=== PATIENT | female | born 1955 | race Caucasian/White ===

== ENCOUNTER 2017-05-28 04:05 | Inpatient (IN) | payer MEDICAID ==
[~2017-05-28] VITALS: Ht 165.1 cm; Wt 108.9 kg
[~2017-05-28 04:05] MED LIST: GLIPIZIDE5 MG ORAL; LEVOTHYROXINE25 MCG ORAL
--- NOTE | 2017-05-28 04:14 | Emergency Room Report ---
History of Present Illness General Chief Complaint: Altered Mental Status Source: Patient, Family Member, EMS Present Illness HPI The patient was brought in for altered level of consciousness with grunting respirations. There is also evidence of oral trauma. She fell apparently twice yesterday. There was no observed seizure activity. Accu-Chek in the field was 124. She has a history of diabetes. Patient complains about some shoulder pain 4/10 - aching, worse when she moves them. Her mentation according to paramedics is improving even as they have the delivered her here. There is no headache. No nausea vomiting or chest pain per se. Her mentation has been off the past few days and also she has been weak. She has a history of liver problems and low platelets. She had a platelet transfusion several months ago at [facility]. The son does not know if the diagnosis was "cirrhosis". Nature of liver problem unclear. She has diabetes. She is on glypizide. No melena, vomiting, cough. She was incontinent of urine 2 days ago. She has some dysuria. Allergies: Coded Allergies: No Known Allergies (Unverified , 05/28/17) Patient History Past Medical History: see triage record, other - thrombocytopenia, hypothyroid Social History: Denies: smoking Social History Narrative with family Reviewed Nursing Documentation: PMH: Agreed, PSxH: Agreed Nursing Documentation-PMH Past Medical History: No History, Except For Hx Diabetes: Yes Review of Systems All Other Systems: negative except mentioned in HPI Physical Exam Vital Signs Date Time Temp Pulse Resp B/P (MAP) Pulse Ox O2 Delivery O2 Flow Rate FiO2 05/28/17 03:57 102 26 128/64 98 Room Air Sp02 EP Interpretation: reviewed, normal General Appearance: lethargic - but answers questions Head: normocephalic Eyes: bilateral eye normal inspection, bilateral eye PERRL, bilateral eye EOMI ENT: moist mucus membranes - tongue maceration Neck: supple Respiratory: lungs clear, normal breath sounds Cardiovascular #1: regular rate, rhythm Cardiovascular #2: 2+ radial (R) Gastrointestinal: normal inspection, normal bowel sounds, non tender, no mass, non-distended Musculoskeletal: back normal, gait/station normal, normal range of motion, other - some shoulder tenderness with AROM Neurologic: alert, motor strength/tone normal, DTRs symmetric, sensory intact, speech normal, oriented - X2 Psychiatric: other - somewhat lethargic Skin: warm/dry, other - sallo Medical Decision Making Diagnostic Impression: Primary Impression: Sepsis Qualified Codes: A41.9 - Sepsis, unspecified organism Additional Impressions: Seizure Fever Qualified Codes: R50.9 - Fever, unspecified Liver failure Qualified Codes: K72.91 - Hepatic failure, unspecified with coma UTI (urinary tract infection) Qualified Codes: N30.00 - Acute cystitis without hematuria Thrombocytopenia Coagulopathy Hepatic encephalopathy Diabetes Qualified Codes: E11.8 - Type 2 diabetes mellitus with unspecified complications ER Course Patient presents with ALOC, falling episodes and tongue trauma. DDx: seizure, bleed, encephalopathy, electrolyte abnormalities (low sodium), AMI, occult infection. Very complex patient needing extensive w/u with EKG, CT head, labs, UA. Clinically, hx and exam suggests new onset seizure and ativan and keppra begun. Son reports that the patient's muscle and joint aches and felt hot at home. The temperature was done at that time and found to be 103. The cultures lactate ammonia and type and screen are done. The patient was initially set up for a lumbar puncture however because of low platelets and coagulopathy this is contraindicated. Antibiotics are begun empirically and also patient given a dose of Decadron IV. Unable to do LP due to low platelets and coagulopathy. Will treat for presumptuous meningitis. With UTI source, meningitis less likely. Ammonia pending. Ammonia high. Lactulose ordered. Contacted Dr. Mason for admission. Admit MENDOZA. Laboratory Tests Test 05/28/17 04:15 05/28/17 05:48 05/28/17 06:00 05/28/17 08:45 White Blood Count 3.8 K/UL (4.8-10.8) L Red Blood Count 3.72 M/UL (4.20-5.40) L Hemoglobin 10.7 G/DL (12.0-16.0) L Hematocrit 32.2 % (37.0-47.0) L Mean Corpuscular Volume 86 FL (80-99) Mean Corpuscular Hemoglobin 28.8 PG (27.0-31.0) Mean Corpuscular Hemoglobin Concent 33.4 G/DL (32.0-36.0) Red Cell Distribution Width 14.3 % (11.6-14.8) Platelet Count 50 K/UL (150-450) L Mean Platelet Volume 14.4 FL (6.5-10.1) H Neutrophils (%) (Auto) % (45.0-75.0) Lymphocytes (%) (Auto) % (20.0-45.0) Monocytes (%) (Auto) % (1.0-10.0) Eosinophils (%) (Auto) % (0.0-3.0) Basophils (%) (Auto) % (0.0-2.0) Differential Total Cells Counted 100 Neutrophils % (Manual) 72 % (45-75) Lymphocytes % (Manual) 17 % (20-45) L Monocytes % (Manual) 4 % (1-10) Eosinophils % (Manual) 0 % (0-3) Basophils % (Manual) 1 % (0-2) Band Neutrophils 6 % (0-8) Platelet Estimate Decreased L Platelet Morphology Normal Red Blood Cell Morphology Normal Erythrocyte Sedimentation Rate 82 MM/HR (0-30) H Prothrombin Time 13.1 SEC (9.30-11.50) H Prothrombin Time INR 1.2 (0.9-1.1) H Sodium Level 136 mEQ/L (135-145) Potassium Level 3.9 mEQ/L (3.4-4.9) Chloride Level 101 mEQ/L (98-107) Carbon Dioxide Level 21 mEQ/L (20-30) Anion Gap 14 (5-15) Blood Urea Nitrogen 14 mg/dL (7-23) Creatinine 0.9 mg/dL (0.5-0.9) Estimate Glomerular Filtration Rate > 60 mL/min (>60) Glucose Level 140 mg/dL (74-106) H Calcium Level 8.0 mg/dL (8.6-10.2) L Total Bilirubin 2.6 mg/dL (0.0-1.2) H Direct Bilirubin 0.8 mg/dL (0.1-0.3) H Aspartate Amino Transferase (AST) 61 U/L (5-40) H Alanine Aminotransferase (ALT) 31 U/L (3-33) Alkaline Phosphatase 112 U/L (35-104) H Total Creatine Kinase 721 U/L (26-140) H Troponin I < 0.30 ng/mL (<=0.30) Total Protein 7.0 g/dL (6.6-8.7) Albumin 3.0 g/dL (3.5-5.2) L Globulin 4.0 g/dL Albumin/Globulin Ratio 0.7 (1.0-2.7) L Thyroid Stimulating Hormone (TSH) 3.230 uIU/mL (0.300-4.500) Urine Color Yellow Urine Appearance Slightly cloudy Urine pH 5 (4.5-8.0) Urine Specific [place] 1.015 (1.005-1.035) Urine Protein 2+ (NEGATIVE) H Urine Glucose (UA) Negative (NEGATIVE) Urine Ketones Negative (NEGATIVE) Urine Occult Blood 5+ (NEGATIVE) H Urine Nitrite Positive (NEGATIVE) H Urine Bilirubin Negative (NEGATIVE) Urine Urobilinogen 1 MG/DL (0.0-1.0) H Urine Leukocyte Esterase 3+ (NEGATIVE) H Urine RBC 2-4 /HPF (0 - 2) H Urine WBC 60-80 /HPF (0 - 2) H Urine Squamous Epithelial Cells Few /LPF (NONE/OCC) Urine Bacteria Moderate /HPF (NONE) H Urine Opiates Screen Negative (NEGATIVE) Urine Barbiturates Screen Negative (NEGATIVE) Phencyclidine (PCP) Screen Negative (NEGATIVE) Urine Amphetamines Screen Negative (NEGATIVE) Urine Benzodiazepines Screen Negative (NEGATIVE) Urine Cocaine Screen Negative (NEGATIVE) Urine Marijuana (THC) Screen Negative (NEGATIVE) Lactic Acid Level 2.60 mmol/L (0.66-2.22) H 1.20 mmol/L (0.66-2.22) Ammonia 131 umol/L (11-51) H EKG Diagnostic Results Rate: normal Rhythm: NSR ST Segments: no acute changes - sinus arrhythmia Rhythm Strip Diag. Results EP Interpretation: yes Rhythm: NSR, no PVC's, no ectopy Chest X-Ray Diagnostic Results Chest X-Ray Diagnostic Results : Chest X-Ray Ordered: Yes # of Views/Limited/Complete: 1 View Indication: Other EP Interpretation: Yes Interpretation: no effusion, no pneumothorax, other - atelectasis L Impression: Other Electronically Signed by: El Skelton MD CT/MRI/US Diagnostic Results CT/MRI/US Diagnostic Results : Imaging Test Ordered: head Impression no bleed, masses Status: improved Disposition: ADMITTED INPATIENT Condition: Serious El Skelton M.D. May 28, 2017 04:14
[2017-05-28] MEDS ORDERED: levETIRAcetam 500 MG in D5W 110 ML IV ONE (04:15)
[2017-05-28] MEDS ORDERED: LORazepam Inj 2mg/ml 1ml IV ONE (04:15)
[2017-05-28] MEDS ORDERED: levETIRAcetam 500mg vial IV ONE (04:21)
[2017-05-28 04:58] LABS: TROPONIN I < 0.30 ng/mL (<=0.30)
[2017-05-28 04:59] LABS: ALANINE AMINOTRANSFERASE 31 U/L (3-33); ALBUMIN/GLOBULIN RATIO 0.7 (1.0-2.7); ANION GAP 14 (5-15); ASPARTATE AMINO TRANSFERASE 61 U/L (5-40); CARBON DIOXIDE 21 mEQ/L (20-30); CHLORIDE 101 mEQ/L (98-107); CREATININE 0.9 mg/dL (0.5-0.9); GLOMERULAR FILTRATION RATE > 60 mL/min (>60); HEMOLYSIS 4; POTASSIUM 3.9 mEQ/L (3.4-4.9); SODIUM 136 mEQ/L (135-145)
[2017-05-28 05:05] LABS: INR 1.2 (0.9-1.1); PROTHROMBIN TIME 13.1 SEC (9.30-11.50)
[2017-05-28 05:28] LABS: MEAN CORPUSCULAR HEMOGLOBIN 28.8 PG (27.0-31.0); MEAN CORPUSCULAR HGB CONC 33.4 G/DL (32.0-36.0); MEAN CORPUSCULAR VOLUME 86 FL (80-99); MEAN PLATELET VOLUME 14.4 FL (6.5-10.1); RED BLOOD COUNT 3.72 M/UL (4.20-5.40); RED CELL DISTRIBUTION WIDTH 14.3 % (11.6-14.8); WHITE BLOOD COUNT 3.8 K/UL (4.8-10.8)
[2017-05-28 05:30] VITALS: BP 104/62
[2017-05-28 05:33] LABS: PLATELET COUNT 50 K/UL (150-450)
[2017-05-28] MEDS ORDERED: Cefepime HCl 1 GM in D5W 55 ML IVPB ONE (06:00)
[2017-05-28] MEDS ORDERED: Vancomycin 1.5gm/D5W 250ml 250 ML IVPB ONE (06:00)
[2017-05-28] MEDS ORDERED: Dexamethasone 4mg/ml vial IVP ONE (06:00)
[2017-05-28] MEDS ORDERED: Acetaminophen 650 MG SUPP RECTAL ONE (06:15)
[2017-05-28] MEDS ORDERED: Cefepime 1gm vial ONE (06:26)
[2017-05-28 06:37] LABS: APPEARANCE,URINE SLIGHTLY CLOUDY; KETONES,URINE NEGATIVE (NEGATIVE); LEUKOCYTE ESTERASE ,URINE 3+ (NEGATIVE); NITRITE,URINE POSITIVE (NEGATIVE); PH,URINE 5 (4.5-8.0); PROTEIN,URINE 2+ (NEGATIVE); UROBILINOGEN,URINE 1 MG/DL (0.0-1.0)
[2017-05-28 06:46] LABS: BACTERIA,URINE MODERATE /HPF; SQUAMOUS EPITHELIAL CELL,UR FEW /LPF (NONE/OCC); WBC,URINE 60-80 /HPF (0 - 2)
[2017-05-28 07:01] LABS: BILIRUBIN,DIRECT 0.8 mg/dL (0.1-0.3)
[2017-05-28 07:14] LABS: REFLEX LACTIC ACID YES OR NO YES
[2017-05-28 07:28] LABS: BAND NEUTROPHILS % (MANUAL) 6 % (0-8); BASOPHILS % (MANUAL) 1 % (0-2); LYMPHOCYTES % (MANUAL) 17 % (20-45); NEUTROPHILS % (MANUAL) 72 % (45-75); TOTAL CELLS COUNTED 100
[2017-05-28 07:30] LABS: EOSINOPHILS % (MANUAL) 0 % (0-3); PLATELET ESTIMATE DECREASED; PLATELET MORPHOLOGY NORMAL
[2017-05-28] MEDS ORDERED: NS IVLG ONE (07:30)
[2017-05-28] MEDS ORDERED: Lactulose 200 GM in NS Irrig 1000ml 700 ML RECTAL ONE (07:30)
[2017-05-28 07:32] VITALS: BP 135/53
[2017-05-28] MEDS ORDERED: Lactulose 20gm/30ml UDC ONE (07:38)
[2017-05-28 09:00] LABS: ERYTHROCYTE SEDIMENTATION RATE 82 MM/HR (0-30)
--- NOTE | 2017-05-28 09:01 | Diagnostic Imaging Report ---
Indication: ALOC Technique: Continuous helical CT scanning of the head was performed without intravenous contrast material. Axial and coronal 5 mm sections were generated. Radiation dose was minimized using automated exposure control Dose: Total Dose Length Product - DLP [address] Dose Index - CTDIvol(s) 70.38 mGy. Comparison: None Findings: The ventricular system is normal in size and configuration. There is no shift of midline structures. No abnormal extra-axial fluid collections are noted. There is no evidence of intracerebral bleeding. No other abnormal high or low density areas are noted within the brain. Normal prescott-white differentiation. Visualized orbits and sinuses are unremarkable. The calvarium is intact Impression: Normal CT scan of the head without contrast material. This agrees with the preliminary interpretation provided overnight by [facility]erad[facility] service. The CT scanner at [facility] is accredited by the [employer] and the scans are performed using protocols designed to limit radiation exposure to as low as reasonably achievable to attain images of sufficient resolution adequate for diagnostic evaluation.
[2017-05-28] MEDS ORDERED: LORazepam Inj 2mg/ml 1ml IV PRN (10:30)
[2017-05-28] MEDS ORDERED: Morphine Sulfate 2mg/ml Inj IVP PRN (10:30)
[2017-05-28] MEDS ORDERED: Mylanta II UD 30ml ORAL PRN (10:30)
--- NOTE | 2017-05-28 10:51 | Consultation ---
Consult Note Consult Note ID dic # [id number] JOSE ROBERTO CASTRO M.D. May 28, 2017 10:51
[2017-05-28] MEDS: Lactulose 20gm/30ml UDC ORAL SCH ×2 (11:27→17:21)
--- NOTE | 2017-05-28 11:29 | History and Physical ---
History of Present Illness General Date patient seen: May 28, 2017 Reason for Hospitalization: Altered Mental Status Present Illness HPI 62 year old female with hx of Chronic Liver disease ( recent biopsy showing Fatty liver) was brought in for altered level of consciousness. Her nephew witness unusual jerking. Bu he doesn't how if it was shaking or seizures. She fell apparently twice yesterday. There is no observed seizure activity. She is somnolent but opens her eyes when called her name and knows her name to fall sleep again. Allergies: Coded Allergies: No Known Allergies (Unverified , 05/28/17) Medication History Scheduled Glipizide* (Glipizide*), 5 MG ORAL BIDAC, (Reported) Levothyroxine Sodium* (Levothyroxine Sodium*), 25 MCG ORAL DAILY, (Reported) Patient History Healthcare decision maker Resuscitation status Advanced Directive on File Past Medical/Surgical History Past Medical/Surgical History: (1) Diabetes (2) Chronic liver disease Review of Systems All Other Systems: negative except mentioned in HPI Physical Exam General Appearance: WD/WN Lines, tubes and drains: peripheral HEENT: normocephalic, atraumatic Neck: non-tender, normal alignment Respiratory/Chest: chest wall non-tender, lungs clear Breasts: no masses Cardiovascular/Chest: normal peripheral pulses Abdomen: normal bowel sounds Genitourinary/Rectal: normal genital exam, normal rectal exam Extremities: normal range of motion Skin Exam: normal pigmentation 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 Last 24 Hour Vital Signs Date Time Temp Pulse Resp B/P (MAP) Pulse Ox O2 Delivery O2 Flow Rate FiO2 05/28/17 11:03 100.3 89 19 135/53 98 Room Air 05/28/17 07:34 100.3 05/28/17 07:32 100.3 89 19 135/53 98 Room Air 05/28/17 05:30 103.8 96 26 104/62 98 Room Air 05/28/17 03:57 102 26 128/64 98 Room Air Intake and Output 05/28/17 05/29/17 19:00 07:00 Intake Total 2055 ml Balance 2055 ml Intake Oral 0 ml IV Total 2055 ml Laboratory Tests Test 05/28/17 04:15 05/28/17 05:48 05/28/17 06:00 05/28/17 08:45 White Blood Count 3.8 K/UL (4.8-10.8) L Red Blood Count 3.72 M/UL (4.20-5.40) L Hemoglobin 10.7 G/DL (12.0-16.0) L Hematocrit 32.2 % (37.0-47.0) L Mean Corpuscular Volume 86 FL (80-99) Mean Corpuscular Hemoglobin 28.8 PG (27.0-31.0) Mean Corpuscular Hemoglobin Concent 33.4 G/DL (32.0-36.0) Red Cell Distribution Width 14.3 % (11.6-14.8) Platelet Count 50 K/UL (150-450) L Mean Platelet Volume 14.4 FL (6.5-10.1) H Neutrophils (%) (Auto) % (45.0-75.0) Lymphocytes (%) (Auto) % (20.0-45.0) Monocytes (%) (Auto) % (1.0-10.0) Eosinophils (%) (Auto) % (0.0-3.0) Basophils (%) (Auto) % (0.0-2.0) Differential Total Cells Counted 100 Neutrophils % (Manual) 72 % (45-75) Lymphocytes % (Manual) 17 % (20-45) L Monocytes % (Manual) 4 % (1-10) Eosinophils % (Manual) 0 % (0-3) Basophils % (Manual) 1 % (0-2) Band Neutrophils 6 % (0-8) Platelet Estimate Decreased L Platelet Morphology Normal Red Blood Cell Morphology Normal Erythrocyte Sedimentation Rate 82 MM/HR (0-30) H Prothrombin Time 13.1 SEC (9.30-11.50) H Prothromb Time International Ratio 1.2 (0.9-1.1) H Sodium Level 136 mEQ/L (135-145) Potassium Level 3.9 mEQ/L (3.4-4.9) Chloride Level 101 mEQ/L (98-107) Carbon Dioxide Level 21 mEQ/L (20-30) Anion Gap 14 (5-15) Blood Urea Nitrogen 14 mg/dL (7-23) Creatinine 0.9 mg/dL (0.5-0.9) Estimat Glomerular Filtration Rate > 60 mL/min (>60) Glucose Level 140 mg/dL (74-106) H Calcium Level 8.0 mg/dL (8.6-10.2) L Total Bilirubin 2.6 mg/dL (0.0-1.2) H Direct Bilirubin 0.8 mg/dL (0.1-0.3) H Aspartate Amino Transf (AST/SGOT) 61 U/L (5-40) H Alanine Aminotransferase (ALT/SGPT) 31 U/L (3-33) Alkaline Phosphatase 112 U/L (35-104) H Total Creatine Kinase 721 U/L (26-140) H Troponin I < 0.30 ng/mL (<=0.30) Total Protein 7.0 g/dL (6.6-8.7) Albumin 3.0 g/dL (3.5-5.2) L Globulin 4.0 g/dL Albumin/Globulin Ratio 0.7 (1.0-2.7) L Thyroid Stimulating Hormone (TSH) 3.230 uIU/mL (0.300-4.500) Urine Color Yellow Urine Appearance Slightly cloudy Urine pH 5 (4.5-8.0) Urine Specific [place] 1.015 (1.005-1.035) Urine Protein 2+ (NEGATIVE) H Urine Glucose (UA) Negative (NEGATIVE) Urine Ketones Negative (NEGATIVE) Urine Occult Blood 5+ (NEGATIVE) H Urine Nitrite Positive (NEGATIVE) H Urine Bilirubin Negative (NEGATIVE) Urine Urobilinogen 1 MG/DL (0.0-1.0) H Urine Leukocyte Esterase 3+ (NEGATIVE) H Urine RBC 2-4 /HPF (0 - 2) H Urine WBC 60-80 /HPF (0 - 2) H Urine Squamous Epithelial Cells Few /LPF (NONE/OCC) Urine Bacteria Moderate /HPF (NONE) H Urine Opiates Screen Negative (NEGATIVE) Urine Barbiturates Screen Negative (NEGATIVE) Phencyclidine (PCP) Screen Negative (NEGATIVE) Urine Amphetamines Screen Negative (NEGATIVE) Urine Benzodiazepines Screen Negative (NEGATIVE) Urine Cocaine Screen Negative (NEGATIVE) Urine Marijuana (THC) Screen Negative (NEGATIVE) Lactic Acid Level 2.60 mmol/L (0.66-2.22) H 1.20 mmol/L (0.66-2.22) Ammonia 131 umol/L (11-51) H Height (Feet): 5 Height (Inches): 1.00 Weight (Pounds): 300 Medications Current Medications Medications (Trade) Dose Ordered Sig/Antoni Route PRN Reason Start Time Stop Time Status Last Admin Dose Admin Acetaminophen (Tylenol) 650 mg Q4H PRN ORAL fever>100.5 05/28/17 10:00 06/27/17 09:59 Al Hydroxide/Mg Hydroxide (Mylanta II) 30 ml Q6H PRN ORAL dyspepsia 05/28/17 10:30 06/27/17 10:29 Cefepime HCl 2 gm/ Dextrose 110 ml @ 220 mls/hr EVERY 12 HOURS IVPB 05/28/17 14:00 06/04/17 13:59 Dextrose (Dextrose 50%) STAT PRN IV Hypoglycemia 05/28/17 10:30 06/27/17 10:29 Lactulose (Cephulac) 30 gm EVERY 6 HOURS ORAL 05/28/17 12:00 06/27/17 11:59 Lorazepam (Ativan 2mg/ml 1ml) 0.5 mg Q4H PRN IV For Anxiety 05/28/17 10:30 06/04/17 10:29 Morphine Sulfate (Morphine Sulfate) 2 mg Q4H PRN IVP For Pain 05/28/17 10:30 06/04/17 10:29 Ondansetron HCl (Zofran) 4 mg Q6H PRN IVP Nausea & Vomiting 05/28/17 10:30 06/27/17 10:29 Polyethylene Glycol (Miralax) 17 gm HSPRN PRN ORAL Constipation 05/28/17 21:00 06/27/17 20:59 Zolpidem Tartrate (Ambien) 5 mg HSPRN PRN ORAL Insomnia 05/28/17 21:00 06/04/17 20:59 Assessment/Plan Problem List: (1) Sepsis ICD Codes: A41.9 - Sepsis, unspecified organism SNOMED: 24787634 (2) Seizure ICD Codes: R56.9 - Unspecified convulsions SNOMED: 94125682 (3) Fever ICD Codes: R50.9 - Fever, unspecified SNOMED: 701479397 (4) Hepatic encephalopathy ICD Codes: K72.90 - Hepatic failure, unspecified without coma SNOMED: 81754800 (5) Chronic liver disease ICD Codes: K76.9 - Liver disease, unspecified SNOMED: 742959437 (6) Thrombocytopenia ICD Codes: D69.6 - Thrombocytopenia, unspecified SNOMED: 440818677 (7) Coagulopathy ICD Codes: D68.9 - Coagulation defect, unspecified SNOMED: 11218714 Assessment/Plan ruiz cultures lactulose IV abx liver studies GI evaluation Neuro evaluation siding scale. MELISSA MYERS May 28, 2017 11:29
[2017-05-28 11:43] VITALS: BP 107/62
--- NOTE | 2017-05-28 12:50 | GI Initial Consult Note ---
History of Present Illness General Date patient seen: May 28, 2017 Time patient seen: 12:00 Reason for Hospitalization: Altered Mental Status Referring physician: MELISSA SANCHEZ Reason for Consultation: HEPATIC ENCEPHALOPATHY Present Illness HPI The patient was brought in for altered level of consciousness with grunting respirations. There is also evidence of oral trauma. She fell apparently twice yesterday. There is no observed seizure activity. Accu-Chek in the field was 124. She has a history of diabetes. Patient complains about 10 pain and shoulder pain. Her mentation according to paramedics is improving even as they have the liver here. There is no headache. No nausea vomiting or chest pain per se. GI Consult. HPI as noted above. GI consulted for hepatic encephalopathy. ROS limited, patient has slight confusing. Pt seen on floor awake A&O NAD with no active s/sx of N/V/D. Per the nephew the patient mental baseline was altered prior to being admitted to the hospital. The nephew states the patient has had multiple abdominal U/S's that showed fatty liver. No known history of endoscopic procedures. Patient presents today with elevated lactic acid, abnormal LFTs and elevated ammonia levels 2/2 to hepatic disease of unknown origin. The nephew denies any current or past history of heavy ETOH use. Home Meds Reported Medications Levothyroxine Sodium* (LEVOTHYROXINE SODIUM*) 25 Mcg Tablet, 25 MCG ORAL DAILY, TAB Take in the morning on an empty stomach, at least 30 minutes before food. 05/28/17 Glipizide* (GLIPIZIDE*) 5 Mg Tablet, 5 MG ORAL BIDAC, TAB 05/28/17 Med list reviewed/reconciled: Yes Allergies: Coded Allergies: No Known Allergies (Unverified , 05/28/17) Patient History PMH Narrative Social History Narrative with family Reviewed Nursing Documentation: PMH: Agreed, PSxH: Agreed Nursing Documentation-PMH Past Medical History: No History, Except For Hx Diabetes: Yes Social History: Denies: smoking, alcohol use, drug use, other Review of Systems All Other Systems: limited Physical Exam Vital Signs Date Time Temp Pulse Resp B/P (MAP) Pulse Ox O2 Delivery O2 Flow Rate FiO2 05/28/17 03:57 102 26 128/64 98 Room Air 05/28/17 05:30 103.8 Sp02 EP Interpretation: reviewed Labs Laboratory Tests Test 05/28/17 04:15 05/28/17 05:48 05/28/17 06:00 05/28/17 08:45 White Blood Count 3.8 K/UL (4.8-10.8) L Red Blood Count 3.72 M/UL (4.20-5.40) L Hemoglobin 10.7 G/DL (12.0-16.0) L Hematocrit 32.2 % (37.0-47.0) L Mean Corpuscular Volume 86 FL (80-99) Mean Corpuscular Hemoglobin 28.8 PG (27.0-31.0) Mean Corpuscular Hemoglobin Concent 33.4 G/DL (32.0-36.0) Red Cell Distribution Width 14.3 % (11.6-14.8) Platelet Count 50 K/UL (150-450) L Mean Platelet Volume 14.4 FL (6.5-10.1) H Neutrophils (%) (Auto) % (45.0-75.0) Lymphocytes (%) (Auto) % (20.0-45.0) Monocytes (%) (Auto) % (1.0-10.0) Eosinophils (%) (Auto) % (0.0-3.0) Basophils (%) (Auto) % (0.0-2.0) Differential Total Cells Counted 100 Neutrophils % (Manual) 72 % (45-75) Lymphocytes % (Manual) 17 % (20-45) L Monocytes % (Manual) 4 % (1-10) Eosinophils % (Manual) 0 % (0-3) Basophils % (Manual) 1 % (0-2) Band Neutrophils 6 % (0-8) Platelet Estimate Decreased L Platelet Morphology Normal Red Blood Cell Morphology Normal Erythrocyte Sedimentation Rate 82 MM/HR (0-30) H Prothrombin Time 13.1 SEC (9.30-11.50) H Prothromb Time International Ratio 1.2 (0.9-1.1) H Sodium Level 136 mEQ/L (135-145) Potassium Level 3.9 mEQ/L (3.4-4.9) Chloride Level 101 mEQ/L (98-107) Carbon Dioxide Level 21 mEQ/L (20-30) Anion Gap 14 (5-15) Blood Urea Nitrogen 14 mg/dL (7-23) Creatinine 0.9 mg/dL (0.5-0.9) Estimat Glomerular Filtration Rate > 60 mL/min (>60) Glucose Level 140 mg/dL (74-106) H Calcium Level 8.0 mg/dL (8.6-10.2) L Total Bilirubin 2.6 mg/dL (0.0-1.2) H Direct Bilirubin 0.8 mg/dL (0.1-0.3) H Aspartate Amino Transf (AST/SGOT) 61 U/L (5-40) H Alanine Aminotransferase (ALT/SGPT) 31 U/L (3-33) Alkaline Phosphatase 112 U/L (35-104) H Total Creatine Kinase 721 U/L (26-140) H Troponin I < 0.30 ng/mL (<=0.30) Total Protein 7.0 g/dL (6.6-8.7) Albumin 3.0 g/dL (3.5-5.2) L Globulin 4.0 g/dL Albumin/Globulin Ratio 0.7 (1.0-2.7) L Thyroid Stimulating Hormone (TSH) 3.230 uIU/mL (0.300-4.500) Urine Color Yellow Urine Appearance Slightly cloudy Urine pH 5 (4.5-8.0) Urine Specific [place] 1.015 (1.005-1.035) Urine Protein 2+ (NEGATIVE) H Urine Glucose (UA) Negative (NEGATIVE) Urine Ketones Negative (NEGATIVE) Urine Occult Blood 5+ (NEGATIVE) H Urine Nitrite Positive (NEGATIVE) H Urine Bilirubin Negative (NEGATIVE) Urine Urobilinogen 1 MG/DL (0.0-1.0) H Urine Leukocyte Esterase 3+ (NEGATIVE) H Urine RBC 2-4 /HPF (0 - 2) H Urine WBC 60-80 /HPF (0 - 2) H Urine Squamous Epithelial Cells Few /LPF (NONE/OCC) Urine Bacteria Moderate /HPF (NONE) H Urine Opiates Screen Negative (NEGATIVE) Urine Barbiturates Screen Negative (NEGATIVE) Phencyclidine (PCP) Screen Negative (NEGATIVE) Urine Amphetamines Screen Negative (NEGATIVE) Urine Benzodiazepines Screen Negative (NEGATIVE) Urine Cocaine Screen Negative (NEGATIVE) Urine Marijuana (THC) Screen Negative (NEGATIVE) Lactic Acid Level 2.60 mmol/L (0.66-2.22) H 1.20 mmol/L (0.66-2.22) Ammonia 131 umol/L (11-51) H General Appearance: no apparent distress, alert, obese, other - periods of confusion Head: normocephalic EENT: PERRL/EOMI, normal ENT inspection Neck: supple Respiratory: normal breath sounds, no respiratory distress Cardiovascular: normal rate Gastrointestinal: normal inspection, non tender, soft Rectal: deferred Musculoskeletal: back normal Neurologic: alert Skin: normal inspection, normal color, no rash, warm/dry Lymphatic: normal inspection, no adenopathy Current Medications Current Medications Medications (Trade) Dose Ordered Sig/Antoni Route PRN Reason Start Time Stop Time Status Last Admin Dose Admin Acetaminophen (Tylenol) 650 mg Q4H PRN ORAL fever>100.5 05/28/17 10:00 06/27/17 09:59 Al Hydroxide/Mg Hydroxide (Mylanta II) 30 ml Q6H PRN ORAL dyspepsia 05/28/17 10:30 06/27/17 10:29 Cefepime HCl 2 gm/ Dextrose 110 ml @ 220 mls/hr EVERY 12 HOURS IVPB 05/28/17 14:00 06/04/17 13:59 Dextrose (Dextrose 50%) STAT PRN IV Hypoglycemia 05/28/17 10:30 06/27/17 10:29 Lactulose (Cephulac) 30 gm EVERY 6 HOURS ORAL 05/28/17 12:00 06/27/17 11:59 05/28/17 11:27 Lorazepam (Ativan 2mg/ml 1ml) 0.5 mg Q4H PRN IV For Anxiety 05/28/17 10:30 06/04/17 10:29 Morphine Sulfate (Morphine Sulfate) 2 mg Q4H PRN IVP For Pain 05/28/17 10:30 06/04/17 10:29 Ondansetron HCl (Zofran) 4 mg Q6H PRN IVP Nausea & Vomiting 05/28/17 10:30 06/27/17 10:29 Polyethylene Glycol (Miralax) 17 gm HSPRN PRN ORAL Constipation 05/28/17 21:00 06/27/17 20:59 Sodium Chloride 1,000 ml @ 50 mls/hr Q20H IV 05/28/17 12:30 06/27/17 12:29 UNV Zolpidem Tartrate (Ambien) 5 mg HSPRN PRN ORAL Insomnia 9/25/17 21:00 06/04/17 20:59 GI: Plan Problems: (1) Anemia (2) Liver failure (3) Thrombocytopenia (4) Hepatic encephalopathy (5) Diabetes Plan Head CT >> negative EGD/colonoscopy tentatively scheduled for Sunday - low sodium diet after imaging study, CLD tomorrow. anemia work up OB stool r/o GI bleed ppi cont lactulose, add Xifaxan fu hepatitis panel fu abdominal U/S fu paracentesis monitor H&H, prn transfusion fu labs Discussed with Dr. Madden. Thank you for referring this patient, we will follow. Kassidy Swain N.P. May 28, 2017 12:50
[2017-05-28] MEDS: Cefepime 2gm in D5W 110ml IVPB SCH ×2 (13:28→20:55)
[2017-05-28] MEDS ORDERED: Cefepime HCl 1 GM in D5W 55 ML IV SCH (14:00)
--- NOTE | 2017-05-28 15:57 | Diagnostic Imaging Report ---
Indication: Cough Technique: One view of the chest Comparison: none Findings: Body habitus limits evaluation. The heart is mildly enlarged. There is equivocal mild interstitial congestion. No focal airspace consolidation. The pleural spaces are clear. Impression: Equivocal mild interstitial congestion. Correlate with clinical findings Cardiomegaly This agrees with the preliminary interpretation provided by the emergency room physician
[2017-05-28 16:00] VITALS: BP 104/61
--- NOTE | 2017-05-28 16:57 | Diagnostic Imaging Report ---
Indication: ABD PAIN abdominal distention Technique: Diaz-scale and duplex images of the upper abdomen were obtained Comparison: None Findings: Gallbladder demonstrates wall thickening, gallbladder wall measuring up to 10 mm thick. There is also trace pericholecystic fluid. There are gallstones. Sonographic Acevedo's is unable to be assessed, patient had pain medication prior to the exam. Common bile duct measures 6 mm in diameter. No intrahepatic biliary ductal dilatation. Liver demonstrates coarsened echogenicity. It also demonstrates surface micro-nodularity. No focal abnormality. Portal vein and hepatic veins are patent. Pancreas is unremarkable. The spleen is enlarged, measures 15.5 cm long axis dimension. There are splenic hilar varices noted. Left kidney measures 13 cm in length. Right kidney measures 12.3 cm length. Both kidneys demonstrate normal echogenicity. There is no hydronephrosis. No focal abnormality . Abdominal aorta is partially obscured by bowel gas, visualized portions are non-aneurysmal . No ascites fluid demonstrated Impression: Evidence of hepatic cirrhosis, with coarsened echotexture and surface nodularity Gallbladder wall thickening, likely secondary to the above. However, there are gallstones, and therefore the possibility of acute cholecystitis should also be considered. Consider nuclear medicine hepatobiliary scan if there is high clinical suspicion Splenomegaly Splenic hilar varices Note inability to visualize portions of the abdominal aorta
[2017-05-28 20:00] VITALS: BP 114/61
[2017-05-28] MEDS ORDERED: Zolpidem 5mg tab ORAL PRN (21:00)
[2017-05-28] MEDS ORDERED: Miralax 17gm pkt ORAL PRN (21:00)
[2017-05-29] VITALS: BP 108/58
[2017-05-29] MEDS: Lactulose 20gm/30ml UDC ORAL SCH ×4 (00:50→17:14)
[2017-05-29 04:00] VITALS: BP 92/52
[2017-05-29 04:57] LABS: MEAN CORPUSCULAR HEMOGLOBIN 29.2 PG (27.0-31.0); MEAN CORPUSCULAR HGB CONC 33.2 G/DL (32.0-36.0); MEAN CORPUSCULAR VOLUME 88 FL (80-99); PLATELET COUNT 41 K/UL (150-450); RED BLOOD COUNT 3.31 M/UL (4.20-5.40); RED CELL DISTRIBUTION WIDTH 14.7 % (11.6-14.8); WHITE BLOOD COUNT 5.3 K/UL (4.8-10.8)
[2017-05-29 05:27] LABS: ALANINE AMINOTRANSFERASE 30 U/L (3-33); ALBUMIN/GLOBULIN RATIO 0.7 (1.0-2.7); ANION GAP 10 (5-15); ASPARTATE AMINO TRANSFERASE 57 U/L (5-40); CALCIUM 7.8 mg/dL (8.6-10.2); CARBON DIOXIDE 19 mEQ/L (20-30); CHLORIDE 110 mEQ/L (98-107); CHOLESTEROL 84 mg/dL (< 200); CHOLESTEROL/HDL RATIO 2.3 (3.3-4.4); CREATININE 0.6 mg/dL (0.5-0.9); GLOMERULAR FILTRATION RATE > 60 mL/min (>60); HEMOLYSIS 2; LDL CHOLESTEROL CALC 35 mg/dL (60-99); SODIUM 139 mEQ/L (135-145); TOTAL PROTEIN 6.3 g/dL (6.6-8.7)
[2017-05-29 05:30] LABS: AMMONIA 126 umol/L (11-51)
[2017-05-29 05:33] LABS: BILIRUBIN,DIRECT 0.5 mg/dL (0.1-0.3); TOTAL PROTEIN 6.1 g/dL (6.6-8.7)
[2017-05-29 05:38] LABS: THYROID STIMULATING HORMONE 0.703 uIU/mL (0.300-4.500)
[2017-05-29 08:00] VITALS: BP 93/41
--- NOTE | 2017-05-29 08:16 | Consultation ---
DATE OF CONSULTATION: 05/28/2017 INFECTIOUS DISEASES CONSULTATION CONSULTING PHYSICIAN: Ike Russell M.D. REFERRING PHYSICIAN: Alexis Mason M.D. Reason For Consultation: Evaluation of the patient for fever, urinary tract infection, and antibiotic management. History Of Present Illness: The patient is a 62-year-old female, who was brought to the hospital due to altered level of consciousness and pulseless seizure disorder. The patient was found to be febrile and suggestive of a urinary tract infection. The patient will be started on IV cefepime. Infectious Disease consultation has been requested for further evaluation of the patient and antibiotic management. Much of the information is gathered through review of the chart and the patient's family. PAST MEDICAL HISTORY: Significant for: 1. Diabetes. 2. Seizure disorder. 3. Hypothyroidism. 4. Hypertension. 5. Diabetes. MEDICATION: IV cefepime. ALLERGIES: She has no known drug allergies. SOCIAL HISTORY: The patient lives at home. FAMILY HISTORY: Noncontributory. PHYSICAL EXAMINATION: Vital Signs: Temperature is 98, blood pressure 104/69, pulse 86, respiratory rate 18, and T-max 103.8. HEENT: Mild pale conjunctiva. No icterus. NECK: No lymphadenopathy. CHEST: Clear. HEART: S1 and S2. ABDOMEN: Soft and nontender. EXTREMITIES: No cyanosis at this time. NEUROLOGICAL: Awake. Laboratory Data: White blood cells 3, hemoglobin 10, and platelets 50,000. UA 16 to 18 white blood cells, 2 to 4 red blood cells. BUN 14 and creatinine 0.3. AST 61, ALT 51, and alkaline phosphatase is 112. Bilirubin 2.6. Diagnostic Data: Ultrasound of the abdomen, gallbladder wall thickening and gallstones. Chest x-ray showed cardiomegaly. Head CT unremarkable. Assessment: The patient is a 62-year-old female with multiple medical problems, who was admitted to this medical center due to altered level of consciousness. Altered level of consciousness has improved and possible seizure disorder. The patient has: 1. Abnormal liver function tests. Ultrasound showed the gallbladder wall thickening and gallstones, rule out cholecystitis. 2. Pyuria, rule out urinary tract infection. 3. Rule out bacteremia. 4. Leukopenia, anemia, and thrombocytopenia. 5. Rule out human immunodeficiency virus. 6. Rule out West Nile virus. 7. Encephalitis. PLAN: We will put the patient on: 1. IV cefepime. 2. Monitor CBC. 3. Monitor BMP. 4. Monitor cultures, blood and urine. 5. Anti-virus antibody. 6. HIDA scan. 7. Monitor liver function test. 8. Hepatitis B and C serology. 9. Based on the patient's clinical course and laboratories, we will defer the recommendation. Thank you Dr. Mason for allowing me to participate in the care of this patient. I will follow the patient with you during this hospitalization. Ike Russell M.D. DR: SANAZ JOB#: [id number] CC:
[2017-05-29 08:39] LABS: BAND NEUTROPHILS % (MANUAL) 2 % (0-8); LYMPHOCYTES % (MANUAL) 8 % (20-45); NEUTROPHILS % (MANUAL) 80 % (45-75); TOTAL CELLS COUNTED 100
[2017-05-29 08:41] LABS: BASOPHILS % (MANUAL) 0 % (0-2); EOSINOPHILS % (MANUAL) 0 % (0-3); PLATELET ESTIMATE DECREASED; PLATELET MORPHOLOGY NORMAL
[2017-05-29] MEDS: Cefepime 2gm in D5W 110ml IVPB SCH ×2 (09:17→20:47)
[2017-05-29 12:00] VITALS: BP 117/66
--- NOTE | 2017-05-29 12:03 | Pulmonology Progress Note ---
Assessment/Plan Problems: (1) Sepsis (2) Seizure (3) Fever (4) Hepatic encephalopathy (5) Chronic liver disease (6) Thrombocytopenia (7) Coagulopathy Assessment/Plan has episodes of bradycardia, cardiology called plt are low, Hematology called check labs in am check cultures continue abx Subjective ROS Limited/Unobtainable: No Constitutional: Reports: no symptoms HEENT: Repors: no symptoms Allergies: Coded Allergies: No Known Allergies (Unverified , 05/28/17) Objective Last 24 Hour Vital Signs Date Time Temp Pulse Resp B/P (MAP) Pulse Ox O2 Delivery O2 Flow Rate FiO2 05/29/17 08:00 97.1 59 18 93/41 99 Room Air 05/29/17 08:00 51 05/29/17 04:00 58 05/29/17 04:00 97.2 58 18 92/52 99 Room Air 05/29/17 00:00 55 05/29/17 00:00 97.9 57 18 108/58 99 Room Air 05/28/17 20:00 58 05/28/17 20:00 97.3 70 18 114/61 99 Room Air 05/28/17 16:00 98.1 76 18 104/61 99 Room Air 05/28/17 16:00 72 Intake and Output 05/29/17 05/30/17 19:00 07:00 Intake Total 440 ml Balance 440 ml Intake Oral 120 ml IV Total 320 ml General Appearance: WD/WN HEENT: normocephalic, atraumatic Respiratory/Chest: chest wall non-tender, lungs clear Breasts: no masses Cardiovascular: normal peripheral pulses, normal rate, regular rhythm Abdomen: normal bowel sounds, soft, non tender Genitourinary: normal external genitalia Extremities: no clubbing Neurologic/Psychiatric: metal mover II-XII grossly normal, no motor/sensory deficits Lymphatic: no neck adenopathy Microbiology Date/Time Source Procedure Growth Status 05/28/17 05:48 Urine,Clean Catch Urine Culture - Preliminary Gram Negative Bacillus 1 Resulted Laboratory Tests 05/29/17 03:35: White Blood Count 5.3, Red Blood Count 3.31L, Hemoglobin 9.7L, Hematocrit 29.1L , Mean Corpuscular Volume 88, Mean Corpuscular Hemoglobin 29.2, Mean Corpuscular Hemoglobin Concent 33.2, Red Cell Distribution Width 14.7, Platelet Count 41L, Mean Platelet Volume 11.0H, Neutrophils (%) (Auto) , Lymphocytes (%) (Auto) , Monocytes (%) (Auto) , Eosinophils (%) (Auto) , Basophils (%) (Auto) , Differential Total Cells Counted 100, Neutrophils % (Manual) 80H, Lymphocytes % (Manual) 8L, Monocytes % (Manual) 10, Eosinophils % (Manual) 0, Basophils % ( Manual) 0, Band Neutrophils 2, Platelet Estimate DecreasedL, Platelet Morphology Normal, Red Blood Cell Morphology Normal, Sodium Level 139, Potassium Level 4.0, Chloride Level 110H, Carbon Dioxide Level 19L, Anion Gap 10 , Blood Urea Nitrogen 17, Creatinine 0.6, Estimat Glomerular Filtration Rate > 60, Glucose Level 157H, Calcium Level 7.8L, Iron Level 30L, Total Iron Binding Capacity 259, Percent Iron Saturation 12L, Unsaturated Iron Binding 229, Total Bilirubin 1.5H, Direct Bilirubin 0.5H, Aspartate Amino Transf (AST/SGOT) 57H, Alanine Aminotransferase (ALT/SGPT) 30, Alkaline Phosphatase 72, Ammonia 126H, Total Protein 6.3L, Albumin 2.7L, Globulin 3.6, Albumin/Globulin Ratio 0.7L, Triglycerides Level 60, Cholesterol Level 84, LDL Cholesterol 35L, HDL Cholesterol 37, Cholesterol/HDL Ratio 2.3L, Carcinoembryonic Antigen 3.6H, Vitamin B12 Level 125L, Folate [Pending], Thyroid Stimulating Hormone (TSH) 0.703, Free Thyroxine 0.91, West Nile Virus IgG Antibody [Pending], West Nile Virus IgM Antibody [Pending], Hepatitis A IgM Antibody [Pending], Hepatitis B Surface Antigen [Pending], Hepatitis B Core IgM Antibody [Pending], Hepatitis C Antibody [Pending] Current Medications Medications (Trade) Dose Ordered Sig/Antoni Route PRN Reason Start Time Stop Time Status Last Admin Dose Admin Acetaminophen (Tylenol) 650 mg Q4H PRN ORAL fever>100.5 05/28/17 10:00 06/27/17 09:59 Al Hydroxide/Mg Hydroxide (Mylanta II) 30 ml Q6H PRN ORAL dyspepsia 05/28/17 10:30 06/27/17 10:29 Cefepime HCl 2 gm/ Dextrose 110 ml @ 220 mls/hr EVERY 12 HOURS IVPB 05/28/17 14:00 06/04/17 13:59 05/29/17 09:17 Dextrose (Dextrose 50%) STAT PRN IV Hypoglycemia 05/29/17 12:00 06/28/17 11:59 Insulin Aspart (NovoLOG) BEFORE MEALS AND HS SUBQ 05/29/17 16:30 06/28/17 16:29 Lactulose (Cephulac) 30 gm EVERY 6 HOURS ORAL 05/28/17 12:00 06/27/17 11:59 05/29/17 00:50 Levothyroxine Sodium (Synthroid) 25 mcg ACBREAKFAST ORAL 05/30/17 06:30 06/29/17 06:29 Lorazepam (Ativan 2mg/ml 1ml) 0.5 mg Q4H PRN IV For Anxiety 05/28/17 10:30 06/04/17 10:29 Morphine Sulfate (Morphine Sulfate) 2 mg Q4H PRN IVP For Pain 05/28/17 10:30 06/04/17 10:29 Ondansetron HCl (Zofran) 4 mg Q6H PRN IVP Nausea & Vomiting 05/28/17 10:30 06/27/17 10:29 Polyethylene Glycol (Miralax) 17 gm HSPRN PRN ORAL Constipation 05/28/17 21:00 06/27/17 20:59 Rifaximin (Xifaxan) 550 mg EVERY 12 HOURS ORAL 05/28/17 21:00 06/04/17 20:59 05/29/17 09:17 Sodium Chloride 1,000 ml @ 50 mls/hr Q20H IV 05/28/17 14:00 06/27/17 13:59 05/29/17 10:30 Zolpidem Tartrate (Ambien) 5 mg HSPRN PRN ORAL Insomnia 05/28/17 21:00 06/04/17 20:59 MELISSA MYERS May 29, 2017 12:03
--- NOTE | 2017-05-29 13:07 | Neurology Progress Note ---
Interim History Interim History ROS Limited/Unobtainable: No Objective Physical Exam Last Vital Signs Date Time Temp Pulse Resp B/P (MAP) Pulse Ox O2 Delivery O2 Flow Rate FiO2 05/29/17 08:00 97.1 59 18 93/41 99 Room Air Laboratory Tests Test 05/29/17 03:35 White Blood Count 5.3 K/UL (4.8-10.8) Red Blood Count 3.31 M/UL (4.20-5.40) L Hemoglobin 9.7 G/DL (12.0-16.0) L Hematocrit 29.1 % (37.0-47.0) L Mean Corpuscular Volume 88 FL (80-99) Mean Corpuscular Hemoglobin 29.2 PG (27.0-31.0) Mean Corpuscular Hemoglobin Concent 33.2 G/DL (32.0-36.0) Red Cell Distribution Width 14.7 % (11.6-14.8) Platelet Count 41 K/UL (150-450) L Mean Platelet Volume 11.0 FL (6.5-10.1) H Neutrophils (%) (Auto) % (45.0-75.0) Lymphocytes (%) (Auto) % (20.0-45.0) Monocytes (%) (Auto) % (1.0-10.0) Eosinophils (%) (Auto) % (0.0-3.0) Basophils (%) (Auto) % (0.0-2.0) Differential Total Cells Counted 100 Neutrophils % (Manual) 80 % (45-75) H Lymphocytes % (Manual) 8 % (20-45) L Monocytes % (Manual) 10 % (1-10) Eosinophils % (Manual) 0 % (0-3) Basophils % (Manual) 0 % (0-2) Band Neutrophils 2 % (0-8) Platelet Estimate Decreased L Platelet Morphology Normal Red Blood Cell Morphology Normal Sodium Level 139 mEQ/L (135-145) Potassium Level 4.0 mEQ/L (3.4-4.9) Chloride Level 110 mEQ/L (98-107) H Carbon Dioxide Level 19 mEQ/L (20-30) L Anion Gap 10 (5-15) Blood Urea Nitrogen 17 mg/dL (7-23) Creatinine 0.6 mg/dL (0.5-0.9) Estimat Glomerular Filtration Rate > 60 mL/min (>60) Glucose Level 157 mg/dL (74-106) H Calcium Level 7.8 mg/dL (8.6-10.2) L Iron Level 30 ug/dL (37-145) L Total Iron Binding Capacity 259 ug/dL (250-400) Percent Iron Saturation 12 % (15-50) L Unsaturated Iron Binding 229 ug/dL (112-346) Total Bilirubin 1.5 mg/dL (0.0-1.2) H Direct Bilirubin 0.5 mg/dL (0.1-0.3) H Aspartate Amino Transf (AST/SGOT) 57 U/L (5-40) H Alanine Aminotransferase (ALT/SGPT) 30 U/L (3-33) Alkaline Phosphatase 72 U/L (35-104) Ammonia 126 umol/L (11-51) H Total Protein 6.3 g/dL (6.6-8.7) L Albumin 2.7 g/dL (3.5-5.2) L Globulin 3.6 g/dL Albumin/Globulin Ratio 0.7 (1.0-2.7) L Triglycerides Level 60 mg/dL (< 150) Cholesterol Level 84 mg/dL (< 200) LDL Cholesterol 35 mg/dL (60-99) L HDL Cholesterol 37 mg/dL (> 60) Cholesterol/HDL Ratio 2.3 (3.3-4.4) L Carcinoembryonic Antigen 3.6 ng/mL H Vitamin B12 Level 125 pg/mL (211-946) L Folate Pending Thyroid Stimulating Hormone (TSH) 0.703 uIU/mL (0.300-4.500) Free Thyroxine 0.91 ng/dL (0.86-1.85) West Nile Virus IgG Antibody Pending West Nile Virus IgM Antibody Pending Hepatitis A IgM Antibody Pending Hepatitis B Surface Antigen Pending Hepatitis B Core IgM Antibody Pending Hepatitis C Antibody Pending Impression/Recommendations Recommendations #[id number] PINA PRITCHARD May 29, 2017 13:07
--- NOTE | 2017-05-29 14:36 | GI Progress Note ---
Assessment/Plan Problems: (1) Anemia ICD Codes: D64.9 - Anemia, unspecified SNOMED: 459790251 (2) Hepatic encephalopathy ICD Codes: K72.90 - Hepatic failure, unspecified without coma SNOMED: 22108465 (3) Diabetes ICD Codes: E11.9 - Type 2 diabetes mellitus without complications SNOMED: 48604274 Qualifiers: Qualified Codes: E11.8 - Type 2 diabetes mellitus with unspecified complications (4) Liver failure ICD Codes: K72.90 - Hepatic failure, unspecified without coma SNOMED: 34655896 Qualifiers: Qualified Codes: K72.91 - Hepatic failure, unspecified with coma (5) Chronic liver disease ICD Codes: K76.9 - Liver disease, unspecified SNOMED: 519694244 (6) Thrombocytopenia ICD Codes: D69.6 - Thrombocytopenia, unspecified SNOMED: 932080903 Status: unchanged Status Narrative Discussed with Dr. Madden. Assessment/Plan Head CT >> negative abdominal U/S reviewed >> cirrhosis hold off EGD/colonoscopy given bradycardia and hypotension >> will need cardiac clearance prior to GI procedures iron deficient >> venofer B12 deficiency >> will replace OB stool r/o GI bleed ppi cont lactulose, add Xifaxan >> repeat ammonia levels fu hepatitis panel fu paracentesis monitor H&H, prn transfusion fu labs obtain any imaging studies and/or biopsy reports from primary care Subjective Subjective feels better ambulating to the bathroom Objective Last 24 Hour Vital Signs Date Time Temp Pulse Resp B/P (MAP) Pulse Ox O2 Delivery O2 Flow Rate FiO2 05/29/17 12:00 97.8 60 18 117/66 99 Room Air 05/29/17 12:00 58 05/29/17 08:00 97.1 59 18 93/41 99 Room Air 05/29/17 08:00 51 05/29/17 04:00 58 05/29/17 04:00 97.2 58 18 92/52 99 Room Air 05/29/17 00:00 55 05/29/17 00:00 97.9 57 18 108/58 99 Room Air 05/28/17 20:00 58 05/28/17 20:00 97.3 70 18 114/61 99 Room Air 05/28/17 16:00 98.1 76 18 104/61 99 Room Air 05/28/17 16:00 72 Intake and Output 05/29/17 05/30/17 19:00 07:00 Intake Total 440 ml Balance 440 ml Intake Oral 120 ml IV Total 320 ml # Bowel Movements 1 Laboratory Tests Test 05/29/17 03:35 White Blood Count 5.3 K/UL (4.8-10.8) Red Blood Count 3.31 M/UL (4.20-5.40) L Hemoglobin 9.7 G/DL (12.0-16.0) L Hematocrit 29.1 % (37.0-47.0) L Mean Corpuscular Volume 88 FL (80-99) Mean Corpuscular Hemoglobin 29.2 PG (27.0-31.0) Mean Corpuscular Hemoglobin Concent 33.2 G/DL (32.0-36.0) Red Cell Distribution Width 14.7 % (11.6-14.8) Platelet Count 41 K/UL (150-450) L Mean Platelet Volume 11.0 FL (6.5-10.1) H Neutrophils (%) (Auto) % (45.0-75.0) Lymphocytes (%) (Auto) % (20.0-45.0) Monocytes (%) (Auto) % (1.0-10.0) Eosinophils (%) (Auto) % (0.0-3.0) Basophils (%) (Auto) % (0.0-2.0) Differential Total Cells Counted 100 Neutrophils % (Manual) 80 % (45-75) H Lymphocytes % (Manual) 8 % (20-45) L Monocytes % (Manual) 10 % (1-10) Eosinophils % (Manual) 0 % (0-3) Basophils % (Manual) 0 % (0-2) Band Neutrophils 2 % (0-8) Platelet Estimate Decreased L Platelet Morphology Normal Red Blood Cell Morphology Normal Sodium Level 139 mEQ/L (135-145) Potassium Level 4.0 mEQ/L (3.4-4.9) Chloride Level 110 mEQ/L (98-107) H Carbon Dioxide Level 19 mEQ/L (20-30) L Anion Gap 10 (5-15) Blood Urea Nitrogen 17 mg/dL (7-23) Creatinine 0.6 mg/dL (0.5-0.9) Estimat Glomerular Filtration Rate > 60 mL/min (>60) Glucose Level 157 mg/dL (74-106) H Calcium Level 7.8 mg/dL (8.6-10.2) L Iron Level 30 ug/dL (37-145) L Total Iron Binding Capacity 259 ug/dL (250-400) Percent Iron Saturation 12 % (15-50) L Unsaturated Iron Binding 229 ug/dL (112-346) Total Bilirubin 1.5 mg/dL (0.0-1.2) H Direct Bilirubin 0.5 mg/dL (0.1-0.3) H Aspartate Amino Transf (AST/SGOT) 57 U/L (5-40) H Alanine Aminotransferase (ALT/SGPT) 30 U/L (3-33) Alkaline Phosphatase 72 U/L (35-104) Ammonia 126 umol/L (11-51) H Total Protein 6.3 g/dL (6.6-8.7) L Albumin 2.7 g/dL (3.5-5.2) L Globulin 3.6 g/dL Albumin/Globulin Ratio 0.7 (1.0-2.7) L Triglycerides Level 60 mg/dL (< 150) Cholesterol Level 84 mg/dL (< 200) LDL Cholesterol 35 mg/dL (60-99) L HDL Cholesterol 37 mg/dL (> 60) Cholesterol/HDL Ratio 2.3 (3.3-4.4) L Carcinoembryonic Antigen 3.6 ng/mL H Vitamin B12 Level 125 pg/mL (211-946) L Folate Pending Thyroid Stimulating Hormone (TSH) 0.703 uIU/mL (0.300-4.500) Free Thyroxine 0.91 ng/dL (0.86-1.85) West Nile Virus IgG Antibody Pending West Nile Virus IgM Antibody Pending Hepatitis A IgM Antibody Pending Hepatitis B Surface Antigen Pending Hepatitis B Core IgM Antibody Pending Hepatitis C Antibody Pending Height (Feet): 5 Height (Inches): 1.00 Weight (Pounds): 257 General Appearance: no apparent distress, alert, obese Cardiovascular: normal rate Respiratory/Chest: normal breath sounds, no respiratory distress Abdominal Exam: normal bowel sounds, non tender, soft Extremities: normal range of motion Kassidy Swain N.P. May 29, 2017 14:36
[2017-05-29 16:00] VITALS: BP 94/53
[2017-05-29] MEDS ORDERED: Vitamin B12 1000mcg/ml Inj IM ONE (17:00)
[2017-05-29] MEDS: NovoLOG Insulin Flexpen SUBQ SCH ×2 (17:15→21:06)
--- NOTE | 2017-05-29 19:22 | Infectious Diseases Prog Note ---
Assessment/Plan Assessment/Plan Assessment: The patient is a 62-year-old female with Ro cholecystitis Abnormal liver function tests. Ultrasound showed the gallbladder wall thickening and gallstones, . UTI : Pyuria UCX : GNR Rule out bacteremia. Leukopenia, anemia, and thrombocytopenia. Rule out human immunodeficiency virus. Rule out West Nile virus. Diabetes. Seizure disorder. Hypothyroidism. Hypertension. Diabetes. PLAN: cont patient IV cefepime d# 2 Monitor CBC. Monitor BMP. Monitor cultures, blood and urine. HIV antibody. HIDA scan. Monitor liver function test. Hepatitis B and C serology. Subjective Allergies: Coded Allergies: No Known Allergies (Unverified , 05/28/17) Subjective more awake, no abd pain Objective Vital Signs Last 24 Hour Vital Signs Date Time Temp Pulse Resp B/P (MAP) Pulse Ox O2 Delivery O2 Flow Rate FiO2 05/29/17 16:00 61 05/29/17 16:00 97.6 61 18 94/53 99 Room Air 05/29/17 12:00 97.8 60 18 117/66 99 Room Air 05/29/17 12:00 58 05/29/17 08:00 97.1 59 18 93/41 99 Room Air 05/29/17 08:00 51 05/29/17 04:00 58 05/29/17 04:00 97.2 58 18 92/52 99 Room Air 05/29/17 00:00 55 05/29/17 00:00 97.9 57 18 108/58 99 Room Air 05/28/17 20:00 58 05/28/17 20:00 97.3 70 18 114/61 99 Room Air Height (Feet): 5 Height (Inches): 1.00 Weight (Pounds): 257 HEENT: mucous membranes moist Respiratory/Chest: no respiratory distress Cardiovascular: regular rhythm Abdomen: no organomegaly Skin: no lesions Neurologic/Psychiatric: abnormal gait Microbiology Date/Time Source Procedure Growth Status 05/28/17 05:48 Urine,Clean Catch Urine Culture - Preliminary Gram Negative Bacillus 1 Resulted Laboratory Tests Test 05/29/17 03:35 White Blood Count 5.3 K/UL (4.8-10.8) Red Blood Count 3.31 M/UL (4.20-5.40) L Hemoglobin 9.7 G/DL (12.0-16.0) L Hematocrit 29.1 % (37.0-47.0) L Mean Corpuscular Volume 88 FL (80-99) Mean Corpuscular Hemoglobin 29.2 PG (27.0-31.0) Mean Corpuscular Hemoglobin Concent 33.2 G/DL (32.0-36.0) Red Cell Distribution Width 14.7 % (11.6-14.8) Platelet Count 41 K/UL (150-450) L Mean Platelet Volume 11.0 FL (6.5-10.1) H Neutrophils (%) (Auto) % (45.0-75.0) Lymphocytes (%) (Auto) % (20.0-45.0) Monocytes (%) (Auto) % (1.0-10.0) Eosinophils (%) (Auto) % (0.0-3.0) Basophils (%) (Auto) % (0.0-2.0) Differential Total Cells Counted 100 Neutrophils % (Manual) 80 % (45-75) H Lymphocytes % (Manual) 8 % (20-45) L Monocytes % (Manual) 10 % (1-10) Eosinophils % (Manual) 0 % (0-3) Basophils % (Manual) 0 % (0-2) Band Neutrophils 2 % (0-8) Platelet Estimate Decreased L Platelet Morphology Normal Red Blood Cell Morphology Normal Sodium Level 139 mEQ/L (135-145) Potassium Level 4.0 mEQ/L (3.4-4.9) Chloride Level 110 mEQ/L (98-107) H Carbon Dioxide Level 19 mEQ/L (20-30) L Anion Gap 10 (5-15) Blood Urea Nitrogen 17 mg/dL (7-23) Creatinine 0.6 mg/dL (0.5-0.9) Estimat Glomerular Filtration Rate > 60 mL/min (>60) Glucose Level 157 mg/dL (74-106) H Calcium Level 7.8 mg/dL (8.6-10.2) L Iron Level 30 ug/dL (37-145) L Total Iron Binding Capacity 259 ug/dL (250-400) Percent Iron Saturation 12 % (15-50) L Unsaturated Iron Binding 229 ug/dL (112-346) Total Bilirubin 1.5 mg/dL (0.0-1.2) H Direct Bilirubin 0.5 mg/dL (0.1-0.3) H Aspartate Amino Transf (AST/SGOT) 57 U/L (5-40) H Alanine Aminotransferase (ALT/SGPT) 30 U/L (3-33) Alkaline Phosphatase 72 U/L (35-104) Ammonia 126 umol/L (11-51) H Total Protein 6.3 g/dL (6.6-8.7) L Albumin 2.7 g/dL (3.5-5.2) L Globulin 3.6 g/dL Albumin/Globulin Ratio 0.7 (1.0-2.7) L Triglycerides Level 60 mg/dL (< 150) Cholesterol Level 84 mg/dL (< 200) LDL Cholesterol 35 mg/dL (60-99) L HDL Cholesterol 37 mg/dL (> 60) Cholesterol/HDL Ratio 2.3 (3.3-4.4) L Carcinoembryonic Antigen 3.6 ng/mL H Vitamin B12 Level 125 pg/mL (211-946) L Folate Pending Thyroid Stimulating Hormone (TSH) 0.703 uIU/mL (0.300-4.500) Free Thyroxine 0.91 ng/dL (0.86-1.85) West Nile Virus IgG Antibody Pending West Nile Virus IgM Antibody Pending Hepatitis A IgM Antibody Pending Hepatitis B Surface Antigen Pending Hepatitis B Core IgM Antibody Pending Hepatitis C Antibody Pending Current Medications Medications (Trade) Dose Ordered Sig/Antoni Route PRN Reason Start Time Stop Time Status Last Admin Dose Admin Acetaminophen (Tylenol) 650 mg Q4H PRN ORAL fever>100.5 05/28/17 10:00 06/27/17 09:59 Al Hydroxide/Mg Hydroxide (Mylanta II) 30 ml Q6H PRN ORAL dyspepsia 05/28/17 10:30 06/27/17 10:29 Cefepime HCl 2 gm/ Dextrose 110 ml @ 220 mls/hr EVERY 12 HOURS IVPB 05/28/17 14:00 06/04/17 13:59 05/29/17 09:17 Dextrose (Dextrose 50%) STAT PRN IV Hypoglycemia 05/29/17 12:00 06/28/17 11:59 Insulin Aspart (NovoLOG) BEFORE MEALS AND HS SUBQ 05/29/17 16:30 06/28/17 16:29 05/29/17 17:15 Iron Sucrose 100 mg/Sodium Chloride 60 ml @ 240 mls/hr ONCE ONCE IV 05/29/17 21:00 05/29/17 21:14 Lactulose (Cephulac) 30 gm EVERY 6 HOURS ORAL 05/28/17 12:00 06/27/17 11:59 05/29/17 17:14 Levothyroxine Sodium (Synthroid) 25 mcg ACBREAKFAST ORAL 05/30/17 06:30 06/29/17 06:29 Lorazepam (Ativan 2mg/ml 1ml) 0.5 mg Q4H PRN IV For Anxiety 05/28/17 10:30 06/04/17 10:29 Morphine Sulfate (Morphine Sulfate) 2 mg Q4H PRN IVP For Pain 05/28/17 10:30 06/04/17 10:29 Ondansetron HCl (Zofran) 4 mg Q6H PRN IVP Nausea & Vomiting 05/28/17 10:30 06/27/17 10:29 Polyethylene Glycol (Miralax) 17 gm HSPRN PRN ORAL Constipation 05/28/17 21:00 06/27/17 20:59 Rifaximin (Xifaxan) 550 mg EVERY 12 HOURS ORAL 05/28/17 21:00 06/04/17 20:59 05/29/17 09:17 Sodium Chloride 1,000 ml @ 50 mls/hr Q20H IV 05/28/17 14:00 06/27/17 13:59 05/29/17 10:30 Zolpidem Tartrate (Ambien) 5 mg HSPRN PRN ORAL Insomnia 05/28/17 21:00 06/04/17 20:59 JOSE ROBERTO CASTRO M.D. May 29, 2017 19:22
[2017-05-29 20:00] VITALS: BP 127/55
[2017-05-29] MEDS ORDERED: Iron Sucrose 100 MG in NS 55 ML IV ONE (21:00)
--- NOTE | 2017-05-29 21:15 | Consultation ---
DATE OF CONSULTATION: 05/29/2017 NEUROLOGICAL CONSULTATION REQUESTING PHYSICIAN: Alexis Mason M.D. History of Present Illness: This 62-year-old female, seen in neurological consultation for evaluation of episodes of generalized clonic-tonic seizure observed by her brother. According to the patient, day prior to admission, she was not feeling well. She was in bed when she started to feel like she is freezing and shivering. She lost consciousness and at that point, she was observed to have generalized body shakes. She has no recollection of event. Upon awakening, she felt quite confused, not understanding what happening to her. When brought to this hospital, she was confused, disoriented, with grunting respirations. There was evidence of oral trauma. There was a information that patient actually fell twice and there were no observed seizure activities. Paramedics were called to the scene. Her blood sugar was 124. She complained of pain in her shoulders, but there were no other associated symptomatology. There was evidence that the last few days she was not feeling well, had generalized weakness. On arrival, vital signs were stable except heart rate of 102. Her imaging studies included CT scan of the brain, which revealed no evidence of intracranial abnormalities. No acute stroke or hemorrhage. No midline shift. Her chest x-ray, signs of cardiomegaly, equivocal mild interstitial congestion. Abdominal ultrasound, evidence of hepatic cirrhosis, gallbladder wall thickening. Lab work included CBC study with hemoglobin 10.7 and hematocrit 32.2, platelet count 250,000, WBCs 3.8. Mild coagulopathy, INR 1.2. Urinalysis with WBCs , leukocyte esterase of 3+. Toxicology panel was negative. Chemistry panel, elevated total bilirubin of 2.6. AST 61, alkaline phosphatase is 112, and CPK is 721. Ammonia level 131. Normal TSH. Blood sugar 140. Low B12 at 125 and low albumin of 2.7. Repeat ammonia 126. The patient was diagnosed with pyuria with possible urinary tract infection and possible encephalitis. The patient was started on cefepime. Past medical history: History of diabetes, morbid obesity, and chronic liver disease. Her baseline according to her family is being able to ambulate without assistance with normal cognitive function, able to provide herself with most activities of daily living. Medications: Treatment prior to admission included glipizide and levothyroxine. Currently, she is on Zofran, MiraLAX, Ambien, antibiotics and IV fluids. Social History: She lives with her family. No alcohol. No drug abuse. Nonsmoker. Review of Systems: The patient indicates she is feeling fairly well. She denies headache or dizziness. No chest pain or palpitations, but some shortness of breath on exertion. Mild discomfort in her abdomen. Contreras in place. Unaware of previous strokes, TIA, or seizures. PHYSICAL EXAMINATION: General: Well developed and morbidly obese female, not in acute distress. Vital Signs: Heart rate of 51, blood pressure 93/41, and temperature 97.1 degrees. HEENT: Head, normocephalic. There is no evidence of trauma. Eyes, ears, and throat are clear. NECK: Supple. No meningeal signs. Musculoskeletal: Unremarkable . No deformities. Peripheral pulses 1+ symmetric. Mental Status: The patient is alert and oriented x3 with no evidence of aphasia. She speaks Mont[place] only. Her family was interpreting. Cranial Nerve II: Pupils, both responding to light and accommodation. Extraocular movement intact. No nystagmus. CRANIAL NERVE V: Normal corneal responses. CRANIAL NERVE VII: No facial asymmetry. CRANIAL NERVE VIII: Normal hearing. CRANIAL NERVE IX THROUGH XII: Within normal limits. Motor Examination: Able to lift arms and legs against gravity. No asymmetry. No involuntary movement. Deep reflexes 1+ symmetric with downgoing toes on both sides. Sensory Exam: Normal to pinprick light touch. There is arthritic changes in both knees with tenderness on palpation of both knees. Gait not tested. IMPRESSION: 1. The patient is a 62-year-old female with a new onset of generalized clonic-tonic seizure episode, most likely multifactorial including underlying metabolic derangement and underlying infection. 2. Liver cirrhosis with hepatic encephalopathy. 3. Pancytopenia. 4. Urinary tract infection, rule out urosepsis. 5. Diabetes type 2. 6. B12 deficiency. RECOMMENDATION: 1. Continue with current treatment. 2. B12 1000 mcg. 3. No anticonvulsant is necessary, but obtain electroencephalogram to rule out epileptogenic focus to assess for any paroxysmal events. 4. Continue with lactulose and Ecotrin 81 mg daily. Thank you for allowing me to see this interesting patient in neurological consultation. Lucho Deidra Berg DR: FREDY JOB#: [id number] CC:
--- NOTE | 2017-05-29 21:45 | Electroencephalogram ---
DATE OF PROCEDURE: 05/28/2017 PROCEDURE PERFORMED: Electroencephalography. READING PHYSICIAN: Lucho Berg M.D. REFERRING PHYSICIAN: Alexis Mason M.D. Indication: This is a 62-year-old female with signs of hepatic encephalopathy, now presented with a generalized seizure episode. EEG was done using a 10/20 International System. Prior to the test, infusion of Keppra was given. Technique: Most wakeful portions of recording background activity consists of well regulated small voltage 8 to 9 cycles per second alpha activity with a good response to physiological stimulation. Photic stimulation from 3 to 32 hertz was done resulted in a well-developed photic drive. There was no asymmetry. IMPRESSION: Normal awake stage 1 sleep EEG with photic stimulation. Comment: Absence of paroxysmal event on a single recording does not rule out seizure disorder. Lucho Berg M.D. DR: ESTELA/LorettaK JOB#: [id number] CC:
[2017-05-30] VITALS: BP 128/60
[2017-05-30] MEDS: Lactulose 20gm/30ml UDC ORAL SCH ×4 (00:18→17:37)
[2017-05-30 04:00] VITALS: BP 126/54
[2017-05-30 05:39] LABS: MEAN CORPUSCULAR HEMOGLOBIN 29.7 PG (27.0-31.0); MEAN CORPUSCULAR HGB CONC 33.8 G/DL (32.0-36.0); MEAN CORPUSCULAR VOLUME 88 FL (80-99); MEAN PLATELET VOLUME 12.3 FL (6.5-10.1); PLATELET COUNT 49 K/UL (150-450); RED BLOOD COUNT 3.25 M/UL (4.20-5.40); RED CELL DISTRIBUTION WIDTH 14.7 % (11.6-14.8); WHITE BLOOD COUNT 4.3 K/UL (4.8-10.8)
[2017-05-30 06:08] LABS: ALANINE AMINOTRANSFERASE 32 U/L (3-33); ALBUMIN/GLOBULIN RATIO 0.7 (1.0-2.7); ANION GAP 10 (5-15); ASPARTATE AMINO TRANSFERASE 58 U/L (5-40); CALCIUM 8.2 mg/dL (8.6-10.2); CARBON DIOXIDE 21 mEQ/L (20-30); CHLORIDE 110 mEQ/L (98-107); CREATININE 0.7 mg/dL (0.5-0.9); GLOMERULAR FILTRATION RATE > 60 mL/min (>60); HEMOLYSIS 4; POTASSIUM 3.6 mEQ/L (3.4-4.9); SODIUM 141 mEQ/L (135-145); TOTAL PROTEIN 6.3 g/dL (6.6-8.7)
[2017-05-30 06:14] LABS: AMMONIA 63 umol/L (11-51)
[2017-05-30] MEDS: Levothyroxine 25mcg tab ORAL SCH (06:21)
[2017-05-30] MEDS: NovoLOG Insulin Flexpen SUBQ SCH ×4 (06:22→21:31)
[2017-05-30 06:36] LABS: BILIRUBIN,DIRECT 0.4 mg/dL (0.1-0.3)
--- NOTE | 2017-05-30 07:21 | Cardiology Report ---
APPROVED REPORT EXAM: Two-dimensional and M-mode echocardiogram with Doppler and color Doppler. INDICATION Bradycardi M-Mode DIMENSIONS IVSd1.2 (0.7-1.1cm)Left Atrium (MM)4.5 (1.6-4.0cm) LVDd3.4 (3.5-5.6cm)Aortic Root2.5 (2.0-3.7cm) PWd1.4 (0.7-1.1cm)Aortic Cusp Exc.1.8 (1.5-2.0cm) LVDs2.2 (2.5-4.0cm) PWs0.9 cm Technically difficult study due to poor acoustical windows. Normal left ventricular chamber size, systolic function and wall motion to the extent visulaized. Left ventricular ejection fraction estimated to be 60-65 %. Mild left ventricular hypertrophy. No evidence of pericardial or pleural effusion. Moderate left atrial and mild right atrial enlargement by 2D. Focal aortic valve sclerosis with adequate cusp excursion. Thickened mitral valve leaflets with normal excursion. POOR VALVULAR DETAIL Mild mitral annulus and aortic root calcification. Pulmonic valve not well visualized. Normal tricuspid valve structure. IVC is normal in size and collapsible with respiration. A color flow and spectral Doppler study was performed and revealed: No aortic regurgitation. No mitral regurgitation. Mitral diastolic velocities are normal No tricuspid regurgitation.
[2017-05-30 08:00] VITALS: BP 132/64
[2017-05-30] MEDS ORDERED: Tubing IV Secondary IV ONE (08:13)
[2017-05-30] MEDS: Cefepime 2gm in D5W 110ml IVPB SCH (08:51)
[2017-05-30 09:28] LABS: BAND NEUTROPHILS % (MANUAL) 0 % (0-8); BASOPHILS % (MANUAL) 0 % (0-2); EOSINOPHILS % (MANUAL) 3 % (0-3); LYMPHOCYTES % (MANUAL) 12 % (20-45); NEUTROPHILS % (MANUAL) 79 % (45-75); PLATELET ESTIMATE DECREASED; PLATELET MORPHOLOGY NORMAL; TOTAL CELLS COUNTED 100
[2017-05-30 09:29] LABS: ACANTHOCYTES 1+; ANISOCYTOSIS 1+; HYPOCHROMASIA 1+; SCHISTOCYTES 1+
--- NOTE | 2017-05-30 09:46 | Consultation ---
DATE OF CONSULTATION: 05/29/2017 NOTE: POOR AUDIO QUALITY HEMATOLOGY/ONCOLOGY CONSULTATION CONSULTING PHYSICIAN: Jose Sneed M.D. REQUESTING PHYSICIAN: Alexis Mason M.D. REASON FOR CONSULTATION: Evaluation of pancytopenia. IDENTIFICATION DATA: Dear Dr. Mason, The patient is a pleasant 62-year-old female with past medical history significant for seizure disorder, diabetes mellitus, hypothyroidism, and hypertension. At this time, presents with loss of consciousness and seizure disorder, is pulseless, found to be febrile suggestive of UTI. Began on IV cefepime. ID service was consulted for evaluation and treatment. This is her first time presentation at [facility]. Hematology Service was consulted given pancytopenia . At this time, GI service EGD and colonoscopy, given bradycardia and requires cardiac clearance first. PAST MEDICAL HISTORY: As noted above. MEDICATIONS: Synthroid. ALLERGIES: No known drug allergies. SOCIAL HISTORY: . FAMILY HISTORY: . REVIEW OF SYSTEMS: Difficult to obtain. Patient is . PHYSICAL EXAMINATION: VITAL SIGNS: . GENERAL: No acute distress. PULMONARY: Decreased breath sounds. CARDIOVASCULAR: Regular rate. No S3 or S4. ABDOMEN: . EXTREMITIES: There is 1+ edema. Laboratory Data: WBC 3.9, hemoglobin , hematocrit , and platelet count of 50,000, currently platelet count of 41,000. Differential reviewed. Imaging: Ultrasound of the abdomen as well. still pending. ASSESSMENT AND PLAN: 1. Pancytopenia . 2. likely related to medications. At this time, platelet goal is about 20,000 and hemoglobin goal is about 7. WBC goal above 2000. 3. Anemia with a component of iron deficiency. GI service at this time. 4. . 5. B12 deficiency. B12 is pending, has to be administered . 6. Cirrhosis of liver. EGD and colonoscopy at this time. 7. paracentesis. 8. Diabetes mellitus. . 9. encephalopathy. I appreciate the consultation. Jose Sneed M.D. DR: HEAVEN JOB#: [id number] CC:
--- NOTE | 2017-05-30 10:51 | GI Progress Note ---
Assessment/Plan Problems: (1) Anemia ICD Codes: D64.9 - Anemia, unspecified SNOMED: 711687647 (2) Hepatic encephalopathy ICD Codes: K72.90 - Hepatic failure, unspecified without coma SNOMED: 08881168 (3) Diabetes ICD Codes: E11.9 - Type 2 diabetes mellitus without complications SNOMED: 51293886 Qualifiers: Qualified Codes: E11.8 - Type 2 diabetes mellitus with unspecified complications (4) Liver failure ICD Codes: K72.90 - Hepatic failure, unspecified without coma SNOMED: 04019139 Qualifiers: Qualified Codes: K72.91 - Hepatic failure, unspecified with coma (5) Chronic liver disease ICD Codes: K76.9 - Liver disease, unspecified SNOMED: 986055959 (6) Thrombocytopenia ICD Codes: D69.6 - Thrombocytopenia, unspecified SNOMED: 272448156 Status: stable Status Narrative Discussed with Dr. Madden. Assessment/Plan Head CT >> negative abdominal U/S reviewed >> cirrhosis - imaging studies and/or biopsy reports from primary care >> 04/03/17 Abdominal U/ S shows normal parenchymal echogenicity of liver. Fatty liver. hepatitis panel >> negative B12 deficiency >> B12 x 1 iron deficient >> venofer defer EGD/colonoscopy to Sunday if still inpatient, otherwise outpatient. ordered ZULMA, SMA, AMA, Alpha 2 antitrypsin, total IGg r/o autoimmune >> will consider liver biopsy pending results OB stool r/o GI bleed ppi cont lactulose + Xifaxan >> repeat ammonia levels fu paracentesis monitor H&H, prn transfusion fu labs Subjective Subjective feels better ambulating to the bathroom Objective Last 24 Hour Vital Signs Date Time Temp Pulse Resp B/P (MAP) Pulse Ox O2 Delivery O2 Flow Rate FiO2 05/30/17 08:00 97.9 66 20 132/64 97 Room Air 05/30/17 07:31 52 05/30/17 04:00 54 05/30/17 04:00 97.9 54 20 126/54 99 Room Air 05/30/17 00:00 96.0 59 18 128/60 99 Room Air 05/30/17 00:00 59 05/29/17 20:00 97.9 56 18 127/55 99 Room Air 05/29/17 20:00 56 05/29/17 16:00 61 05/29/17 16:00 97.6 61 18 94/53 99 Room Air 05/29/17 12:00 97.8 60 18 117/66 99 Room Air 05/29/17 12:00 58 Intake and Output 05/30/17 05/31/17 19:00 07:00 Intake Total 260 ml Balance 260 ml IV Total 260 ml # Bowel Movements 1 Laboratory Tests Test 05/30/17 03:50 White Blood Count 4.3 K/UL (4.8-10.8) L Red Blood Count 3.25 M/UL (4.20-5.40) L Hemoglobin 9.6 G/DL (12.0-16.0) L Hematocrit 28.5 % (37.0-47.0) L Mean Corpuscular Volume 88 FL (80-99) Mean Corpuscular Hemoglobin 29.7 PG (27.0-31.0) Mean Corpuscular Hemoglobin Concent 33.8 G/DL (32.0-36.0) Red Cell Distribution Width 14.7 % (11.6-14.8) Platelet Count 49 K/UL (150-450) L Mean Platelet Volume 12.3 FL (6.5-10.1) H Neutrophils (%) (Auto) % (45.0-75.0) Lymphocytes (%) (Auto) % (20.0-45.0) Monocytes (%) (Auto) % (1.0-10.0) Eosinophils (%) (Auto) % (0.0-3.0) Basophils (%) (Auto) % (0.0-2.0) Differential Total Cells Counted 100 Neutrophils % (Manual) 79 % (45-75) H Lymphocytes % (Manual) 12 % (20-45) L Monocytes % (Manual) 6 % (1-10) Eosinophils % (Manual) 3 % (0-3) Basophils % (Manual) 0 % (0-2) Band Neutrophils 0 % (0-8) Platelet Estimate Decreased L Platelet Morphology Normal Hypochromasia 1+ Anisocytosis 1+ Acanthocytes 1+ Schistocytes 1+ Sodium Level 141 mEQ/L (135-145) Potassium Level 3.6 mEQ/L (3.4-4.9) Chloride Level 110 mEQ/L (98-107) H Carbon Dioxide Level 21 mEQ/L (20-30) Anion Gap 10 (5-15) Blood Urea Nitrogen 18 mg/dL (7-23) Creatinine 0.7 mg/dL (0.5-0.9) Estimat Glomerular Filtration Rate > 60 mL/min (>60) Glucose Level 105 mg/dL (74-106) Calcium Level 8.2 mg/dL (8.6-10.2) L Ferritin 71 ng/mL (13-150) Total Bilirubin 1.5 mg/dL (0.0-1.2) H Direct Bilirubin 0.4 mg/dL (0.1-0.3) H Aspartate Amino Transf (AST/SGOT) 58 U/L (5-40) H Alanine Aminotransferase (ALT/SGPT) 32 U/L (3-33) Alkaline Phosphatase 83 U/L (35-104) Ammonia 63 umol/L (11-51) H Pro-B-Type Natriuretic Peptide 344 pg/mL (0-125) H Total Protein 6.3 g/dL (6.6-8.7) L Albumin 2.6 g/dL (3.5-5.2) L Globulin 3.7 g/dL Albumin/Globulin Ratio 0.7 (1.0-2.7) L Height (Feet): 5 Height (Inches): 1.00 Weight (Pounds): 244 General Appearance: alert, obese Cardiovascular: normal rate Respiratory/Chest: normal breath sounds, no respiratory distress Abdominal Exam: normal bowel sounds, soft Extremities: normal range of motion Kassidy Swain N.P. May 30, 2017 10:51
--- NOTE | 2017-05-30 11:01 | Pulmonology Progress Note ---
Assessment/Plan Problems: (1) Sepsis (2) Seizure (3) Fever (4) Hepatic encephalopathy (5) Chronic liver disease (6) Thrombocytopenia (7) Coagulopathy Assessment/Plan afebrile Urine has Ecoli plt are low, Hematology called check labs in am check cultures continue abx awaiting cardio evaluation endoscopy in am Subjective ROS Limited/Unobtainable: No Interval Events: feeling better Allergies: Coded Allergies: No Known Allergies (Unverified , 05/28/17) Objective Last 24 Hour Vital Signs Date Time Temp Pulse Resp B/P (MAP) Pulse Ox O2 Delivery O2 Flow Rate FiO2 05/30/17 08:00 97.9 66 20 132/64 97 Room Air 05/30/17 07:31 52 05/30/17 04:00 54 05/30/17 04:00 97.9 54 20 126/54 99 Room Air 05/30/17 00:00 96.0 59 18 128/60 99 Room Air 05/30/17 00:00 59 05/29/17 20:00 97.9 56 18 127/55 99 Room Air 05/29/17 20:00 56 05/29/17 16:00 61 05/29/17 16:00 97.6 61 18 94/53 99 Room Air 05/29/17 12:00 97.8 60 18 117/66 99 Room Air 05/29/17 12:00 58 Intake and Output 05/30/17 05/31/17 19:00 07:00 Intake Total 260 ml Balance 260 ml IV Total 260 ml # Bowel Movements 1 General Appearance: WD/WN HEENT: normocephalic, atraumatic Respiratory/Chest: chest wall non-tender, lungs clear Cardiovascular: normal peripheral pulses, normal rate Abdomen: normal bowel sounds, no organomegaly Genitourinary: normal external genitalia Extremities: no cyanosis Skin: no rash Microbiology Date/Time Source Procedure Growth Status 05/28/17 06:00 Blood Blood Culture - Preliminary NO GROWTH AFTER 24 HOURS Resulted 05/28/17 05:45 Blood Blood Culture - Preliminary NO GROWTH AFTER 24 HOURS Resulted 05/28/17 05:48 Urine,Clean Catch Urine Culture - Final Escherichia Coli Complete 05/28/17 05:48 Rectum VRE Culture - Final NO VANCOMYCIN RESISTANT ENTEROCOCCUS ... Complete Laboratory Tests 05/30/17 03:50: White Blood Count 4.3L, Red Blood Count 3.25L, Hemoglobin 9.6L, Hematocrit 28.5L , Mean Corpuscular Volume 88, Mean Corpuscular Hemoglobin 29.7, Mean Corpuscular Hemoglobin Concent 33.8, Red Cell Distribution Width 14.7, Platelet Count 49L, Mean Platelet Volume 12.3H, Neutrophils (%) (Auto) , Lymphocytes (%) (Auto) , Monocytes (%) (Auto) , Eosinophils (%) (Auto) , Basophils (%) (Auto) , Differential Total Cells Counted 100, Neutrophils % (Manual) 79H, Lymphocytes % (Manual) 12L, Monocytes % (Manual) 6, Eosinophils % (Manual) 3, Basophils % ( Manual) 0, Band Neutrophils 0, Platelet Estimate DecreasedL, Platelet Morphology Normal, Hypochromasia 1+, Anisocytosis 1+, Acanthocytes 1+, Schistocytes 1+, Sodium Level 141, Potassium Level 3.6, Chloride Level 110H, Carbon Dioxide Level 21, Anion Gap 10, Blood Urea Nitrogen 18, Creatinine 0.7, Estimat Glomerular Filtration Rate > 60, Glucose Level 105, Calcium Level 8.2L, Ferritin 71, Total Bilirubin 1.5H, Direct Bilirubin 0.4H, Aspartate Amino Transf (AST/SGOT) 58H, Alanine Aminotransferase (ALT/SGPT) 32, Alkaline Phosphatase 83, Ammonia 63H, Pro-B-Type Natriuretic Peptide 344H, Total Protein 6.3L, Albumin 2.6L, Globulin 3.7, Albumin/Globulin Ratio 0.7L Current Medications Medications (Trade) Dose Ordered Sig/Antoni Route PRN Reason Start Time Stop Time Status Last Admin Dose Admin Acetaminophen (Tylenol) 650 mg Q4H PRN ORAL Mild Pain/Temp > 100.5 05/30/17 10:00 06/29/17 09:59 05/30/17 09:13 Al Hydroxide/Mg Hydroxide (Mylanta II) 30 ml Q6H PRN ORAL dyspepsia 05/28/17 10:30 06/27/17 10:29 Cefepime HCl 2 gm/ Dextrose 110 ml @ 220 mls/hr EVERY 12 HOURS IVPB 05/28/17 14:00 06/04/17 13:59 05/30/17 08:51 Dextrose (Dextrose 50%) STAT PRN IV Hypoglycemia 05/29/17 12:00 06/28/17 11:59 Insulin Aspart (NovoLOG) BEFORE MEALS AND HS SUBQ 05/29/17 16:30 06/28/17 16:29 05/29/17 21:06 Lactulose (Cephulac) 30 gm EVERY 6 HOURS ORAL 05/28/17 12:00 06/27/17 11:59 05/30/17 06:21 Levothyroxine Sodium (Synthroid) 25 mcg ACBREAKFAST ORAL 05/30/17 06:30 06/29/17 06:29 05/30/17 06:21 Lorazepam (Ativan 2mg/ml 1ml) 0.5 mg Q4H PRN IV For Anxiety 05/28/17 10:30 06/04/17 10:29 Morphine Sulfate (Morphine Sulfate) 2 mg Q4H PRN IVP For Pain 05/28/17 10:30 06/04/17 10:29 Ondansetron HCl (Zofran) 4 mg Q6H PRN IVP Nausea & Vomiting 05/28/17 10:30 06/27/17 10:29 Polyethylene Glycol (Miralax) 17 gm HSPRN PRN ORAL Constipation 05/28/17 21:00 06/27/17 20:59 Rifaximin (Xifaxan) 550 mg EVERY 12 HOURS ORAL 05/28/17 21:00 06/04/17 20:59 05/30/17 08:50 Sodium Chloride 1,000 ml @ 50 mls/hr Q20H IV 05/28/17 14:00 06/27/17 13:59 05/30/17 06:24 Zolpidem Tartrate (Ambien) 5 mg HSPRN PRN ORAL Insomnia 05/28/17 21:00 06/04/17 20:59 MELISSA MYERS May 30, 2017 11:01
--- NOTE | 2017-05-30 12:08 | Diagnostic Imaging Report ---
Indication: DYSPNEA Technique: One view of the chest Comparison: 925-17 Findings: The heart is borderline enlarged. Lungs and pleural spaces are clear. Previously demonstrated interstitial congestive changes are not currently evident although this could be an artifact of improved exposure technique on the current exam. Impression: No acute process currently Borderline cardiomegaly
[2017-05-30 12:25] VITALS: BP 115/59
--- NOTE | 2017-05-30 15:33 | Diagnostic Imaging Report ---
Indication: Abdominal pain Technique: IV administration 5.7 mCi 99 technetium Choletec. Serial images obtained over the abdomen for 60 minutes Comparison: Reference made to ultrasound abdomen 05/28/2017 Findings: Normal prompt hepatic tracer uptake. Gallbladder is seen at 13 minutes. Extrahepatic bile ducts seen at 16 minutes. Activity within the duodenum is seen at 20 minutes Impression: Normal hepatobiliary scan. Negative for evidence of cystic duct or common bile duct obstruction
[2017-05-30 16:15] VITALS: BP 114/65
--- NOTE | 2017-05-30 18:10 | General Progress Note ---
Assessment/Plan Assessment/Plan ASSESSMENT AND PLAN: 1. Pancytopenia 2/2 cirrhosis with splenomegaly. GI following 2. Thrombocytopenia likely related to medications. At this time, platelet goal is about 20,000 and hemoglobin goal is about 7. 3. Anemia with a component of iron deficiency. Has been started on IV iron. 5. B12 deficiency. B12 will be ordered. 6. Cirrhosis of liver. Subjective Constitutional: Reports: no symptoms HEENT: Reports: no symptoms Cardiovascular: Reports: no symptoms Respiratory: Reports: no symptoms Gastrointestinal/Abdominal: Reports: no symptoms Genitourinary: Reports: no symptoms Neurologic/Psychiatric: Reports: no symptoms Endocrine: Reports: no symptoms Hematologic/Lymphatic: Reports: anemia Allergies: Coded Allergies: No Known Allergies (Unverified , 05/28/17) Objective Last 24 Hour Vital Signs Date Time Temp Pulse Resp B/P (MAP) Pulse Ox O2 Delivery O2 Flow Rate FiO2 05/30/17 16:15 97.0 74 16 114/65 98 Room Air 05/30/17 15:13 74 05/30/17 12:25 97.7 62 18 115/59 98 Room Air 05/30/17 12:00 60 05/30/17 08:00 97.9 66 20 132/64 97 Room Air 05/30/17 07:31 52 05/30/17 04:00 54 05/30/17 04:00 97.9 54 20 126/54 99 Room Air 05/30/17 00:00 96.0 59 18 128/60 99 Room Air 05/30/17 00:00 59 05/29/17 20:00 97.9 56 18 127/55 99 Room Air 05/29/17 20:00 56 Intake and Output 05/30/17 05/31/17 19:00 07:00 Intake Total 310 ml Balance 310 ml IV Total 310 ml # Bowel Movements 2 Laboratory Tests 05/30/17 03:50: White Blood Count 4.3L, Red Blood Count 3.25L, Hemoglobin 9.6L, Hematocrit 28.5L , Mean Corpuscular Volume 88, Mean Corpuscular Hemoglobin 29.7, Mean Corpuscular Hemoglobin Concent 33.8, Red Cell Distribution Width 14.7, Platelet Count 49L, Mean Platelet Volume 12.3H, Neutrophils (%) (Auto) , Lymphocytes (%) (Auto) , Monocytes (%) (Auto) , Eosinophils (%) (Auto) , Basophils (%) (Auto) , Differential Total Cells Counted 100, Neutrophils % (Manual) 79H, Lymphocytes % (Manual) 12L, Monocytes % (Manual) 6, Eosinophils % (Manual) 3, Basophils % ( Manual) 0, Band Neutrophils 0, Platelet Estimate DecreasedL, Platelet Morphology Normal, Hypochromasia 1+, Anisocytosis 1+, Acanthocytes 1+, Schistocytes 1+, Sodium Level 141, Potassium Level 3.6, Chloride Level 110H, Carbon Dioxide Level 21, Anion Gap 10, Blood Urea Nitrogen 18, Creatinine 0.7, Estimat Glomerular Filtration Rate > 60, Glucose Level 105, Calcium Level 8.2L, Ferritin 71, Total Bilirubin 1.5H, Direct Bilirubin 0.4H, Aspartate Amino Transf (AST/SGOT) 58H, Alanine Aminotransferase (ALT/SGPT) 32, Alkaline Phosphatase 83, Ammonia 63H, Pro-B-Type Natriuretic Peptide 344H, Total Protein 6.3L, Albumin 2.6L, Globulin 3.7, Albumin/Globulin Ratio 0.7L Height (Feet): 5 Height (Inches): 1.00 Weight (Pounds): 244 General Appearance: no apparent distress EENT: normal ENT inspection Neck: normal inspection Cardiovascular: normal rate Extremities: normal inspection Edema: 1+ Pedal (L), 1+ Pedal (R) Edema: mild edema Jose Sneed May 30, 2017 18:10
--- NOTE | 2017-05-30 18:47 | Cardiology Progress Note ---
Assessment/Plan Assessment/Plan [id number] Objective Last 24 Hour Vital Signs Date Time Temp Pulse Resp B/P (MAP) Pulse Ox O2 Delivery O2 Flow Rate FiO2 05/30/17 16:15 97.0 74 16 114/65 98 Room Air 05/30/17 15:13 74 05/30/17 12:25 97.7 62 18 115/59 98 Room Air 05/30/17 12:00 60 05/30/17 08:00 97.9 66 20 132/64 97 Room Air 05/30/17 07:31 52 05/30/17 04:00 54 05/30/17 04:00 97.9 54 20 126/54 99 Room Air 05/30/17 00:00 96.0 59 18 128/60 99 Room Air 05/30/17 00:00 59 05/29/17 20:00 97.9 56 18 127/55 99 Room Air 05/29/17 20:00 56 Intake and Output 05/30/17 05/31/17 19:00 07:00 Intake Total 710 ml Output Total 500 ml Balance 210 ml Intake Oral 400 ml IV Total 310 ml Output Urine Total 500 ml # Voids 2 # Bowel Movements 5 Laboratory Tests Test 05/30/17 03:50 White Blood Count 4.3 K/UL (4.8-10.8) L Red Blood Count 3.25 M/UL (4.20-5.40) L Hemoglobin 9.6 G/DL (12.0-16.0) L Hematocrit 28.5 % (37.0-47.0) L Mean Corpuscular Volume 88 FL (80-99) Mean Corpuscular Hemoglobin 29.7 PG (27.0-31.0) Mean Corpuscular Hemoglobin Concent 33.8 G/DL (32.0-36.0) Red Cell Distribution Width 14.7 % (11.6-14.8) Platelet Count 49 K/UL (150-450) L Mean Platelet Volume 12.3 FL (6.5-10.1) H Neutrophils (%) (Auto) % (45.0-75.0) Lymphocytes (%) (Auto) % (20.0-45.0) Monocytes (%) (Auto) % (1.0-10.0) Eosinophils (%) (Auto) % (0.0-3.0) Basophils (%) (Auto) % (0.0-2.0) Differential Total Cells Counted 100 Neutrophils % (Manual) 79 % (45-75) H Lymphocytes % (Manual) 12 % (20-45) L Monocytes % (Manual) 6 % (1-10) Eosinophils % (Manual) 3 % (0-3) Basophils % (Manual) 0 % (0-2) Band Neutrophils 0 % (0-8) Platelet Estimate Decreased L Platelet Morphology Normal Hypochromasia 1+ Anisocytosis 1+ Acanthocytes 1+ Schistocytes 1+ Sodium Level 141 mEQ/L (135-145) Potassium Level 3.6 mEQ/L (3.4-4.9) Chloride Level 110 mEQ/L (98-107) H Carbon Dioxide Level 21 mEQ/L (20-30) Anion Gap 10 (5-15) Blood Urea Nitrogen 18 mg/dL (7-23) Creatinine 0.7 mg/dL (0.5-0.9) Estimat Glomerular Filtration Rate > 60 mL/min (>60) Glucose Level 105 mg/dL (74-106) Calcium Level 8.2 mg/dL (8.6-10.2) L Ferritin 71 ng/mL (13-150) Total Bilirubin 1.5 mg/dL (0.0-1.2) H Direct Bilirubin 0.4 mg/dL (0.1-0.3) H Aspartate Amino Transf (AST/SGOT) 58 U/L (5-40) H Alanine Aminotransferase (ALT/SGPT) 32 U/L (3-33) Alkaline Phosphatase 83 U/L (35-104) Ammonia 63 umol/L (11-51) H Pro-B-Type Natriuretic Peptide 344 pg/mL (0-125) H Total Protein 6.3 g/dL (6.6-8.7) L Albumin 2.6 g/dL (3.5-5.2) L Globulin 3.7 g/dL Albumin/Globulin Ratio 0.7 (1.0-2.7) L Microbiology Date/Time Source Procedure Growth Status 05/28/17 06:00 Blood Blood Culture - Preliminary NO GROWTH AFTER 24 HOURS Resulted 05/28/17 05:45 Blood Blood Culture - Preliminary NO GROWTH AFTER 24 HOURS Resulted 05/28/17 05:48 Nasal Nares MRSA Culture - Final NO METHICILLIN RESISTANT STAPH AUREUS... Complete 05/28/17 05:48 Urine,Clean Catch Urine Culture - Final Escherichia Coli Complete 05/28/17 05:48 Rectum VRE Culture - Final NO VANCOMYCIN RESISTANT ENTEROCOCCUS ... Complete AGAPITO VALDEZ May 30, 2017 18:47
[2017-05-30 20:00] VITALS: BP 134/66
--- NOTE | 2017-05-30 20:05 | Infectious Diseases Prog Note ---
Assessment/Plan Assessment/Plan Assessment: The patient is a 62-year-old female with Abnormal liver function tests. HIDA : Neg for cholecystitis Ultrasound showed the gallbladder wall thickening and gallstones, . UTI : Pyuria UCX : EColi Rule out bacteremia. Leukopenia, anemia, and thrombocytopenia. : Neg human immunodeficiency virus. Rule out West Nile virus. Diabetes. Seizure disorder. Hypothyroidism. Hypertension. Diabetes. PLAN: change cefepime d# 3 to Kelfex d# / , ok to DC w cont of AB Rx as out pt Monitor CBC. Monitor BMP. Monitor cultures, blood and urine. Monitor liver function test. Hepatitis B and C serology. Subjective Constitutional: Denies: no symptoms, fever, chills, fatigue, anorexia, drenching sweats, other Allergies: Coded Allergies: No Known Allergies (Unverified , 05/28/17) Subjective more awake, no abd pain Objective Vital Signs Last 24 Hour Vital Signs Date Time Temp Pulse Resp B/P (MAP) Pulse Ox O2 Delivery O2 Flow Rate FiO2 05/30/17 16:15 97.0 74 16 114/65 98 Room Air 05/30/17 15:13 74 05/30/17 12:25 97.7 62 18 115/59 98 Room Air 05/30/17 12:00 60 05/30/17 08:00 97.9 66 20 132/64 97 Room Air 05/30/17 07:31 52 05/30/17 04:00 54 05/30/17 04:00 97.9 54 20 126/54 99 Room Air 05/30/17 00:00 96.0 59 18 128/60 99 Room Air 05/30/17 00:00 59 Height (Feet): 5 Height (Inches): 1.00 Weight (Pounds): 244 HEENT: atraumatic Respiratory/Chest: normal breath sounds Cardiovascular: regular rhythm Abdomen: no organomegaly Microbiology Date/Time Source Procedure Growth Status 05/28/17 06:00 Blood Blood Culture - Preliminary NO GROWTH AFTER 24 HOURS Resulted 05/28/17 05:45 Blood Blood Culture - Preliminary NO GROWTH AFTER 24 HOURS Resulted 05/28/17 05:48 Nasal Nares MRSA Culture - Final NO METHICILLIN RESISTANT STAPH AUREUS... Complete 05/28/17 05:48 Urine,Clean Catch Urine Culture - Final Escherichia Coli Complete 05/28/17 05:48 Rectum VRE Culture - Final NO VANCOMYCIN RESISTANT ENTEROCOCCUS ... Complete Laboratory Tests Test 05/30/17 03:50 White Blood Count 4.3 K/UL (4.8-10.8) L Red Blood Count 3.25 M/UL (4.20-5.40) L Hemoglobin 9.6 G/DL (12.0-16.0) L Hematocrit 28.5 % (37.0-47.0) L Mean Corpuscular Volume 88 FL (80-99) Mean Corpuscular Hemoglobin 29.7 PG (27.0-31.0) Mean Corpuscular Hemoglobin Concent 33.8 G/DL (32.0-36.0) Red Cell Distribution Width 14.7 % (11.6-14.8) Platelet Count 49 K/UL (150-450) L Mean Platelet Volume 12.3 FL (6.5-10.1) H Neutrophils (%) (Auto) % (45.0-75.0) Lymphocytes (%) (Auto) % (20.0-45.0) Monocytes (%) (Auto) % (1.0-10.0) Eosinophils (%) (Auto) % (0.0-3.0) Basophils (%) (Auto) % (0.0-2.0) Differential Total Cells Counted 100 Neutrophils % (Manual) 79 % (45-75) H Lymphocytes % (Manual) 12 % (20-45) L Monocytes % (Manual) 6 % (1-10) Eosinophils % (Manual) 3 % (0-3) Basophils % (Manual) 0 % (0-2) Band Neutrophils 0 % (0-8) Platelet Estimate Decreased L Platelet Morphology Normal Hypochromasia 1+ Anisocytosis 1+ Acanthocytes 1+ Schistocytes 1+ Sodium Level 141 mEQ/L (135-145) Potassium Level 3.6 mEQ/L (3.4-4.9) Chloride Level 110 mEQ/L (98-107) H Carbon Dioxide Level 21 mEQ/L (20-30) Anion Gap 10 (5-15) Blood Urea Nitrogen 18 mg/dL (7-23) Creatinine 0.7 mg/dL (0.5-0.9) Estimat Glomerular Filtration Rate > 60 mL/min (>60) Glucose Level 105 mg/dL (74-106) Calcium Level 8.2 mg/dL (8.6-10.2) L Ferritin 71 ng/mL (13-150) Total Bilirubin 1.5 mg/dL (0.0-1.2) H Direct Bilirubin 0.4 mg/dL (0.1-0.3) H Aspartate Amino Transf (AST/SGOT) 58 U/L (5-40) H Alanine Aminotransferase (ALT/SGPT) 32 U/L (3-33) Alkaline Phosphatase 83 U/L (35-104) Ammonia 63 umol/L (11-51) H Pro-B-Type Natriuretic Peptide 344 pg/mL (0-125) H Total Protein 6.3 g/dL (6.6-8.7) L Albumin 2.6 g/dL (3.5-5.2) L Globulin 3.7 g/dL Albumin/Globulin Ratio 0.7 (1.0-2.7) L Current Medications Medications (Trade) Dose Ordered Sig/Antoni Route PRN Reason Start Time Stop Time Status Last Admin Dose Admin Acetaminophen (Tylenol) 650 mg Q4H PRN ORAL Mild Pain/Temp > 100.5 05/30/17 10:00 06/29/17 09:59 05/30/17 09:13 Al Hydroxide/Mg Hydroxide (Mylanta II) 30 ml Q6H PRN ORAL dyspepsia 05/28/17 10:30 06/27/17 10:29 Cefepime HCl 2 gm/ Dextrose 110 ml @ 220 mls/hr EVERY 12 HOURS IVPB 05/28/17 14:00 06/04/17 13:59 05/30/17 08:51 Dextrose (Dextrose 50%) STAT PRN IV Hypoglycemia 05/29/17 12:00 06/28/17 11:59 Insulin Aspart (NovoLOG) BEFORE MEALS AND HS SUBQ 05/29/17 16:30 06/28/17 16:29 05/30/17 16:51 Lactulose (Cephulac) 30 gm EVERY 6 HOURS ORAL 05/28/17 12:00 06/27/17 11:59 05/30/17 17:37 Levothyroxine Sodium (Synthroid) 25 mcg ACBREAKFAST ORAL 05/30/17 06:30 06/29/17 06:29 05/30/17 06:21 Lorazepam (Ativan 2mg/ml 1ml) 0.5 mg Q4H PRN IV For Anxiety 05/28/17 10:30 06/04/17 10:29 Morphine Sulfate (Morphine Sulfate) 2 mg Q4H PRN IVP For Pain 05/28/17 10:30 06/04/17 10:29 Ondansetron HCl (Zofran) 4 mg Q6H PRN IVP Nausea & Vomiting 05/28/17 10:30 06/27/17 10:29 Polyethylene Glycol (Miralax) 17 gm HSPRN PRN ORAL Constipation 05/28/17 21:00 06/27/17 20:59 Rifaximin (Xifaxan) 550 mg EVERY 12 HOURS ORAL 05/28/17 21:00 06/04/17 20:59 05/30/17 08:50 Zolpidem Tartrate (Ambien) 5 mg HSPRN PRN ORAL Insomnia 05/28/17 21:00 06/04/17 20:59 JOSE ROBERTO CASTRO M.D. May 30, 2017 20:05
[2017-05-30] MEDS: Cephalexin 500mg cap ORAL SCH (22:03)
[2017-05-31] VITALS (7 sets, daily range): BP systolic 108–146; BP diastolic 58–81
[2017-05-31] MEDS: Lactulose 20gm/30ml UDC ORAL SCH ×5 (00:26→23:44)
[2017-05-31 05:43] LABS: MEAN CORPUSCULAR HEMOGLOBIN 29.3 PG (27.0-31.0); MEAN CORPUSCULAR HGB CONC 33.4 G/DL (32.0-36.0); MEAN CORPUSCULAR VOLUME 88 FL (80-99); MEAN PLATELET VOLUME 12.9 FL (6.5-10.1); PLATELET COUNT 48 K/UL (150-450); RED BLOOD COUNT 3.36 M/UL (4.20-5.40); RED CELL DISTRIBUTION WIDTH 14.6 % (11.6-14.8); WHITE BLOOD COUNT 3.5 K/UL (4.8-10.8)
[2017-05-31 06:00] LABS: ALANINE AMINOTRANSFERASE 34 U/L (3-33); ALBUMIN/GLOBULIN RATIO 0.7 (1.0-2.7); ANION GAP 11 (5-15); ASPARTATE AMINO TRANSFERASE 60 U/L (5-40); CALCIUM 7.9 mg/dL (8.6-10.2); CARBON DIOXIDE 23 mEQ/L (20-30); CHLORIDE 104 mEQ/L (98-107); CREATININE 0.7 mg/dL (0.5-0.9); GLOMERULAR FILTRATION RATE > 60 mL/min (>60); HEMOLYSIS 5; MAGNESIUM 1.8 mg/dL (1.7-2.5); PHOSPHORUS 3.1 mg/dL (2.5-4.8); POTASSIUM 3.5 mEQ/L (3.4-4.9); SODIUM 138 mEQ/L (135-145); TOTAL PROTEIN 6.1 g/dL (6.6-8.7)
[2017-05-31 06:04] LABS: INR 1.3 (0.9-1.1); PROTHROMBIN TIME 13.2 SEC (9.30-11.50)
[2017-05-31] MEDS: Levothyroxine 25mcg tab ORAL SCH (06:28)
[2017-05-31 06:29] LABS: BILIRUBIN,DIRECT 0.3 mg/dL (0.1-0.3)
[2017-05-31] MEDS: NovoLOG Insulin Flexpen SUBQ SCH ×4 (06:37→20:39)
[2017-05-31 08:05] LABS: BAND NEUTROPHILS % (MANUAL) 0 % (0-8); BASOPHILS % (MANUAL) 1 % (0-2); EOSINOPHILS % (MANUAL) 4 % (0-3); LYMPHOCYTES % (MANUAL) 29 % (20-45); NEUTROPHILS % (MANUAL) 58 % (45-75); PLATELET ESTIMATE DECREASED; PLATELET MORPHOLOGY NORMAL; TOTAL CELLS COUNTED 100
[2017-05-31 08:06] LABS: ANISOCYTOSIS 1+
[2017-05-31] MEDS: Cephalexin 500mg cap ORAL SCH ×4 (08:37→20:52)
--- NOTE | 2017-05-31 09:02 | Consultation ---
DATE OF CONSULTATION: 05/30/2017 CARDIOLOGY CONSULTATION REFERRING PHYSICIAN: Alexis Mason M.D. REASON FOR REFERRAL: Shortness of breath. History of Present Illness: This is an elderly female, who was initially brought to the emergency room at [facility]. Photo Retoucher run sheet reviewed and indicate the patient was found to have been altered by family members, woke up with grunting respirations coming from the bedroom and the patient was having trouble breathing. The patient was alert and oriented x1 only. Apparently, some kind of oral trauma. She has no history of seizures, and the family had been complaining the patient is coughing for approximately two days. At this time of my arrival, the patient feels better, that she is actually walking around the room. She denies any chest pain. She does indicate that her coughing is better. The patient may have fallen. The patient denies any history of cardiac problems on prior occasions and she denies any smoking or alcohol. Past Medical History: According to the chart is positive for history of thrombocytopenia, onychomycosis, anemia of chronic disease, diabetes mellitus, bilateral lower extremity , allergic rhinitis, hypothyroidism, obesity, abnormal liver function tests, carpal tunnel syndrome, osteoarthritis, chronic kidney disease stage 2, varicose veins, and hyperlipidemia as well. She denies any smoking or drinking alcoholic beverages, no drug use previously. Review Of Systems: Gastrointestinal: Denies any nausea or vomiting. Genitourinary: Negative. Pulmonary: Positive for coughing, not significant though. PHYSICAL EXAMINATION: General: Shows to be obese elderly female, in no respiratory distress. NECK: Supple. No jugular venous distention. LUNGS: Appear to be clear to auscultation and percussion. CARDIAC: S1 is normal. S2 is normal. Regular rate. ABDOMEN: Obese. Positive bowel sounds. Nontender. EXTREMITIES: There is no clubbing, cyanosis nor edema. NEUROLOGICAL: She is awake, alert, and responsive. Laboratory And Diagnostic Data: White count of 4.3, hemoglobin 9.6, and platelet count of 49,000. Sodium is 141, potassium 3.6, chloride 100, bicarbonate 23, BUN of 18, creatinine 0.7, and glucose of 105. Calcium is 8.2. AST of 58 and ALT of 32. Ammonia of 63, down from 126. ProBNP of 344 only. Folic acid was 15.7. Vitamin B12 of 125. TSH was normal at 0.73. Coagulations, INR 1.2. Urinalysis, 60-80 WBCs and 2-4 RBCs. Toxicology screen is negative. Imaging, HIDA scan has shown negative for evidence of cystic duct or common bile duct obstruction. Chest x-ray has shown borderline cardiomegaly, otherwise unremarkable. An echocardiogram has been shown to show ejection fraction being normal. No significant valvular regurgitation, although the valve morphology is rather poor and an ultrasound of the abdomen has shown evidence of hepatic cirrhosis with coarse echotexture and surface nodularity. CT scan of the head had shown normal CT without contrast. Telemetry shows sinus rhythm. EKG shows sinus rhythm, normal QRS axis, really no significant ST abnormalities, may be some element of sinus arrhythmia is noted. ASSESSMENT: 1. Encephalopathy, positive hepatic. 2. Cirrhosis based on CT findings. 3. Thrombocytopenia, known. 4. Urinary tract infection. 5. Anemia of chronic disease. 6. Diabetes mellitus. 7. Vitamin B12 deficiency. Plan: Dr. Mason, this patient was seen in cardiac consultation. The patient's echocardiogram shows normal left ventricular systolic function. She does not appear to be in any congestive heart failure. She has significant vitamin B12 deficiency. She will be supplemented with vitamin B12. She has had extensive evaluation including hematologic and rheumatologic evaluation ongoing for the cause of her thrombocytopenia. The patient will be followed on a regular basis as needed for her cardiac issues, although she seems to be stable at this time from a cardiac point of view. Lele Clemens M.D. DR: MINOO JOB#: [id number] CC:
--- NOTE | 2017-05-31 11:06 | GI Progress Note ---
Assessment/Plan Problems: (1) Anemia ICD Codes: D64.9 - Anemia, unspecified SNOMED: 330734089 (2) Hepatic encephalopathy ICD Codes: K72.90 - Hepatic failure, unspecified without coma SNOMED: 04809431 (3) Diabetes ICD Codes: E11.9 - Type 2 diabetes mellitus without complications SNOMED: 95456507 Qualifiers: Qualified Codes: E11.8 - Type 2 diabetes mellitus with unspecified complications (4) Liver failure ICD Codes: K72.90 - Hepatic failure, unspecified without coma SNOMED: 62332459 Qualifiers: Qualified Codes: K72.91 - Hepatic failure, unspecified with coma (5) Chronic liver disease ICD Codes: K76.9 - Liver disease, unspecified SNOMED: 349618548 (6) Thrombocytopenia ICD Codes: D69.6 - Thrombocytopenia, unspecified SNOMED: 298309071 Status: stable Status Narrative Discussed with Dr. Madden. Assessment/Plan Head CT >> negative abdominal U/S reviewed 05/28/17 >> cirrhosis - imaging studies and/or biopsy reports from primary care, see full report in physical chart >> 04/03/17 Abdominal U/S shows normal parenchymal echogenicity of liver. Fatty liver. hepatitis panel >> negative B12 deficiency >> B12 x 1 iron deficient >> venofer EGD/colonoscopy scheduled for tomorrow. - CLD, NPO @ [facility]. fu ZULMA, SMA, AMA, Alpha 2 antitrypsin, total IGg r/o autoimmune >> abdominal U/ S liver bx today OB stool r/o GI bleed ppi cont lactulose + Xifaxan >> repeat ammonia levels fu paracentesis monitor H&H, prn transfusion fu labs Subjective Subjective feels better ambulating to the bathroom large BM this morning Objective Last 24 Hour Vital Signs Date Time Temp Pulse Resp B/P (MAP) Pulse Ox O2 Delivery O2 Flow Rate FiO2 05/31/17 08:00 60 05/31/17 08:00 98.4 61 18 116/61 97 Room Air 05/31/17 04:00 65 05/31/17 04:00 99.8 72 20 118/60 97 Room Air 05/31/17 00:29 99.0 61 20 110/58 97 Room Air 05/31/17 00:00 75 05/30/17 20:00 98.2 60 20 134/66 99 Room Air 05/30/17 19:07 69 05/30/17 16:15 97.0 74 16 114/65 98 Room Air 05/30/17 15:13 74 05/30/17 12:25 97.7 62 18 115/59 98 Room Air 05/30/17 12:00 60 Laboratory Tests Test 05/31/17 03:50 White Blood Count 3.5 K/UL (4.8-10.8) L Red Blood Count 3.36 M/UL (4.20-5.40) L Hemoglobin 9.8 G/DL (12.0-16.0) L Hematocrit 29.5 % (37.0-47.0) L Mean Corpuscular Volume 88 FL (80-99) Mean Corpuscular Hemoglobin 29.3 PG (27.0-31.0) Mean Corpuscular Hemoglobin Concent 33.4 G/DL (32.0-36.0) Red Cell Distribution Width 14.6 % (11.6-14.8) Platelet Count 48 K/UL (150-450) L Mean Platelet Volume 12.9 FL (6.5-10.1) H Neutrophils (%) (Auto) % (45.0-75.0) Lymphocytes (%) (Auto) % (20.0-45.0) Monocytes (%) (Auto) % (1.0-10.0) Eosinophils (%) (Auto) % (0.0-3.0) Basophils (%) (Auto) % (0.0-2.0) Differential Total Cells Counted 100 Neutrophils % (Manual) 58 % (45-75) Lymphocytes % (Manual) 29 % (20-45) Monocytes % (Manual) 8 % (1-10) Eosinophils % (Manual) 4 % (0-3) H Basophils % (Manual) 1 % (0-2) Band Neutrophils 0 % (0-8) Platelet Estimate Decreased L Platelet Morphology Normal Anisocytosis 1+ Prothrombin Time 13.2 SEC (9.30-11.50) H Prothromb Time International Ratio 1.3 (0.9-1.1) H Activated Partial Thromboplast Time 34 SEC (23-33) H Sodium Level 138 mEQ/L (135-145) Potassium Level 3.5 mEQ/L (3.4-4.9) Chloride Level 104 mEQ/L (98-107) Carbon Dioxide Level 23 mEQ/L (20-30) Anion Gap 11 (5-15) Blood Urea Nitrogen 12 mg/dL (7-23) Creatinine 0.7 mg/dL (0.5-0.9) Estimat Glomerular Filtration Rate > 60 mL/min (>60) Glucose Level 149 mg/dL (74-106) H Calcium Level 7.9 mg/dL (8.6-10.2) L Phosphorus Level 3.1 mg/dL (2.5-4.8) Magnesium Level 1.8 mg/dL (1.7-2.5) Total Bilirubin 1.1 mg/dL (0.0-1.2) Direct Bilirubin 0.3 mg/dL (0.1-0.3) Aspartate Amino Transf (AST/SGOT) 60 U/L (5-40) H Alanine Aminotransferase (ALT/SGPT) 34 U/L (3-33) H Alkaline Phosphatase 93 U/L (35-104) Total Protein 6.1 g/dL (6.6-8.7) L Albumin 2.6 g/dL (3.5-5.2) L Globulin 3.5 g/dL Albumin/Globulin Ratio 0.7 (1.0-2.7) L [id number] Pending Immunoglobulin G Pending Immunoglobulin G1 Pending Immunoglobulin G2 Pending Immunoglobulin G3 Pending Immunoglobulin G4 Pending Anti-Nuclear Antibody Screen Pending Anti-Mitochondrial Antibody Pending F-Actin IgG Antibody Pending Height (Feet): 5 Height (Inches): 1.00 Weight (Pounds): 240 General Appearance: no apparent distress, alert, obese Cardiovascular: normal rate Respiratory/Chest: normal breath sounds, no respiratory distress Abdominal Exam: soft Extremities: normal range of motion Kassidy Swain N.P. May 31, 2017 11:06
[2017-05-31 11:12] LABS: WEST NILE VIRUS IGG AB Negative (Negative); WEST NILE VIRUS IGM SERUM Negative (Negative)
--- NOTE | 2017-05-31 11:20 | Pulmonology Progress Note ---
Assessment/Plan Problems: (1) Sepsis (2) Seizure (3) Fever (4) Hepatic encephalopathy (5) Chronic liver disease (6) Thrombocytopenia (7) Coagulopathy Assessment/Plan afebrile Urine has Ecoli plt are low, Hematology called PLT ordered prior to liver biopsy talked to radiology, biopsy is scheduled for today continue abx Subjective ROS Limited/Unobtainable: No Constitutional: Reports: no symptoms HEENT: Repors: no symptoms Respiratory: Reports: no symptoms Allergies: Coded Allergies: No Known Allergies (Unverified , 05/28/17) Objective Last 24 Hour Vital Signs Date Time Temp Pulse Resp B/P (MAP) Pulse Ox O2 Delivery O2 Flow Rate FiO2 05/31/17 08:00 60 05/31/17 08:00 98.4 61 18 116/61 97 Room Air 05/31/17 04:00 65 05/31/17 04:00 99.8 72 20 118/60 97 Room Air 05/31/17 00:29 99.0 61 20 110/58 97 Room Air 05/31/17 00:00 75 05/30/17 20:00 98.2 60 20 134/66 99 Room Air 05/30/17 19:07 69 05/30/17 16:15 97.0 74 16 114/65 98 Room Air 05/30/17 15:13 74 05/30/17 12:25 97.7 62 18 115/59 98 Room Air 05/30/17 12:00 60 General Appearance: WD/WN HEENT: normocephalic, atraumatic Respiratory/Chest: chest wall non-tender, lungs clear Cardiovascular: normal peripheral pulses, normal rate Abdomen: normal bowel sounds, soft, non tender Genitourinary: normal external genitalia Extremities: no cyanosis Skin: no lesions Neurologic/Psychiatric: abnormal gait Lymphatic: no neck adenopathy Musculoskeletal: normal muscle bulk Laboratory Tests 05/31/17 03:50: White Blood Count 3.5L, Red Blood Count 3.36L, Hemoglobin 9.8L, Hematocrit 29.5L , Mean Corpuscular Volume 88, Mean Corpuscular Hemoglobin 29.3, Mean Corpuscular Hemoglobin Concent 33.4, Red Cell Distribution Width 14.6, Platelet Count 48L, Mean Platelet Volume 12.9H, Neutrophils (%) (Auto) , Lymphocytes (%) (Auto) , Monocytes (%) (Auto) , Eosinophils (%) (Auto) , Basophils (%) (Auto) , Differential Total Cells Counted 100, Neutrophils % (Manual) 58, Lymphocytes % ( Manual) 29, Monocytes % (Manual) 8, Eosinophils % (Manual) 4H, Basophils % ( Manual) 1, Band Neutrophils 0, Platelet Estimate DecreasedL, Platelet Morphology Normal, Anisocytosis 1+, Prothrombin Time 13.2H, Prothromb Time International Ratio 1.3H, Activated Partial Thromboplast Time 34H, Sodium Level 138, Potassium Level 3.5, Chloride Level 104, Carbon Dioxide Level 23, Anion Gap 11, Blood Urea Nitrogen 12, Creatinine 0.7, Estimat Glomerular Filtration Rate > 60, Glucose Level 149H, Calcium Level 7.9L, Phosphorus Level 3.1, Magnesium Level 1.8, Total Bilirubin 1.1, Direct Bilirubin 0.3, Aspartate Amino Transf (AST/SGOT) 60H, Alanine Aminotransferase (ALT/SGPT) 34H, Alkaline Phosphatase 93, Total Protein 6.1L, Albumin 2.6L, Globulin 3.5, Albumin/ Globulin Ratio 0.7L, [id number] [Pending], Immunoglobulin G [Pending], Immunoglobulin G1 [Pending], Immunoglobulin G2 [Pending], Immunoglobulin G3 [ Pending], Immunoglobulin G4 [Pending], Anti-Nuclear Antibody Screen [Pending], Anti-Mitochondrial Antibody [Pending], F-Actin IgG Antibody [Pending] Current Medications Medications (Trade) Dose Ordered Sig/Antoni Route PRN Reason Start Time Stop Time Status Last Admin Dose Admin Acetaminophen (Tylenol) 650 mg Q4H PRN ORAL Mild Pain/Temp > 100.5 05/30/17 10:00 06/29/17 09:59 05/31/17 09:54 Al Hydroxide/Mg Hydroxide (Mylanta II) 30 ml Q6H PRN ORAL dyspepsia 05/28/17 10:30 06/27/17 10:29 Cephalexin (Keflex) 500 mg FOUR TIMES A DAY ORAL 05/30/17 21:00 06/06/17 20:59 05/31/17 08:37 Dextrose (Dextrose 50%) STAT PRN IV Hypoglycemia 05/29/17 12:00 06/28/17 11:59 Insulin Aspart (NovoLOG) BEFORE MEALS AND HS SUBQ 05/29/17 16:30 06/28/17 16:29 05/31/17 06:37 Lactulose (Cephulac) 30 gm EVERY 6 HOURS ORAL 05/28/17 12:00 06/27/17 11:59 05/31/17 06:28 Levothyroxine Sodium (Synthroid) 25 mcg ACBREAKFAST ORAL 05/30/17 06:30 06/29/17 06:29 05/31/17 06:28 Lorazepam (Ativan 2mg/ml 1ml) 0.5 mg Q4H PRN IV For Anxiety 05/28/17 10:30 06/04/17 10:29 Morphine Sulfate (Morphine Sulfate) 2 mg Q4H PRN IVP For Pain 05/28/17 10:30 06/04/17 10:29 Ondansetron HCl (Zofran) 4 mg Q6H PRN IVP Nausea & Vomiting 05/28/17 10:30 06/27/17 10:29 Polyethylene Glycol (Miralax) 17 gm HSPRN PRN ORAL Constipation 05/28/17 21:00 06/27/17 20:59 Rifaximin (Xifaxan) 550 mg EVERY 12 HOURS ORAL 05/28/17 21:00 06/04/17 20:59 05/31/17 08:37 Zolpidem Tartrate (Ambien) 5 mg HSPRN PRN ORAL Insomnia 05/28/17 21:00 06/04/17 20:59 MELISSA MYERS May 31, 2017 11:20
[2017-05-31] MEDS ORDERED: Phytonadione 10 MG in D5W 55 ML IVPB ONE (12:30)
[2017-05-31] MEDS ORDERED: Nulytely 4L ORAL ONE (16:00)
[2017-05-31] MEDS ORDERED: Bisacodyl EC 5mg tab ORAL ONE (16:00)
[2017-05-31] MEDS ORDERED: Tubing IV Secondary IV ONE (16:48)
[2017-05-31] MEDS ORDERED: NS 275ml ONE (16:48)
[2017-05-31] MEDS ORDERED: Tubing Blood Filter IV ONE (16:48)
[2017-05-31] MEDS ORDERED: LORazepam Inj 2mg/ml 1ml IV PRN (18:30)
[2017-05-31] MEDS ORDERED: Morphine Sulfate 2mg/ml Inj IVP PRN (18:30)
--- NOTE | 2017-05-31 18:32 | General Progress Note ---
Assessment/Plan Problem List: (1) Hypothyroidism ICD Codes: E03.9 - Hypothyroidism, unspecified SNOMED: 32907582 (2) Diabetes ICD Codes: E11.9 - Type 2 diabetes mellitus without complications SNOMED: 86932432 Qualifiers: Qualified Codes: E11.8 - Type 2 diabetes mellitus with unspecified complications (3) Hepatic encephalopathy ICD Codes: K72.90 - Hepatic failure, unspecified without coma SNOMED: 66153686 (4) Altered mental status ICD Codes: R41.82 - Altered mental status, unspecified SNOMED: 649096529 (5) Chronic liver disease ICD Codes: K76.9 - Liver disease, unspecified SNOMED: 930560891 Assessment/Plan diabetes is controlled on SSI no need for oral diabetic medications for now avoid Glipizide TSH is at target continue Levothyroxine 25 mcg daily Subjective Allergies: Coded Allergies: No Known Allergies (Unverified , 05/28/17) All Systems: reviewed and negative except above Subjective pleasant lady admitted with hepatic encephalopathy and fall hx of T2DM on glipizide monotherapy as OP hx of hypothyroidism on Levothyroxine 25 mcg daily - TSH is WNL Objective Last 24 Hour Vital Signs Date Time Temp Pulse Resp B/P (MAP) Pulse Ox O2 Delivery O2 Flow Rate FiO2 05/31/17 16:00 97.5 61 16 108/62 96 Room Air 05/31/17 12:00 98.4 65 18 131/70 98 Room Air 05/31/17 12:00 62 05/31/17 08:00 60 05/31/17 08:00 98.4 61 18 116/61 97 Room Air 05/31/17 04:00 65 05/31/17 04:00 99.8 72 20 118/60 97 Room Air 05/31/17 00:29 99.0 61 20 110/58 97 Room Air 05/31/17 00:00 75 05/30/17 20:00 98.2 60 20 134/66 99 Room Air 05/30/17 19:07 69 Intake and Output 05/31/17 06/01/17 19:00 07:00 Intake Total 2483 ml Balance 2483 ml Intake Oral 2000 ml Blood Product 483 ml # Voids 4 # Bowel Movements 8 Laboratory Tests 05/31/17 03:50: White Blood Count 3.5L, Red Blood Count 3.36L, Hemoglobin 9.8L, Hematocrit 29.5L , Mean Corpuscular Volume 88, Mean Corpuscular Hemoglobin 29.3, Mean Corpuscular Hemoglobin Concent 33.4, Red Cell Distribution Width 14.6, Platelet Count 48L, Mean Platelet Volume 12.9H, Neutrophils (%) (Auto) , Lymphocytes (%) (Auto) , Monocytes (%) (Auto) , Eosinophils (%) (Auto) , Basophils (%) (Auto) , Differential Total Cells Counted 100, Neutrophils % (Manual) 58, Lymphocytes % ( Manual) 29, Monocytes % (Manual) 8, Eosinophils % (Manual) 4H, Basophils % ( Manual) 1, Band Neutrophils 0, Platelet Estimate DecreasedL, Platelet Morphology Normal, Anisocytosis 1+, Prothrombin Time 13.2H, Prothromb Time International Ratio 1.3H, Activated Partial Thromboplast Time 34H, Sodium Level 138, Potassium Level 3.5, Chloride Level 104, Carbon Dioxide Level 23, Anion Gap 11, Blood Urea Nitrogen 12, Creatinine 0.7, Estimat Glomerular Filtration Rate > 60, Glucose Level 149H, Calcium Level 7.9L, Phosphorus Level 3.1, Magnesium Level 1.8, Total Bilirubin 1.1, Direct Bilirubin 0.3, Aspartate Amino Transf (AST/SGOT) 60H, Alanine Aminotransferase (ALT/SGPT) 34H, Alkaline Phosphatase 93, Total Protein 6.1L, Albumin 2.6L, Globulin 3.5, Albumin/ Globulin Ratio 0.7L, Myshl-0-Mzglpxwmetq [Pending], Immunoglobulin G [Pending], Immunoglobulin G1 [Pending], Immunoglobulin G2 [Pending], Immunoglobulin G3 [ Pending], Immunoglobulin G4 [Pending], Anti-Nuclear Antibody Screen [Pending], Anti-Mitochondrial Antibody [Pending], F-Actin IgG Antibody [Pending] Height (Feet): 5 Height (Inches): 1.00 Weight (Pounds): 240 General Appearance: no apparent distress Neck: normal alignment Cardiovascular: normal rate Respiratory/Chest: lungs clear Abdomen: normal bowel sounds Pelvis: normal external exam Edema: 1+ Arm (L), 1+ Arm (R), 1+ Leg (L), 1+ Leg (R), 1+ Pedal (L), 1+ Pedal ( R), 1+ Generalized Objective Current Medications Medications (Trade) Dose Ordered Sig/Antoni Route PRN Reason Start Time Stop Time Status Last Admin Dose Admin Acetaminophen (Tylenol) 650 mg Q4H PRN ORAL Mild Pain/Temp > 100.5 05/31/17 18:00 06/29/17 09:59 Al Hydroxide/Mg Hydroxide (Mylanta II) 30 ml Q6H PRN ORAL dyspepsia 05/31/17 22:30 06/27/17 10:29 Cephalexin (Keflex) 500 mg FOUR TIMES A DAY ORAL 05/31/17 18:00 06/06/17 20:59 Dextrose (Dextrose 50%) STAT PRN IV Hypoglycemia 06/01/17 12:00 06/28/17 11:59 Insulin Aspart (NovoLOG) BEFORE MEALS AND HS SUBQ 05/31/17 21:00 06/28/17 16:29 Lactulose (Cephulac) 30 gm EVERY 6 HOURS ORAL 05/31/17 18:00 06/27/17 11:59 Levothyroxine Sodium (Synthroid) 25 mcg ACBREAKFAST ORAL 06/01/17 06:30 06/29/17 06:29 Lorazepam (Ativan 2mg/ml 1ml) 0.5 mg Q4H PRN IV For Anxiety 05/31/17 18:30 06/04/17 10:29 Morphine Sulfate (Morphine Sulfate) 2 mg Q4H PRN IVP For Pain 05/31/17 18:30 06/04/17 10:29 Ondansetron HCl (Zofran) 4 mg Q6H PRN IVP Nausea & Vomiting 05/31/17 22:30 06/27/17 10:29 Polyethylene Glycol (Miralax) 17 gm HSPRN PRN ORAL Constipation 05/31/17 21:00 06/27/17 20:59 Rifaximin (Xifaxan) 550 mg EVERY 12 HOURS ORAL 05/31/17 21:00 06/04/17 20:59 Sodium Phosphate (Fleet's Sodium Phosl Enema) 133 ml ONCE ONCE RECTAL 05/31/17 23:00 05/31/17 23:01 Zolpidem Tartrate (Ambien) 5 mg HSPRN PRN ORAL Insomnia 05/31/17 21:00 06/04/17 20:59 Item Value Date Time Bedside Blood Glucose 132 mg/dl H 05/31/17 1641 Bedside Blood Glucose 177 mg/dl H 05/31/17 1133 Bedside Blood Glucose 117 mg/dl 05/31/17 0637 JESSICA SCHAEFER May 31, 2017 18:32
--- NOTE | 2017-05-31 20:00 | Infectious Diseases Prog Note ---
Assessment/Plan Assessment/Plan Assessment: The patient is a 62-year-old female with Abnormal liver function tests. HIDA : Neg for cholecystitis Ultrasound showed the gallbladder wall thickening and gallstones, . UTI : Pyuria UCX : EColi Rule out bacteremia. Leukopenia, anemia, and thrombocytopenia. : Neg human immunodeficiency virus. Rule out West Nile virus. Diabetes. Seizure disorder. Hypothyroidism. Hypertension. Diabetes. PLAN: cont Kelfex d# 2 / 7 , ok to DC w cont of AB Rx as out pt SP cefepime d# 3 Monitor CBC. Monitor BMP. Monitor cultures, blood and urine. Monitor liver function test. Hepatitis B and C serology. Subjective Constitutional: Denies: no symptoms, fever, chills, fatigue, anorexia, drenching sweats, other Allergies: Coded Allergies: No Known Allergies (Unverified , 05/28/17) Subjective more awake, no abd pain Objective Vital Signs Last 24 Hour Vital Signs Date Time Temp Pulse Resp B/P (MAP) Pulse Ox O2 Delivery O2 Flow Rate FiO2 05/31/17 19:06 97.7 70 20 146/81 96 Room Air 05/31/17 16:00 97.5 61 16 108/62 96 Room Air 05/31/17 12:00 98.4 65 18 131/70 98 Room Air 05/31/17 12:00 62 05/31/17 08:00 60 05/31/17 08:00 98.4 61 18 116/61 97 Room Air 05/31/17 04:00 65 05/31/17 04:00 99.8 72 20 118/60 97 Room Air 05/31/17 00:29 99.0 61 20 110/58 97 Room Air 05/31/17 00:00 75 05/30/17 20:00 98.2 60 20 134/66 99 Room Air Height (Feet): 5 Height (Inches): 1.00 Weight (Pounds): 240 HEENT: mucous membranes moist Respiratory/Chest: no accessory muscle use Cardiovascular: regular rhythm Abdomen: no mass Laboratory Tests Test 05/31/17 03:50 White Blood Count 3.5 K/UL (4.8-10.8) L Red Blood Count 3.36 M/UL (4.20-5.40) L Hemoglobin 9.8 G/DL (12.0-16.0) L Hematocrit 29.5 % (37.0-47.0) L Mean Corpuscular Volume 88 FL (80-99) Mean Corpuscular Hemoglobin 29.3 PG (27.0-31.0) Mean Corpuscular Hemoglobin Concent 33.4 G/DL (32.0-36.0) Red Cell Distribution Width 14.6 % (11.6-14.8) Platelet Count 48 K/UL (150-450) L Mean Platelet Volume 12.9 FL (6.5-10.1) H Neutrophils (%) (Auto) % (45.0-75.0) Lymphocytes (%) (Auto) % (20.0-45.0) Monocytes (%) (Auto) % (1.0-10.0) Eosinophils (%) (Auto) % (0.0-3.0) Basophils (%) (Auto) % (0.0-2.0) Differential Total Cells Counted 100 Neutrophils % (Manual) 58 % (45-75) Lymphocytes % (Manual) 29 % (20-45) Monocytes % (Manual) 8 % (1-10) Eosinophils % (Manual) 4 % (0-3) H Basophils % (Manual) 1 % (0-2) Band Neutrophils 0 % (0-8) Platelet Estimate Decreased L Platelet Morphology Normal Anisocytosis 1+ Prothrombin Time 13.2 SEC (9.30-11.50) H Prothromb Time International Ratio 1.3 (0.9-1.1) H Activated Partial Thromboplast Time 34 SEC (23-33) H Sodium Level 138 mEQ/L (135-145) Potassium Level 3.5 mEQ/L (3.4-4.9) Chloride Level 104 mEQ/L (98-107) Carbon Dioxide Level 23 mEQ/L (20-30) Anion Gap 11 (5-15) Blood Urea Nitrogen 12 mg/dL (7-23) Creatinine 0.7 mg/dL (0.5-0.9) Estimat Glomerular Filtration Rate > 60 mL/min (>60) Glucose Level 149 mg/dL (74-106) H Calcium Level 7.9 mg/dL (8.6-10.2) L Phosphorus Level 3.1 mg/dL (2.5-4.8) Magnesium Level 1.8 mg/dL (1.7-2.5) Total Bilirubin 1.1 mg/dL (0.0-1.2) Direct Bilirubin 0.3 mg/dL (0.1-0.3) Aspartate Amino Transf (AST/SGOT) 60 U/L (5-40) H Alanine Aminotransferase (ALT/SGPT) 34 U/L (3-33) H Alkaline Phosphatase 93 U/L (35-104) Total Protein 6.1 g/dL (6.6-8.7) L Albumin 2.6 g/dL (3.5-5.2) L Globulin 3.5 g/dL Albumin/Globulin Ratio 0.7 (1.0-2.7) L Arsnp-[id number] Pending Immunoglobulin G Pending Immunoglobulin G1 Pending Immunoglobulin G2 Pending Immunoglobulin G3 Pending Immunoglobulin G4 Pending Anti-Nuclear Antibody Screen Pending Anti-Mitochondrial Antibody Pending F-Actin IgG Antibody Pending Current Medications Medications (Trade) Dose Ordered Sig/Antoni Route PRN Reason Start Time Stop Time Status Last Admin Dose Admin Acetaminophen (Tylenol) 650 mg Q4H PRN ORAL Mild Pain/Temp > 100.5 05/31/17 18:00 06/29/17 09:59 Al Hydroxide/Mg Hydroxide (Mylanta II) 30 ml Q6H PRN ORAL dyspepsia 05/31/17 22:30 06/27/17 10:29 Cephalexin (Keflex) 500 mg FOUR TIMES A DAY ORAL 05/31/17 18:00 06/06/17 20:59 05/31/17 18:51 Dextrose (Dextrose 50%) STAT PRN IV Hypoglycemia 06/01/17 12:00 06/28/17 11:59 Insulin Aspart (NovoLOG) BEFORE MEALS AND HS SUBQ 05/31/17 21:00 06/28/17 16:29 Lactulose (Cephulac) 30 gm EVERY 6 HOURS ORAL 05/31/17 18:00 06/27/17 11:59 Levothyroxine Sodium (Synthroid) 25 mcg ACBREAKFAST ORAL 06/01/17 06:30 06/29/17 06:29 Lorazepam (Ativan 2mg/ml 1ml) 0.5 mg Q4H PRN IV For Anxiety 05/31/17 18:30 06/04/17 10:29 Morphine Sulfate (Morphine Sulfate) 2 mg Q4H PRN IVP For Pain 05/31/17 18:30 06/04/17 10:29 Ondansetron HCl (Zofran) 4 mg Q6H PRN IVP Nausea & Vomiting 05/31/17 22:30 06/27/17 10:29 Polyethylene Glycol (Miralax) 17 gm HSPRN PRN ORAL Constipation 05/31/17 21:00 06/27/17 20:59 Rifaximin (Xifaxan) 550 mg EVERY 12 HOURS ORAL 05/31/17 21:00 06/04/17 20:59 Sodium Phosphate (Fleet's Sodium Phosl Enema) 133 ml ONCE ONCE RECTAL 05/31/17 23:00 05/31/17 23:01 Zolpidem Tartrate (Ambien) 5 mg HSPRN PRN ORAL Insomnia 05/31/17 21:00 06/04/17 20:59 JOSE ROBERTO CASTRO M.D. May 31, 2017 20:00
--- NOTE | 2017-05-31 20:45 | General Progress Note ---
Assessment/Plan Assessment/Plan ASSESSMENT AND PLAN: 1. Pancytopenia 2/2 cirrhosis with splenomegaly. GI following 2. Thrombocytopenia likely related to medications. At this time, platelet goal is about 20,000 and hemoglobin goal is about 7. --> 2 units plts given prior to liver biopsy 3. Anemia with a component of iron deficiency. Has been started on IV iron. 5. B12 deficiency. B12 will be ordered. 6. Cirrhosis of liver. Biopsy scheduled for tomorrow. Subjective Constitutional: Reports: no symptoms HEENT: Reports: no symptoms Cardiovascular: Reports: no symptoms Respiratory: Reports: no symptoms Gastrointestinal/Abdominal: Reports: no symptoms Genitourinary: Reports: no symptoms Neurologic/Psychiatric: Reports: no symptoms Endocrine: Reports: no symptoms Hematologic/Lymphatic: Reports: no symptoms Allergies: Coded Allergies: No Known Allergies (Unverified , 05/28/17) Objective Last 24 Hour Vital Signs Date Time Temp Pulse Resp B/P (MAP) Pulse Ox O2 Delivery O2 Flow Rate FiO2 05/31/17 19:06 97.7 70 20 146/81 96 Room Air 05/31/17 16:00 97.5 61 16 108/62 96 Room Air 05/31/17 12:00 98.4 65 18 131/70 98 Room Air 05/31/17 12:00 62 05/31/17 08:00 60 05/31/17 08:00 98.4 61 18 116/61 97 Room Air 05/31/17 04:00 65 05/31/17 04:00 99.8 72 20 118/60 97 Room Air 05/31/17 00:29 99.0 61 20 110/58 97 Room Air 05/31/17 00:00 75 Intake and Output 05/31/17 06/01/17 19:00 07:00 Intake Total 2539 ml 340 ml Balance 2539 ml 340 ml Intake Oral 2000 ml 340 ml IV Total 56 ml Blood Product 483 ml # Voids 4 1 # Bowel Movements 8 2 Laboratory Tests 05/31/17 03:50: White Blood Count 3.5L, Red Blood Count 3.36L, Hemoglobin 9.8L, Hematocrit 29.5L , Mean Corpuscular Volume 88, Mean Corpuscular Hemoglobin 29.3, Mean Corpuscular Hemoglobin Concent 33.4, Red Cell Distribution Width 14.6, Platelet Count 48L, Mean Platelet Volume 12.9H, Neutrophils (%) (Auto) , Lymphocytes (%) (Auto) , Monocytes (%) (Auto) , Eosinophils (%) (Auto) , Basophils (%) (Auto) , Differential Total Cells Counted 100, Neutrophils % (Manual) 58, Lymphocytes % ( Manual) 29, Monocytes % (Manual) 8, Eosinophils % (Manual) 4H, Basophils % ( Manual) 1, Band Neutrophils 0, Platelet Estimate DecreasedL, Platelet Morphology Normal, Anisocytosis 1+, Prothrombin Time 13.2H, Prothromb Time International Ratio 1.3H, Activated Partial Thromboplast Time 34H, Sodium Level 138, Potassium Level 3.5, Chloride Level 104, Carbon Dioxide Level 23, Anion Gap 11, Blood Urea Nitrogen 12, Creatinine 0.7, Estimat Glomerular Filtration Rate > 60, Glucose Level 149H, Calcium Level 7.9L, Phosphorus Level 3.1, Magnesium Level 1.8, Total Bilirubin 1.1, Direct Bilirubin 0.3, Aspartate Amino Transf (AST/SGOT) 60H, Alanine Aminotransferase (ALT/SGPT) 34H, Alkaline Phosphatase 93, Total Protein 6.1L, Albumin 2.6L, Globulin 3.5, Albumin/ Globulin Ratio 0.7L, Dcuxd-2-Dhuouxlhirj [Pending], Immunoglobulin G [Pending], Immunoglobulin G1 [Pending], Immunoglobulin G2 [Pending], Immunoglobulin G3 [ Pending], Immunoglobulin G4 [Pending], Anti-Nuclear Antibody Screen [Pending], Anti-Mitochondrial Antibody [Pending], F-Actin IgG Antibody [Pending] Height (Feet): 5 Height (Inches): 1.00 Weight (Pounds): 240 General Appearance: no apparent distress EENT: normal ENT inspection Neck: normal alignment Neurologic: personal lines agent II-XII grossly normal Skin: warm/dry Jose Sneed May 31, 2017 20:45
[2017-05-31] MEDS ORDERED: Miralax 17gm pkt ORAL PRN (21:00)
[2017-05-31] MEDS ORDERED: Zolpidem 5mg tab ORAL PRN (21:00)
[2017-05-31] MEDS ORDERED: Mylanta II UD 30ml ORAL PRN (22:30)
[2017-05-31] MEDS ORDERED: Fleet's Enema 133ml RECTAL ONE ×2 (23:00)
[2017-06-01] VITALS (14 sets, daily range): BP systolic 97–154; BP diastolic 42–98
[2017-06-01] MEDS: Lactulose 20gm/30ml UDC ORAL SCH ×2 (06:00→12:49)
[2017-06-01] MEDS: NovoLOG Insulin Flexpen SUBQ SCH ×2 (06:27→11:30)
[2017-06-01] MEDS ORDERED: Levothyroxine 25mcg tab ORAL SCH (06:30)
--- NOTE | 2017-06-01 06:54 | Anethesia Preoperative Eval ---
Anesthesia Pre-op PMH/ROS General Date of Evaluation: Jun 01, 2017 Time of Evaluation: 06:50 Anesthesiologist: diogo ASA Score: ASA 3 Mallampati Score Class I : Soft palate, uvula, fauces, pillars visible Class II: Soft palate, uvula, fauces visible Class III: Soft palate, base of uvula visible Class IV: Only hard plate visible Mallampati Classification: Class II Surgeon: cash Diagnosis: anemia Surgical Procedure: egd/colonoscopy Anesthesia History: none Social History: smoking - nonsmoker Family History: no anesthesia problems Allergies: Coded Allergies: No Known Allergies (Unverified , 05/28/17) Medications: see eMAR Past Medical History Cardiovascular: Reports: HTN Gastrointestinal/Genitourinary: Reports: other - fatty liver, uti Neurologic/Psychiatric: Reports: other - altered mental status, new onset seizure Endocrine: Reports: hypothyroidism Hematology/Immune: Reports: anemia, other - sepsis Other: obesity Anesthesia Pre-op Phys. Exam Physician Exam Last Vital Signs Date Time Temp Pulse Resp B/P (MAP) Pulse Ox O2 Delivery O2 Flow Rate FiO2 06/01/17 04:00 98.8 77 20 144/85 95 Room Air Constitutional: NAD Neurologic: CN 2-12 intact Cardiovascular: RRR Respiratory: CTA Gastrointestinal: S/NT/ND Airway Exam Mallampati Score: Class II MO: full Neck: supple TMD: 2fb Anesthesia Pre-op A/P Labs Labs Test 05/30/17 03:50 05/31/17 03:50 White Blood Count 4.3 K/UL (4.8-10.8) 3.5 K/UL (4.8-10.8) Red Blood Count 3.25 M/UL (4.20-5.40) 3.36 M/UL (4.20-5.40) Hemoglobin 9.6 G/DL (12.0-16.0) 9.8 G/DL (12.0-16.0) Hematocrit 28.5 % (37.0-47.0) 29.5 % (37.0-47.0) Mean Corpuscular Volume 88 FL (80-99) 88 FL (80-99) Mean Corpuscular Hemoglobin 29.7 PG (27.0-31.0) 29.3 PG (27.0-31.0) Mean Corpuscular Hemoglobin Concent 33.8 G/DL (32.0-36.0) 33.4 G/DL (32.0-36.0) Red Cell Distribution Width 14.7 % (11.6-14.8) 14.6 % (11.6-14.8) Platelet Count 49 K/UL (150-450) 48 K/UL (150-450) Mean Platelet Volume 12.3 FL (6.5-10.1) 12.9 FL (6.5-10.1) Neutrophils (%) (Auto) % (45.0-75.0) % (45.0-75.0) Lymphocytes (%) (Auto) % (20.0-45.0) % (20.0-45.0) Monocytes (%) (Auto) % (1.0-10.0) % (1.0-10.0) Eosinophils (%) (Auto) % (0.0-3.0) % (0.0-3.0) Basophils (%) (Auto) % (0.0-2.0) % (0.0-2.0) Differential Total Cells Counted 100 100 Neutrophils % (Manual) 79 % (45-75) 58 % (45-75) Lymphocytes % (Manual) 12 % (20-45) 29 % (20-45) Monocytes % (Manual) 6 % (1-10) 8 % (1-10) Eosinophils % (Manual) 3 % (0-3) 4 % (0-3) Basophils % (Manual) 0 % (0-2) 1 % (0-2) Band Neutrophils 0 % (0-8) 0 % (0-8) Platelet Estimate Decreased Decreased Platelet Morphology Normal Normal Hypochromasia 1+ Anisocytosis 1+ 1+ Acanthocytes 1+ Schistocytes 1+ Sodium Level 141 mEQ/L (135-145) 138 mEQ/L (135-145) Potassium Level 3.6 mEQ/L (3.4-4.9) 3.5 mEQ/L (3.4-4.9) Chloride Level 110 mEQ/L (98-107) 104 mEQ/L (98-107) Carbon Dioxide Level 21 mEQ/L (20-30) 23 mEQ/L (20-30) Anion Gap 10 (5-15) 11 (5-15) Blood Urea Nitrogen 18 mg/dL (7-23) 12 mg/dL (7-23) Creatinine 0.7 mg/dL (0.5-0.9) 0.7 mg/dL (0.5-0.9) Estimat Glomerular Filtration Rate > 60 mL/min (>60) > 60 mL/min (>60) Glucose Level 105 mg/dL (74-106) 149 mg/dL (74-106) Calcium Level 8.2 mg/dL (8.6-10.2) 7.9 mg/dL (8.6-10.2) Ferritin 71 ng/mL (13-150) Total Bilirubin 1.5 mg/dL (0.0-1.2) 1.1 mg/dL (0.0-1.2) Direct Bilirubin 0.4 mg/dL (0.1-0.3) 0.3 mg/dL (0.1-0.3) Aspartate Amino Transf (AST/SGOT) 58 U/L (5-40) 60 U/L (5-40) Alanine Aminotransferase (ALT/SGPT) 32 U/L (3-33) 34 U/L (3-33) Alkaline Phosphatase 83 U/L (35-104) 93 U/L (35-104) Ammonia 63 umol/L (11-51) Pro-B-Type Natriuretic Peptide 344 pg/mL (0-125) Total Protein 6.3 g/dL (6.6-8.7) 6.1 g/dL (6.6-8.7) Albumin 2.6 g/dL (3.5-5.2) 2.6 g/dL (3.5-5.2) Globulin 3.7 g/dL 3.5 g/dL Albumin/Globulin Ratio 0.7 (1.0-2.7) 0.7 (1.0-2.7) Prothrombin Time 13.2 SEC (9.30-11.50) Prothromb Time International Ratio 1.3 (0.9-1.1) Activated Partial Thromboplast Time 34 SEC (23-33) Phosphorus Level 3.1 mg/dL (2.5-4.8) Magnesium Level 1.8 mg/dL (1.7-2.5) Risk Assessment & Plan Assessment: asa3 Plan: mac Status Change Before Surgery: No Pre-Antibiotics Drug: CORINA Dorado Jun 01, 2017 06:54
[2017-06-01 07:21] LABS: MEAN CORPUSCULAR HEMOGLOBIN 28.9 PG (27.0-31.0); MEAN CORPUSCULAR HGB CONC 33.7 G/DL (32.0-36.0); MEAN CORPUSCULAR VOLUME 86 FL (80-99); MEAN PLATELET VOLUME 9.6 FL (6.5-10.1); PLATELET COUNT 73 K/UL (150-450); RED BLOOD COUNT 3.54 M/UL (4.20-5.40); RED CELL DISTRIBUTION WIDTH 14.3 % (11.6-14.8)
[2017-06-01] MEDS ORDERED: Atropine Inj 1mg/10ml Syr IV PRN (07:30)
[2017-06-01] MEDS ORDERED: Midazolam 2mg/2ml Inj IVP PRN (07:30)
[2017-06-01] MEDS ORDERED: fentaNYL 100 mcg/2 mL IV PRN (07:30)
[2017-06-01] MEDS ORDERED: DiphenhydrAMINE 50mg/ml Inj IVP PRN (07:30)
[2017-06-01 07:38] LABS: INR 1.2 (0.9-1.1); PROTHROMBIN TIME 12.8 SEC (9.30-11.50)
[2017-06-01] MEDS ORDERED: Propofol 200mg/20ml IV ONE (07:45)
[2017-06-01] MEDS ORDERED: Lidocaine 1% MPF 10mg/ml 5ml ONE (07:45)
[2017-06-01] MEDS ORDERED: NS 500ML IV ONE (08:00)
[2017-06-01 08:07] LABS: MAGNESIUM 1.7 mg/dL (1.7-2.5); PHOSPHORUS 3.7 mg/dL (2.5-4.8)
[2017-06-01 08:08] LABS: ALANINE AMINOTRANSFERASE 32 U/L (3-33); ALBUMIN/GLOBULIN RATIO 0.7 (1.0-2.7); ANION GAP 9 (5-15); ASPARTATE AMINO TRANSFERASE 51 U/L (5-40); CALCIUM 8.2 mg/dL (8.6-10.2); CARBON DIOXIDE 26 mEQ/L (20-30); CHLORIDE 105 mEQ/L (98-107); CREATININE 0.6 mg/dL (0.5-0.9); GLOMERULAR FILTRATION RATE > 60 mL/min (>60); HEMOLYSIS 4; POTASSIUM 3.6 mEQ/L (3.4-4.9); SODIUM 140 mEQ/L (135-145); TOTAL PROTEIN 6.2 g/dL (6.6-8.7)
--- NOTE | 2017-06-01 08:09 | Pre-Procedure Note/Attestation ---
Pre-Procedure Note/Attestation Complete Prior to Procedure Planned Procedure: not applicable Procedure Narrative: anemia, abd pain Indications for Procedure Pre-Operative Diagnosis: esophagogastroduodenoscopy and colonoscopy Attestation I attest that I discussed the nature of the procedure; its benefits; risks and complications; and alternatives (and the risks and benefits of such alternatives ), prior to the procedure, with the patient (or the patient's legal union representative). I attest that, if there was a reasonable possibility of needing a blood transfusion, the patient (or the patient's legal union representative) was given the [facility] standardized written summary, pursuant to the Darius Ofelia Blood Safety Act ([place] Health and Safety Code # 1645, as amended). I attest that I re-evaluated the patient just prior to the surgery and that there has been no change in the patient's H&P, except as documented below: ARVIND DAY Jun 01, 2017 08:09
[2017-06-01 08:25] LABS: BILIRUBIN,DIRECT 0.4 mg/dL (0.1-0.3)
[2017-06-01 09:03] LABS: BAND NEUTROPHILS % (MANUAL) 0 % (0-8); BASOPHILS % (MANUAL) 1 % (0-2); EOSINOPHILS % (MANUAL) 5 % (0-3); HYPOCHROMASIA 1+; LYMPHOCYTES % (MANUAL) 41 % (20-45); NEUTROPHILS % (MANUAL) 34 % (45-75); PLATELET ESTIMATE DECREASED; PLATELET MORPHOLOGY NORMAL; TEAR DROP CELLS 1+; TOTAL CELLS COUNTED 100
--- NOTE | 2017-06-01 09:05 | Immediate Post-Op Evaluation ---
Immediate Post-Op Evalulation Immediate Post-Op Evalulation Procedure: egd/colonoscopy Date of Evaluation: Jun 01, 2017 Time of Evaluation: 09:04 IV Fluids: 250ml 0.9ns Blood Products: none Estimated Blood Loss: negligible Blood Pressure Systolic: 110 Blood Pressure Diastolic: 58 Pulse Rate: 63 Respiratory Rate: 18 O2 Sat by Pulse Oximetry: 100 Temperature (Fahrenheit): 98.4 Pain Score (1-10): 0 Nausea: No Vomiting: No Complications none Patient Status: awake, reacts, patent Hydration Status: adequate Drug: CORINA Dorado Jun 01, 2017 09:05
[2017-06-01] MEDS: Cephalexin 500mg cap ORAL SCH ×2 (09:32→12:49)
[2017-06-01] MEDS ORDERED: Lidocaine 1% 10mg/ml/Epi 0.005mg/ml 30ml vial INJ ONE (09:45)
--- NOTE | 2017-06-01 10:14 | Endoscopy Procedure Note ---
Endoscopy Procedure Note Indication for Procedure: cirrhosis, abd pain Procedures Performed: EGD, colonoscopy Operative Findings/Diagnosis: esoph varices s/p banding, 4 colon polyps Specimen: yes Pt Tolerated Procedure Well: Yes Estimated Blood Loss: none Anesthesiologist: diogo Anesthesia: MAC Implant(s) used?: No 50 yrs or older w/o bx or poly: Not Applicable 10yrs. F/U not recommended: Not Applicable ARVIND DAY Jun 01, 2017 10:14
--- NOTE | 2017-06-01 10:34 | 48 Hour Post Anesthesia Eval ---
Post Anesthesia Evaluation Procedure: egd/colonoscopy Date of Evaluation: Jun 01, 2017 Time of Evaluation: 10:33 Blood Pressure Systolic: 142 0: 69 Pulse Rate: 59 Respiratory Rate: 18 Temperature (Fahrenheit): 97.7 O2 Sat by Pulse Oximetry: 100 Airway: patent Nausea: No Vomiting: No Pain Intensity: 0 Hydration Status: adequate Cardiopulmonary Status: stable Mental Status/LOC: patient returned to baseline Post-Anesthesia Complications: none Follow-up care needed: N/A CORINA RIVERA Jun 01, 2017 10:34
[2017-06-01] MEDS ORDERED: Simethicone 80mg tab ORAL PRN (10:45)
[2017-06-01] MEDS ORDERED: Lidocaine 1% Plain 30 ml INJ ONE (11:39)
--- NOTE | 2017-06-01 12:13 | Pre-Procedure Note/Attestation ---
Pre-Procedure Note/Attestation Complete Prior to Procedure Planned Procedure: not applicable Procedure Narrative: Ultrasound guided liver biopsy Indications for Procedure Pre-Operative Diagnosis: Cirrhosis Attestation I attest that I discussed the nature of the procedure; its benefits; risks and complications; and alternatives (and the risks and benefits of such alternatives ), prior to the procedure, with the patient (or the patient's legal senior sales representative). I attest that, if there was a reasonable possibility of needing a blood transfusion, the patient (or the patient's legal senior sales representative) was given the [facility] standardized written summary, pursuant to the Darius Ofelia Blood Safety Act ([place] Health and Safety Code # 1645, as amended). I attest that I re-evaluated the patient just prior to the surgery and that there has been no change in the patient's H&P, except as documented below: DIVINA SHIRLEY M.D. Jun 01, 2017 12:13
--- NOTE | 2017-06-01 12:17 | Diagnostic Imaging Report ---
APPROVED REPORT CPT Code: 05535 Present Symptoms Comments: Knee pain BILATERAL: Imaging reveals a patent deep venous system bilaterally. There is no evidence of thrombus within the femoral, popliteal or tibial segments. The greater saphenous veins are also within normal limits. Doppler indicates normal spontaneous flow within these segments.
--- NOTE | 2017-06-01 12:28 | Brief Operative Note ---
Immediate Post Operative Note Operative Note Pre-op Diagnosis: Cirrhosis Procedure: US guided liver bx Post-op Diagnosis: same as pre-op Findings: consistent w/pre-op dx studies Surgeon: Leanne SHIRLEY Anesthesia: local Specimen: yes - 2 18 G cores L lobe liver Complications: none Condition: stable Fluids: none Implant(s) used?: No DIVINA SHIRLEY M.D. Jun 01, 2017 12:28
[2017-06-01] MEDS ORDERED: XIFAXAN550 MG ORAL (13:37)
[2017-06-01] MEDS ORDERED: LACTULOSE20 GM/301 ORAL (13:37)
--- NOTE | 2017-06-01 13:39 | Pulmonology Progress Note ---
Assessment/Plan Problems: (1) Sepsis (2) Seizure (3) Fever (4) Hepatic encephalopathy (5) Chronic liver disease (6) Thrombocytopenia (7) Coagulopathy Assessment/Plan afebrile plt better, s/p liver biopsy EGD done, showing varrices. s/p banding dc home with close f/u with primary Subjective ROS Limited/Unobtainable: No Constitutional: Reports: no symptoms HEENT: Repors: no symptoms Respiratory: Reports: no symptoms Allergies: Coded Allergies: No Known Allergies (Unverified , 05/28/17) Objective Last 24 Hour Vital Signs Date Time Temp Pulse Resp B/P (MAP) Pulse Ox O2 Delivery O2 Flow Rate FiO2 06/01/17 13:00 97.8 57 19 154/98 98 Room Air 06/01/17 12:25 56 20 134/67 97 Room Air 06/01/17 12:20 58 19 138/66 99 Room Air 06/01/17 12:15 56 17 134/65 99 Room Air 06/01/17 12:02 63 17 06/01/17 10:43 97.7 06/01/17 10:34 59 18 100 06/01/17 10:00 97.7 59 19 142/69 98 Room Air 06/01/17 09:30 97.2 62 19 150/46 97 Room Air 06/01/17 09:10 98.0 58 19 109/43 98 Room Air 58 06/01/17 09:05 61 18 112/42 96 Room Air 61 06/01/17 09:05 63 18 100 06/01/17 09:00 65 18 97/42 100 Nasal Cannula 3.0 65 06/01/17 08:52 98.4 64 18 108/43 100 Nasal Cannula 3.0 64 06/01/17 07:50 96.7 72 19 105/53 95 Room Air 72 06/01/17 04:00 98.8 77 20 144/85 95 Room Air 06/01/17 00:00 98.3 91 20 134/64 98 Room Air 05/31/17 20:00 98.0 58 20 135/70 97 Room Air 05/31/17 19:06 97.7 70 20 146/81 96 Room Air 05/31/17 16:00 97.5 61 16 108/62 96 Room Air Intake and Output 06/01/17 06/02/17 19:00 07:00 Intake Total 300 ml Output Total 0 ml Balance 300 ml IV Total 300 ml Estimated Blood Loss 0 ml General Appearance: WD/WN HEENT: normocephalic, atraumatic Respiratory/Chest: chest wall non-tender, lungs clear Breasts: no masses Cardiovascular: normal peripheral pulses, normal rate Abdomen: normal bowel sounds, soft, non tender Genitourinary: normal external genitalia Extremities: no cyanosis Skin: no lesions Neurologic/Psychiatric: admissions officer II-XII grossly normal Lymphatic: no neck adenopathy Laboratory Tests 06/01/17 05:35: White Blood Count 3.0L, Red Blood Count 3.54L, Hemoglobin 10.2L, Hematocrit 30.3L, Mean Corpuscular Volume 86, Mean Corpuscular Hemoglobin 28.9, Mean Corpuscular Hemoglobin Concent 33.7, Red Cell Distribution Width 14.3, Platelet Count 73#L, Mean Platelet Volume 9.6, Neutrophils (%) (Auto) , Lymphocytes (%) ( Auto) , Monocytes (%) (Auto) , Eosinophils (%) (Auto) , Basophils (%) (Auto) , Differential Total Cells Counted 100, Neutrophils % (Manual) 34L, Lymphocytes % (Manual) 41, Monocytes % (Manual) 19H, Eosinophils % (Manual) 5H, Basophils % ( Manual) 1, Band Neutrophils 0, Platelet Estimate DecreasedL, Platelet Morphology Normal, Hypochromasia 1+, Anisocytosis , Tear Drop Cells 1+, Prothrombin Time 12.8H, Prothromb Time International Ratio 1.2H, Activated Partial Thromboplast Time 33, Sodium Level 140, Potassium Level 3.6, Chloride Level 105, Carbon Dioxide Level 26, Anion Gap 9, Blood Urea Nitrogen 6L, Creatinine 0.6, Estimat Glomerular Filtration Rate > 60, Glucose Level 101, Calcium Level 8.2L, Phosphorus Level 3.7, Magnesium Level 1.7, Total Bilirubin 1.5H, Direct Bilirubin 0.4H, Aspartate Amino Transf (AST/SGOT) 51H, Alanine Aminotransferase (ALT/SGPT) 32, Alkaline Phosphatase 82, Total Protein 6.2L, Albumin 2.7L, Globulin 3.5, Albumin/Globulin Ratio 0.7L Current Medications Medications (Trade) Dose Ordered Sig/Antoni Route PRN Reason Start Time Stop Time Status Last Admin Dose Admin Acetaminophen (Tylenol) 650 mg Q4H PRN ORAL Mild Pain/Temp > 100.5 05/31/17 18:00 06/29/17 09:59 Al Hydroxide/Mg Hydroxide (Mylanta II) 30 ml Q6H PRN ORAL dyspepsia 05/31/17 22:30 06/27/17 10:29 Cephalexin (Keflex) 500 mg FOUR TIMES A DAY ORAL 05/31/17 18:00 06/06/17 20:59 06/01/17 12:49 Dextrose (Dextrose 50%) STAT PRN IV Hypoglycemia 06/01/17 12:00 06/28/17 11:59 Insulin Aspart (NovoLOG) BEFORE MEALS AND HS SUBQ 05/31/17 21:00 06/28/17 16:29 Iron Sucrose 100 mg/Sodium Chloride 60 ml @ 240 mls/hr BEDTIME IVPB 06/01/17 21:00 06/05/17 21:14 Lactulose (Cephulac) 30 gm EVERY 6 HOURS ORAL 05/31/17 18:00 06/27/17 11:59 06/01/17 12:49 Levothyroxine Sodium (Synthroid) 25 mcg ACBREAKFAST ORAL 06/01/17 06:30 06/29/17 06:29 06/01/17 06:29 Lorazepam (Ativan 2mg/ml 1ml) 0.5 mg Q4H PRN IV For Anxiety 05/31/17 18:30 06/04/17 10:29 Morphine Sulfate (Morphine Sulfate) 2 mg Q4H PRN IVP For Pain 05/31/17 18:30 06/04/17 10:29 06/01/17 10:13 Ondansetron HCl (Zofran) 4 mg Q6H PRN IVP Nausea & Vomiting 05/31/17 22:30 06/27/17 10:29 Pantoprazole (Protonix) 40 mg DAILY ORAL 06/01/17 09:00 07/01/17 08:59 06/01/17 09:32 Polyethylene Glycol (Miralax) 17 gm HSPRN PRN ORAL Constipation 05/31/17 21:00 06/27/17 20:59 Rifaximin (Xifaxan) 550 mg EVERY 12 HOURS ORAL 05/31/17 21:00 06/04/17 20:59 06/01/17 09:32 Simethicone (Mylicon) 80 mg QID PRN ORAL flatulence 06/01/17 10:45 07/01/17 10:44 06/01/17 11:03 Zolpidem Tartrate (Ambien) 5 mg HSPRN PRN ORAL Insomnia 05/31/17 21:00 06/04/17 20:59 MELISSA MYERS Jun 01, 2017 13:39
--- NOTE | 2017-06-01 15:31 | Cardiology Report ---
APPROVED REPORT EKG Measurement Heart [id number] 132P29 [id number] Normal sinus rhythm Normal ECG
--- NOTE | 2017-06-01 15:50 | Diagnostic Imaging Report ---
Indication: Cirrhosis of indeterminate etiology Technique: Informed consent obtained prior to commencement of the procedure. Risks, including but not limited to hemorrhage, infection, sampling error discussed with patient, all questions answered. He indicated his willingness to proceed. Ultrasound used to localize the optimal puncture site in the left hepatic lobe. Sterile prepping and draping. Local anesthesia with one percent lidocaine. Under real-time ultrasound guidance, total two needle passes made into the left hepatic lobe using 18-gauge automated biopsy gun. Specimens placed in formalin, submitted to pathology. The patient tolerated the procedure well, without immediate complication. Comparison: None Findings: Intraprocedural images confirm needle placement within the left hepatic lobe Impression: Apparently successful ultrasound-guided liver biopsy, for parenchymal disease, as described. Final pathology pending
--- NOTE | 2017-06-01 19:21 | General Progress Note ---
Assessment/Plan Assessment/Plan ASSESSMENT AND PLAN: 1. Pancytopenia 2/2 cirrhosis with splenomegaly. GI following 2. Thrombocytopenia likely related to medications. At this time, platelet goal is about 20,000 and hemoglobin goal is about 7. --> 2 units plts given prior to liver biopsy 3. Anemia with a component of iron deficiency. Has been started on IV iron. 5. B12 deficiency. B12 will be ordered. 6. Cirrhosis of liver. Biopsy has been ontained, pathology report pending Subjective Constitutional: Reports: no symptoms HEENT: Reports: no symptoms Cardiovascular: Reports: no symptoms Respiratory: Reports: no symptoms Gastrointestinal/Abdominal: Reports: no symptoms Genitourinary: Reports: no symptoms Neurologic/Psychiatric: Reports: no symptoms Endocrine: Reports: no symptoms Hematologic/Lymphatic: Reports: anemia Allergies: Coded Allergies: No Known Allergies (Unverified , 05/28/17) Subjective s/p egd, tolerated, liver biopsy obtained Objective Last 24 Hour Vital Signs Date Time Temp Pulse Resp B/P (MAP) Pulse Ox O2 Delivery O2 Flow Rate FiO2 06/01/17 13:00 97.8 57 19 154/98 98 Room Air 06/01/17 12:25 56 20 134/67 97 Room Air 06/01/17 12:20 58 19 138/66 99 Room Air 06/01/17 12:15 56 17 134/65 99 Room Air 06/01/17 12:02 63 17 06/01/17 10:43 97.7 06/01/17 10:34 59 18 100 06/01/17 10:00 97.7 59 19 142/69 98 Room Air 06/01/17 09:30 97.2 62 19 150/46 97 Room Air 06/01/17 09:10 98.0 58 19 109/43 98 Room Air 58 06/01/17 09:05 61 18 112/42 96 Room Air 61 06/01/17 09:05 63 18 100 06/01/17 09:00 65 18 97/42 100 Nasal Cannula 3.0 65 06/01/17 08:52 98.4 64 18 108/43 100 Nasal Cannula 3.0 64 06/01/17 07:50 96.7 72 19 105/53 95 Room Air 72 06/01/17 04:00 98.8 77 20 144/85 95 Room Air 06/01/17 00:00 98.3 91 20 134/64 98 Room Air 05/31/17 20:00 98.0 58 20 135/70 97 Room Air Intake and Output 06/01/17 06/02/17 19:00 07:00 Intake Total 660 ml Output Total 0 ml Balance 660 ml Intake Oral 360 ml IV Total 300 ml Estimated Blood Loss 0 ml # Voids 2 # Bowel Movements 1 Laboratory Tests 06/01/17 05:35: White Blood Count 3.0L, Red Blood Count 3.54L, Hemoglobin 10.2L, Hematocrit 30.3L, Mean Corpuscular Volume 86, Mean Corpuscular Hemoglobin 28.9, Mean Corpuscular Hemoglobin Concent 33.7, Red Cell Distribution Width 14.3, Platelet Count 73#L, Mean Platelet Volume 9.6, Neutrophils (%) (Auto) , Lymphocytes (%) ( Auto) , Monocytes (%) (Auto) , Eosinophils (%) (Auto) , Basophils (%) (Auto) , Differential Total Cells Counted 100, Neutrophils % (Manual) 34L, Lymphocytes % (Manual) 41, Monocytes % (Manual) 19H, Eosinophils % (Manual) 5H, Basophils % ( Manual) 1, Band Neutrophils 0, Platelet Estimate DecreasedL, Platelet Morphology Normal, Hypochromasia 1+, Anisocytosis , Tear Drop Cells 1+, Prothrombin Time 12.8H, Prothromb Time International Ratio 1.2H, Activated Partial Thromboplast Time 33, Sodium Level 140, Potassium Level 3.6, Chloride Level 105, Carbon Dioxide Level 26, Anion Gap 9, Blood Urea Nitrogen 6L, Creatinine 0.6, Estimat Glomerular Filtration Rate > 60, Glucose Level 101, Calcium Level 8.2L, Phosphorus Level 3.7, Magnesium Level 1.7, Total Bilirubin 1.5H, Direct Bilirubin 0.4H, Aspartate Amino Transf (AST/SGOT) 51H, Alanine Aminotransferase (ALT/SGPT) 32, Alkaline Phosphatase 82, Total Protein 6.2L, Albumin 2.7L, Globulin 3.5, Albumin/Globulin Ratio 0.7L Height (Feet): 5 Height (Inches): 5.00 Weight (Pounds): 240 General Appearance: no apparent distress EENT: normal ENT inspection Neck: normal alignment Cardiovascular: normal rate Respiratory/Chest: lungs clear, normal breath sounds Extremities: non-tender Skin: normal pigmentation, warm/dry KleynbergJose L. Jun 01, 2017 19:21
[2017-06-01] MEDS ORDERED: Iron Sucrose 100 MG in NS 55 ML IVPB SCH (21:00)
--- NOTE | 2017-06-01 21:30 | Procedure Note ---
SURGEON: Shankar Madden M.D. Procedure: Upper endoscopy with biopsy and banding of esophageal varices and colonoscopy with biopsy. ANESTHESIOLOGIST: Shannon Rowell M.D. INSTRUMENT: Olympus adult flexible upper endoscope and colonoscope. INDICATION: Anemia, abdominal pain, cirrhosis. Reason for Procedure: The procedure, risks, benefits, and possible consequences, including hemorrhage, aspiration, perforation and infection, and alternative treatments, were explained to the patient/legal guardian by Dr. Shankar Madden and the patient/legal guardian understood and accepted these risks. Description Of Procedure: After informed consent was obtained and the patient was adequately sedated, Olympus upper endoscope was advanced from the mouth into the second portion of the duodenum and retroflexion was performed in the stomach. The patient has diffuse atrophic gastritis. Biopsy from antrum was obtained to rule out H. pylori infection. The patient had large esophageal varices grade 4 starting from GE junction all the way up to the mid esophagus, 4 columns. A total of 6 bands were placed in the distal esophagus. At this time, the upper endoscope was retrieved, the patient was turned over for colonoscopy. First, a rectal exam was performed which was positive for internal hemorrhoids. Then, the scope was advanced from the rectum into the cecum, documented appendiceal orifice, ileocecal valve, and right upper quadrant palpation. Quality of prep was good. The patient had a total of 4 polyps, 1 in transverse, 3 in the sigmoid, all small less than 5 mm removed with the cold biopsy forceps technique. Retroflexion of rectum showed evidence of few medium-sized nonbleeding internal hemorrhoids. SUMMARY OF FINDINGS: 1. Esophageal varices, status post banding x4, 4 columns, grade 4. 2. Atrophic gastritis, status post biopsy. 3. Four colonic polyps removed, see above for details. 4. Internal hemorrhoids. Recommendations: The patient to be on liquid diet. Protonix to be started one tablet p.o. daily. The patient would need propranolol, but looking at the pulse, yesterday was in 50s, so we are going to hold off and monitor hopefully so as an outpatient. The patient will need a repeat endoscopy and banding in two weeks. The patient also needs repeat colonoscopy in three years given 4 polyps. I want to thank Dr. Mason for this kind referral. Shankar Deidra Madden DR: KRISHAN JOB#: [id number] CC: Alexis Mason M.D.; Fax#: [phone]
[2017-06-04] MEDS ORDERED: VITAMIN B-12100 MC1 PO (08:44)
[2017-06-04] MEDS ORDERED: CEPHALEXIN500 MG ORAL (08:57)
--- NOTE | 2017-06-04 10:25 | Discharge Summary ---
Discharge Summary Hospital Course Date of Admission May 28, 2017 at 07:27 Date of Discharge Jun 01, 2017 at 15:05 Admitting Diagnosis new onset seizure HPI Gwendolyn Hernandez is a 62 year old female who was admitted on May 28, 2017 at 07:27 for New Onset Seizure Hospital Course dc summary #[id number] Discharge Condition Upon Discharge: stable Discharge Disposition Patient was discharged to Home (01) Discharge Diagnoses: Discharge Instructions Discharge Instructions Special Instructions I have been assigned to complete a D/C Summary on this account. I was not involved in the patient management Radha Santillan NP (Vanchtein) Jun 04, 2017 10:25
--- NOTE | 2017-06-04 19:21 | Cardiology Report ---
APPROVED REPORT EKG Measurement Heart [id number] 124P4 [id number] Multifocal atrial rhythm Normal ECG
--- NOTE | 2017-06-05 00:30 | Discharge Summary 2 SIG ---
DATE OF ADMISSION: 05/28/2017 DATE OF DISCHARGE: 06/01/2017 REASON FOR ADMISSION: 62-year-old female with history of diabetes, hypothyroidism, liver failure, and thrombocytopenia resulting from liver failure with subsequent RECENT platelet transfusion at [facility], presented to emergency department with evidence of altered level of consciousness and grunting respirations. She had evidence of oral trauma. She fell twice. No observed seizure activity. Accu-Chek was 124. No headaches. No nausea. No vomiting. No chest pain. No shortness of breath. No melena. She was incontinent of urine for two days and had some dysuria. Workup in the emergency room revealed stable pulse oximetry 98% on room air. The patient was slightly tachycardic and tachypneic. EKG showed sinus rhythm and no acute ischemic changes. The patient presented with altered level of consciousness, falling episodes, and tongue trauma. CT of the head revealed no acute intracranial pathology. Chest x-ray revealed no acute cardiopulmonary pathology but showed mild interstitial congestion. Venous duplex revealed no evidence of acute DVT while abdominal ultrasound revealed hepatic cirrhosis with coarsened echotexture and surface nodularity and gallbladder wall thickening. Laboratory workup revealed elevated ammonia - 131 and elevated lactic acid- 2.6. Troponin was negative. WBC -3.8, hemoglobin -10.7, hematocrit - 32.2, and platelets- 50,000. INR -1.2. Total bilirubin -2.6. Albumin -3.0. CK -721. The patient had fever of 103 and started on empiric antibiotic. ED doctor was initially planned to do lumbar puncture; however, unable to do it due to the low platelets and coagulopathy. The patient was also given dose of Decadron IV. Urinalysis was suggestive for UTI. The patient was admitted for further management. ADMITTING DIAGNOSES: 1. Sepsis. 2. Urinary tract infection. 3. New onset of seizure disorder. 4. Liver failure. 5. Thrombocytopenia. 6. Coagulopathy. 7. Hepatic encephalopathy. 8. Diabetes. Hospital Stay: The patient was admitted. GI, ID, neurology, and hematology consults were requested along with endocrinology consult. The patient was started on empiric antibiotic. ID followed. Blood culture were negative. Urine culture with E. coli. The patient was discharged on oral antibiotic as recommended by ID. GI closely followed. The patient had undergone EGD and colonoscopy on 06/01/2017 with banding of esophageal varices. Results of the EGD and colonoscopy revealed: 1. Esophageal varices, status post banding x4, 4 columns, grade 4. 2. Atrophic gastritis, status post biopsy. 3. Four colonic polyps were removed, status post biopsy, internal hemorrhoids. Patient was started on liquid diet after the procedure as per GI recommendations. Protonix was started. Propranolol was on hold due to the bradycardia, heart rate of 50. The patient needs to repeat endoscopy with banding in two weeks as per GI. The patient also needs to repeat colonoscopy in three years in lieu of the finding of four polyps. Abdominal ultrasound revealed evidence of hepatic cirrhosis with coarsened echotexture and surface nodularity, splenomegaly, and gallbladder wall thickening. Subsequently, HIDA scan was done which was negative for cystic duct or common bile duct obstruction. The patient also undergone ultrasound guided liver biopsy and results were pending. Hepatitis panel was negative. LFTs were within normal limits with elevated total bilirubin -2.8 at all times. The patient was ordered transfusion of 2 units of platelets prior to liver biopsy; however, platelets up to 73,000 on 06/01/2017 and no transfusion was needed. Ammonia down from 131 to 63. Patient to continue rifaximin and lactulose at home. The patient will need to follow up as an outpatient with GI. Cytogenetic Technologist had seen and evaluated the patient. Echocardiogram revealed preserved ejection fraction of 60% to 65%. Per liberal arts and humanities chair, the patient was hemodynamically stable. Telemetry showed no ischemic changes. Troponin was negative. Pulse oximetry was stable on room air. Neurologist followed the patient. EEG was normal. Neurologist recommended to continue lactulose, but no need for anticonvulsant after the first episode of seizure. He stated that new onset of the generalized clonic-tonic seizure disorder was likely multifactorial secondary to metabolic derangement as well as the underlying infection. Anemia workup revealed component of iron deficiency as well as B12 deficiency anemia. The patient had B12 replacement x1 and will continue oral B12 at home. The patient had also undergone Venofer infusion x1. Panel Wirer had seen the patient. Blood sugar was stable with sliding scale of insulin. TSH was within normal. Continue current dose of levothyroxine. The patient was stable for discharge home and follow up with primary medical doctor. FINAL DIAGNOSES: 1. New onset of generalized clonic-tonic seizure disorder. 2. Sepsis. 3. Urinary tract infection with Escherichia coli. 4. Liver failure. 5. Thrombocytopenia. 6. Coagulopathy. 7. Hepatic encephalopathy. 8. Diabetes mellitus. 9. Pancytopenia secondary to cirrhosis. 10. B12 deficiency anemia. 11. Anemia with component of iron deficiency. 12. Status postultrasound guided liver biopsy. 13. Status post esophagogastroduodenoscopy with biopsy and banding of esophageal varices. 14. Esophageal varices, status post banding. 15. Atrophic gastritis. 16. Status post polypectomy x4. 17. Hypothyroidism. DISCHARGE MEDICATIONS: See medication reconciliation list. Discharge Instructions: The patient was discharged home. Follow up with primary medical doctor. Alexis Mason M.D. I have been assigned to dictate discharge summary on this account and I was not involved in the patient's management. Radha WattsPan American HospitalJolene N.P. DR: DORYS JOB#: [id number] CC: STEFFEN
[2017-06-11 00:39] LABS: ALPHA 1 ANTITRYPSIN 132 mg/dL (90-200); ANTI-NUCLEAR ANTIBODY SCREEN Negative (Negative); IGG SERUM 1762 mg/dL (700-1600); IGG SUBCLASS 1 1290 mg/dL (248-810); IGG SUBCLASS 2 385 mg/dL (130-555); IGG SUBCLASS 3 128 mg/dL (15-102); IGG SUBCLASS 4 58 mg/dL (2-96); SMOOTH MUSCLE/ACTIN AB IGG 39 Units (0-19)
== END 2017-06-01 15:05 | disposition home or self-care (01) | DRG 710 ==
LOC: EDBD 04:05 → EMR 05:03 → EDBEDREQ 06:50 → EDBEDREQSVC 07:06 → EDBEDREQ 07:26 → 2W 07:27 → 3E 05-31 17:25
PROC: 0FB23ZX Excision of Left Lobe Liver, Percutaneous Approach, Diagnostic (ICD-10-PCS; principal; 2017-05-28)
PROC: 30233R1 Transfusion of Nonautologous Platelets into Peripheral Vein, Percutaneous Approach (ICD-10-PCS; 2017-05-31)
PROC: 0DBE8ZZ Excision of Large Intestine, Via Natural or Artificial Opening Endoscopic (ICD-10-PCS; 2017-06-01)
PROC: 06L34CZ Occlusion of Esophageal Vein with Extraluminal Device, Percutaneous Endoscopic Approach (ICD-10-PCS; 2017-06-01 08:13)
PROC: 0DB78ZX Excision of Stomach, Pylorus, Via Natural or Artificial Opening Endoscopic, Diagnostic (ICD-10-PCS; 2017-06-01 08:13)
DX: A41.9 Sepsis, unspecified organism (principal); D61.818 Other pancytopenia; D68.4 Acquired coagulation factor deficiency; D69.6 Thrombocytopenia, unspecified; R56.9 Unspecified convulsions; I85.00 Esophageal varices without bleeding; N39.0 Urinary tract infection, site not specified; E11.9 Type 2 diabetes mellitus without complications; I10 Essential (primary) hypertension; B96.20 Unspecified Escherichia coli [E. coli] as the cause of diseases classified elsewhere; G40.409 Other generalized epilepsy and epileptic syndromes, not intractable, without status epilepticus; K72.90 Hepatic failure, unspecified without coma; E03.9 Hypothyroidism, unspecified; D51.9 Vitamin B12 deficiency anemia, unspecified; K29.40 Chronic atrophic gastritis without bleeding; E66.01 Morbid (severe) obesity due to excess calories; D63.8 Anemia in other chronic diseases classified elsewhere; E78.5 Hyperlipidemia, unspecified
CPT/HCPCS: 36415; 70450; 71010; 76700; 76942; 78266; 80053; 80061; 80076; 80300; 81003; 82103; 82140; 82248; 82378; 82550; 82607; 82728; 82746; 82784; 82787; 82962; 83540; 83550; 83605; 83735; 83880; 84100; 84439; 84443; 84484; 85007; 85025; 85610; 85651; 85730; 86039; 86235; 86256; 86705; 86709; 86790; 86803; 86900; 86901; 87040; 87081; 87086; 87181; 87340; 93005; 93306; 93970; 94003; 94150; 95819; 99285; J1815; J3430

== ENCOUNTER 2017-12-31 18:00 | Emergency (ER) | payer MEDICAID ==
[~2017-12-31] VITALS: Ht 162.6 cm; Wt 94.3 kg
[~2017-12-31 18:00] MED LIST changes: +CEPHALEXIN500 MG ORAL; +LACTULOSE20 GM/301 ORAL; +VITAMIN B-12100 MC1 PO; +XIFAXAN550 MG ORAL
--- NOTE | 2017-12-31 18:50 | Emergency Room Report ---
History of Present Illness General Chief Complaint: General Complaint Source: Family Member Present Illness HPI 62-year-old female patient presents ER complaining of vaginal bleeding since yesterday. Patient reports similar episode of bleeding 1 month ago. Patient reports that she was seen by her primary care provider given the medication for 10 days, does not know the name of medication, reports that bleeding stopped after 2 days. Was told that did not need imaging at that time. Patient reports that she has been feeling lightheaded during this time. Patient reports using 5-6 pads for bleeding. Patient reports seeing passage of clots. Patient denies fever, chest pain, shortness of breath. Patient denies dysuria or hematuria. denies history of trauma. reports is postmenopausal, has not had a menstrual period and "years". Reports no history of . Reports previously had curettage performed "several years ago". Allergies: Coded Allergies: No Known Allergies (Unverified , 05/28/17) Patient History Past Medical History: see triage record Last Menstrual Period: currently on her period Now: No Reviewed Nursing Documentation: PMH: Agreed; PSxH: Agreed Nursing Documentation-PMH Hx Hypertension: Yes Hx Diabetes: Yes Hx Cancer: No Hx Gastrointestinal Problems: Yes - fatty liver Hx Neurological Problems: Yes Hx Seizures: Yes Review of Systems All Other Systems: negative except mentioned in HPI Physical Exam Vital Signs Date Time Temp Pulse Resp B/P (MAP) Pulse Ox O2 Delivery O2 Flow Rate FiO2 12/31/17 18:07 98.1 69 20 105/58 95 Room Air 98.1 Sp02 EP Interpretation: reviewed, normal General Appearance: well appearing, no apparent distress, alert, GCS 15, non- toxic Head: normocephalic, atraumatic Neck: full range of motion Respiratory: lungs clear, normal breath sounds, no rhonchi, no respiratory distress, no accessory muscle use, no wheezing, speaking full sentences Cardiovascular #1: regular rate, rhythm, no edema Gastrointestinal: non tender, soft, no mass, non-distended, no guarding, no rebound Genitourinary: no CVA tenderness, deferred Musculoskeletal: back normal, digits/nails normal, gait/station normal, normal range of motion, non-tender, no calf tenderness, Xochitl's Sign negative Neurologic: alert, oriented x3, responsive, motor strength/tone normal, sensory intact Psychiatric: mood/affect normal Skin: no rash Medical Decision Making PA Attestation Dr. Skelton is my supervising Physician whom patient management has been discussed with. Diagnostic Impression: Primary Impression: Vaginal bleeding Additional Impression: Lesion of cervix ER Course Pt presents to ED c/o vaginal bleeding. DDX considered but are not limited to UTI, fibroid, cysts, anemia. VITAL SIGNS are WNL, patient is afebrile. Ordered CBC, CMP, Type and Screen, pelvic US. Tylenol for pain control. ER COURSE: CBC and CMP unremarkable, no elevation in WBC, Hgb WNL Blood type O positive Patient reports unable to urinate, patient has no complaints of dysuria, hematuria, or burning with urination, does not need UA performed at this time. Informed patient to followup with primary care provider for UA in outpatient setting. Pelvic US, two pelvic lesions, thickened endometrium, per US bindery technician. Discussed results with patient. Informed patient to contact medical records tomorrow for official reading of pelvic US Contact primary care provider tomorrow for referral to OBGYN. Need to follow up with OBGYN for biopsy. Need to followup with OBGYN for further management and treatment. Return to ER for new or worsening of symptoms. Patient resting comfortably, in no acute distress, nontoxic appearing. DISCHARGE: -Rx provided for Tylenol for pain At this time pt. is stable for d/c to home. At this time patient is resting comfortably, in no acute distress, nontoxic appearing, smiling and talking without difficulty. Will provide printed patient care instructions, and any necessary prescriptions. Patient instructed to follow with OBGYN for further treatment and referral as needed. Care plan and follow up instructions have been discussed with the patient prior to discharge. Patient reports understanding and agreement to treatment plan. Patient questions asked and answered. ER precautions given, patient instructed to return to ER immediately for any new or worsening of symptom. - Please note that this Emergency Department Report was dictated using [employer] guard technology software, occasionally this can lead to erroneous entry secondary to interpretation by the dictation equipment. Labs Test 12/31/17 19:20 White Blood Count 6.0 K/UL (4.8-10.8) Red Blood Count 4.23 M/UL (4.20-5.40) Hemoglobin 13.2 G/DL (12.0-16.0) Hematocrit 37.6 % (37.0-47.0) Mean Corpuscular Volume 89 FL (80-99) Mean Corpuscular Hemoglobin 31.1 PG (27.0-31.0) Mean Corpuscular Hemoglobin Concent 35.0 G/DL (32.0-36.0) Red Cell Distribution Width 12.4 % (11.6-14.8) Platelet Count 101 K/UL (150-450) Mean Platelet Volume 8.4 FL (6.5-10.1) Neutrophils (%) (Auto) 53.6 % (45.0-75.0) Lymphocytes (%) (Auto) 33.0 % (20.0-45.0) Monocytes (%) (Auto) 11.7 % (1.0-10.0) Eosinophils (%) (Auto) 0.0 % (0.0-3.0) Basophils (%) (Auto) 1.7 % (0.0-2.0) Sodium Level 137 MMOL/L (136-145) Potassium Level 3.9 MMOL/L (3.5-5.1) Chloride Level 105 MMOL/L (98-107) Carbon Dioxide Level 24 MMOL/L (21-32) Anion Gap 8 mmol/L (5-15) Blood Urea Nitrogen 10 mg/dL (7-18) Creatinine 0.7 MG/DL (0.55-1.30) Estimat Glomerular Filtration Rate > 60 mL/min (>60) Glucose Level 169 MG/DL (74-106) Calcium Level 8.6 MG/DL (8.5-10.1) Total Bilirubin 2.1 MG/DL (0.2-1.0) Direct Bilirubin 0.6 MG/DL (0.0-0.3) Aspartate Amino Transf (AST/SGOT) 51 U/L (15-37) Alanine Aminotransferase (ALT/SGPT) 45 U/L (12-78) Alkaline Phosphatase 149 U/L (46-116) Total Protein 8.5 G/DL (6.4-8.2) Albumin 3.3 G/DL (3.4-5.0) Globulin 5.2 g/dL Albumin/Globulin Ratio 0.6 (1.0-2.7) Lipase 214 U/L (73-393) CT/MRI/US Diagnostic Results CT/MRI/US Diagnostic Results : Imaging Test Ordered: Pelvic US Impression Via bindery technician 2 lesions on cervix Thickened endometrium Normal ovaries Abnormally thickened endometrium. Clinical evaluation is recommended and biopsy may be needed. Heterogeneous appearance of the cervix. Some of this could be on the basis of debris or a blood filled nabothian cysts. Mass is not entirely excludable. Further evaluation recommended Last Vital Signs Date Time Temp Pulse Resp B/P (MAP) Pulse Ox O2 Delivery O2 Flow Rate FiO2 12/31/17 18:07 98.1 69 20 105/58 95 Room Air 98.1 Disposition: HOME, SELF-CARE Condition: Stable Scripts Acetaminophen* (TYLENOL EXTRA STRENGTH*) 500 Mg Tablet 500 MG ORAL Q8H PRN for Prn Headache/Temp > 101, #30 TAB 0 Refills Prov: Micky Bradley 12/31/17 Patient Instructions: Cervical Dysplasia, Dysfunctional Uterine Bleeding Additional Instructions: Followup with OBGYN in 1-2 days. Followup with primary care provider to discuss referral to legal contracts specialist. Take Tylenol as needed for pain. Patient questions asked and answered. ER precautions given, patient instructed to return to ER immediately for any new or worsening of symptoms including but not limited to chest pain, SOB, intractable vomiting, profuse vaginal bleeding, abdominal pain. Blood type O positive Micky Bradley Dec 31, 2017 18:50
[2017-12-31] MEDS ORDERED: Acetaminophen 500mg (ES) tab ORAL ONE (19:00)
[2017-12-31 19:30] VITALS: BP 107/62
[2017-12-31 19:51] LABS: BASOPHILS % (AUTO) 1.7 % (0.0-2.0); HEMATOCRIT 37.6 % (37.0-47.0); HEMOGLOBIN 13.2 G/DL (12.0-16.0); MEAN CORPUSCULAR VOLUME 89 FL (80-99); MONOCYTES % (AUTO) 11.7 % (1.0-10.0); NEUTROPHILS % (AUTO) 53.6 % (45.0-75.0); PLATELET COUNT 101 K/UL (150-450); RED BLOOD COUNT 4.23 M/UL (4.20-5.40); RED CELL DISTRIBUTION WIDTH 12.4 % (11.6-14.8)
[2017-12-31 19:57] LABS: ANION GAP 8 mmol/L (5-15); BLOOD UREA NITROGEN 10 mg/dL (7-18); CALCIUM 8.6 MG/DL (8.5-10.1); CARBON DIOXIDE 24 MMOL/L (21-32); CHLORIDE 105 MMOL/L (98-107); CREATININE 0.7 MG/DL (0.55-1.30); POTASSIUM 3.9 MMOL/L (3.5-5.1); SODIUM 137 MMOL/L (136-145)
[2017-12-31 20:11] LABS: ALANINE AMINOTRANSFERASE 45 U/L (12-78); ALBUMIN 3.3 G/DL (3.4-5.0); ALBUMIN/GLOBULIN RATIO 0.6 (1.0-2.7); ALKALINE PHOSPHATASE 149 U/L (46-116); ASPARTATE AMINO TRANSFERASE 51 U/L (15-37); BILIRUBIN,TOTAL 2.1 MG/DL (0.2-1.0)
[2017-12-31 20:12] LABS: BILIRUBIN,DIRECT 0.6 MG/DL (0.0-0.3)
[2017-12-31] MEDS ORDERED: TYLENOL EXTRA500 MG ORAL (21:23)
[2017-12-31 21:31] VITALS: BP 131/53
[2017-12-31 21:40] VITALS: BP 131/53
--- NOTE | 2018-01-01 13:38 | Diagnostic Imaging Report ---
Indication:Lower abdominal and pelvic pain. Vaginal bleeding postmenopausal female 62 years old Technique: Grayscale and duplex Doppler imaging of the pelvis performed utilizing a transabdominal scan and endovaginal scan. Comparison: None Findings: The endometrium is abnormally thickened measuring up to 13 mm. Further clinical evaluation is recommended. Endometrial carcinoma is not excluded. The area of the cervix is heterogeneous. Mass or other abnormalities not excluded. Please correlate clinically. The ovaries are demonstrated and show dopplerable blood flow. Right ovary is 3.1 x 2.1 x 1.3 cm. Left ovary is 3 x 2.9 x 1.9 cm. There is no free fluid. IMPRESSION: Abnormally thickened endometrium. Clinical evaluation is recommended and biopsy may be needed. Heterogeneous appearance of the cervix. Some of this could be on the basis of debris or a blood filled nabothian cysts. Mass is not entirely excludable. Further evaluation recommended
== END 2017-12-31 21:45 | disposition home or self-care (01) ==
LOC: EMR 18:58
DX: N93.8 Other specified abnormal uterine and vaginal bleeding (principal); N88.9 Noninflammatory disorder of cervix uteri, unspecified; I10 Essential (primary) hypertension; E11.9 Type 2 diabetes mellitus without complications; R93.8 Abnormal findings on diagnostic imaging of other specified body structures
CPT/HCPCS: 36415; 76856; 80053; 82248; 83690; 85025; 86850; 86900; 86901; 96374; 99284

== ENCOUNTER 2018-08-05 13:31 | Emergency (ER) | payer MEDICAID ==
[~2018-08-05] VITALS: Ht 162.6 cm; Wt 97.5 kg
[~2018-08-05 13:31] MED LIST changes: +TYLENOL EXTRA500 MG ORAL
[2018-08-05] MEDS ORDERED: SPIRONOLACTONE100 MG ORAL (14:37)
[2018-08-05] MEDS ORDERED: FERROUS SULFAT325 MG ORAL (14:37)
[2018-08-05 14:40] LABS: ANION GAP 7 mmol/L (5-15); BLOOD UREA NITROGEN 10 mg/dL (7-18); CALCIUM 8.8 MG/DL (8.5-10.1); CARBON DIOXIDE 25 MMOL/L (21-32); CHLORIDE 103 MMOL/L (98-107); CREATININE 0.8 MG/DL (0.55-1.30); POTASSIUM 3.9 MMOL/L (3.5-5.1); SODIUM 135 MMOL/L (136-145)
[2018-08-05 14:49] LABS: HEMATOCRIT 36.9 % (37.0-47.0); HEMOGLOBIN 13.2 G/DL (12.0-16.0); MEAN CORPUSCULAR VOLUME 87 FL (80-99); PLATELET COUNT 74 K/UL (150-450); RED BLOOD COUNT 4.26 M/UL (4.20-5.40); RED CELL DISTRIBUTION WIDTH 12.4 % (11.6-14.8); WHITE BLOOD COUNT 4.9 K/UL (4.8-10.8)
[2018-08-05 14:54] LABS: ALANINE AMINOTRANSFERASE 34 U/L (12-78); ALBUMIN/GLOBULIN RATIO 0.5 (1.0-2.7); ALKALINE PHOSPHATASE 171 U/L (46-116); ASPARTATE AMINO TRANSFERASE 47 U/L (15-37); BILIRUBIN,DIRECT 0.7 MG/DL (0.0-0.3); BILIRUBIN,TOTAL 3.2 MG/DL (0.2-1.0); CKMB 2.1 NG/ML (0.0-3.6); CREATINE KINASE 144 U/L (26-308)
[2018-08-05 15:00] VITALS: BP 140/69
--- NOTE | 2018-08-05 15:00 | Diagnostic Imaging Report ---
Indications: Headache and dizziness Technique: Spiral acquisitions obtained through the brain. Angled axial and coronal 5 x 5 mm slices were reconstructed. Total dose length product 1333.86 mGycm. CTDI vol(s) 70.38 mGy. Dose reduction achieved using automated exposure control Comparison: 05/28/2017 Findings: There is mild age-related prominence of the extra axial CSF spaces again demonstrated. Normal size ventricles. No acute intracranial hemorrhage nor edema. No mass effect nor midline shift. There is some periventricular deep white matter low-attenuation. Normal prescott-white differentiation otherwise. Visualized orbits and sinuses are unremarkable. The mastoids are clear. The calvarium is intact. No significant interim change Impression: Mild age-related cortical volume loss Negative for acute intracranial bleed or mass effect The CT scanner at [facility] is accredited by the [employer] and the scans are performed using protocols designed to limit radiation exposure to as low as reasonably achievable to attain images of sufficient resolution adequate for diagnostic evaluation.
--- NOTE | 2018-08-05 15:04 | Emergency Room Report ---
History of Present Illness General Chief Complaint: Chest Pain Source: Patient Present Illness HPI This patient has several complaints. She states that she woke up this morning and felt off balance. She states that she has to hold onto [place] or other objects to get around. She states a similar episode happened 2 months ago but then resolved. There is no spinning sensation. She does complain of headache. She denies nausea or vomiting. She denies fever or chills. She denies cough or congestion. She has chest pain or shortness of breath. She denies abdominal pain. She denies trauma or recent illness. She has no other complaints. Allergies: Coded Allergies: No Known Allergies (Unverified , 05/28/17) Patient History Past Medical History: see triage record, DM, HTN, other - cirrhosis Social History: Denies: smoking, alcohol use, drug use Reviewed Nursing Documentation: PMH: Agreed; PSxH: Agreed Nursing Documentation-PMH Past Medical History: No History, Except For Hx Hypertension: Yes Hx Diabetes: Yes Hx Cancer: No Hx Gastrointestinal Problems: Yes - fatty liver Hx Neurological Problems: Yes Hx Seizures: Yes Review of Systems All Other Systems: negative except mentioned in HPI Physical Exam Vital Signs Date Time Temp Pulse Resp B/P (MAP) Pulse Ox O2 Delivery O2 Flow Rate FiO2 08/05/18 13:38 97.9 68 20 117/61 100 Room Air Sp02 EP Interpretation: reviewed, normal General Appearance: no apparent distress, alert, GCS 15, non-toxic, obese Head: normocephalic, atraumatic Eyes: bilateral eye normal inspection, bilateral eye PERRL ENT: hearing grossly normal, normal pharynx, no angioedema, normal voice Neck: full range of motion, supple/symm/no masses Respiratory: chest non-tender, lungs clear, normal breath sounds, no respiratory distress, no retraction, no accessory muscle use, speaking full sentences Cardiovascular #1: regular rate, rhythm, no edema Gastrointestinal: normal bowel sounds, non tender, soft, non-distended, no guarding, no rebound Rectal: deferred Musculoskeletal: back normal, gait/station normal, normal range of motion, non- tender Neurologic: alert, oriented x3, responsive, motor strength/tone normal, sensory intact, speech normal, abnormal gait - ataxia Psychiatric: judgement/insight normal, memory normal, mood/affect normal, no suicidal/homicidal ideation Skin: normal color, no rash, warm/dry, well hydrated Medical Decision Making Diagnostic Impression: Primary Impression: Ataxia Additional Impressions: Hyperglycemia Diabetes ER Course This patient presented with gait ataxia. Given the patient's age, I felt that I should assess the patient's posterior circulation for concern of posterior circulation stroke. Initial CT head was unremarkable. Given a needed a better look at the posterior circulation and noncontrast head CT is not sufficient, I also obtain an MRI brain and this showed no e/o CVA or posterior circulation abnormality. Laboratory workup was remarkable for an elevated blood sugar at 283. This meets the definition of diabetes and I feel this patient is undiagnosed. Likely, the patient is dehydrated secondary to hyperglycemia/ hyperosmolar state. The patient was given IV fluids. I will start the patient on metformin and have her follow up closely with her primary care physician. Apparently, previously this patient had been on metformin for diabetes but was taken off of this medication. This patient clearly has diabetes only to follow- up closely with her primary care physician for further testing and monitoring of her blood sugar. Laboratory Tests Test 08/05/18 14:10 White Blood Count 4.9 K/UL (4.8-10.8) Red Blood Count 4.26 M/UL (4.20-5.40) Hemoglobin 13.2 G/DL (12.0-16.0) Hematocrit 36.9 % (37.0-47.0) L Mean Corpuscular Volume 87 FL (80-99) Mean Corpuscular Hemoglobin 30.9 PG (27.0-31.0) Mean Corpuscular Hemoglobin Concent 35.8 G/DL (32.0-36.0) Red Cell Distribution Width 12.4 % (11.6-14.8) Platelet Count 74 K/UL (150-450) L Mean Platelet Volume 8.3 FL (6.5-10.1) Neutrophils (%) (Auto) % (45.0-75.0) Lymphocytes (%) (Auto) % (20.0-45.0) Monocytes (%) (Auto) % (1.0-10.0) Eosinophils (%) (Auto) % (0.0-3.0) Basophils (%) (Auto) % (0.0-2.0) Differential Total Cells Counted 100 Neutrophils % (Manual) 60 % (45-75) Lymphocytes % (Manual) 30 % (20-45) Monocytes % (Manual) 10 % (1-10) Eosinophils % (Manual) 0 % (0-3) Basophils % (Manual) 0 % (0-2) Band Neutrophils 0 % (0-8) Platelet Estimate Decreased L Platelet Morphology Normal Red Blood Cell Morphology Normal Sodium Level 135 MMOL/L (136-145) L Potassium Level 3.9 MMOL/L (3.5-5.1) Chloride Level 103 MMOL/L (98-107) Carbon Dioxide Level 25 MMOL/L (21-32) Anion Gap 7 mmol/L (5-15) Blood Urea Nitrogen 10 mg/dL (7-18) Creatinine 0.8 MG/DL (0.55-1.30) Estimate Glomerular Filtration Rate > 60 mL/min (>60) Glucose Level 283 MG/DL (74-106) H Calcium Level 8.8 MG/DL (8.5-10.1) Total Bilirubin 3.2 MG/DL (0.2-1.0) H Direct Bilirubin 0.7 MG/DL (0.0-0.3) H Aspartate Amino Transferase (AST) 47 U/L (15-37) H Alanine Aminotransferase (ALT) 34 U/L (12-78) Alkaline Phosphatase 171 U/L (46-116) H Total Creatine Kinase 144 U/L (26-308) Creatine Kinase MB 2.1 NG/ML (0.0-3.6) Creatine Kinase MB Relative Index 1.4 Troponin I 0.005 ng/mL (0.000-0.056) Total Protein 8.5 G/DL (6.4-8.2) H Albumin 3.0 G/DL (3.4-5.0) L Globulin 5.5 g/dL Albumin/Globulin Ratio 0.5 (1.0-2.7) L EKG Diagnostic Results Rate: normal Rhythm: NSR ST Segments: no acute changes Rhythm Strip Diag. Results EP Interpretation: yes Rate: 60's Rhythm: NSR, no PVC's, no ectopy CT/MRI/US Diagnostic Results CT/MRI/US Diagnostic Results : Imaging Test Ordered: Ct head Impression No acute findings. Specifically no intracranial bleed, mass effect or edema. See official report. MRI brain: No acute findings. Specifically no evidence of posterior circulation CVA. See official report. Last Vital Signs Date Time Temp Pulse Resp B/P (MAP) Pulse Ox O2 Delivery O2 Flow Rate FiO2 08/05/18 14:10 68 20 Room Air 08/05/18 13:38 97.9 117/61 100 Status: improved Disposition: HOME, SELF-CARE Condition: Improved Referrals: [facility],REFERR[facility] (PCP) Lesley Lewis DO Aug 05, 2018 15:04
--- NOTE | 2018-08-05 15:04 | Diagnostic Imaging Report ---
Indication: Chest pain Technique: One view of the chest Comparison: 05/30/2017 Findings: The heart is borderline enlarged. The lungs and pleural spaces are clear. No significant interim change Impression: Borderline cardiomegaly
[2018-08-05] MEDS ORDERED: Gadavist 7.5mMol/7.5ml vial IV PRN (15:15)
[2018-08-05] MEDS ORDERED: metFORMIN 500mg tab ORAL ONE (15:30)
[2018-08-05 16:00] VITALS: BP 130/59
[2018-08-05] MEDS ORDERED: METFORMIN HCL500 M1 ORAL (18:38)
[2018-08-05] MEDS ORDERED: MECLIZINE HCL25 MG ORAL (18:39)
[2018-08-05 19:00] VITALS: BP 142/62
[2018-08-05 19:32] VITALS: BP 142/62
--- NOTE | 2018-08-06 10:04 | Diagnostic Imaging Report ---
Indications: Headache, dizziness, vertigo Technique: 3D [id number] images obtained through the [place] [employer] [employer] [place]. MIP reconstructions were generated in multiple rotational projections Comparison: Head CT dated 08/05/2018 Findings: Right vertebral artery not demonstrated, possibly excluded from the imaging volume. Small caliber but patent basilar artery without focal stenosis. origin of the right posterior cerebral artery. Patent left P1 segment, although there is also a patent left posterior communicating artery. Both P2 segments are patent, nonstenotic. Patent nonstenotic bilateral distal internal carotid arteries. Equivocal stenoses of the no bilateral A1 segments. Patent nonstenotic proximal A2 segments and branches. Probably patent anterior communicating artery. Patent nonstenotic bilateral A1 segments and proximal branches. No evidence of aneurysm or vascular malformation demonstrated. Impression: Equivocal stenoses of the bilateral A1 segments, suspect artifactual. No other evidence of significant intracranial cerebrovascular insufficiency Nonvisualized right vertebral artery, possibly excluded from the imaging volume Variant [place] [employer] [place] anatomy, as described This essentially agrees with the preliminary interpretation provided overnight by Dr. Aguirre
--- NOTE | 2018-08-06 19:43 | Cardiology Report ---
APPROVED REPORT EKG Measurement Heart [id number] Normal sinus rhythm Normal ECG
== END 2018-08-05 19:35 | disposition home or self-care (01) ==
LOC: EMR 14:36
DX: R26.0 Ataxic gait (principal); E11.65 Type 2 diabetes mellitus with hyperglycemia; I10 Essential (primary) hypertension; R51 Headache; R42 Dizziness and giddiness; R07.9 Chest pain, unspecified
CPT/HCPCS: 36415; 70450; 70544; 71045; 80053; 82248; 82550; 82553; 84484; 85007; 85025; 93005; 96360; 96361; 99284

== ENCOUNTER 2018-10-06 14:26 | Inpatient (IN) | payer MEDICAID ==
[~2018-10-06] VITALS: Ht 165.1 cm; Wt 99.8 kg
[~2018-10-06 14:26] MED LIST changes: +FERROUS SULFAT325 MG ORAL; +MECLIZINE HCL25 MG ORAL; +METFORMIN HCL500 M1 ORAL; +SPIRONOLACTONE100 MG ORAL
--- NOTE | 2018-10-06 14:40 | NUR ---
ED Nurse Note: Pt from home came in due to increased confusion, dizziness and mental dullness since this morning when pt woke up. Per son, pt has some episodes fo fall this past 6 months due to dizziness. Pt is AAO x4 whenshe came in the ED, follows commmands, with non labored breathing. Noted slight facial drooping on the right side. VSS.
--- NOTE | 2018-10-06 14:57 | NUR ---
ED Nurse Note: Pt down to CT for imaging.
--- NOTE | 2018-10-06 15:00 | NUR ---
ED Nurse Note: Blood collected and sent.
--- NOTE | 2018-10-06 15:05 | NUR ---
ED Nurse Note: Pt came back from CT. Attached to monitor. VSS.
[2018-10-06 15:22] LABS: HEMATOCRIT 36.5 % (37.0-47.0); HEMOGLOBIN 12.6 G/DL (12.0-16.0); MEAN CORPUSCULAR VOLUME 89 FL (80-99); PLATELET COUNT 82 K/UL (150-450); RED BLOOD COUNT 4.12 M/UL (4.20-5.40); RED CELL DISTRIBUTION WIDTH 13.3 % (11.6-14.8); WHITE BLOOD COUNT 3.9 K/UL (4.8-10.8)
[2018-10-06 15:27] VITALS: BP 111/60
[2018-10-06 15:29] LABS: INR 1.3 (0.9-1.1)
[2018-10-06 15:30] LABS: ANION GAP 10 mmol/L (5-15); BLOOD UREA NITROGEN 9 mg/dL (7-18); CARBON DIOXIDE 24 MMOL/L (21-32); CHLORIDE 106 MMOL/L (98-107); CREATININE 0.7 MG/DL (0.55-1.30); SODIUM 139 MMOL/L (136-145)
[2018-10-06 15:38] LABS: APPEARANCE,URINE SLIGHTLY CLOUDY; BILIRUBIN, URINE NEGATIVE (NEGATIVE); COLOR,URINE AMBER; GLUCOSE, URINE (UA) NEGATIVE (NEGATIVE); KETONES,URINE NEGATIVE (NEGATIVE); LEUKOCYTE ESTERASE ,URINE 3+ (NEGATIVE); NITRITE,URINE NEGATIVE (NEGATIVE); PH,URINE 7 (4.5-8.0); PROTEIN,URINE NEGATIVE (NEGATIVE); UROBILINOGEN,URINE 4 MG/DL (0.0-1.0)
[2018-10-06 15:40] LABS: ALANINE AMINOTRANSFERASE 42 U/L (12-78); ALBUMIN 3.4 G/DL (3.4-5.0); ALBUMIN/GLOBULIN RATIO 0.7 (1.0-2.7); ALKALINE PHOSPHATASE 158 U/L (46-116); ASPARTATE AMINO TRANSFERASE 69 U/L (15-37); BILIRUBIN,TOTAL 3.3 MG/DL (0.2-1.0); CHOLESTEROL 138 MG/DL (< 200); HDL CHOLESTEROL 64 MG/DL (40-60); TRIGLYCERIDES 56 MG/DL (30-150)
[2018-10-06 16:05] LABS: BILIRUBIN,DIRECT 0.8 MG/DL (0.0-0.3)
[2018-10-06] MEDS ORDERED: cefTRIAXone 1 GM in NS 55 ML IVPB ONE (16:15)
--- NOTE | 2018-10-06 16:24 | Emergency Room Report ---
History of Present Illness General Chief Complaint: General Complaint Source: Patient Present Illness HPI 63-year-old female presents ED for evaluation. Brought in by nephew for dizziness. States that patient appears more lethargic since yesterday. Also notes a facial droop and slurred speech. Last known well time was last night. Woke up with these symptoms. Nephew also states that patient is been experiencing dizziness for several months now. Denies chest pain or shortness of breath. Denies fevers or chills. No other aggravating relieving factors. Denies any other associated symptoms Allergies: Coded Allergies: No Known Allergies (Unverified , 05/28/17) Patient History Past Medical History: DM, HTN, seizures Pertinent Family History: none Social History: Denies: smoking, alcohol use, drug use Now: No Immunizations: UTD Reviewed Nursing Documentation: PMH: Agreed; PSxH: Agreed Nursing Documentation-PMH Past Medical History: No History, Except For Hx Hypertension: Yes Hx Diabetes: Yes Hx Cancer: No Hx Gastrointestinal Problems: Yes - fatty liver Hx Neurological Problems: Yes Hx Seizures: Yes Review of Systems All Other Systems: negative except mentioned in HPI Physical Exam Vital Signs Date Time Temp Pulse Resp B/P (MAP) Pulse Ox O2 Delivery O2 Flow Rate FiO2 10/06/18 14:30 98.4 64 20 135/78 97 Room Air Sp02 EP Interpretation: reviewed, normal General Appearance: no apparent distress, alert, GCS 15, non-toxic Head: normocephalic, atraumatic Eyes: bilateral eye normal inspection, bilateral eye PERRL ENT: hearing grossly normal, normal pharynx, no angioedema, normal voice Neck: full range of motion, supple/symm/no masses Respiratory: chest non-tender, lungs clear, normal breath sounds, speaking full sentences Cardiovascular #1: regular rate, rhythm, no edema Cardiovascular #2: 2+ carotid (R), 2+ carotid (L), 2+ radial (R), 2+ radial (L) , 2+ dorsalis pedis (R), 2+ dorsalis pedis (L) Gastrointestinal: normal bowel sounds, non tender, soft, non-distended, no guarding, no rebound Rectal: deferred Genitourinary: normal inspection, no CVA tenderness Musculoskeletal: back normal, gait/station normal, normal range of motion, non- tender Neurologic: alert, oriented x3, responsive, motor strength/tone normal, sensory intact, facial droop, other - slurred speech Psychiatric: judgement/insight normal, memory normal, mood/affect normal, no suicidal/homicidal ideation Reflexes: 3+ bicep (R), 3+ bicep (L), 3+ tricep (R), 3+ tricep (L), 3+ knee (R) , 3+ knee (L) Skin: normal color, no rash, warm/dry, well hydrated Lymphatic: no adenopathy Medical Decision Making Diagnostic Impression: Primary Impression: CVA (cerebral vascular accident) Qualified Codes: I63.9 - Cerebral infarction, unspecified Additional Impressions: Dizziness UTI (urinary tract infection) Qualified Codes: N39.0 - Urinary tract infection, site not specified Trichimoniasis ER Course Hospital Course 63 yo F presents to ED c/o slurred speech, facial droop, dizziness Differential diagnoses include: IA/unstable angina, SVT/Vtach/AFib, CVA/TIA Clinical course Patient placed on stretcher. on quality assurance monitor body. After initial history and physical I ordered labs, EKG, and CT head labs reviewed- electrolytes ok, troponins negative, no leukocytosis, Hb/Hct stable, UA + bacteria + trich EKG - NSR, no acute ischemic changes interpreted by me CT brain - no acute process noted Given aspirin in ED. given antibiotics. Patient is out of window for thrombotic therapy Dr. Parth Maxwell (neurology) will consult Case discussed with Dr. Day and he agreed to accept the patient to his service for further care and support I. I feel this is a highly complex case requiring extensive working including EKG/Rhythm strip, Xray/CT/US, Blood/urine lab work, repeat exams while in ED, and administration of strong opiates/narcotics for pain control, admission to hospital or close patient follow up. Diagnosis - CVA, dizziness, UTI, trichimonas admitted to telemetry in serious condition Labs Test 10/06/18 14:56 10/06/18 15:17 White Blood Count 3.9 K/UL (4.8-10.8) Red Blood Count 4.12 M/UL (4.20-5.40) Hemoglobin 12.6 G/DL (12.0-16.0) Hematocrit 36.5 % (37.0-47.0) Mean Corpuscular Volume 89 FL (80-99) Mean Corpuscular Hemoglobin 30.6 PG (27.0-31.0) Mean Corpuscular Hemoglobin Concent 34.5 G/DL (32.0-36.0) Red Cell Distribution Width 13.3 % (11.6-14.8) Platelet Count 82 K/UL (150-450) Mean Platelet Volume 10.0 FL (6.5-10.1) Neutrophils (%) (Auto) % (45.0-75.0) Lymphocytes (%) (Auto) % (20.0-45.0) Monocytes (%) (Auto) % (1.0-10.0) Eosinophils (%) (Auto) % (0.0-3.0) Basophils (%) (Auto) % (0.0-2.0) Prothrombin Time 13.3 SEC (9.30-11.50) Prothromb Time International Ratio 1.3 (0.9-1.1) Activated Partial Thromboplast Time 33 SEC (23-33) Sodium Level 139 MMOL/L (136-145) Potassium Level 4.0 MMOL/L (3.5-5.1) Chloride Level 106 MMOL/L (98-107) Carbon Dioxide Level 24 MMOL/L (21-32) Anion Gap 10 mmol/L (5-15) Blood Urea Nitrogen 9 mg/dL (7-18) Creatinine 0.7 MG/DL (0.55-1.30) Estimat Glomerular Filtration Rate > 60 mL/min (>60) Glucose Level 148 MG/DL (74-106) Calcium Level 9.0 MG/DL (8.5-10.1) Total Bilirubin 3.3 MG/DL (0.2-1.0) Direct Bilirubin 0.8 MG/DL (0.0-0.3) Aspartate Amino Transf (AST/SGOT) 69 U/L (15-37) Alanine Aminotransferase (ALT/SGPT) 42 U/L (12-78) Alkaline Phosphatase 158 U/L (46-116) Total Protein 8.0 G/DL (6.4-8.2) Albumin 3.4 G/DL (3.4-5.0) Globulin 4.6 g/dL Albumin/Globulin Ratio 0.7 (1.0-2.7) Triglycerides Level 56 MG/DL (30-150) Cholesterol Level 138 MG/DL (< 200) LDL Cholesterol 74 mg/dL (<100) HDL Cholesterol 64 MG/DL (40-60) Cholesterol/HDL Ratio 2.2 (3.3-4.4) Urine Color Macy Urine Appearance Slightly cloudy Urine pH 7 (4.5-8.0) Urine Specific [place] 1.010 (1.005-1.035) Urine Protein Negative (NEGATIVE) Urine Glucose (UA) Negative (NEGATIVE) Urine Ketones Negative (NEGATIVE) Urine Blood 1+ (NEGATIVE) Urine Nitrite Negative (NEGATIVE) Urine Bilirubin Negative (NEGATIVE) Urine Ictotest Negative (NEGATIVE) Urine Urobilinogen 4 MG/DL (0.0-1.0) Urine Leukocyte Esterase 3+ (NEGATIVE) Urine RBC 2-4 /HPF (0 - 2) Urine WBC 20-30 /HPF (0 - 2) Urine Squamous Epithelial Cells Many /LPF (NONE/OCC) Urine Bacteria Many /HPF (NONE) Urine Trichomonas Moderate /HPF (NONE) EKG Diagnostic Results Rate: normal Rhythm: NSR ST Segments: no acute changes ASA given to the pt in ED: No Rhythm Strip Diag. Results EP Interpretation: yes Rhythm: NSR, no PVC's, no ectopy CT/MRI/US Diagnostic Results CT/MRI/US Diagnostic Results : Imaging Test Ordered: CT Head Impression No intracranial hemorrhage, mass effect or CT evidence of acute infarct Ventricles are unchanged in size and remain midline Visualized paranasal sinuses, mastoids and orbits are within limits Last Vital Signs Date Time Temp Pulse Resp B/P (MAP) Pulse Ox O2 Delivery O2 Flow Rate FiO2 10/06/18 15:27 98.4 56 18 111/60 98 Room Air Status: improved Disposition: ADMITTED INPATIENT Condition: Serious Referrals: NON PHYSICIAN (PCP) Haim Pierson MD Oct 06, 2018 16:24
[2018-10-06] MEDS ORDERED: Promethazine/Codeine 5ml UD ORAL PRN (16:45)
[2018-10-06] MEDS ORDERED: Albuterol/Ipratropium 3ml neb HHN PRN (16:45)
[2018-10-06] MEDS ORDERED: Miralax 17gm pkt ORAL PRN (16:45)
[2018-10-06] MEDS ORDERED: Mylanta II UD 30ml ORAL PRN (16:45)
[2018-10-06] MEDS ORDERED: Morphine Sulfate 2mg/ml Inj IVP PRN (16:45)
[2018-10-06] MEDS ORDERED: Nitroglycerin Subl 0.4mg tab SL PRN (16:45)
[2018-10-06] MEDS ORDERED: LORazepam Inj 2mg/ml 1ml IV PRN (16:45)
--- NOTE | 2018-10-06 16:58 | NUR ---
ED Nurse Note: Gricel
[2018-10-06 17:00] VITALS: BP 125/76
--- NOTE | 2018-10-06 17:16 | NUR ---
ED Nurse Note: Report given to Alexis LOREDO.
--- NOTE | 2018-10-06 18:25 | NUR ---
NURSE NOTES: Receive report from FACUNDO Montoya. Patient transferred from ER via gurney. Patient AO x3, unsteady gait. VS at the time of arrival 120/53, SR w/ HR 62, O2 sat 100% RA, T 98.6, RR 17. No active s/s cardiac, respiratory distress noticed at this time. Denies pain at this time. Belonging list checked with FACUNDO Montoya, medication bottles send to pharmacy, IV site asymptomatic, patent, intact. Bed in lowest position, side rails up x3, call light within reach. Will continue to monitor.
[2018-10-06] MEDS: D5 1/2NS 1,000 ML IV SCH (18:44)
--- NOTE | 2018-10-06 19:33 | NUR ---
HAND-OFF: Report given to FACUNDO Blue.
[2018-10-06 20:00] VITALS: BP 116/54
[2018-10-06] MEDS: Heparin 5000 units/ml inj SUBQ SCH (21:00)
[2018-10-07] VITALS: BP 111/60
[2018-10-07] MEDS: D5 1/2NS 1,000 ML IV SCH (01:57)
[2018-10-07 04:00] VITALS: BP 113/52
[2018-10-07 06:49] LABS: HEMATOCRIT 31.9 % (37.0-47.0); HEMOGLOBIN 11.1 G/DL (12.0-16.0); MEAN CORPUSCULAR VOLUME 89 FL (80-99); PLATELET COUNT 78 K/UL (150-450); RED BLOOD COUNT 3.58 M/UL (4.20-5.40); RED CELL DISTRIBUTION WIDTH 13.7 % (11.6-14.8)
[2018-10-07 06:51] LABS: INR 1.4 (0.9-1.1)
[2018-10-07 07:07] LABS: AMMONIA 171 umol/L (11-32)
[2018-10-07 07:11] LABS: ALANINE AMINOTRANSFERASE 35 U/L (12-78); ALBUMIN 2.9 G/DL (3.4-5.0); ALBUMIN/GLOBULIN RATIO 0.7 (1.0-2.7); ALKALINE PHOSPHATASE 113 U/L (46-116); ANION GAP 9 mmol/L (5-15); ASPARTATE AMINO TRANSFERASE 55 U/L (15-37); BLOOD UREA NITROGEN 9 mg/dL (7-18); CALCIUM 8.7 MG/DL (8.5-10.1); CARBON DIOXIDE 23 MMOL/L (21-32); CHLORIDE 109 MMOL/L (98-107); CHOLESTEROL 122 MG/DL (< 200); CREATININE 0.6 MG/DL (0.55-1.30); HDL CHOLESTEROL 57 MG/DL (40-60); POTASSIUM 3.6 MMOL/L (3.5-5.1); SODIUM 141 MMOL/L (136-145); TRIGLYCERIDES 47 MG/DL (30-150)
[2018-10-07 07:13] LABS: BILIRUBIN,DIRECT 0.7 MG/DL (0.0-0.3)
[2018-10-07 08:00] VITALS: BP 95/48
--- NOTE | 2018-10-07 08:08 | NUR ---
NURSE NOTES: Pt in room in supine position, HOB semi fowlers, call light at bedside, pt drowsy difficult to assess orientation this is due to a dose of Ativan given, pt in bed with eyes closed and breathing at 16bpm and appears to be sleeping, IV intact, bed alarm on, denies pain FLACC for pain 0, no s/s of sob or distress. will continue to monitor. 2 rails up. Pt NPO.
[2018-10-07] MEDS: Heparin 5000 units/ml inj SUBQ SCH ×2 (09:00→21:00)
--- NOTE | 2018-10-07 09:10 | NUR ---
REH[facility] MED PT NOTE CONSULT GEORGE RANGEL, PATIENT VERY LETHARGIC THIS AM, PER PM NURSING SHIFT PATIENT UP IN ROOM USING COMMODE WITH SUPERVISION ASSIST. THIS AM GIVEN MEDICATIONS AND IS NOW VERY SLEEPY. PATIENT ABLE TO COOPERATE WITH EVALUATION AND ASSESSMENT HOWEVER LIMITED. MODA FOR ALL FUNCTIONAL MOBILITY. LIKELY PATIENT FUNCTIONAL STATUS WILL IMPROVE AROUSAL LEVEL INCREASES. WILL CONTINUE TO ASSESS. PATIENT WILL BENEFIT FROM CONTINUED PT DURING STAY FOR RETURN TO PLOF. RECOMMEND HOME VS SNF. PLAN OF CARE INITIATED. BRAD SAPP PT DPT Addendum: 10/07/18 at 0910 by BRAD SAPP PT Amended: Links added.
--- NOTE | 2018-10-07 10:01 | Consultation ---
History of Present Illness General Date patient seen: Oct 07, 2018 Chief Complaint: General Complaint Reason for Consultation: UTI Present Illness HPI Ms. Hernandez is a 63 yo female with PMHx of DM, HTN, Seizures and fatty liver who was brought to the ED by her nephew 10/06/18 for dizziness. The patient has had increased lethargy for one day with facial droop and slurred speech. The dizziness had been present for about a month according ot the nephew. The patient has had no fever, chills, N/V/D, abd pain, SOB, Dysuria or CP. In the ED her CT head was negative. Her UA was positive for bacteria and trichomonas. She is afebrile with no leukocytosis. This morning her mentation is a little slow as she was just given ativan top calm her down. S ID consulted for UTI PMHx/PSHx DM HTN Seizures Fatty liver SocHx No E/T/D FamHx Not contributory Allergies: Coded Allergies: No Known Allergies (Unverified , 05/28/17) Medication History Scheduled Cephalexin* (Keflex*), 500 MG ORAL EVERY 12 HOURS Cyanocobalamin (Vitamin B-12) (Vitamin B-12), 100 MCG PO DAILY Ferrous Sulfate* (Ferrous Sulfate*), 325 MG ORAL DAILY, (Reported) Glipizide* (Glipizide*), 5 MG ORAL BIDAC, (Reported) Lactulose (Lactulose*), 30 GM ORAL DAILY Levothyroxine Sodium* (Levothyroxine Sodium*), 88 MCG ORAL DAILY, (Reported) Meclizine Hcl* (Meclizine*), 25 MG ORAL THREE TIMES A DAY Metformin Hcl* (Metformin Hcl*), 500 MG ORAL TWICE A DAY Rifaximin* (Xifaxan*), 550 MG ORAL EVERY 12 HOURS Spironolactone* (Spironolactone*), 25 MG ORAL DAILY, (Reported) Scheduled PRN Acetaminophen* (Tylenol Extra Strength*), 500 MG ORAL Q8H PRN for Prn Headache/ Temp > 101 Patient History Healthcare decision maker Resuscitation status Full Code Advanced Directive on File Review of Systems ROS Narrative 12 point ROS negative except as note in the HPI. Physical Exam Last 24 Hour Vital Signs Date Time Temp Pulse Resp B/P (MAP) Pulse Ox O2 Delivery O2 Flow Rate FiO2 2/4/19 08:00 98.0 61 20 95/48 (64) 98 10/07/18 04:00 55 10/07/18 04:00 98.2 56 20 113/52 (72) 95 10/07/18 00:00 58 10/07/18 00:00 98.0 62 19 111/60 (77) 100 10/06/18 22:38 Room Air 10/06/18 20:00 52 10/06/18 20:00 97.9 66 21 116/54 (74) 100 10/06/18 17:45 98.0 68 15 122/53 100 Room Air 10/06/18 17:00 98.3 65 20 125/76 99 Room Air 10/06/18 15:27 98.4 56 18 111/60 98 Room Air 10/06/18 14:40 64 20 Room Air 10/06/18 14:30 98.4 64 20 135/78 97 Room Air Intake and Output 10/06/18 10/07/18 19:00 07:00 Intake Total 1105 ml 450 ml Output Total 4 ml Balance 1105 ml 446 ml Intake IV Total 1105 ml 450 ml Output Urine Total 4 ml # Voids 2 Laboratory Tests Test 10/06/18 14:56 10/06/18 15:17 10/07/18 05:30 White Blood Count 3.9 K/UL (4.8-10.8) L 3.0 K/UL (4.8-10.8) L Red Blood Count 4.12 M/UL (4.20-5.40) L 3.58 M/UL (4.20-5.40) L Hemoglobin 12.6 G/DL (12.0-16.0) 11.1 G/DL (12.0-16.0) L Hematocrit 36.5 % (37.0-47.0) L 31.9 % (37.0-47.0) L Mean Corpuscular Volume 89 FL (80-99) 89 FL (80-99) Mean Corpuscular Hemoglobin 30.6 PG (27.0-31.0) 30.9 PG (27.0-31.0) Mean Corpuscular Hemoglobin Concent 34.5 G/DL (32.0-36.0) 34.7 G/DL (32.0-36.0) Red Cell Distribution Width 13.3 % (11.6-14.8) 13.7 % (11.6-14.8) Platelet Count 82 K/UL (150-450) L 78 K/UL (150-450) L Mean Platelet Volume 10.0 FL (6.5-10.1) 8.1 FL (6.5-10.1) Neutrophils (%) (Auto) % (45.0-75.0) % (45.0-75.0) Lymphocytes (%) (Auto) % (20.0-45.0) % (20.0-45.0) Monocytes (%) (Auto) % (1.0-10.0) % (1.0-10.0) Eosinophils (%) (Auto) % (0.0-3.0) % (0.0-3.0) Basophils (%) (Auto) % (0.0-2.0) % (0.0-2.0) Prothrombin Time 13.3 SEC (9.30-11.50) H 14.7 SEC (9.30-11.50) H Prothromb Time International Ratio 1.3 (0.9-1.1) H 1.4 (0.9-1.1) H Activated Partial Thromboplast Time 33 SEC (23-33) 37 SEC (23-33) H Sodium Level 139 MMOL/L (136-145) 141 MMOL/L (136-145) Potassium Level 4.0 MMOL/L (3.5-5.1) 3.6 MMOL/L (3.5-5.1) Chloride Level 106 MMOL/L (98-107) 109 MMOL/L (98-107) H Carbon Dioxide Level 24 MMOL/L (21-32) 23 MMOL/L (21-32) Anion Gap 10 mmol/L (5-15) 9 mmol/L (5-15) Blood Urea Nitrogen 9 mg/dL (7-18) 9 mg/dL (7-18) Creatinine 0.7 MG/DL (0.55-1.30) 0.6 MG/DL (0.55-1.30) Estimat Glomerular Filtration Rate > 60 mL/min (>60) > 60 mL/min (>60) Glucose Level 148 MG/DL (74-106) H 114 MG/DL (74-106) H Calcium Level 9.0 MG/DL (8.5-10.1) 8.7 MG/DL (8.5-10.1) Total Bilirubin 3.3 MG/DL (0.2-1.0) H 3.0 MG/DL (0.2-1.0) H Direct Bilirubin 0.8 MG/DL (0.0-0.3) H 0.7 MG/DL (0.0-0.3) H Aspartate Amino Transf (AST/SGOT) 69 U/L (15-37) H 55 U/L (15-37) H Alanine Aminotransferase (ALT/SGPT) 42 U/L (12-78) 35 U/L (12-78) Alkaline Phosphatase 158 U/L (46-116) H 113 U/L (46-116) Total Protein 8.0 G/DL (6.4-8.2) 6.9 G/DL (6.4-8.2) Albumin 3.4 G/DL (3.4-5.0) 2.9 G/DL (3.4-5.0) L Globulin 4.6 g/dL 4.0 g/dL Albumin/Globulin Ratio 0.7 (1.0-2.7) L 0.7 (1.0-2.7) L Triglycerides Level 56 MG/DL (30-150) 47 MG/DL (30-150) Cholesterol Level 138 MG/DL (< 200) 122 MG/DL (< 200) LDL Cholesterol 74 mg/dL (<100) 67 mg/dL (<100) HDL Cholesterol 64 MG/DL (40-60) H 57 MG/DL (40-60) Cholesterol/HDL Ratio 2.2 (3.3-4.4) L 2.1 (3.3-4.4) L Urine Color Macy Urine Appearance Slightly cloudy Urine pH 7 (4.5-8.0) Urine Specific [place] 1.010 (1.005-1.035) Urine Protein Negative (NEGATIVE) Urine Glucose (UA) Negative (NEGATIVE) Urine Ketones Negative (NEGATIVE) Urine Blood 1+ (NEGATIVE) H Urine Nitrite Negative (NEGATIVE) Urine Bilirubin Negative (NEGATIVE) Urine Ictotest Negative (NEGATIVE) Urine Urobilinogen 4 MG/DL (0.0-1.0) H Urine Leukocyte Esterase 3+ (NEGATIVE) H Urine RBC 2-4 /HPF (0 - 2) H Urine WBC 20-30 /HPF (0 - 2) H Urine Squamous Epithelial Cells Many /LPF (NONE/OCC) H Urine Bacteria Many /HPF (NONE) H Urine Trichomonas Moderate /HPF (NONE) H Differential Total Cells Counted 100 Neutrophils % (Manual) 55 % (45-75) Lymphocytes % (Manual) 32 % (20-45) Monocytes % (Manual) 10 % (1-10) Eosinophils % (Manual) 2 % (0-3) Basophils % (Manual) 1 % (0-2) Band Neutrophils 0 % (0-8) Platelet Estimate Decreased L Platelet Morphology Normal Hypochromasia 1+ Anisocytosis 1+ Ammonia 171 umol/L (11-32) H C-Reactive Protein, Quantitative < 0.4 mg/dL (0.00-0.90) Thyroid Stimulating Hormone (TSH) 1.500 uiU/mL (0.358-3.740) Microbiology Date/Time Source Procedure Growth Status 10/06/18 15:17 Urine,Clean Catch Urine Culture - Preliminary Resulted Height (Feet): 5 Height (Inches): 4.00 Weight (Pounds): 220 Medications Current Medications Medications (Trade) Dose Ordered Sig/Antoni Route PRN Reason Start Time Stop Time Status Last Admin Dose Admin Acetaminophen (Tylenol) 650 mg Q4H PRN ORAL fever 10/06/18 16:45 11/05/18 16:44 Al Hydroxide/Mg Hydroxide (Mylanta II) 30 ml Q6H PRN ORAL dyspepsia 10/06/18 16:45 11/05/18 16:44 Albuterol/ Ipratropium (Albuterol/ Ipratropium) 3 ml Q4H PRN HHN Shortness of Breath 10/06/18 16:45 10/11/18 16:44 Clonidine HCl (Catapres Tab) 0.1 mg Q4H PRN ORAL For High Blood Pressure 10/06/18 16:45 11/05/18 16:44 Dextrose (Dextrose 50%) 25 ml Q30M PRN IV Hypoglycemia 10/06/18 16:45 11/05/18 16:44 Dextrose (Dextrose 50%) 50 ml Q30M PRN IV Hypoglycemia 10/06/18 16:45 11/05/18 16:44 Dextrose/Sodium Chloride 1,000 ml @ 50 mls/hr Q20H IV 10/06/18 16:44 11/05/18 16:43 10/07/18 01:57 Heparin Sodium (Porcine) (Heparin 5000 units/ml) 5,000 units EVERY 12 HOURS SUBQ 10/06/18 21:00 11/05/18 20:59 Levothyroxine Sodium (Synthroid) 88 mcg ACBREAKFAST ORAL 10/07/18 06:30 11/06/18 06:29 10/07/18 05:51 Lorazepam (Ativan 2mg/ml 1ml) 0.5 mg Q4H PRN IV For Anxiety 10/06/18 16:45 10/13/18 16:44 10/07/18 04:40 Morphine Sulfate (Morphine Sulfate) 1 mg Q4H PRN IVP For Pain 7-10 10/06/18 16:45 10/13/18 16:44 Nitroglycerin (Ntg) 0.4 mg Q5M X 3 DOSES PRN SL Prn Chest Pain 10/06/18 16:45 11/05/18 16:44 Ondansetron HCl (Zofran) 4 mg Q6H PRN IVP Nausea & Vomiting 10/06/18 16:45 11/05/18 16:44 Polyethylene Glycol (Miralax) 17 gm HSPRN PRN ORAL Constipation 10/06/18 16:45 11/05/18 16:44 Promethazine HCl/ Codeine (Phenergan with Codeine) 5 ml Q4H PRN ORAL For Cough 10/06/18 16:45 11/05/18 16:44 Temazepam (Restoril) 15 mg HSPRN PRN ORAL Insomnia 10/06/18 16:45 10/13/18 16:44 Objective Narrative Gen: NAD, weak and tired HEENT: NCAT, MMM, EOMI, PERRL, No Oral lesion, no scleral icterus NECK: full range of motion, supple, no meningismus, No LAD, No JVD LUNGS: CTAB, No W/C, No Accessory muscle use CARDS: RRR, S1, S2, No M/R/G, ABD: Soft, NT, ND, No R/G, + BS, No HSM, No Masses : Deferred Ext: C/C/E, Pulses 2+ B/L (DP, Rad): NEURO: A/O x 4, Strength and Sensation Grossly intact PSYCH: Mood/affect normal SKIN: Warm/dry, No rashes Assessment/Plan Assessment/Plan 63 yo female with PMHx of DM, HTN, Seizures and fatty liver who was brought to the ED by her nephew 10/06/18 for dizziness. UTI UA - positive for bacteria and trichomonas. Afebrile No leukocytosis Probable TIA vs stroke vs seizure DM HTN Seizures Fatty liver Plan - Start Flagyl 2g x 1 for trichomonas - Continue Ceftriaxone #2/3 for bacterial UTI - f/u Cultures Thank you for this consult. We will continue to follow the patient during this hospitalization. El Desai MD Oct 07, 2018 10:01
--- NOTE | 2018-10-07 11:17 | Diagnostic Imaging Report ---
Indication: Headache Technique: Contiguous 5 mm thick transaxial imaging of the head obtained in a Siemens Sensation [address] scanner. Soft tissue and bone windows generated. Automatic Exposure Control was utilized. Total Dose length Product (DLP): 1245.[address] Dose Index Volume (CTDIvol): 70.38 mGy Comparison: 08/05/2018 Findings: The size and configuration of the cortical sulci, basal cisterns, and ventricles are within normal limits for age. There is no mass effect, midline shift, or edema identified. There is no evidence of acute hemorrhage or abnormal intra-axial or extra-axial fluid collections. The bones and soft tissues are unremarkable. Impression: No mass effect, edema or acute bleed. No change. The CT scanner at [facility] is accredited by the [employer] and the scans are performed using dose optimization techniques as appropriate to a performed exam including Automatic Exposure control.
--- NOTE | 2018-10-07 11:57 | NUR ---
ST NOTE: BEDSIDE SWALLOW EVAL RECEIVED BEDSIDE SWALLOW EVAL ORDER CHART REVIEWED PRIOR THE EVALUATION PT IS A 63-YEAR-OLD CANADIAN-SPEAKING FEMALE WHO WAS ADMITTED DUE TO ATAXIA AND TO R/O CVA. DYSPHAGIA RISK FACTORS: ATAXIA, PRE-DIABETIC, H/O SEIZURE, CIRRHOSIS, UTI. WEAKNESS. PER CT HEAD: NEGATIVE. PLOF: PT RESIDES AT HOME CURRENT STATUS: PT SEEN AT BEDSIDE IN LATE AM. ALERT, COOPERATIVE, FOLLOWS DIRECTIONS. CANADIAN-SPEAKING STAFF AT THE BEDSIDE. PER PT, TAKING THYROID MEDICATION AT HOME. SLOW SPEECH WAS NOTED. PER MD NOTE, TIA VS STROKE VS SEIZURE. GIVEN PO TRIALS: THIN(CUP), PUREE(TSP) AND CRACKER INITIAL IMPRESSION: PROBABLE MILD OR WORSENED OROPHARYNGEAL DYSPHAGIA HAS GOOD DENTITION. SLOW LINGUAL MOVEMENT, SLOW MASTICATION TIME FAIR TO GOOD ORAL TRANSIT TIME AND OROPHARYNGEAL TRANSIT TIME, FAIR TO GOOD LARYNGEAL ELEVATION, NO OVERT S/S OF ASPIRATION. HAS SOME ASPIRATION RISK DUE TO PROBABLE TIA VS STROKE VS SEIZURE COMPOUNDED OF OVERALL WEAKNESS. RECOMMENDATIONS: 1. FOR QUALITY OF LIFE, SLOWLY INITIATE MECH SOFT(CHOPPED) WITH THIN LIQUIDS DIET. 2. STRICT ASPIRATION/REFLUX PRECAUTIONS WITH 1TO1 ASSIST/SUPERVISION 3. VIDEOSWALLOW STUDY IP OR OP. D/W PT AND NANCY LOREDO POSTED ASPIRATION/REFLUX PRECAUTIONS SIGN.
[2018-10-07 12:00] VITALS: BP 107/73
--- NOTE | 2018-10-07 12:15 | Consultation ---
DATE OF CONSULTATION: 10/06/2018 NEUROLOGIC CONSULTATION HISTORY OF PRESENT ILLNESS: A 63-year-old right-handed woman with a previous history of hypothyroidism and fatty liver with esophageal varices, who was admitted with a chief complaint of dizzy spells recently, although she has had them for at least two months. She also had complaint of pressure in her head and beginning in the last few months, she was admitted with the possibility of a stroke. The patient had a previous history of urinary tract infection and had similar symptoms. The patient was brought to the emergency room and had a noncontrast CT scan of the brain, which was negative. She is admitted to [facility] and I was asked to see the patient in neurologic consultation. The patient cannot really describe her dizzy spell. She denies any diplopia, hearing loss, tinnitus, hypertension, or hyperlipidemia. She has been having some problems with her speech for the last couple of months. She is not on aspirin. She did not smoke. She never drank and has a fatty liver, probably from obesity and her diabetes. It is associated with cirrhosis. She apparently had bleeding varices, which were treated. The patient denies any tremors or shakes. She has had problems with her gait and has fallen twice in the last six months. There is no known family history of neurologic disease. PAST MEDICAL HISTORY: 1. Urinary tract infections. 2. Hypothyroidism. 3. Esophageal varices due to fatty liver with cirrhosis, see above. ALLERGIES: No known allergies. SOCIAL HISTORY: She is not . She has no children. FAMILY HISTORY: Noncontributory. PAST SURGICAL HISTORY: See above. MEDICATIONS: She does not know the medication she is on. PHYSICAL EXAMINATION: GENERAL: She is a well-developed, very obese woman, who is in bed, in no acute distress. VITAL SIGNS: Respiratory rate is 18 and pulse rate is about 70. HEENT: Examination of the head, ears, eye, nose, mouth, and throat is basically intact. NECK: Neck is supple. There is no tenderness. Carotids are +2 without any bruits. LUNGS: Clear to auscultation. CARDIOVASCULAR: pmi could not be felt. _jvp are not seen. The patient's heart tones were distant. There were no obvious murmurs, rubs, or clicks. ABDOMEN: The abdomen is obese. Bowel sounds intact. There is no obvious tenderness. Organomegaly could not be appreciated. EXTREMITIES: She has evidence of varicosities in the lower extremities without edema. NEUROLOGIC: Mental status, she is awake and fairly alert. Judgment can be tested. Affect is appropriate to mood. She is in a rather good mood. Memory was intact to remote as well as immediate, immediate recall is 3/3, just recent recall is 2/3 objects in 5 minutes. intellect could not be tested. Orientation time, she knew it is 10/06/2018, she knew it is Sunday. She knows she was in the "emergency room." She was actually in the second floor in the hospital, but she does not know the name of the hospital. She was oriented to person. Language function, fluent in Albanian slow, somewhat effortfull. There are no obvious paresthesias. Comprehension was fair to good. Easy repetition was normal. She spelled world backwards "akosua." CRANIAL NERVE EXAMINATION: CRANIAL NERVE II: Visual tyler are intact to confrontation. Fundi were benign. CRANIAL NERVES III, IV, AND : Extraocular motility is full. Pupils are about 6 mm, round. CRANIAL NERVE V: Facial and corneal sensations were intact to fine touch. Pterygoid strength 5/5. cranial nerve 7 5/5 bilaterally. cranial 8 Auditory acuity is intact bilaterally. CRANIAL NERVES IX AND X: Gag is intact bilaterally. CRANIAL NERVE XI: Sternocleidomastoid strength 5/5. CRANIAL NERVE XII: Tongue protrudes in the midline without fasciculations or atrophy. MUSCULOSKELETAL: Muscle bulk and tone are normal. Strength 5/5 proximal and distally without pronator drift. There is no asterixis. Reflexes are zero in the upper and lower extremities with downgoing toes. Testing left knee could not be tested because it was tender. Coordination, [id number], rapid veep-[id number] testing were intact. intact to pinprick and fine touch. Proprioception were normal. Vibration was at least partially intact in the feet. IMPRESSION: This patient has probably diffuse mild encephalopathy. I doubt that she probably could have a stroke. At least at this time a lot of her symptoms are chronic. The patient's EKG on admission is actually pretty much normal. Speaking about this case, we can continue on the aspirin. She may need a CT angiogram of the brain and neck and MRI angiogram of the brain and neck and in MRI, stroke was confirmed. PLAN: 1. Speaking about this case, we can continue aspirin daily. 2. Obtain MRA of the brain and neck, an MRI of the brain, or CT angiogram of the brain and neck. Thank you for this interesting case. _j Parth Maxwell MD DR: Emeterio JOB#: [id number] CC: STEFFEN
--- NOTE | 2018-10-07 16:03 | GI Initial Consult Note ---
History of Present Illness General Date patient seen: Oct 07, 2018 Time patient seen: 15:58 Reason for Hospitalization: General Complaint Referring physician: SORIN GARCÍA Reason for Consultation: Nausea and vomiting Present Illness HPI 63-year-old female presents ED for evaluation. Brought in by nephew for dizziness. States that patient appears more lethargic since yesterday. Also notes a facial droop and slurred speech. Last known well time was last night. Woke up with these symptoms. Nephew also states that patient is been experiencing dizziness for several months now. Denies chest pain or shortness of breath. Denies fevers or chills. No other aggravating relieving factors. Denies any other associated symptoms GI consulted for reports of nausea vomiting. ROS limited, patient is lethargic was only able to answer minimal amounts of questions. The patient complains of abdominal pain, dizziness. Denies any vomiting or diarrhea. No history of endoscopic colonoscopy. Labs reviewed the patient presents with normocytic anemia, mild hypercoagulability and elevated bilirubin levels. Unknown social history of alcohol, tobacco or drug use. Home Meds Active Scripts Meclizine Hcl* (MECLIZINE*) 25 Mg Tablet, 25 MG ORAL THREE TIMES A DAY, #30 TAB Prov:MeghanerasmoLesley Misty DO 08/05/18 Metformin Hcl* (METFORMIN HCL*) 500 Mg Tablet, 500 MG ORAL TWICE A DAY, #60 TAB Prov:MeghanmaggiezakiyaLesley Misty DO 08/05/18 Acetaminophen* (TYLENOL EXTRA STRENGTH*) 500 Mg Tablet, 500 MG ORAL Q8H PRN for Prn Headache/Temp > 101, #30 TAB 0 Refills Prov:Micky Bradley 12/31/17 Cephalexin* (KEFLEX*) 500 Mg Capsule, 500 MG ORAL EVERY 12 HOURS, #10 CAP 0 Refills Prov:Radha Santillan NP 06/04/17 Cyanocobalamin (Vitamin B-12) (VITAMIN B-12) 100 Mcg Tablet, 100 MCG PO DAILY, # 30 TAB Prov:Radha Santillan NP 06/04/17 Rifaximin* (XIFAXAN*) 550 Mg Tablet, 550 MG ORAL EVERY 12 HOURS for 30 Days, TAB Prov:Alexis Mason MD 06/01/17 Lactulose (LACTULOSE*) 20 Gm/30 Ml Solution, 30 GM ORAL DAILY for 30 Days, MG Prov:Alexis Mason MD 06/01/17 Reported Medications Ferrous Sulfate* (FERROUS SULFATE*) 325 Mg Tablet, 325 MG ORAL DAILY, #30 TAB 0 Refills 08/05/18 Spironolactone* (SPIRONOLACTONE*) 100 Mg Tablet, 25 MG ORAL DAILY, TAB 08/05/18 Levothyroxine Sodium* (LEVOTHYROXINE SODIUM*) 25 Mcg Tablet, 88 MCG ORAL DAILY, TAB Take in the morning on an empty stomach, at least 30 minutes before food. 05/28/17 Glipizide* (GLIPIZIDE*) 5 Mg Tablet, 5 MG ORAL BIDAC, TAB 05/28/17 Med list reviewed/reconciled: Yes Allergies: Coded Allergies: No Known Allergies (Unverified , 05/28/17) Patient History History Provided By: Patient, Medical Record PMH Narrative Past Medical History: DM, HTN, seizures Pertinent Family History: none Social History: Denies: smoking, alcohol use, drug use Now: No Immunizations: UTD Reviewed Nursing Documentation: PMH: Agreed; PSxH: Agreed Nursing Documentation-PMH Past Medical History: No History, Except For Hx Hypertension: Yes Hx Diabetes: Yes Hx Cancer: No Hx Gastrointestinal Problems: Yes - fatty liver Hx Neurological Problems: Yes Hx Seizures: Yes Review of Systems All Other Systems: negative except mentioned in HPI Physical Exam Vital Signs Date Time Temp Pulse Resp B/P (MAP) Pulse Ox O2 Delivery O2 Flow Rate FiO2 10/06/18 14:30 98.4 64 20 135/78 97 Room Air 10/07/18 09:10 2.0 Sp02 EP Interpretation: reviewed, normal Labs Laboratory Tests Test 10/07/18 05:30 White Blood Count 3.0 K/UL (4.8-10.8) L Red Blood Count 3.58 M/UL (4.20-5.40) L Hemoglobin 11.1 G/DL (12.0-16.0) L Hematocrit 31.9 % (37.0-47.0) L Mean Corpuscular Volume 89 FL (80-99) Mean Corpuscular Hemoglobin 30.9 PG (27.0-31.0) Mean Corpuscular Hemoglobin Concent 34.7 G/DL (32.0-36.0) Red Cell Distribution Width 13.7 % (11.6-14.8) Platelet Count 78 K/UL (150-450) L Mean Platelet Volume 8.1 FL (6.5-10.1) Neutrophils (%) (Auto) % (45.0-75.0) Lymphocytes (%) (Auto) % (20.0-45.0) Monocytes (%) (Auto) % (1.0-10.0) Eosinophils (%) (Auto) % (0.0-3.0) Basophils (%) (Auto) % (0.0-2.0) Differential Total Cells Counted 100 Neutrophils % (Manual) 55 % (45-75) Lymphocytes % (Manual) 32 % (20-45) Monocytes % (Manual) 10 % (1-10) Eosinophils % (Manual) 2 % (0-3) Basophils % (Manual) 1 % (0-2) Band Neutrophils 0 % (0-8) Platelet Estimate Decreased L Platelet Morphology Normal Hypochromasia 1+ Anisocytosis 1+ Prothrombin Time 14.7 SEC (9.30-11.50) H Prothromb Time International Ratio 1.4 (0.9-1.1) H Activated Partial Thromboplast Time 37 SEC (23-33) H Sodium Level 141 MMOL/L (136-145) Potassium Level 3.6 MMOL/L (3.5-5.1) Chloride Level 109 MMOL/L (98-107) H Carbon Dioxide Level 23 MMOL/L (21-32) Anion Gap 9 mmol/L (5-15) Blood Urea Nitrogen 9 mg/dL (7-18) Creatinine 0.6 MG/DL (0.55-1.30) Estimat Glomerular Filtration Rate > 60 mL/min (>60) Glucose Level 114 MG/DL (74-106) H Calcium Level 8.7 MG/DL (8.5-10.1) Total Bilirubin 3.0 MG/DL (0.2-1.0) H Direct Bilirubin 0.7 MG/DL (0.0-0.3) H Aspartate Amino Transf (AST/SGOT) 55 U/L (15-37) H Alanine Aminotransferase (ALT/SGPT) 35 U/L (12-78) Alkaline Phosphatase 113 U/L (46-116) Ammonia 171 umol/L (11-32) H C-Reactive Protein, Quantitative < 0.4 mg/dL (0.00-0.90) Total Protein 6.9 G/DL (6.4-8.2) Albumin 2.9 G/DL (3.4-5.0) L Globulin 4.0 g/dL Albumin/Globulin Ratio 0.7 (1.0-2.7) L Triglycerides Level 47 MG/DL (30-150) Cholesterol Level 122 MG/DL (< 200) LDL Cholesterol 67 mg/dL (<100) HDL Cholesterol 57 MG/DL (40-60) Cholesterol/HDL Ratio 2.1 (3.3-4.4) L Thyroid Stimulating Hormone (TSH) 1.500 uiU/mL (0.358-3.740) General Appearance: well appearing, no apparent distress, alert, obese Head: normocephalic EENT: PERRL/EOMI, normal ENT inspection Neck: supple Respiratory: normal breath sounds, no respiratory distress Cardiovascular: normal rate Gastrointestinal: normal inspection, non tender, soft, normal bowel sounds, non -distended Rectal: deferred Genitourinary: no CVA tenderness Musculoskeletal: normal inspection, back normal Neurologic: normal inspection, alert, oriented x3, responsive Psychiatric: normal inspection, judgement/insight normal, memory normal Skin: normal inspection, normal color, no rash, warm/dry, palpation normal, well hydrated Lymphatic: normal inspection, no adenopathy Current Medications Current Medications Medications (Trade) Dose Ordered Sig/Antoni Route PRN Reason Start Time Stop Time Status Last Admin Dose Admin Acetaminophen (Tylenol) 650 mg Q4H PRN ORAL fever 10/06/18 16:45 11/05/18 16:44 Al Hydroxide/Mg Hydroxide (Mylanta II) 30 ml Q6H PRN ORAL dyspepsia 10/06/18 16:45 11/05/18 16:44 Albuterol/ Ipratropium (Albuterol/ Ipratropium) 3 ml Q4H PRN HHN Shortness of Breath 10/06/18 16:45 10/11/18 16:44 Clonidine HCl (Catapres Tab) 0.1 mg Q4H PRN ORAL For High Blood Pressure 10/06/18 16:45 11/05/18 16:44 Dextrose (Dextrose 50%) 25 ml Q30M PRN IV Hypoglycemia 10/06/18 16:45 11/05/18 16:44 Dextrose (Dextrose 50%) 50 ml Q30M PRN IV Hypoglycemia 10/06/18 16:45 11/05/18 16:44 Dextrose/Sodium Chloride 1,000 ml @ 50 mls/hr Q20H IV 10/06/18 16:44 11/05/18 16:43 10/07/18 01:57 Heparin Sodium (Porcine) (Heparin 5000 units/ml) 5,000 units EVERY 12 HOURS SUBQ 10/06/18 21:00 11/05/18 20:59 Levothyroxine Sodium (Synthroid) 88 mcg ACBREAKFAST ORAL 10/07/18 06:30 11/06/18 06:29 10/07/18 05:51 Lorazepam (Ativan 2mg/ml 1ml) 0.5 mg Q4H PRN IV For Anxiety 10/06/18 16:45 10/13/18 16:44 10/07/18 04:40 Metronidazole 100 ml @ 100 mls/hr Q1H IVPB 10/07/18 16:00 10/07/18 19:59 Morphine Sulfate (Morphine Sulfate) 1 mg Q4H PRN IVP For Pain 7-10 10/06/18 16:45 10/13/18 16:44 Nitroglycerin (Ntg) 0.4 mg Q5M X 3 DOSES PRN SL Prn Chest Pain 10/06/18 16:45 11/05/18 16:44 Ondansetron HCl (Zofran) 4 mg Q6H PRN IVP Nausea & Vomiting 10/06/18 16:45 11/05/18 16:44 Polyethylene Glycol (Miralax) 17 gm HSPRN PRN ORAL Constipation 10/06/18 16:45 11/05/18 16:44 Promethazine HCl/ Codeine (Phenergan with Codeine) 5 ml Q4H PRN ORAL For Cough 10/06/18 16:45 11/05/18 16:44 Temazepam (Restoril) 15 mg HSPRN PRN ORAL Insomnia 10/06/18 16:45 10/13/18 16:44 GI: Plan Problems: (1) Encephalopathy (2) Dizziness (3) Anemia (4) Chronic liver disease (5) Hepatic encephalopathy Plan Maintain the patient n.p.o. plus IV fluids Lactulose plus Xifaxan Obtain abdominal ultrasound anemia work up OB stool r/o GI bleed monitor H&H, prn transfusions ppi fu labs, ammonia levels, hepatitis panel Discussed with Dr. Madden. Thank you for this patient referral, we will follow. The patient was seen and examined at bedside and all new and available data was reviewed in the patients chart. I agree with the above findings, impression and plan. (Patient seen earlier today. Signature stamp does not reflect patient encounter time.). - MD Brynn HuertaAurora West HospitalAntonio RESEARCH ASSISTANT Oct 07, 2018 16:02
[2018-10-07] MEDS: metroNIDAZOLE 500mg Premix IVPB SCH ×4 (16:54→20:41)
[2018-10-07] MEDS: Lactulose 20gm/30ml UDC ORAL SCH (18:16)
--- NOTE | 2018-10-07 18:45 | History and Physical Report ---
DATE OF ADMISSION: 10/06/2018 TIME SEEN: 1 p.m. CONSULTANTS: 1. . 2. Alexis Mason M.D. 3. Ike Russell M.D. CHIEF COMPLAINT: Facial droop, possible stroke, urinary tract infection. BRIEF HISTORY: This is a 63-year-old female, who lives at home, presents to [facility] with history of increased lethargy, was found to have facial droop, possible CVA, and admitted to telemetry for further care. Currently, calm in bed, slightly weak. No complaint. REVIEW OF SYSTEMS: No chest pain. No shortness of breath. No nausea, vomiting, or diarrhea. PAST MEDICAL HISTORY: Includes possible CVA, dizziness, diabetes, hypertension, hypothyroid, chronic liver disease. PAST SURGICAL HISTORY: None. MEDICATIONS: Levothyroxine, heparin, albuterol, Tylenol, morphine, Zofran, ceftriaxone, metronidazole. ALLERGIES: Denies. SOCIAL HISTORY: No smoking. No alcohol. No intravenous drug abuse. FAMILY HISTORY: Noncontributory. PHYSICAL EXAMINATION: GENERAL: Calm in bed, oriented x2, in no acute distress. VITAL SIGNS: Temperature is 97 degrees, pulse 66, respiratory rate 20, blood pressure 107/73. CARDIOVASCULAR: No murmur. LUNGS: Distant and clear. ABDOMEN: Bowel sounds positive. Nontender, nondistended. EXTREMITIES: No cyanosis, clubbing, or edema. NEUROLOGIC: The patient moves all extremities but slightly weak x4. LABORATORY AND DIAGNOSTIC DATA: Laboratories show white count 3, hemoglobin and hematocrit 11/31, platelets 78. BMP shows chloride 109, glucose 114, AST 55. Ammonia 171. Albumin 2.9. INR is 1.4 and PTT is 37. Urinalysis showed 3+ leukocyte esterase. ASSESSMENT: 1. Possible CVA, bilateral weakness. 2. Hyperammonia. 3. Facial droop. 4. Pancytopenia. 5. Malnutrition. 6. Weakness. 7. Loss of consciousness. 8. Urinary tract infection. 9. Anemia. 10. Diabetes. 11. . 12. Hypothyroid. 13. Chronic liver disease. PLAN: 1. OT/PT. 2. Dietary evaluation. 3. Antibiotic per Infectious Diseases. 4. Blood pressure and blood sugar control. 5. We will add Dr. Sneed and Dr. Madden to consult. Saul Day D.O. DR: Guadalupe JOB#: [id number] CC:
--- NOTE | 2018-10-07 19:40 | NUR ---
NURSE NOTES: Received report from FACUNDO Oswald. Pt is awake and resting in bed. In no acute distress. IV line intact and patent. Bed in lowest position, call light within reach. Will continue plan of care.
--- NOTE | 2018-10-07 19:43 | NUR ---
HAND-OFF: Report given to Myles Garland.
[2018-10-07 20:00] VITALS: BP 133/77
--- NOTE | 2018-10-07 23:00 | Progress Note ---
DATE: 10/07/2018 SUBJECTIVE: I reviewed the patient's laboratory data that apparently showing urinary tract infection, this is the probable cause of the patient's altered mental status. At this time, when I believe she has a stroke, she does have some intracranial vascular disease noted on a previous MRA. Therefore, apparently she take aspirin 81 mg a day assuming its not contraindicated given her esophageal varices. In the meantime, I am going to sign off from this case because the patient's urinary tract infection is treated. You can call me back if necessary. _parth hazel Parth Hazel MD DR: ROLNAD JOB#: [id number] CC: Ninoska Yip
[2018-10-08] VITALS: BP 105/54
[2018-10-08 04:00] VITALS: BP 115/50
[2018-10-08] MEDS: D5 1/2NS 1,000 ML IV SCH ×2 (06:11→14:50)
--- NOTE | 2018-10-08 07:13 | NUR ---
NURSE NOTES: pt awake alert, no distress. no sob. call light within reach. denies pain. will monitor. bed in lowest position, locked.
--- NOTE | 2018-10-08 07:15 | NUR ---
HAND-OFF: Report given to FACUNDO Zaldivar.
[2018-10-08 07:31] LABS: HEMATOCRIT 32.4 % (37.0-47.0); HEMOGLOBIN 11.3 G/DL (12.0-16.0); MEAN CORPUSCULAR VOLUME 88 FL (80-99); PLATELET COUNT 74 K/UL (150-450); RED BLOOD COUNT 3.67 M/UL (4.20-5.40); RED CELL DISTRIBUTION WIDTH 13.4 % (11.6-14.8); WHITE BLOOD COUNT 3.3 K/UL (4.8-10.8)
[2018-10-08 07:41] VITALS: BP 120/70
[2018-10-08 07:47] LABS: INR 1.3 (0.9-1.1)
[2018-10-08 07:57] LABS: % IRON SATURATION 52 % (15-50); IRON 99 ug/dL (50-175); TOTAL IRON BINDING CAPACITY 190 ug/dL (250-450)
[2018-10-08] MEDS: Heparin 5000 units/ml inj SUBQ SCH ×2 (08:02→20:44)
[2018-10-08] MEDS: Lactulose 20gm/30ml UDC ORAL SCH ×3 (08:02→18:00)
[2018-10-08 08:08] LABS: AMMONIA 144 umol/L (11-32)
[2018-10-08 08:09] LABS: ALANINE AMINOTRANSFERASE 34 U/L (12-78); ALBUMIN 2.8 G/DL (3.4-5.0); ALKALINE PHOSPHATASE 90 U/L (46-116); ASPARTATE AMINO TRANSFERASE 54 U/L (15-37); BILIRUBIN,DIRECT 0.6 MG/DL (0.0-0.3); BILIRUBIN,TOTAL 3.1 MG/DL (0.2-1.0)
[2018-10-08 08:17] LABS: ALANINE AMINOTRANSFERASE 34 U/L (12-78); ALBUMIN 2.9 G/DL (3.4-5.0); ALBUMIN/GLOBULIN RATIO 0.7 (1.0-2.7); ALKALINE PHOSPHATASE 90 U/L (46-116); ANION GAP 9 mmol/L (5-15); ASPARTATE AMINO TRANSFERASE 56 U/L (15-37); BILIRUBIN,TOTAL 3.1 MG/DL (0.2-1.0); BLOOD UREA NITROGEN 8 mg/dL (7-18); CALCIUM 8.4 MG/DL (8.5-10.1); CARBON DIOXIDE 25 MMOL/L (21-32); CHLORIDE 106 MMOL/L (98-107); CREATININE 0.6 MG/DL (0.55-1.30); FERRITIN 349 NG/ML (8-388); POTASSIUM 3.5 MMOL/L (3.5-5.1); SODIUM 140 MMOL/L (136-145)
--- NOTE | 2018-10-08 09:29 | Infectious Diseases Prog Note ---
Assessment/Plan Assessment/Plan 63 yo female with PMHx of DM, HTN, Seizures and fatty liver who was brought to the ED by her nephew 10/06/18 for dizziness. UTI UA - positive for bacteria and trichomonas. UCX - GNR Afebrile No leukocytosis Probable TIA vs stroke vs seizure DM HTN Seizures Fatty liver Plan - Continue Ceftriaxone #3/3 for bacterial UTI - 10/07/18 S/P Flagyl 2g x 1 for trichomonas - f/u Cultures We will continue to follow the patient during this hospitalization. Subjective Allergies: Coded Allergies: No Known Allergies (Unverified , 05/28/17) Subjective Afebrile No Leukcoytosis Objective Vital Signs Last 24 Hour Vital Signs Date Time Temp Pulse Resp B/P (MAP) Pulse Ox O2 Delivery O2 Flow Rate FiO2 10/08/18 07:41 97.9 62 20 120/70 (87) 100 10/08/18 07:09 Room Air 10/08/18 04:00 65 10/08/18 04:00 97.9 65 20 115/50 (71) 100 10/08/18 00:00 97.9 59 20 105/54 (71) 100 10/08/18 00:00 59 10/07/18 21:00 Nasal Cannula 2.0 10/07/18 20:00 98.1 62 20 133/77 (95) 100 10/07/18 20:00 57 10/07/18 15:53 60 10/07/18 12:00 97.2 66 20 107/73 (84) 98 10/07/18 11:28 57 Height (Feet): 5 Height (Inches): 4.00 Weight (Pounds): 220 Objective Gen: NAD, weak and tired HEENT: NCAT, MMM, EOMI LUNGS: CTAB, No W CARDS: RRR, S1, S2, No M/R/G, ABD: Soft, NT, ND + BS Microbiology Date/Time Source Procedure Growth Status 10/06/18 15:17 Urine,Clean Catch Urine Culture - Preliminary Gram Negative Bacillus 1 Resulted Laboratory Tests Test 10/08/18 05:31 White Blood Count 3.3 K/UL (4.8-10.8) L Red Blood Count 3.67 M/UL (4.20-5.40) L Hemoglobin 11.3 G/DL (12.0-16.0) L Hematocrit 32.4 % (37.0-47.0) L Mean Corpuscular Volume 88 FL (80-99) Mean Corpuscular Hemoglobin 30.9 PG (27.0-31.0) Mean Corpuscular Hemoglobin Concent 35.0 G/DL (32.0-36.0) Red Cell Distribution Width 13.4 % (11.6-14.8) Platelet Count 74 K/UL (150-450) L Mean Platelet Volume 8.5 FL (6.5-10.1) Neutrophils (%) (Auto) % (45.0-75.0) Lymphocytes (%) (Auto) % (20.0-45.0) Monocytes (%) (Auto) % (1.0-10.0) Eosinophils (%) (Auto) % (0.0-3.0) Basophils (%) (Auto) % (0.0-2.0) Neutrophils % (Manual) Pending Lymphocytes % (Manual) Pending Platelet Estimate Pending Platelet Morphology Pending Reticulocyte Count Pending Prothrombin Time 14.0 SEC (9.30-11.50) H Prothromb Time International Ratio 1.3 (0.9-1.1) H Activated Partial Thromboplast Time 30 SEC (23-33) Sodium Level 140 MMOL/L (136-145) Potassium Level 3.5 MMOL/L (3.5-5.1) Chloride Level 106 MMOL/L (98-107) Carbon Dioxide Level 25 MMOL/L (21-32) Anion Gap 9 mmol/L (5-15) Blood Urea Nitrogen 8 mg/dL (7-18) Creatinine 0.6 MG/DL (0.55-1.30) Estimat Glomerular Filtration Rate > 60 mL/min (>60) Glucose Level 116 MG/DL (74-106) H Calcium Level 8.4 MG/DL (8.5-10.1) L Iron Level 99 ug/dL (50-175) Total Iron Binding Capacity 190 ug/dL (250-450) L Percent Iron Saturation 52 % (15-50) H Unsaturated Iron Binding 91 ug/dL (112-346) L Ferritin 349 NG/ML (8-388) Total Bilirubin 3.1 MG/DL (0.2-1.0) H Direct Bilirubin 0.6 MG/DL (0.0-0.3) H Aspartate Amino Transf (AST/SGOT) 56 U/L (15-37) H Alanine Aminotransferase (ALT/SGPT) 34 U/L (12-78) Alkaline Phosphatase 90 U/L (46-116) Ammonia 144 umol/L (11-32) H Total Protein 6.9 G/DL (6.4-8.2) Albumin 2.9 G/DL (3.4-5.0) L Globulin 4.0 g/dL Albumin/Globulin Ratio 0.7 (1.0-2.7) L Carcinoembryonic Antigen Pending Vitamin B12 Level 120 PG/ML (193-986) L Folate 19.7 NG/ML (8.6-58.9) Thyroid Stimulating Hormone (TSH) 1.528 uiU/mL (0.358-3.740) Free Thyroxine 1.33 NG/DL (0.76-1.46) Hepatitis A IgM Antibody Pending Hepatitis B Surface Antigen Pending Hepatitis B Core IgM Antibody Pending Hepatitis C Antibody Pending Current Medications Medications (Trade) Dose Ordered Sig/Antoni Route PRN Reason Start Time Stop Time Status Last Admin Dose Admin Acetaminophen (Tylenol) 650 mg Q4H PRN ORAL Mild Pain/Temp > 100.5 10/08/18 06:00 11/05/18 16:44 10/08/18 06:13 Al Hydroxide/Mg Hydroxide (Mylanta II) 30 ml Q6H PRN ORAL dyspepsia 10/06/18 16:45 11/05/18 16:44 Albuterol/ Ipratropium (Albuterol/ Ipratropium) 3 ml Q4H PRN HHN Shortness of Breath 10/06/18 16:45 10/11/18 16:44 Clonidine HCl (Catapres Tab) 0.1 mg Q4H PRN ORAL For High Blood Pressure 10/06/18 16:45 11/05/18 16:44 Dextrose (Dextrose 50%) 25 ml Q30M PRN IV Hypoglycemia 10/06/18 16:45 11/05/18 16:44 Dextrose (Dextrose 50%) 50 ml Q30M PRN IV Hypoglycemia 10/06/18 16:45 11/05/18 16:44 Dextrose/Sodium Chloride 1,000 ml @ 50 mls/hr Q20H IV 10/06/18 16:44 11/05/18 16:43 10/08/18 06:11 Heparin Sodium (Porcine) (Heparin 5000 units/ml) 5,000 units EVERY 12 HOURS SUBQ 10/06/18 21:00 11/05/18 20:59 Lactulose (Cephulac) 30 gm THREE TIMES A DAY ORAL 10/07/18 18:00 11/06/18 17:59 10/08/18 08:02 Levothyroxine Sodium (Synthroid) 88 mcg ACBREAKFAST ORAL 10/07/18 06:30 11/06/18 06:29 10/08/18 06:12 Lorazepam (Ativan 2mg/ml 1ml) 0.5 mg Q4H PRN IV For Anxiety 10/06/18 16:45 10/13/18 16:44 10/07/18 04:40 Morphine Sulfate (Morphine Sulfate) 1 mg Q4H PRN IVP For Pain 7-10/06/18 16:45 10/13/18 16:44 Nitroglycerin (Ntg) 0.4 mg Q5M X 3 DOSES PRN SL Prn Chest Pain 10/06/18 16:45 11/05/18 16:44 Ondansetron HCl (Zofran) 4 mg Q6H PRN IVP Nausea & Vomiting 10/06/18 16:45 11/05/18 16:44 Polyethylene Glycol (Miralax) 17 gm HSPRN PRN ORAL Constipation 10/06/18 16:45 11/05/18 16:44 Promethazine HCl/ Codeine (Phenergan with Codeine) 5 ml Q4H PRN ORAL For Cough 10/06/18 16:45 11/05/18 16:44 Rifaximin (Xifaxan) 550 mg EVERY 12 HOURS ORAL 10/07/18 21:00 10/14/18 20:59 10/08/18 08:02 Temazepam (Restoril) 15 mg HSPRN PRN ORAL Insomnia 10/06/18 16:45 10/13/18 16:44 El Desai MD Oct 08, 2018 09:29
--- NOTE | 2018-10-08 09:50 | NUR ---
ST NOTE: SWALLOW/SPEECH/COGNITION STATUS CHART REVIEWED. PER MD NOTE, NEUROLOGIST, DR. RODRIGUEZ, PT HAS Esophageal varices due to fatty liver with cirrhosis. PER MD, PT REPORTED THAT HAVING A PROBLEM WITH SPEECH FOR COUPLE MONTHS. DISCUSSED WITH RN RE:PT'S CONDITION. PER EJ LOREDO, PT'S AMMONIA IS SLIGHTLY HIGH. PT SEEN AT BEDSIDE IN AM. ALERT, COOPERATIVE, FOLLOWS DIRECTIONS, BUT SEEMS WEAK, BUT ABLE TO GO TO COMA BY SELF WITH SOME ASSISTANCE. PER PT, TOLERATING OKAY WITH THE DIET. GIVEN THIN LIQUIDS VIA CUP BY SELF. GOOD ORAL TRANSIT TIME AND OROPHARYNGEAL TRANSIT TIME, GOOD LARYNGEAL ELEVATION, NO OVERT S/S OF ASPIRATION. SOME BELCHING WAS NOTED. PT DID NOT WANT TO TAKE MASTICATED SOLID AT THIS TIME. EDUCATED PT RE: ASPIRATION/REFLUX PRECAUTIONS. DISCUSSED WITH THE STAFF.
[2018-10-08 12:00] VITALS: BP 119/66
--- NOTE | 2018-10-08 12:29 | Consultation ---
History of Present Illness General Date patient seen: Oct 08, 2018 Chief Complaint: General Complaint Referring physician: SORIN GARCÍA Reason for Consultation: Nausea and vomiting Present Illness HPI 63-year-old female with morbid obesity, DM, presents ED for evaluation of dizziness. she was reportedly more lethargic and had facial droop and slurred speech. Pt's nephew also states that patient is been experiencing dizziness for several months now. Denies chest pain or shortness of breath. Denies fevers or chills. No other aggravating relieving factors. Denies any other associated symptoms Allergies: Coded Allergies: No Known Allergies (Unverified , 05/28/17) Medication History Scheduled Cephalexin* (Keflex*), 500 MG ORAL EVERY 12 HOURS Cyanocobalamin (Vitamin B-12) (Vitamin B-12), 100 MCG PO DAILY Ferrous Sulfate* (Ferrous Sulfate*), 325 MG ORAL DAILY, (Reported) Glipizide* (Glipizide*), 5 MG ORAL BIDAC, (Reported) Lactulose (Lactulose*), 30 GM ORAL DAILY Levothyroxine Sodium* (Levothyroxine Sodium*), 88 MCG ORAL DAILY, (Reported) Meclizine Hcl* (Meclizine*), 25 MG ORAL THREE TIMES A DAY Metformin Hcl* (Metformin Hcl*), 500 MG ORAL TWICE A DAY Rifaximin* (Xifaxan*), 550 MG ORAL EVERY 12 HOURS Spironolactone* (Spironolactone*), 25 MG ORAL DAILY, (Reported) Scheduled PRN Acetaminophen* (Tylenol Extra Strength*), 500 MG ORAL Q8H PRN for Prn Headache/ Temp > 101 Patient History Healthcare decision maker Resuscitation status Full Code Advanced Directive on File Past Medical/Surgical History Past Medical/Surgical History: (1) Chronic liver disease (2) Diabetes (3) Hypothyroidism Review of Systems All Other Systems: negative except mentioned in HPI Physical Exam General Appearance: WD/WN, morbidly obese Lines, tubes and drains: peripheral HEENT: normocephalic Neck: non-tender, normal alignment Respiratory/Chest: chest wall non-tender, lungs clear Breasts: no masses Cardiovascular/Chest: normal rate Abdomen: normal bowel sounds Genitourinary/Rectal: normal genital exam Skin Exam: normal pigmentation Last 24 Hour Vital Signs Date Time Temp Pulse Resp B/P (MAP) Pulse Ox O2 Delivery O2 Flow Rate FiO2 10/08/18 07:45 68 10/08/18 07:41 97.9 62 20 120/70 (87) 100 10/08/18 07:09 Room Air 10/08/18 04:00 65 10/08/18 04:00 97.9 65 20 115/50 (71) 100 10/08/18 00:00 97.9 59 20 105/54 (71) 100 10/08/18 00:00 59 10/07/18 21:00 Nasal Cannula 2.0 10/07/18 20:00 98.1 62 20 133/77 (95) 100 10/07/18 20:00 57 10/07/18 15:53 60 Intake and Output 10/07/18 10/08/18 19:00 07:00 Intake Total 500 ml Balance 500 ml Intake IV Total 500 ml # Voids 2 5 # Bowel Movements 1 Laboratory Tests Test 10/08/18 05:31 White Blood Count 3.3 K/UL (4.8-10.8) L Red Blood Count 3.67 M/UL (4.20-5.40) L Hemoglobin 11.3 G/DL (12.0-16.0) L Hematocrit 32.4 % (37.0-47.0) L Mean Corpuscular Volume 88 FL (80-99) Mean Corpuscular Hemoglobin 30.9 PG (27.0-31.0) Mean Corpuscular Hemoglobin Concent 35.0 G/DL (32.0-36.0) Red Cell Distribution Width 13.4 % (11.6-14.8) Platelet Count 74 K/UL (150-450) L Mean Platelet Volume 8.5 FL (6.5-10.1) Neutrophils (%) (Auto) % (45.0-75.0) Lymphocytes (%) (Auto) % (20.0-45.0) Monocytes (%) (Auto) % (1.0-10.0) Eosinophils (%) (Auto) % (0.0-3.0) Basophils (%) (Auto) % (0.0-2.0) Differential Total Cells Counted 100 Neutrophils % (Manual) 49 % (45-75) Lymphocytes % (Manual) 41 % (20-45) Monocytes % (Manual) 5 % (1-10) Eosinophils % (Manual) 5 % (0-3) H Basophils % (Manual) 0 % (0-2) Band Neutrophils 0 % (0-8) Platelet Estimate Decreased L Platelet Morphology Normal Red Blood Cell Morphology Normal Reticulocyte Count Pending Prothrombin Time 14.0 SEC (9.30-11.50) H Prothromb Time International Ratio 1.3 (0.9-1.1) H Activated Partial Thromboplast Time 30 SEC (23-33) Sodium Level 140 MMOL/L (136-145) Potassium Level 3.5 MMOL/L (3.5-5.1) Chloride Level 106 MMOL/L (98-107) Carbon Dioxide Level 25 MMOL/L (21-32) Anion Gap 9 mmol/L (5-15) Blood Urea Nitrogen 8 mg/dL (7-18) Creatinine 0.6 MG/DL (0.55-1.30) Estimat Glomerular Filtration Rate > 60 mL/min (>60) Glucose Level 116 MG/DL (74-106) H Calcium Level 8.4 MG/DL (8.5-10.1) L Iron Level 99 ug/dL (50-175) Total Iron Binding Capacity 190 ug/dL (250-450) L Percent Iron Saturation 52 % (15-50) H Unsaturated Iron Binding 91 ug/dL (112-346) L Ferritin 349 NG/ML (8-388) Total Bilirubin 3.1 MG/DL (0.2-1.0) H Direct Bilirubin 0.6 MG/DL (0.0-0.3) H Aspartate Amino Transf (AST/SGOT) 56 U/L (15-37) H Alanine Aminotransferase (ALT/SGPT) 34 U/L (12-78) Alkaline Phosphatase 90 U/L (46-116) Ammonia 144 umol/L (11-32) H Total Protein 6.9 G/DL (6.4-8.2) Albumin 2.9 G/DL (3.4-5.0) L Globulin 4.0 g/dL Albumin/Globulin Ratio 0.7 (1.0-2.7) L Carcinoembryonic Antigen Pending Vitamin B12 Level 120 PG/ML (193-986) L Folate 19.7 NG/ML (8.6-58.9) Thyroid Stimulating Hormone (TSH) 1.528 uiU/mL (0.358-3.740) Free Thyroxine 1.33 NG/DL (0.76-1.46) Hepatitis A IgM Antibody Pending Hepatitis B Surface Antigen Pending Hepatitis B Core IgM Antibody Pending Hepatitis C Antibody Pending Height (Feet): 5 Height (Inches): 4.00 Weight (Pounds): 220 Medications Current Medications Medications (Trade) Dose Ordered Sig/Antoni Route PRN Reason Start Time Stop Time Status Last Admin Dose Admin Acetaminophen (Tylenol) 650 mg Q4H PRN ORAL Mild Pain/Temp > 100.5 10/08/18 06:00 11/05/18 16:44 10/08/18 06:13 Al Hydroxide/Mg Hydroxide (Mylanta II) 30 ml Q6H PRN ORAL dyspepsia 10/06/18 16:45 11/05/18 16:44 Albuterol/ Ipratropium (Albuterol/ Ipratropium) 3 ml Q4H PRN HHN Shortness of Breath 10/06/18 16:45 10/11/18 16:44 Clonidine HCl (Catapres Tab) 0.1 mg Q4H PRN ORAL For High Blood Pressure 10/06/18 16:45 11/05/18 16:44 Dextrose (Dextrose 50%) 25 ml Q30M PRN IV Hypoglycemia 10/06/18 16:45 11/05/18 16:44 Dextrose (Dextrose 50%) 50 ml Q30M PRN IV Hypoglycemia 10/06/18 16:45 11/05/18 16:44 Dextrose/Sodium Chloride 1,000 ml @ 50 mls/hr Q20H IV 10/06/18 16:44 11/05/18 16:43 10/08/18 06:11 Heparin Sodium (Porcine) (Heparin 5000 units/ml) 5,000 units EVERY 12 HOURS SUBQ 10/06/18 21:00 11/05/18 20:59 Lactulose (Cephulac) 30 gm THREE TIMES A DAY ORAL 10/07/18 18:00 11/06/18 17:59 10/08/18 08:02 Levothyroxine Sodium (Synthroid) 88 mcg ACBREAKFAST ORAL 10/07/18 06:30 11/06/18 06:29 10/08/18 06:12 Lorazepam (Ativan 2mg/ml 1ml) 0.5 mg Q4H PRN IV For Anxiety 10/06/18 16:45 10/13/18 16:44 10/07/18 04:40 Morphine Sulfate (Morphine Sulfate) 1 mg Q4H PRN IVP For Pain 7-10 10/06/18 16:45 10/13/18 16:44 Nitroglycerin (Ntg) 0.4 mg Q5M X 3 DOSES PRN SL Prn Chest Pain 10/06/18 16:45 11/05/18 16:44 Ondansetron HCl (Zofran) 4 mg Q6H PRN IVP Nausea & Vomiting 10/06/18 16:45 11/05/18 16:44 Polyethylene Glycol (Miralax) 17 gm HSPRN PRN ORAL Constipation 10/06/18 16:45 11/05/18 16:44 Promethazine HCl/ Codeine (Phenergan with Codeine) 5 ml Q4H PRN ORAL For Cough 10/06/18 16:45 11/05/18 16:44 Rifaximin (Xifaxan) 550 mg EVERY 12 HOURS ORAL 10/07/18 21:00 10/14/18 20:59 10/08/18 08:02 Temazepam (Restoril) 15 mg HSPRN PRN ORAL Insomnia 10/06/18 16:45 10/13/18 16:44 Assessment/Plan Problem List: (1) Encephalopathy ICD Codes: G93.40 - Encephalopathy, unspecified SNOMED: 23011356 (2) Hepatic encephalopathy ICD Codes: K72.90 - Hepatic failure, unspecified without coma SNOMED: 38511203 (3) Hypothyroidism ICD Codes: E03.9 - Hypothyroidism, unspecified SNOMED: 54782652 (4) Diabetes ICD Codes: E11.9 - Type 2 diabetes mellitus without complications SNOMED: 00135720 (5) Chronic liver disease ICD Codes: K76.9 - Liver disease, unspecified SNOMED: 073750046 Assessment/Plan Neuro evaluation swallow evaluation NPO pt/ot sliding scale dvt prophylaxis. Alexis Mason MD Oct 08, 2018 12:29
--- NOTE | 2018-10-08 12:34 | NUR ---
NURSE NOTES: relayed to Dr Mason that pt does have episodes of sinus bradycardia high 50s, no new order per md, received order for transfer pt to [facility]
--- NOTE | 2018-10-08 12:59 | Diagnostic Imaging Report ---
Indication:Abdominal pain Technique: Grayscale and duplex Doppler imaging of the abdomen performed. Comparison: None Findings: Liver appears slightly nodular along the surface. Spleen is enlarged. There is extensive vascularity and enlarged varicosities in the splenic hilum extending to the epigastric region. Portosystemic varices suspected. Please correlate clinically. CBD is 4 mm. There are multiple gallstones. Gallbladder wall thickening is present. Cholecystitis not excluded. No hydronephrosis demonstrated. The kidneys are unremarkable. Pancreas and aorta are not well seen on this study. IMPRESSION: Cholelithiasis with wall thickening. Correlate for cholecystitis. Evidence of chronic liver disease and portal hypertension. 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 No ascites.
--- NOTE | 2018-10-08 13:46 | General Progress Note ---
Assessment/Plan Problem List: (1) HTN (hypertension) ICD Codes: I10 - Essential (primary) hypertension SNOMED: 52371454 (2) Hypothyroid ICD Codes: E03.9 - Hypothyroidism, unspecified SNOMED: 12592725 (3) Hypothyroidism ICD Codes: E03.9 - Hypothyroidism, unspecified SNOMED: 75911625 (4) Diabetes ICD Codes: E11.9 - Type 2 diabetes mellitus without complications SNOMED: 01322440 (5) Chronic liver disease ICD Codes: K76.9 - Liver disease, unspecified SNOMED: 088491964 (6) Dizziness ICD Codes: R42 - Dizziness and giddiness SNOMED: 947663122, 507474664 (7) UTI (urinary tract infection) ICD Codes: N39.0 - Urinary tract infection, site not specified SNOMED: 17379910, 439600458 Qualifiers: Qualified Codes: N39.0 - Urinary tract infection, site not specified (8) CVA (cerebral vascular accident) ICD Codes: I63.9 - Cerebral infarction, unspecified SNOMED: 546337310, 083534161 Qualifiers: Qualified Codes: I63.9 - Cerebral infarction, unspecified Status: unchanged Assessment/Plan pt diet abx heme flu cbc bmp am dc plan w hh Subjective Constitutional: Reports: weakness Allergies: Coded Allergies: No Known Allergies (Unverified , 05/28/17) All Systems: reviewed and negative except above Subjective sitting calm Objective Last 24 Hour Vital Signs Date Time Temp Pulse Resp B/P (MAP) Pulse Ox O2 Delivery O2 Flow Rate FiO2 10/08/18 12:00 97.7 58 20 119/66 (83) 100 10/08/18 11:48 57 10/08/18 07:45 68 10/08/18 07:41 97.9 62 20 120/70 (87) 100 10/08/18 07:09 Room Air 10/08/18 04:00 65 10/08/18 04:00 97.9 65 20 115/50 (71) 100 10/08/18 00:00 97.9 59 20 105/54 (71) 100 10/08/18 00:00 59 10/07/18 21:00 Nasal Cannula 2.0 10/07/18 20:00 98.1 62 20 133/77 (95) 100 10/07/18 20:00 57 10/07/18 15:53 60 Intake and Output 10/07/18 10/08/18 19:00 07:00 Intake Total 500 ml Balance 500 ml IV Total 500 ml # Voids 2 5 # Bowel Movements 1 Laboratory Tests 10/08/18 05:31: White Blood Count 3.3L, Red Blood Count 3.67L, Hemoglobin 11.3L, Hematocrit 32.4L, Mean Corpuscular Volume 88, Mean Corpuscular Hemoglobin 30.9, Mean Corpuscular Hemoglobin Concent 35.0, Red Cell Distribution Width 13.4, Platelet Count 74L, Mean Platelet Volume 8.5, Neutrophils (%) (Auto) , Lymphocytes (%) ( Auto) , Monocytes (%) (Auto) , Eosinophils (%) (Auto) , Basophils (%) (Auto) , Differential Total Cells Counted 100, Neutrophils % (Manual) 49, Lymphocytes % ( Manual) 41, Monocytes % (Manual) 5, Eosinophils % (Manual) 5H, Basophils % ( Manual) 0, Band Neutrophils 0, Platelet Estimate DecreasedL, Platelet Morphology Normal, Red Blood Cell Morphology Normal, Reticulocyte Count [Pending ], Prothrombin Time 14.0H, Prothromb Time International Ratio 1.3H, Activated Partial Thromboplast Time 30, Sodium Level 140, Potassium Level 3.5, Chloride Level 106, Carbon Dioxide Level 25, Anion Gap 9, Blood Urea Nitrogen 8, Creatinine 0.6, Estimat Glomerular Filtration Rate > 60, Glucose Level 116H, Calcium Level 8.4L, Iron Level 99, Total Iron Binding Capacity 190L, Percent Iron Saturation 52H, Unsaturated Iron Binding 91L, Ferritin 349, Total Bilirubin 3.1H, Direct Bilirubin 0.6H, Aspartate Amino Transf (AST/SGOT) 56H, Alanine Aminotransferase (ALT/SGPT) 34, Alkaline Phosphatase 90, Ammonia 144H, Total Protein 6.9, Albumin 2.9L, Globulin 4.0, Albumin/Globulin Ratio 0.7L, Carcinoembryonic Antigen [Pending], Vitamin B12 Level 120L, Folate 19.7, Thyroid Stimulating Hormone (TSH) 1.528, Free Thyroxine 1.33, Hepatitis A IgM Antibody [Pending], Hepatitis B Surface Antigen [Pending], Hepatitis B Core IgM Antibody [Pending], Hepatitis C Antibody [Pending] 10/08/18 13:00: Stool Occult Blood [Pending] Height (Feet): 5 Height (Inches): 4.00 Weight (Pounds): 220 General Appearance: lethargic EENT: normal ENT inspection Neck: normal alignment Cardiovascular: normal peripheral pulses, normal rate, regular rhythm Respiratory/Chest: chest wall non-tender, lungs clear, normal breath sounds Abdomen: normal bowel sounds, non tender, soft Extremities: normal inspection Edema: no edema noted Arm (L), no edema noted Arm (R), no edema noted Leg (L), no edema noted Leg (R), no edema noted Pedal (L), no edema noted Pedal (R), no edema noted Generalized Neurologic: responsive, motor weakness Skin: normal pigmentation, warm/dry Saul Day DO Oct 08, 2018 13:46
--- NOTE | 2018-10-08 14:12 | Cardiology Progress Note ---
Assessment/Plan Assessment/Plan afib new onset since 08/2018 anemi thrombcytopenmia hepatic encephalopathy varices? sever vit b12 diff dizzinerss may be realted to vit b12 diff i am concerned about any potention anticoagulation wit her encephalopathy and thrombocytopenia nto sure how her fall risk her heart rate seem controlled will repaet echo b12 supplement [id number] Objective Last 24 Hour Vital Signs Date Time Temp Pulse Resp B/P (MAP) Pulse Ox O2 Delivery O2 Flow Rate FiO2 10/08/18 12:00 97.7 58 20 119/66 (83) 100 10/08/18 11:48 57 10/08/18 07:45 68 10/08/18 07:41 97.9 62 20 120/70 (87) 100 10/08/18 07:09 Room Air 10/08/18 04:00 65 10/08/18 04:00 97.9 65 20 115/50 (71) 100 10/08/18 00:00 97.9 59 20 105/54 (71) 100 10/08/18 00:00 59 10/07/18 21:00 Nasal Cannula 2.0 10/07/18 20:00 98.1 62 20 133/77 (95) 100 10/07/18 20:00 57 10/07/18 15:53 60 Intake and Output 10/07/18 10/08/18 19:00 07:00 Intake Total 500 ml Balance 500 ml IV Total 500 ml # Voids 2 5 # Bowel Movements 1 Laboratory Tests Test 10/08/18 05:31 10/08/18 13:00 White Blood Count 3.3 K/UL (4.8-10.8) L Red Blood Count 3.67 M/UL (4.20-5.40) L Hemoglobin 11.3 G/DL (12.0-16.0) L Hematocrit 32.4 % (37.0-47.0) L Mean Corpuscular Volume 88 FL (80-99) Mean Corpuscular Hemoglobin 30.9 PG (27.0-31.0) Mean Corpuscular Hemoglobin Concent 35.0 G/DL (32.0-36.0) Red Cell Distribution Width 13.4 % (11.6-14.8) Platelet Count 74 K/UL (150-450) L Mean Platelet Volume 8.5 FL (6.5-10.1) Neutrophils (%) (Auto) % (45.0-75.0) Lymphocytes (%) (Auto) % (20.0-45.0) Monocytes (%) (Auto) % (1.0-10.0) Eosinophils (%) (Auto) % (0.0-3.0) Basophils (%) (Auto) % (0.0-2.0) Differential Total Cells Counted 100 Neutrophils % (Manual) 49 % (45-75) Lymphocytes % (Manual) 41 % (20-45) Monocytes % (Manual) 5 % (1-10) Eosinophils % (Manual) 5 % (0-3) H Basophils % (Manual) 0 % (0-2) Band Neutrophils 0 % (0-8) Platelet Estimate Decreased L Platelet Morphology Normal Red Blood Cell Morphology Normal Reticulocyte Count 1.4 % (0.0-2.0) Prothrombin Time 14.0 SEC (9.30-11.50) H Prothromb Time International Ratio 1.3 (0.9-1.1) H Activated Partial Thromboplast Time 30 SEC (23-33) Sodium Level 140 MMOL/L (136-145) Potassium Level 3.5 MMOL/L (3.5-5.1) Chloride Level 106 MMOL/L (98-107) Carbon Dioxide Level 25 MMOL/L (21-32) Anion Gap 9 mmol/L (5-15) Blood Urea Nitrogen 8 mg/dL (7-18) Creatinine 0.6 MG/DL (0.55-1.30) Estimat Glomerular Filtration Rate > 60 mL/min (>60) Glucose Level 116 MG/DL (74-106) H Calcium Level 8.4 MG/DL (8.5-10.1) L Iron Level 99 ug/dL (50-175) Total Iron Binding Capacity 190 ug/dL (250-450) L Percent Iron Saturation 52 % (15-50) H Unsaturated Iron Binding 91 ug/dL (112-346) L Ferritin 349 NG/ML (8-388) Total Bilirubin 3.1 MG/DL (0.2-1.0) H Direct Bilirubin 0.6 MG/DL (0.0-0.3) H Aspartate Amino Transf (AST/SGOT) 56 U/L (15-37) H Alanine Aminotransferase (ALT/SGPT) 34 U/L (12-78) Alkaline Phosphatase 90 U/L (46-116) Ammonia 144 umol/L (11-32) H Total Protein 6.9 G/DL (6.4-8.2) Albumin 2.9 G/DL (3.4-5.0) L Globulin 4.0 g/dL Albumin/Globulin Ratio 0.7 (1.0-2.7) L Carcinoembryonic Antigen Pending Vitamin B12 Level 120 PG/ML (193-986) L Folate 19.7 NG/ML (8.6-58.9) Thyroid Stimulating Hormone (TSH) 1.528 uiU/mL (0.358-3.740) Free Thyroxine 1.33 NG/DL (0.76-1.46) Hepatitis A IgM Antibody Pending Hepatitis B Surface Antigen Pending Hepatitis B Core IgM Antibody Pending Hepatitis C Antibody Pending Stool Occult Blood Pending Microbiology Date/Time Source Procedure Growth Status 10/06/18 15:17 Urine,Clean Catch Urine Culture - Preliminary Gram Negative Bacillus 1 Resulted Lele Clemens MD Oct 08, 2018 14:12
--- NOTE | 2018-10-08 14:13 | Diagnostic Imaging Report ---
APPROVED REPORT CPT Code: 60334 Vascular Symptoms CVA/TIA: Doppler Spectral Velocity Analysis RightLeft RIGHT SIDE: CCA/ECA - Imaging reveals no significant plaque in the common carotid and external carotid arteries. ICA - Imaging reveals irregular plaque in the internal carotid artery. The Doppler signal indicates the degree of stenosis is minimal (20%) in the internal carotid artery. VERTEBRAL/SUBCLAVIAN- The vertebral and subclavian arteries are within normal limits. LEFT SIDE: CCA - Imaging reveals no significant plaque in the common carotid artery. ICA arteries. The Doppler signal indicates the degree of stenosis is minimal (10%) in the internal carotid, and (20%) in the external carotid arteries. VERTEBRAL/SUBCLAVIAN- The vertebral and subclavian arteries are within normal limits.
--- NOTE | 2018-10-08 14:13 | Diagnostic Imaging Report ---
APPROVED REPORT CPT Code: 17914 Present Symptoms Lower Extremity Pain: Bilateral BILATERAL: Imaging reveals a patent deep venous system bilaterally. There is no evidence of thrombus within the femoral, popliteal or tibial segments. The greater saphenous veins are also within normal limits. Doppler indicates normal spontaneous flow within these segments.
--- NOTE | 2018-10-08 14:28 | NUR ---
*-* INSURANCE *-* ALL CLINICALS HAVE BEEN FAXED TO: [facility] [phone] EXT [phone] AUTH# [id number] NCM: KYA MAYNARD 633 FAX F/S AND CLINICALS TO: [phone]
--- NOTE | 2018-10-08 14:43 | NUR ---
NURSE NOTES: obs specimen sent to lab.
--- NOTE | 2018-10-08 14:45 | GI Progress Note ---
Assessment/Plan Problems: (1) Chronic liver disease ICD Codes: K76.9 - Liver disease, unspecified SNOMED: 014706982 (2) Encephalopathy ICD Codes: G93.40 - Encephalopathy, unspecified SNOMED: 96756248 (3) Dizziness ICD Codes: R42 - Dizziness and giddiness SNOMED: 496583876, 256823166 (4) Anemia ICD Codes: D64.9 - Anemia, unspecified SNOMED: 464925255 (5) CVA (cerebral vascular accident) ICD Codes: I63.9 - Cerebral infarction, unspecified SNOMED: 072572444, 821691621 Qualifiers: Qualified Codes: I63.9 - Cerebral infarction, unspecified (6) Diabetes ICD Codes: E11.9 - Type 2 diabetes mellitus without complications SNOMED: 82981475 Status: unchanged Status Narrative Discussed with Dr. Madden Assessment/Plan Abdominal ultrasound reviewed. Cholelithiasis with wall thickening. Evidence of chronic liver disease and portal hypertension. 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 No ascites. EGD scheduled for tomorrow. -N.p.o. at midnight. -Hold all blood thinners Lactulose plus Xifaxan OB stool r/o GI bleed monitor H&H, prn transfusions ppi fu labs, ammonia levels, hepatitis panel We will follow with additional recommendations post procedure. The patient was seen and examined at bedside and all new and available data was reviewed in the patients chart. I agree with the above findings, impression and plan. (Patient seen earlier today. Signature stamp does not reflect patient encounter time.). - Shankar Madden MD Subjective Subjective Denies any abdominal pain, more alert today Having multiple bowel movements Objective Last 24 Hour Vital Signs Date Time Temp Pulse Resp B/P (MAP) Pulse Ox O2 Delivery O2 Flow Rate FiO2 10/08/18 12:00 97.7 58 20 119/66 (83) 100 10/08/18 11:48 57 10/08/18 07:45 68 10/08/18 07:41 97.9 62 20 120/70 (87) 100 10/08/18 07:09 Room Air 10/08/18 04:00 65 10/08/18 04:00 97.9 65 20 115/50 (71) 100 10/08/18 00:00 97.9 59 20 105/54 (71) 100 10/08/18 00:00 59 10/07/18 21:00 Nasal Cannula 2.0 10/07/18 20:00 98.1 62 20 133/77 (95) 100 10/07/18 20:00 57 10/07/18 15:53 60 Intake and Output 10/07/18 10/08/18 18:59 06:59 Intake Total 500 ml Balance 500 ml IV Total 500 ml # Voids 2 5 # Bowel Movements 1 Laboratory Tests Test 10/08/18 05:31 10/08/18 13:00 White Blood Count 3.3 K/UL (4.8-10.8) L Red Blood Count 3.67 M/UL (4.20-5.40) L Hemoglobin 11.3 G/DL (12.0-16.0) L Hematocrit 32.4 % (37.0-47.0) L Mean Corpuscular Volume 88 FL (80-99) Mean Corpuscular Hemoglobin 30.9 PG (27.0-31.0) Mean Corpuscular Hemoglobin Concent 35.0 G/DL (32.0-36.0) Red Cell Distribution Width 13.4 % (11.6-14.8) Platelet Count 74 K/UL (150-450) L Mean Platelet Volume 8.5 FL (6.5-10.1) Neutrophils (%) (Auto) % (45.0-75.0) Lymphocytes (%) (Auto) % (20.0-45.0) Monocytes (%) (Auto) % (1.0-10.0) Eosinophils (%) (Auto) % (0.0-3.0) Basophils (%) (Auto) % (0.0-2.0) Differential Total Cells Counted 100 Neutrophils % (Manual) 49 % (45-75) Lymphocytes % (Manual) 41 % (20-45) Monocytes % (Manual) 5 % (1-10) Eosinophils % (Manual) 5 % (0-3) H Basophils % (Manual) 0 % (0-2) Band Neutrophils 0 % (0-8) Platelet Estimate Decreased L Platelet Morphology Normal Red Blood Cell Morphology Normal Reticulocyte Count 1.4 % (0.0-2.0) Prothrombin Time 14.0 SEC (9.30-11.50) H Prothromb Time International Ratio 1.3 (0.9-1.1) H Activated Partial Thromboplast Time 30 SEC (23-33) Sodium Level 140 MMOL/L (136-145) Potassium Level 3.5 MMOL/L (3.5-5.1) Chloride Level 106 MMOL/L (98-107) Carbon Dioxide Level 25 MMOL/L (21-32) Anion Gap 9 mmol/L (5-15) Blood Urea Nitrogen 8 mg/dL (7-18) Creatinine 0.6 MG/DL (0.55-1.30) Estimat Glomerular Filtration Rate > 60 mL/min (>60) Glucose Level 116 MG/DL (74-106) H Calcium Level 8.4 MG/DL (8.5-10.1) L Iron Level 99 ug/dL (50-175) Total Iron Binding Capacity 190 ug/dL (250-450) L Percent Iron Saturation 52 % (15-50) H Unsaturated Iron Binding 91 ug/dL (112-346) L Ferritin 349 NG/ML (8-388) Total Bilirubin 3.1 MG/DL (0.2-1.0) H Direct Bilirubin 0.6 MG/DL (0.0-0.3) H Aspartate Amino Transf (AST/SGOT) 56 U/L (15-37) H Alanine Aminotransferase (ALT/SGPT) 34 U/L (12-78) Alkaline Phosphatase 90 U/L (46-116) Ammonia 144 umol/L (11-32) H Total Protein 6.9 G/DL (6.4-8.2) Albumin 2.9 G/DL (3.4-5.0) L Globulin 4.0 g/dL Albumin/Globulin Ratio 0.7 (1.0-2.7) L Carcinoembryonic Antigen Pending Vitamin B12 Level 120 PG/ML (193-986) L Folate 19.7 NG/ML (8.6-58.9) Thyroid Stimulating Hormone (TSH) 1.528 uiU/mL (0.358-3.740) Free Thyroxine 1.33 NG/DL (0.76-1.46) Hepatitis A IgM Antibody Pending Hepatitis B Surface Antigen Pending Hepatitis B Core IgM Antibody Pending Hepatitis C Antibody Pending Stool Occult Blood Pending Height (Feet): 5 Height (Inches): 4.00 Weight (Pounds): 220 General Appearance: WD/WN, no apparent distress, alert Cardiovascular: normal rate Respiratory/Chest: normal breath sounds, no respiratory distress Abdominal Exam: normal bowel sounds, non tender, soft Extremities: normal range of motion, non-tender Jm Swain NP Oct 08, 2018 14:45
--- NOTE | 2018-10-08 14:45 | NUR ---
HAND-OFF: Report given to ULI LOREDO.
--- NOTE | 2018-10-08 14:46 | NUR ---
NURSE NOTES: ATTEMPTED TO OBTAIN TELEPHONE CONSENT FROM CONTACT BUT NO RESPONSE , RN LEFT VOICEMAIL
[2018-10-08] MEDS ORDERED: Mylanta II UD 30ml ORAL PRN (14:51)
[2018-10-08] MEDS ORDERED: Morphine Sulfate 2mg/ml Inj IVP PRN (14:52)
[2018-10-08] MEDS ORDERED: Nitroglycerin Subl 0.4mg tab SL PRN (15:00)
[2018-10-08 15:51] VITALS: BP 125/67
[2018-10-08] MEDS ORDERED: Miralax 17gm pkt ORAL PRN (16:45)
[2018-10-08] MEDS ORDERED: Albuterol/Ipratropium 3ml neb HHN PRN (16:45)
[2018-10-08] MEDS ORDERED: Promethazine/Codeine 5ml UD ORAL PRN (16:45)
[2018-10-08] MEDS ORDERED: LORazepam Inj 2mg/ml 1ml IV PRN (16:45)
--- NOTE | 2018-10-08 19:15 | NUR ---
NURSE NOTES: Received a report from Tori Mitchell RN. Pt is in stable condition. Albanian speaking. Family at the bedside. No respiratory distress noted. On room air. No c/o pain/discomfort. IV site is patent and intact. Bed in lowest position. Bed alarm is on. Call light within reach. Will continue to monitor.
--- NOTE | 2018-10-08 19:24 | NUR ---
HAND-OFF: Report given to Urmila LOREDO.
[2018-10-08 20:00] VITALS: BP 109/52
[2018-10-08] MEDS ORDERED: Heparin 5000 units/ml inj SUBQ SCH (21:00)
--- NOTE | 2018-10-08 22:15 | Consultation ---
DATE OF CONSULTATION: 10/08/2018 CARDIOLOGY CONSULTATION REASON FOR EVALUATION: Dizziness. HISTORY OF PRESENT ILLNESS: This is an elderly female who is somewhat of a poor historian. The patient was brought to the emergency room by the nephew, complaining of being more lethargic on the day of admission. She was also noted to have some facial droop and possibly some slurred speech and apparently woke up with those symptoms. Apparently, the patient has been experiencing dizziness for the past several months. The patient denies any chest pain or pressure. There was no shortness of breath. There is no PND or orthopnea. She is not really ambulatory she states at this time because of significant dizziness. PAST MEDICAL HISTORY: Extensive history of sepsis secondary to urinary tract infection, seizure disorder, liver failure, thrombocytopenia, coagulopathy, hepatic encephalopathy, diabetes mellitus, and vitamin B12 deficiency. REVIEW OF SYSTEMS: GASTROINTESTINAL: She denies any nausea or vomiting. No diarrhea. No black or bloody stools. GENITOURINARY: She denies any further blood or pain on urination. PULMONARY: Denies any coughing or wheezing. CONSTITUTIONAL: She denies any chills, but feels cold. PHYSICAL EXAMINATION: GENERAL: Shows to be morbidly obese elderly female, slow to mentate, but is responsive. NECK: Supple. No jugular venous distention. LUNGS: Clear to auscultation and percussion. CARDIAC: Appears to be somewhat irregular. No heaves, thrills, or gallops noted. ABDOMEN: Soft and nontender. Positive bowel sounds. EXTREMITIES: No clubbing, cyanosis, nor is there any edema. NEUROLOGICAL: She is awake, alert, and responsive. LABORATORY AND DIAGNOSTIC DATA: Laboratory values, echocardiogram was performed last month, shows ejection fraction of 40 to 45%, left ventricular septal hypokinesis, and mitral regurgitation. The valves were poorly visualized. No significant regurgitation was noted on the echocardiogram. 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 She has had a CT scan of the head that shows no mass effect or edema. Other labs showed white count of 3.3, hemoglobin of 11.3, and a platelet count of 74,000. Sodium is 140, potassium is 3.5, chloride 106, bicarbonate 25, BUN of 8, and creatinine 0.6. Glucose is 116. Iron is 99 with 52% saturation and her vitamin B12 is only 120, folic acid of 19.7, TSH of 1.51 and free T4 of 1.3. Coags, INR of 1.3 and PTT of 30. Her urinalysis shows WBCs of 20 to 30, RBCs of 2 to 4, 3+ leukocyte esterase, 4+ urobilinogen, and stool occult blood is pending. Her electrocardiogram shows normal sinus rhythm, normal QRS axis, and no ST or T-wave abnormalities. Unfortunately, she appears to be in atrial fibrillation. Compared to prior EKGs performed, the atrial fibrillation appears to be new, ventricular response appears to be relatively controlled. MEDICATION: At home, reportedly have included Tylenol, cephalexin, vitamin B12, ferrous sulfate, glipizide, lactulose, Synthroid, meclizine, metformin, Xifaxan, and spironolactone. Medications here includes lactulose, Synthroid, lorazepam, MiraLAX, and promethazine. ASSESSMENT AND PLAN: 1. Atrial fibrillation, new onset at the start of August 2018. 2. Anemia. 3. Thrombocytopenia. 4. Hepatic encephalopathy. 5. Portal varices. 6. Severe vitamin B12 deficiency. 7. Dizziness, may be related to vitamin B12 deficiency. Dr. Day, this patient was seen in cardiac consultation. She is in atrial fibrillation, but her ventricular response appears to be relatively well controlled. I would be concerned about potential risks of anticoagulation with encephalopathy and thrombocytopenia that she is experiencing and I am hesitant to administer that even for stroke prevention as I think the risks may be high. Nevertheless, her heart rate seems to be well controlled. An echocardiogram will be repeated. She needs a B12 supplementation on a daily basis for a few days on a regular basis as an outpatient. Lele Clemens M.D. DR: VIVEK JOB#: [id number] CC:
[2018-10-09] VITALS (12 sets, daily range): BP systolic 106–132; BP diastolic 50–80
[2018-10-09] MEDS: D5 1/2NS 1,000 ML IV SCH (02:04)
[2018-10-09 05:21] LABS: HEMATOCRIT 33.9 % (37.0-47.0); HEMOGLOBIN 11.9 G/DL (12.0-16.0); MEAN CORPUSCULAR VOLUME 88 FL (80-99); PLATELET COUNT 71 K/UL (150-450); RED BLOOD COUNT 3.86 M/UL (4.20-5.40); RED CELL DISTRIBUTION WIDTH 13.1 % (11.6-14.8); WHITE BLOOD COUNT 3.5 K/UL (4.8-10.8)
[2018-10-09 05:50] LABS: ANION GAP 8 mmol/L (5-15); BLOOD UREA NITROGEN 7 mg/dL (7-18); CALCIUM 8.3 MG/DL (8.5-10.1); CARBON DIOXIDE 24 MMOL/L (21-32); CHLORIDE 105 MMOL/L (98-107); CREATININE 0.7 MG/DL (0.55-1.30); POTASSIUM 3.4 MMOL/L (3.5-5.1); SODIUM 137 MMOL/L (136-145)
[2018-10-09 06:03] LABS: ALANINE AMINOTRANSFERASE 37 U/L (12-78); ALBUMIN 2.9 G/DL (3.4-5.0); ALBUMIN/GLOBULIN RATIO 0.7 (1.0-2.7); ALKALINE PHOSPHATASE 102 U/L (46-116); ASPARTATE AMINO TRANSFERASE 50 U/L (15-37); BILIRUBIN,TOTAL 3.5 MG/DL (0.2-1.0)
[2018-10-09 06:08] LABS: BILIRUBIN,DIRECT 0.7 MG/DL (0.0-0.3)
[2018-10-09 06:13] LABS: INR 1.4 (0.9-1.1)
--- NOTE | 2018-10-09 07:25 | NUR ---
HAND-OFF: Report given to Adriana Joel RN.
[2018-10-09 07:45] LABS: PHOSPHORUS 3.8 MG/DL (2.5-4.9)
--- NOTE | 2018-10-09 08:00 | NUR ---
NURSE NOTES: Received patient in bed, resting and alert X3-4 but forgetful. Patient denies pain. No signs of respiratory distress. IV intact and asymptomatic. Patient aware of upcoming EGD. Bed in lowest position, call light within reach. Bed alarm on. Will continue to monitor.
--- NOTE | 2018-10-09 08:06 | Anethesia Preoperative Eval ---
Anesthesia Pre-op PMH/ROS General Date of Evaluation: Oct 09, 2018 Time of Evaluation: 08:02 Anesthesiologist: Kala ASA Score: ASA 4 Mallampati Score Class I : Soft palate, uvula, fauces, pillars visible Class II: Soft palate, uvula, fauces visible Class III: Soft palate, base of uvula visible Class IV: Only hard plate visible Mallampati Classification: Class III Surgeon: Maryanne Diagnosis: Liver cirrosis Surgical Procedure: EGD Anesthesia History: none Family History: no anesthesia problems Allergies: Coded Allergies: No Known Allergies (Unverified , 05/28/17) Medications: see eMAR Patient NPO?: Yes Past Medical History Cardiovascular: Reports: HTN; Denies: CAD, ME, valve dz, arrhythmia, other Pulmonary: Reports: ABIMAEL; Denies: asthma, COPD, other Gastrointestinal/Genitourinary: Reports: GERD - Esophagial varices, other - Liver cirrosis, Recurrent UTI, sepsis; Denies: CRI, ESRD Neurologic/Psychiatric: Reports: dementia, CVA; Denies: depression/anxiety, TIA, other Endocrine: Reports: DM, hypothyroidism HEENT: Denies: cataract (L), cataract (R), glaucoma, SOKAOGON (L), SOKAOGON (R), other Hematology/Immune: Reports: anemia - mild, bleeding disorder - thrombocitopenia ; Denies: DVT, other Musculoskeletal/Integumentary: Denies: OA, RA, DJD, DDD, edema, other Other: obesity PMH Narrative: as above PSxH Narrative: see H&P Anesthesia Pre-op Phys. Exam Physician Exam Last Vital Signs Date Time Temp Pulse Resp B/P (MAP) Pulse Ox O2 Delivery O2 Flow Rate FiO2 10/09/18 04:00 98.8 58 18 110/53 (72) 98 10/08/18 21:00 Room Air 10/08/18 20:42 21 10/07/18 21:00 2.0 Constitutional: NAD Neurologic: other - unable to obtaine Cardiovascular: RRR Respiratory: CTA Gastrointestinal: other - obesity Airway Exam Mallampati Score: Class III MO: limited Neck: short ROM: limited Teeth: missing Dentures: no upper, no lower Anesthesia Pre-op A/P Labs Hematology Test 10/09/18 04:35 White Blood Count 3.5 K/UL (4.8-10.8) L Red Blood Count 3.86 M/UL (4.20-5.40) L Hemoglobin 11.9 G/DL (12.0-16.0) L Hematocrit 33.9 % (37.0-47.0) L Mean Corpuscular Volume 88 FL (80-99) Mean Corpuscular Hemoglobin 30.7 PG (27.0-31.0) Mean Corpuscular Hemoglobin Concent 35.0 G/DL (32.0-36.0) Red Cell Distribution Width 13.1 % (11.6-14.8) Platelet Count 71 K/UL (150-450) L Mean Platelet Volume 9.3 FL (6.5-10.1) Neutrophils (%) (Auto) % (45.0-75.0) Lymphocytes (%) (Auto) % (20.0-45.0) Monocytes (%) (Auto) % (1.0-10.0) Eosinophils (%) (Auto) % (0.0-3.0) Basophils (%) (Auto) % (0.0-2.0) Neutrophils % (Manual) Pending Lymphocytes % (Manual) Pending Platelet Estimate Pending Platelet Morphology Pending Erythrocyte Sedimentation Rate Pending Coagulation Test 10/09/18 04:35 Prothrombin Time 14.3 SEC (9.30-11.50) H Prothromb Time International Ratio 1.4 (0.9-1.1) H Activated Partial Thromboplast Time 36 SEC (23-33) H Chemistry Test 10/09/18 04:35 Sodium Level 137 MMOL/L (136-145) Potassium Level 3.4 MMOL/L (3.5-5.1) L Chloride Level 105 MMOL/L (98-107) Carbon Dioxide Level 24 MMOL/L (21-32) Anion Gap 8 mmol/L (5-15) Blood Urea Nitrogen 7 mg/dL (7-18) Creatinine 0.7 MG/DL (0.55-1.30) Estimat Glomerular Filtration Rate > 60 mL/min (>60) Glucose Level 108 MG/DL (74-106) H Calcium Level 8.3 MG/DL (8.5-10.1) L Phosphorus Level 3.8 MG/DL (2.5-4.9) Magnesium Level 1.9 MG/DL (1.8-2.4) Total Bilirubin 3.5 MG/DL (0.2-1.0) H Direct Bilirubin 0.7 MG/DL (0.0-0.3) H Aspartate Amino Transf (AST/SGOT) 50 U/L (15-37) H Alanine Aminotransferase (ALT/SGPT) 37 U/L (12-78) Alkaline Phosphatase 102 U/L (46-116) C-Reactive Protein, Quantitative < 0.4 mg/dL (0.00-0.90) Total Protein 6.8 G/DL (6.4-8.2) Albumin 2.9 G/DL (3.4-5.0) L Globulin 3.9 g/dL Albumin/Globulin Ratio 0.7 (1.0-2.7) L Risk Assessment & Plan Assessment: ASA 4 Plan: MAC Status Change Before Surgery: Tony Sanchez MD Oct 09, 2018 08:06
[2018-10-09] MEDS: Heparin 5000 units/ml inj SUBQ SCH (08:21)
[2018-10-09] MEDS: Lactulose 20gm/30ml UDC ORAL SCH ×3 (08:21→19:26)
--- NOTE | 2018-10-09 08:49 | NUR ---
NURSE NOTES: Patient taken downstairs for EGD. IV patent and capped. Jewelry removed. Patient insisted on taking beanie down with her. GI checklist complete. Patient voided 0820. Meds held. Patient stable. Will await return.
[2018-10-09] MEDS ORDERED: NS 500ML IVPB ONE (08:55)
[2018-10-09] MEDS ORDERED: Midazolam 2mg/2ml Inj ONE (09:00)
[2018-10-09] MEDS ORDERED: fentaNYL 100 mcg/2 mL IV ONE ×2 (09:00→09:56)
[2018-10-09] MEDS ORDERED: Propofol 200mg/20ml IV ONE (09:00)
--- NOTE | 2018-10-09 09:02 | Pre-Procedure Note/Attestation ---
Pre-Procedure Note/Attestation Complete Prior to Procedure Planned Procedure: not applicable Procedure Narrative: egd Indications for Procedure Pre-Operative Diagnosis: gib Attestation I attest that I discussed the nature of the procedure; its benefits; risks and complications; and alternatives (and the risks and benefits of such alternatives ), prior to the procedure, with the patient (or the patient's legal insurance service representative). I attest that, if there was a reasonable possibility of needing a blood transfusion, the patient (or the patient's legal insurance service representative) was given the [facility] standardized written summary, pursuant to the Darius Ofelia Blood Safety Act ([place] Health and Safety Code # 1645, as amended). I attest that I re-evaluated the patient just prior to the surgery and that there has been no change in the patient's H&P, except as documented below: Shankar Madden MD Oct 09, 2018 09:02
--- NOTE | 2018-10-09 09:16 | Endoscopy Procedure Note ---
Endoscopy Procedure Note General Indication for Procedure: cirrhosis Procedures Performed: EGD Operative Findings/Diagnosis: esoph varices Specimen: yes Pt Tolerated Procedure Well: Yes Estimated Blood Loss: none Anesthesia Anesthesiologist: ivan Anesthesia: MAC Inserted Devices Implant(s) used?: No GI Core Measures 50 yrs or older w/o bx or poly: Not Applicable 10yrs. F/U not recommended: Not Applicable Shankar Madden MD Oct 09, 2018 09:16
--- NOTE | 2018-10-09 09:32 | Immediate Post-Op Evaluation ---
Immediate Post-Op Evalulation Immediate Post-Op Evalulation Procedure: EGD Binding of esophagial varieces Date of Evaluation: Oct 09, 2018 Time of Evaluation: 09:31 IV Fluids: 150 Blood Products: none Estimated Blood Loss: none Urinary Output: none Blood Pressure Systolic: 102 Blood Pressure Diastolic: 56 Pulse Rate: 72 Respiratory Rate: 20 O2 Sat by Pulse Oximetry: 98 Temperature (Fahrenheit): 98.2 Pain Score (1-10): 1 Nausea: No Vomiting: No Complications none Patient Status: awake, patent, none Hydration Status: adequate Tony Armendariz MD Oct 09, 2018 09:32
[2018-10-09] MEDS ORDERED: fentaNYL 100 mcg/2 mL IV SCH (10:00)
--- NOTE | 2018-10-09 10:29 | 48 Hour Post Anesthesia Eval ---
Post Anesthesia Evaluation Procedure: EGD Binding of esophagial varieces Date of Evaluation: Oct 09, 2018 Time of Evaluation: 10:27 Blood Pressure Systolic: 104 0: 52 Pulse Rate: 62 Respiratory Rate: 20 Temperature (Fahrenheit): 97.6 O2 Sat by Pulse Oximetry: 98 Airway: patent Nausea: No Vomiting: No Hydration Status: adequate Cardiopulmonary Status: stable Mental Status/LOC: patient returned to baseline Follow-up Care/Observations: n/a Post-Anesthesia Complications: none Follow-up care needed: N/A Tony Armendariz MD Oct 09, 2018 10:29
--- NOTE | 2018-10-09 12:46 | Infectious Diseases Prog Note ---
Assessment/Plan Assessment/Plan 63 yo female with PMHx of DM, HTN, Seizures and fatty liver who was brought to the ED by her nephew 10/06/18 for dizziness. UTI UA - positive for bacteria and trichomonas. UCX - GNR Afebrile No leukocytosis Probable TIA vs stroke vs seizure DM HTN Seizures Fatty liver Plan - Monitor off abx - 10/09/18 SP Ceftriaxone #3 for bacterial UTI - 10/07/18 S/P Flagyl 2g x 1 for trichomonas - f/u Cultures We will continue to follow the patient during this hospitalization. Subjective Allergies: Coded Allergies: No Known Allergies (Unverified , 05/28/17) Subjective Doing well Afebrile No Leukcoytosis Objective Vital Signs Last 24 Hour Vital Signs Date Time Temp Pulse Resp B/P (MAP) Pulse Ox O2 Delivery O2 Flow Rate FiO2 10/09/18 12:00 98.1 63 18 120/62 (81) 99 10/09/18 10:30 97.6 10/09/18 10:29 62 20 98 10/09/18 10:15 98.7 53 13 130/57 100 Nasal Cannula 3 10/09/18 10:01 55 13 131/55 100 Nasal Cannula 3 10/09/18 09:47 57 21 117/57 100 Nasal Cannula 3 10/09/18 09:39 55 15 119/50 100 Nasal Cannula 3 10/09/18 09:34 59 20 109/54 100 Nasal Cannula 3 10/09/18 09:32 72 20 98 10/09/18 09:29 98.1 64 20 132/76 99 Nasal Cannula 3 10/09/18 09:00 Room Air 10/09/18 04:00 98.8 58 18 110/53 (72) 98 10/09/18 00:00 98.0 65 18 106/57 (73) 97 10/08/18 21:00 Room Air 10/08/18 20:42 65 20 Room Air 21 10/08/18 20:00 98.3 64 16 109/52 (71) 100 10/08/18 15:51 98.5 65 19 125/67 (86) 98 Height (Feet): 5 Height (Inches): 5.00 Weight (Pounds): 218 Objective Gen: NAD HEENT: NCAT, MMM, EOMI LUNGS: CTAB, No W CARDS: RRR, S1, S2, No M/R/G, ABD: Soft, NT, ND + BS Microbiology Date/Time Source Procedure Growth Status 10/06/18 15:17 Urine,Clean Catch Urine Culture - Final Escherichia Coli Complete Laboratory Tests Test 10/08/18 13:00 10/09/18 04:35 Stool Occult Blood Negative (NEGATIVE) White Blood Count 3.5 K/UL (4.8-10.8) L Red Blood Count 3.86 M/UL (4.20-5.40) L Hemoglobin 11.9 G/DL (12.0-16.0) L Hematocrit 33.9 % (37.0-47.0) L Mean Corpuscular Volume 88 FL (80-99) Mean Corpuscular Hemoglobin 30.7 PG (27.0-31.0) Mean Corpuscular Hemoglobin Concent 35.0 G/DL (32.0-36.0) Red Cell Distribution Width 13.1 % (11.6-14.8) Platelet Count 71 K/UL (150-450) L Mean Platelet Volume 9.3 FL (6.5-10.1) Neutrophils (%) (Auto) % (45.0-75.0) Lymphocytes (%) (Auto) % (20.0-45.0) Monocytes (%) (Auto) % (1.0-10.0) Eosinophils (%) (Auto) % (0.0-3.0) Basophils (%) (Auto) % (0.0-2.0) Differential Total Cells Counted 100 Neutrophils % (Manual) 63 % (45-75) Lymphocytes % (Manual) 31 % (20-45) Monocytes % (Manual) 2 % (1-10) Eosinophils % (Manual) 3 % (0-3) Basophils % (Manual) 0 % (0-2) Band Neutrophils 1 % (0-8) Platelet Estimate Decreased L Platelet Morphology Normal Giant Platelets Red Blood Cell Morphology Normal Erythrocyte Sedimentation Rate 55 MM/HR (0-30) H Prothrombin Time 14.3 SEC (9.30-11.50) H Prothromb Time International Ratio 1.4 (0.9-1.1) H Activated Partial Thromboplast Time 36 SEC (23-33) H Sodium Level 137 MMOL/L (136-145) Potassium Level 3.4 MMOL/L (3.5-5.1) L Chloride Level 105 MMOL/L (98-107) Carbon Dioxide Level 24 MMOL/L (21-32) Anion Gap 8 mmol/L (5-15) Blood Urea Nitrogen 7 mg/dL (7-18) Creatinine 0.7 MG/DL (0.55-1.30) Estimat Glomerular Filtration Rate > 60 mL/min (>60) Glucose Level 108 MG/DL (74-106) H Calcium Level 8.3 MG/DL (8.5-10.1) L Phosphorus Level 3.8 MG/DL (2.5-4.9) Magnesium Level 1.9 MG/DL (1.8-2.4) Total Bilirubin 3.5 MG/DL (0.2-1.0) H Direct Bilirubin 0.7 MG/DL (0.0-0.3) H Aspartate Amino Transf (AST/SGOT) 50 U/L (15-37) H Alanine Aminotransferase (ALT/SGPT) 37 U/L (12-78) Alkaline Phosphatase 102 U/L (46-116) C-Reactive Protein, Quantitative < 0.4 mg/dL (0.00-0.90) Total Protein 6.8 G/DL (6.4-8.2) Albumin 2.9 G/DL (3.4-5.0) L Globulin 3.9 g/dL Albumin/Globulin Ratio 0.7 (1.0-2.7) L Current Medications Medications (Trade) Dose Ordered Sig/Antoni Route PRN Reason Start Time Stop Time Status Last Admin Dose Admin Acetaminophen (Tylenol) 650 mg Q4H PRN ORAL Mild Pain/Temp > 100.5 10/08/18 14:50 11/07/18 14:49 Al Hydroxide/Mg Hydroxide (Mylanta II) 30 ml Q6H PRN ORAL dyspepsia 10/08/18 14:51 11/07/18 14:50 Albuterol/ Ipratropium (Albuterol/ Ipratropium) 3 ml Q4H PRN HHN Shortness of Breath 10/08/18 16:45 10/11/18 16:44 Clonidine HCl (Catapres Tab) 0.1 mg Q4H PRN ORAL SBP>160 10/08/18 16:45 11/05/18 16:44 Dextrose (Dextrose 50%) 25 ml Q30M PRN IV Hypoglycemia 10/08/18 15:15 11/05/18 16:44 Dextrose (Dextrose 50%) 50 ml Q30M PRN IV Hypoglycemia 10/08/18 15:15 11/05/18 16:44 Dextrose/Sodium Chloride 1,000 ml @ 50 mls/hr Q20H IV 10/08/18 14:50 11/05/18 14:49 10/09/18 02:04 Lactulose (Cephulac) 30 gm THREE TIMES A DAY ORAL 10/08/18 18:00 11/06/18 17:59 10/08/18 18:00 Levothyroxine Sodium (Synthroid) 88 mcg ACBREAKFAST ORAL 10/09/18 06:30 11/06/18 06:29 10/09/18 05:33 Lorazepam (Ativan 2mg/ml 1ml) 0.5 mg Q4H PRN IV For Anxiety 10/08/18 16:45 10/13/18 16:44 Morphine Sulfate (Morphine Sulfate) 1 mg Q4H PRN IVP For Pain 7-10 10/08/18 14:52 10/13/18 14:51 Nitroglycerin (Ntg) 0.4 mg Q5M X 3 DOSES PRN SL Prn Chest Pain 10/08/18 15:00 11/05/18 16:44 Ondansetron HCl (Zofran) 4 mg Q1H PRN IVP Nausea & Vomiting 10/09/18 08:15 10/09/18 16:00 Ondansetron HCl (Zofran) 4 mg Q6H PRN IVP Nausea & Vomiting 10/08/18 16:45 11/05/18 16:44 Polyethylene Glycol (Miralax) 17 gm HSPRN PRN ORAL Constipation 10/08/18 16:45 11/05/18 16:44 Potassium Chloride (K-Dur) 40 meq ONCE ONCE ORAL 10/09/18 12:30 10/09/18 12:31 UNV Promethazine HCl/ Codeine (Phenergan with Codeine) 5 ml Q4H PRN ORAL For Cough 10/08/18 16:45 11/05/18 16:44 Rifaximin (Xifaxan) 550 mg EVERY 12 HOURS ORAL 10/08/18 21:00 10/14/18 20:59 10/08/18 20:46 Sodium Chloride 1,000 ml @ 10 mls/hr Q24H IVLG 10/09/18 08:06 10/09/18 16:00 Temazepam (Restoril) 15 mg HSPRN PRN ORAL Insomnia 10/08/18 16:45 10/13/18 16:44 El Desai MD Oct 09, 2018 12:46
--- NOTE | 2018-10-09 13:30 | Pulmonology Progress Note ---
Assessment/Plan Problems: (1) Encephalopathy (2) Hepatic encephalopathy (3) Hypothyroidism (4) Diabetes (5) Chronic liver disease Assessment/Plan had EGD with Binding of esophageal varices sliding scale diabetic diet Syntyroid supplement check h/h dc by tomorrow if h/h stable Subjective ROS Limited/Unobtainable: No Constitutional: Reports: no symptoms HEENT: Repors: no symptoms Respiratory: Reports: no symptoms Allergies: Coded Allergies: No Known Allergies (Unverified , 05/28/17) Objective Last 24 Hour Vital Signs Date Time Temp Pulse Resp B/P (MAP) Pulse Ox O2 Delivery O2 Flow Rate FiO2 10/09/18 12:00 98.1 63 18 120/62 (81) 99 10/09/18 10:30 97.6 10/09/18 10:29 62 20 98 10/09/18 10:15 98.7 53 13 130/57 100 Nasal Cannula 3 10/09/18 10:01 55 13 131/55 100 Nasal Cannula 3 10/09/18 09:47 57 21 117/57 100 Nasal Cannula 3 10/09/18 09:39 55 15 119/50 100 Nasal Cannula 3 10/09/18 09:34 59 20 109/54 100 Nasal Cannula 3 10/09/18 09:32 72 20 98 10/09/18 09:29 98.1 64 20 132/76 99 Nasal Cannula 3 10/09/18 09:00 Room Air 10/09/18 04:00 98.8 58 18 110/53 (72) 98 10/09/18 00:00 98.0 65 18 106/57 (73) 97 10/08/18 21:00 Room Air 10/08/18 20:42 65 20 Room Air 21 10/08/18 20:00 98.3 64 16 109/52 (71) 100 10/08/18 15:51 98.5 65 19 125/67 (86) 98 Intake and Output 10/08/18 10/09/18 19:00 07:00 Intake Total 390 ml 200 ml Output Total 250 ml Balance 140 ml 200 ml Intake Oral 390 ml IV Total 200 ml Output Urine Total 250 ml # Voids 3 2 # Bowel Movements 1 General Appearance: WD/WN HEENT: normocephalic, atraumatic, anicteric Respiratory/Chest: chest wall non-tender, lungs clear Breasts: no masses Cardiovascular: normal peripheral pulses Abdomen: normal bowel sounds, soft, non tender Genitourinary: normal external genitalia Skin: no rash Lymphatic: no neck adenopathy Microbiology Date/Time Source Procedure Growth Status 10/06/18 15:17 Urine,Clean Catch Urine Culture - Final Escherichia Coli Complete Laboratory Tests 10/09/18 04:35: White Blood Count 3.5L, Red Blood Count 3.86L, Hemoglobin 11.9L, Hematocrit 33.9L, Mean Corpuscular Volume 88, Mean Corpuscular Hemoglobin 30.7, Mean Corpuscular Hemoglobin Concent 35.0, Red Cell Distribution Width 13.1, Platelet Count 71L, Mean Platelet Volume 9.3, Neutrophils (%) (Auto) , Lymphocytes (%) ( Auto) , Monocytes (%) (Auto) , Eosinophils (%) (Auto) , Basophils (%) (Auto) , Differential Total Cells Counted 100, Neutrophils % (Manual) 63, Lymphocytes % ( Manual) 31, Monocytes % (Manual) 2, Eosinophils % (Manual) 3, Basophils % ( Manual) 0, Band Neutrophils 1, Platelet Estimate DecreasedL, Platelet Morphology Normal, Giant Platelets , Red Blood Cell Morphology Normal, Erythrocyte Sedimentation Rate 55H, Prothrombin Time 14.3H, Prothromb Time International Ratio 1.4H, Activated Partial Thromboplast Time 36H, Sodium Level 137, Potassium Level 3.4L, Chloride Level 105, Carbon Dioxide Level 24, Anion Gap 8, Blood Urea Nitrogen 7, Creatinine 0.7, Estimat Glomerular Filtration Rate > 60, Glucose Level 108H, Calcium Level 8.3L, Phosphorus Level 3.8, Magnesium Level 1.9, Total Bilirubin 3.5H, Direct Bilirubin 0.7H, Aspartate Amino Transf (AST/SGOT) 50H, Alanine Aminotransferase (ALT/SGPT) 37, Alkaline Phosphatase 102, C-Reactive Protein, Quantitative < 0.4, Total Protein 6.8, Albumin 2.9L, Globulin 3.9, Albumin/Globulin Ratio 0.7L Current Medications Medications (Trade) Dose Ordered Sig/Antoni Route PRN Reason Start Time Stop Time Status Last Admin Dose Admin Acetaminophen (Tylenol) 650 mg Q4H PRN ORAL Mild Pain/Temp > 100.5 10/08/18 14:50 11/07/18 14:49 Al Hydroxide/Mg Hydroxide (Mylanta II) 30 ml Q6H PRN ORAL dyspepsia 10/08/18 14:51 11/07/18 14:50 Albuterol/ Ipratropium (Albuterol/ Ipratropium) 3 ml Q4H PRN HHN Shortness of Breath 10/08/18 16:45 10/11/18 16:44 Clonidine HCl (Catapres Tab) 0.1 mg Q4H PRN ORAL SBP>160 10/08/18 16:45 11/05/18 16:44 Dextrose (Dextrose 50%) 25 ml Q30M PRN IV Hypoglycemia 10/08/18 15:15 11/05/18 16:44 Dextrose (Dextrose 50%) 50 ml Q30M PRN IV Hypoglycemia 10/08/18 15:15 11/05/18 16:44 Dextrose/Sodium Chloride 1,000 ml @ 50 mls/hr Q20H IV 10/08/18 14:50 11/05/18 14:49 10/09/18 02:04 Lactulose (Cephulac) 30 gm THREE TIMES A DAY ORAL 10/08/18 18:00 11/06/18 17:59 10/08/18 18:00 Levothyroxine Sodium (Synthroid) 88 mcg ACBREAKFAST ORAL 10/09/18 06:30 11/06/18 06:29 10/09/18 05:33 Lorazepam (Ativan 2mg/ml 1ml) 0.5 mg Q4H PRN IV For Anxiety 10/08/18 16:45 10/13/18 16:44 Morphine Sulfate (Morphine Sulfate) 1 mg Q4H PRN IVP For Pain 7-10 10/08/18 14:52 10/13/18 14:51 Nitroglycerin (Ntg) 0.4 mg Q5M X 3 DOSES PRN SL Prn Chest Pain 10/08/18 15:00 11/05/18 16:44 Ondansetron HCl (Zofran) 4 mg Q1H PRN IVP Nausea & Vomiting 10/09/18 08:15 10/09/18 16:00 Ondansetron HCl (Zofran) 4 mg Q6H PRN IVP Nausea & Vomiting 10/08/18 16:45 11/05/18 16:44 Polyethylene Glycol (Miralax) 17 gm HSPRN PRN ORAL Constipation 10/08/18 16:45 11/05/18 16:44 Potassium Chloride (K-Dur) 40 meq ONCE ORAL 10/09/18 12:30 10/09/18 13:30 Promethazine HCl/ Codeine (Phenergan with Codeine) 5 ml Q4H PRN ORAL For Cough 10/08/18 16:45 11/05/18 16:44 Rifaximin (Xifaxan) 550 mg EVERY 12 HOURS ORAL 10/08/18 21:00 10/14/18 20:59 10/08/18 20:46 Sodium Chloride 1,000 ml @ 10 mls/hr Q24H IVLG 10/09/18 08:06 10/09/18 16:00 Temazepam (Restoril) 15 mg HSPRN PRN ORAL Insomnia 10/08/18 16:45 10/13/18 16:44 Alexis Mason MD Oct 09, 2018 13:30
--- NOTE | 2018-10-09 14:17 | NUR ---
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 98.4 HR 64 RR 20 B/P 135/78 PLT 82 WBC 3.9 AST 69 ALK PHOS 158 PT 14.3 INR 1.5 PTT 36 UA+ BLOOD,UROBILINOGEN,LEUKOCYTE ESTERASE,RBC,WBC,SQUAMOUS EPITH CELL,BACTERIA CT OF HEAD= NO ACUTE PROCESS CXR=NO ACUTE PROCESS IS: IV BOLUS NS X 2 LITERS FLAGYL IV ROCEPHIN IV ASA PO ADMITTED TO MED/SURG MED/SURG STATUS
--- NOTE | 2018-10-09 14:24 | NUR ---
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 98.3 HR 64 RR 16 B/P 109/52 RA O2 SAT @ 100% AMMONIA LEVEL 144 ABD US= CHOLECYSTITIS IS: IVF D5NS @ 50ML/HR ZOFRAN IV LACTULOSE PO MED/SURG STATUS 10/08/18 SI: ATAXIA, R/O CVA, ANEMIA S/P EGD,BRADYCARDIA T. 98.7 HR 53 RR 13 B/P 134/57 NC 3L EGD=ESOPHAGEAL VARICES IS: IVF D5NS@ 50ML/HR LACTULOSE PO ZOFRAN IV MED/SURG STATUS
--- NOTE | 2018-10-09 14:24 | NUR ---
*-* INSURANCE *-* UPDATED CLINICALS & REVIEW HAVE BEEN FAXED TO: [facility] [phone] FANTASMA: KYA MAYNARD 633 F:[phone]
[2018-10-09] MEDS ORDERED: D5 1/2NS 1000ml IV ONE (15:18)
--- NOTE | 2018-10-09 16:15 | Procedure Note ---
DATE OF PROCEDURE: 10/09/2018 SURGEON: Shankar Madden M.D. ANESTHESIOLOGIST: Tony Armendariz M.D. PROCEDURE: Upper endoscopy with biopsy and banding of esophageal varices. INSTRUMENT: Olympus upper endoscope. INDICATIONS: Cirrhosis. INSTRUMENT: The procedure, risks, benefits, and possible consequences, including hemorrhage, aspiration, perforation and infection, and alternative treatments, were explained to the patient/legal guardian by Dr. Shankar Madden and the patient/legal guardian understood and accepted these risks. PROCEDURE IN DETAIL: After informed consent was obtained and the patient was adequately sedated, the Olympus upper endoscope was advanced from mouth into the second portion of duodenum and retroflexion was performed in the stomach. The patient had evidence of diffuse gastritis. Random biopsy from antrum was obtained to rule out H. pylori infection. She had 2 inflammatory looking polyps in the antrum of the stomach, which were biopsied. The patient had no evidence of any gastric varices. The patient had evidence of 4 columns of grade 4 esophageal varices, status post banding x6. SUMMARY OF FINDINGS: 1. Gastritis, status post biopsy. 2. Gastric polyps, status post biopsy. 3. Esophageal varices, status post banding x6. RECOMMENDATIONS: 1. Start clear liquid diet. 2. Advance as tolerated. 3. Monitor labs. 4. Follow up cirrhosis workup. 5. Discontinue subcutaneous heparin. 6. The patient will need outpatient follow up in 4 to 6 weeks for repeat endoscopy and repeat banding. I want to thank Dr. Saul Day for this kind referral. Shankar Madden M.D. DR: KIMMY JOB#: [id number] CC: Saul Day D.O.
--- NOTE | 2018-10-09 16:25 | General Progress Note ---
Assessment/Plan Problem List: (1) HTN (hypertension) ICD Codes: I10 - Essential (primary) hypertension SNOMED: 04862475 (2) Hypothyroid ICD Codes: E03.9 - Hypothyroidism, unspecified SNOMED: 92194268 (3) Hypothyroidism ICD Codes: E03.9 - Hypothyroidism, unspecified SNOMED: 76856955 (4) Diabetes ICD Codes: E11.9 - Type 2 diabetes mellitus without complications SNOMED: 59386673 (5) Chronic liver disease ICD Codes: K76.9 - Liver disease, unspecified SNOMED: 437032684 (6) Dizziness ICD Codes: R42 - Dizziness and giddiness SNOMED: 076636013, 288445766 (7) UTI (urinary tract infection) ICD Codes: N39.0 - Urinary tract infection, site not specified SNOMED: 24851897, 412025409 Qualifiers: Qualified Codes: N39.0 - Urinary tract infection, site not specified (8) CVA (cerebral vascular accident) ICD Codes: I63.9 - Cerebral infarction, unspecified SNOMED: 373287025, 938142040 Qualifiers: Qualified Codes: I63.9 - Cerebral infarction, unspecified Status: unchanged Assessment/Plan pt diet abx heme flu cbc bmp am dc plan w hh Subjective Constitutional: Reports: weakness Allergies: Coded Allergies: No Known Allergies (Unverified , 05/28/17) All Systems: reviewed and negative except above Subjective sleepy calm Objective Last 24 Hour Vital Signs Date Time Temp Pulse Resp B/P (MAP) Pulse Ox O2 Delivery O2 Flow Rate FiO2 10/09/18 12:00 98.1 63 18 120/62 (81) 99 10/09/18 10:30 97.6 10/09/18 10:29 62 20 98 10/09/18 10:15 98.7 53 13 130/57 100 Nasal Cannula 3 10/09/18 10:01 55 13 131/55 100 Nasal Cannula 3 10/09/18 09:47 57 21 117/57 100 Nasal Cannula 3 10/09/18 09:39 55 15 119/50 100 Nasal Cannula 3 10/09/18 09:34 59 20 109/54 100 Nasal Cannula 3 10/09/18 09:32 72 20 98 10/09/18 09:29 98.1 64 20 132/76 99 Nasal Cannula 3 10/09/18 09:00 Room Air 10/09/18 04:00 98.8 58 18 110/53 (72) 98 10/09/18 00:00 98.0 65 18 106/57 (73) 97 10/08/18 21:00 Room Air 10/08/18 20:42 65 20 Room Air 21 10/08/18 20:00 98.3 64 16 109/52 (71) 100 Intake and Output 10/08/18 10/09/18 19:00 07:00 Intake Total 390 ml 200 ml Output Total 250 ml Balance 140 ml 200 ml Intake Oral 390 ml IV Total 200 ml Output Urine Total 250 ml # Voids 3 2 # Bowel Movements 1 Laboratory Tests 10/09/18 04:35: White Blood Count 3.5L, Red Blood Count 3.86L, Hemoglobin 11.9L, Hematocrit 33.9L, Mean Corpuscular Volume 88, Mean Corpuscular Hemoglobin 30.7, Mean Corpuscular Hemoglobin Concent 35.0, Red Cell Distribution Width 13.1, Platelet Count 71L, Mean Platelet Volume 9.3, Neutrophils (%) (Auto) , Lymphocytes (%) ( Auto) , Monocytes (%) (Auto) , Eosinophils (%) (Auto) , Basophils (%) (Auto) , Differential Total Cells Counted 100, Neutrophils % (Manual) 63, Lymphocytes % ( Manual) 31, Monocytes % (Manual) 2, Eosinophils % (Manual) 3, Basophils % ( Manual) 0, Band Neutrophils 1, Platelet Estimate DecreasedL, Platelet Morphology Normal, Giant Platelets , Red Blood Cell Morphology Normal, Erythrocyte Sedimentation Rate 55H, Prothrombin Time 14.3H, Prothromb Time International Ratio 1.4H, Activated Partial Thromboplast Time 36H, Sodium Level 137, Potassium Level 3.4L, Chloride Level 105, Carbon Dioxide Level 24, Anion Gap 8, Blood Urea Nitrogen 7, Creatinine 0.7, Estimat Glomerular Filtration Rate > 60, Glucose Level 108H, Calcium Level 8.3L, Phosphorus Level 3.8, Magnesium Level 1.9, Total Bilirubin 3.5H, Direct Bilirubin 0.7H, Aspartate Amino Transf (AST/SGOT) 50H, Alanine Aminotransferase (ALT/SGPT) 37, Alkaline Phosphatase 102, C-Reactive Protein, Quantitative < 0.4, Total Protein 6.8, Albumin 2.9L, Globulin 3.9, Albumin/Globulin Ratio 0.7L Height (Feet): 5 Height (Inches): 5.00 Weight (Pounds): 218 General Appearance: lethargic EENT: normal ENT inspection Neck: normal alignment Cardiovascular: normal peripheral pulses, normal rate, regular rhythm Respiratory/Chest: chest wall non-tender, lungs clear, normal breath sounds Abdomen: normal bowel sounds, non tender, soft Extremities: normal inspection Edema: no edema noted Arm (L), no edema noted Arm (R), no edema noted Leg (L), no edema noted Leg (R), no edema noted Pedal (L), no edema noted Pedal (R), no edema noted Generalized Neurologic: motor weakness Skin: normal pigmentation, warm/dry Saul Day DO Oct 09, 2018 16:25
--- NOTE | 2018-10-09 19:18 | NUR ---
HAND-OFF: Report given to FACUNDO Chavez.
--- NOTE | 2018-10-09 19:38 | NUR ---
NURSE NOTES: Patient in bed awake and alert, no s/s distress noted. Assisted pt to bathroom. Bed in lowest position for safety. Instructed to use call light for assistance.
[2018-10-10] VITALS: BP 120/68
[2018-10-10 04:00] VITALS: BP 111/59
[2018-10-10] MEDS: D5 1/2NS 1,000 ML IV SCH (05:01)
[2018-10-10 06:42] LABS: INR 1.5 (0.9-1.1)
[2018-10-10 06:50] LABS: HEMATOCRIT 35.7 % (37.0-47.0); HEMOGLOBIN 12.5 G/DL (12.0-16.0); MEAN CORPUSCULAR VOLUME 89 FL (80-99); PLATELET COUNT 68 K/UL (150-450); RED BLOOD COUNT 4.03 M/UL (4.20-5.40); RED CELL DISTRIBUTION WIDTH 13.5 % (11.6-14.8); WHITE BLOOD COUNT 3.3 K/UL (4.8-10.8)
--- NOTE | 2018-10-10 07:12 | NUR ---
HAND-OFF: Report given to Jackie LOREDO.
[2018-10-10 07:32] LABS: ALANINE AMINOTRANSFERASE 33 U/L (12-78); ALBUMIN 2.9 G/DL (3.4-5.0); ALBUMIN/GLOBULIN RATIO 0.7 (1.0-2.7); ALKALINE PHOSPHATASE 92 U/L (46-116); ANION GAP 8 mmol/L (5-15); ASPARTATE AMINO TRANSFERASE 54 U/L (15-37); BILIRUBIN,TOTAL 3.2 MG/DL (0.2-1.0); BLOOD UREA NITROGEN 4 mg/dL (7-18); CALCIUM 8.1 MG/DL (8.5-10.1); CARBON DIOXIDE 25 MMOL/L (21-32); CHLORIDE 105 MMOL/L (98-107); CREATININE 0.7 MG/DL (0.55-1.30); POTASSIUM 3.5 MMOL/L (3.5-5.1); SODIUM 138 MMOL/L (136-145)
[2018-10-10 07:33] LABS: BILIRUBIN,DIRECT 0.6 MG/DL (0.0-0.3)
--- NOTE | 2018-10-10 07:51 | NUR ---
nurse notes received patient resting comfortably in bed, patient awake, alert, oriented x3 with period of forgetfullness noted, IVF infusing well on left AC, Denies pain or discomfort, on fall precaution observed and maintained, plan of care was discussed verbalized understanding morelia oliveira
[2018-10-10 08:00] VITALS: BP 132/70
[2018-10-10] MEDS: Lactulose 20gm/30ml UDC ORAL SCH ×3 (08:20→17:03)
--- NOTE | 2018-10-10 09:08 | Infectious Diseases Prog Note ---
Assessment/Plan Assessment/Plan 63 yo female with PMHx of DM, HTN, Seizures and fatty liver who was brought to the ED by her nephew 10/06/18 for dizziness. UTI UA - positive for bacteria and trichomonas. UCX - GNR Afebrile No leukocytosis Probable TIA vs stroke vs seizure DM HTN Seizures Fatty liver Plan - Continue to Monitor off abx - 10/09/18 SP Ceftriaxone #3 for bacterial UTI - 10/07/18 S/P Flagyl 2g x 1 for trichomonas We will continue to follow the patient during this hospitalization. Subjective Allergies: Coded Allergies: No Known Allergies (Unverified , 05/28/17) Subjective Afebrile No Leukcoytosis Objective Vital Signs Last 24 Hour Vital Signs Date Time Temp Pulse Resp B/P (MAP) Pulse Ox O2 Delivery O2 Flow Rate FiO2 10/10/18 08:01 71 16 Room Air 21 10/10/18 08:00 98.2 61 19 132/70 (90) 99 10/10/18 07:45 Room Air 10/10/18 04:00 97.9 62 19 111/59 (76) 97 10/10/18 00:00 98.3 63 18 120/68 (85) 99 10/09/18 21:00 Room Air 10/09/18 20:00 97.3 60 19 119/80 (93) 96 10/09/18 16:00 98.1 61 18 112/56 (74) 98 10/09/18 12:00 98.1 63 18 120/62 (81) 99 10/09/18 10:30 97.6 10/09/18 10:29 62 20 98 10/09/18 10:15 98.7 53 13 130/57 100 Nasal Cannula 3 10/09/18 10:01 55 13 131/55 100 Nasal Cannula 3 10/09/18 09:47 57 21 117/57 100 Nasal Cannula 3 10/09/18 09:39 55 15 119/50 100 Nasal Cannula 3 10/09/18 09:34 59 20 109/54 100 Nasal Cannula 3 10/09/18 09:32 72 20 98 10/09/18 09:29 98.1 64 20 132/76 99 Nasal Cannula 3 Height (Feet): 5 Height (Inches): 5.00 Weight (Pounds): 218 Objective Gen: NAD HEENT: NCAT, MMM, EOMI ABD: Soft, NT, ND + BS Laboratory Tests Test 10/10/18 05:45 White Blood Count 3.3 K/UL (4.8-10.8) L Red Blood Count 4.03 M/UL (4.20-5.40) L Hemoglobin 12.5 G/DL (12.0-16.0) Hematocrit 35.7 % (37.0-47.0) L Mean Corpuscular Volume 89 FL (80-99) Mean Corpuscular Hemoglobin 30.9 PG (27.0-31.0) Mean Corpuscular Hemoglobin Concent 35.0 G/DL (32.0-36.0) Red Cell Distribution Width 13.5 % (11.6-14.8) Platelet Count 68 K/UL (150-450) L Mean Platelet Volume 8.5 FL (6.5-10.1) Neutrophils (%) (Auto) % (45.0-75.0) Lymphocytes (%) (Auto) % (20.0-45.0) Monocytes (%) (Auto) % (1.0-10.0) Eosinophils (%) (Auto) % (0.0-3.0) Basophils (%) (Auto) % (0.0-2.0) Neutrophils % (Manual) Pending Lymphocytes % (Manual) Pending Platelet Estimate Pending Platelet Morphology Pending Prothrombin Time 15.6 SEC (9.30-11.50) H Prothromb Time International Ratio 1.5 (0.9-1.1) H Sodium Level 138 MMOL/L (136-145) Potassium Level 3.5 MMOL/L (3.5-5.1) Chloride Level 105 MMOL/L (98-107) Carbon Dioxide Level 25 MMOL/L (21-32) Anion Gap 8 mmol/L (5-15) Blood Urea Nitrogen 4 mg/dL (7-18) L Creatinine 0.7 MG/DL (0.55-1.30) Estimat Glomerular Filtration Rate > 60 mL/min (>60) Glucose Level 116 MG/DL (74-106) H Calcium Level 8.1 MG/DL (8.5-10.1) L Total Bilirubin 3.2 MG/DL (0.2-1.0) H Direct Bilirubin 0.6 MG/DL (0.0-0.3) H Aspartate Amino Transf (AST/SGOT) 54 U/L (15-37) H Alanine Aminotransferase (ALT/SGPT) 33 U/L (12-78) Alkaline Phosphatase 92 U/L (46-116) Total Protein 7.0 G/DL (6.4-8.2) Albumin 2.9 G/DL (3.4-5.0) L Globulin 4.1 g/dL Albumin/Globulin Ratio 0.7 (1.0-2.7) L Current Medications Medications (Trade) Dose Ordered Sig/Antoni Route PRN Reason Start Time Stop Time Status Last Admin Dose Admin Acetaminophen (Tylenol) 650 mg Q4H PRN ORAL Mild Pain/Temp > 100.5 10/08/18 14:50 11/07/18 14:49 Al Hydroxide/Mg Hydroxide (Mylanta II) 30 ml Q6H PRN ORAL dyspepsia 10/08/18 14:51 11/07/18 14:50 Albuterol/ Ipratropium (Albuterol/ Ipratropium) 3 ml Q4H PRN HHN Shortness of Breath 10/08/18 16:45 10/11/18 16:44 Clonidine HCl (Catapres Tab) 0.1 mg Q4H PRN ORAL SBP>160 10/08/18 16:45 11/05/18 16:44 Dextrose (Dextrose 50%) 25 ml Q30M PRN IV Hypoglycemia 10/08/18 15:15 11/05/18 16:44 Dextrose (Dextrose 50%) 50 ml Q30M PRN IV Hypoglycemia 10/08/18 15:15 11/05/18 16:44 Dextrose/Sodium Chloride 1,000 ml @ 50 mls/hr Q20H IV 10/08/18 14:50 11/05/18 14:49 10/10/18 05:01 Lactulose (Cephulac) 30 gm THREE TIMES A DAY ORAL 10/08/18 18:00 11/06/18 17:59 10/10/18 08:20 Levothyroxine Sodium (Synthroid) 88 mcg ACBREAKFAST ORAL 10/09/18 06:30 11/06/18 06:29 10/10/18 05:45 Lorazepam (Ativan 2mg/ml 1ml) 0.5 mg Q4H PRN IV For Anxiety 10/08/18 16:45 10/13/18 16:44 Morphine Sulfate (Morphine Sulfate) 1 mg Q4H PRN IVP For Pain 7-10 10/08/18 14:52 10/13/18 14:51 Nitroglycerin (Ntg) 0.4 mg Q5M X 3 DOSES PRN SL Prn Chest Pain 10/08/18 15:00 11/05/18 16:44 Ondansetron HCl (Zofran) 4 mg Q6H PRN IVP Nausea & Vomiting 10/08/18 16:45 11/05/18 16:44 Polyethylene Glycol (Miralax) 17 gm HSPRN PRN ORAL Constipation 10/08/18 16:45 11/05/18 16:44 Promethazine HCl/ Codeine (Phenergan with Codeine) 5 ml Q4H PRN ORAL For Cough 10/08/18 16:45 11/05/18 16:44 Rifaximin (Xifaxan) 550 mg EVERY 12 HOURS ORAL 10/08/18 21:00 10/14/18 20:59 10/10/18 08:20 Temazepam (Restoril) 15 mg HSPRN PRN ORAL Insomnia 10/08/18 16:45 10/13/18 16:44 El Desai MD Oct 10, 2018 09:08
--- NOTE | 2018-10-10 11:08 | NUR ---
RD ASSESSMENT & RECOMMENDATIONS SEE CARE ACTIVITY FOR COMPLETE ASSESSMENT DAILY ESTIMATED NEEDS: Needs based on liver dz, 67kg adj 25-30 kcals/kg total kcals 1-1.5 g protein/kg 67-101 g total protein 25-30 mL/kg total fluid mLs NUTRITION DIAGNOSIS: 1) Decreased sodium and fat needs R/T liver dysfunction as evidenced by pt w/ Cirrhosis with elev T Bili (3.2), elev ammonia (144), s/p esophagieal banding. CURRENT DIET: CLD PO DIET RECOMMENDATIONS: CARDIAC + CCHO LOW SOFT ADDITIONAL RECOMMENDATIONS: 1) Calibrated bed scale wt for eval of CBW 2) Rec NISS for BG control 3) A1c for eval 4) Monitor fluid balance on lactulose, check lytes daily
--- NOTE | 2018-10-10 11:47 | GI Progress Note ---
Assessment/Plan Problems: (1) Chronic liver disease ICD Codes: K76.9 - Liver disease, unspecified SNOMED: 559104201 (2) Encephalopathy ICD Codes: G93.40 - Encephalopathy, unspecified SNOMED: 96175956 (3) Dizziness ICD Codes: R42 - Dizziness and giddiness SNOMED: 782293691, 073625749 (4) Anemia ICD Codes: D64.9 - Anemia, unspecified SNOMED: 748525038 (5) CVA (cerebral vascular accident) ICD Codes: I63.9 - Cerebral infarction, unspecified SNOMED: 919965608, 446815594 Qualifiers: Qualified Codes: I63.9 - Cerebral infarction, unspecified (6) Diabetes ICD Codes: E11.9 - Type 2 diabetes mellitus without complications SNOMED: 04514668 Status: unchanged Status Narrative Discussed with Dr. Madden Assessment/Plan SUMMARY OF FINDINGS: 1. Gastritis, status post biopsy. 2. Gastric polyps, status post biopsy. 3. Esophageal varices, status post banding x6. RECOMMENDATIONS: 1. Start clear liquid diet, soft low sodium diet 2. Advance as tolerated. 3. Monitor labs. 4. Follow up cirrhosis workup. 5. Discontinue subcutaneous heparin. 6. The patient will need outpatient follow up in 4 to 6 weeks for repeat endoscopy and repeat banding. cont lactulose + xifaxan prn transfusions follow labs okay for DC per GI standpoint if tolerates food without N/V The patient was seen and examined at bedside and all new and available data was reviewed in the patients chart. I agree with the above findings, impression and plan. (Patient seen earlier today. Signature stamp does not reflect patient encounter time.). - Shankar Madedn MD Subjective Subjective Denies any abdominal pain, more alert today Having multiple bowel movements Complaint of generalized weakness and fatigue Objective Last 24 Hour Vital Signs Date Time Temp Pulse Resp B/P (MAP) Pulse Ox O2 Delivery O2 Flow Rate FiO2 10/10/18 08:01 71 16 Room Air 21 10/10/18 08:00 98.2 61 19 132/70 (90) 99 10/10/18 07:45 Room Air 10/10/18 04:00 97.9 62 19 111/59 (76) 97 10/10/18 00:00 98.3 63 18 120/68 (85) 99 10/09/18 21:00 Room Air 10/09/18 20:00 97.3 60 19 119/80 (93) 96 10/09/18 16:00 98.1 61 18 112/56 (74) 98 10/09/18 12:00 98.1 63 18 120/62 (81) 99 Intake and Output 10/09/18 10/10/18 19:00 07:00 Intake Total 1850 ml 960 ml Balance 1850 ml 960 ml Intake Oral 1200 ml 360 ml IV Total 650 ml 600 ml # Voids 6 4 # Bowel Movements 1 Laboratory Tests Test 10/10/18 05:45 White Blood Count 3.3 K/UL (4.8-10.8) L Red Blood Count 4.03 M/UL (4.20-5.40) L Hemoglobin 12.5 G/DL (12.0-16.0) Hematocrit 35.7 % (37.0-47.0) L Mean Corpuscular Volume 89 FL (80-99) Mean Corpuscular Hemoglobin 30.9 PG (27.0-31.0) Mean Corpuscular Hemoglobin Concent 35.0 G/DL (32.0-36.0) Red Cell Distribution Width 13.5 % (11.6-14.8) Platelet Count 68 K/UL (150-450) L Mean Platelet Volume 8.5 FL (6.5-10.1) Neutrophils (%) (Auto) % (45.0-75.0) Lymphocytes (%) (Auto) % (20.0-45.0) Monocytes (%) (Auto) % (1.0-10.0) Eosinophils (%) (Auto) % (0.0-3.0) Basophils (%) (Auto) % (0.0-2.0) Differential Total Cells Counted 100 Neutrophils % (Manual) 49 % (45-75) Lymphocytes % (Manual) 38 % (20-45) Monocytes % (Manual) 8 % (1-10) Eosinophils % (Manual) 4 % (0-3) H Basophils % (Manual) 1 % (0-2) Band Neutrophils 0 % (0-8) Platelet Estimate Decreased L Platelet Morphology Normal Red Blood Cell Morphology Normal Prothrombin Time 15.6 SEC (9.30-11.50) H Prothromb Time International Ratio 1.5 (0.9-1.1) H Sodium Level 138 MMOL/L (136-145) Potassium Level 3.5 MMOL/L (3.5-5.1) Chloride Level 105 MMOL/L (98-107) Carbon Dioxide Level 25 MMOL/L (21-32) Anion Gap 8 mmol/L (5-15) Blood Urea Nitrogen 4 mg/dL (7-18) L Creatinine 0.7 MG/DL (0.55-1.30) Estimat Glomerular Filtration Rate > 60 mL/min (>60) Glucose Level 116 MG/DL (74-106) H Calcium Level 8.1 MG/DL (8.5-10.1) L Total Bilirubin 3.2 MG/DL (0.2-1.0) H Direct Bilirubin 0.6 MG/DL (0.0-0.3) H Aspartate Amino Transf (AST/SGOT) 54 U/L (15-37) H Alanine Aminotransferase (ALT/SGPT) 33 U/L (12-78) Alkaline Phosphatase 92 U/L (46-116) Total Protein 7.0 G/DL (6.4-8.2) Albumin 2.9 G/DL (3.4-5.0) L Globulin 4.1 g/dL Albumin/Globulin Ratio 0.7 (1.0-2.7) L Height (Feet): 5 Height (Inches): 5.00 Weight (Pounds): 218 General Appearance: WD/WN, no apparent distress, alert, obese Cardiovascular: normal rate Respiratory/Chest: normal breath sounds, no respiratory distress Abdominal Exam: normal bowel sounds, non tender, soft Extremities: normal range of motion, non-tender Jm Swain NP Oct 10, 2018 11:47
[2018-10-10 12:00] VITALS: BP 121/68
--- NOTE | 2018-10-10 12:23 | Pulmonology Progress Note ---
Assessment/Plan Problems: (1) Encephalopathy (2) Hepatic encephalopathy (3) Hypothyroidism (4) Diabetes (5) Chronic liver disease Assessment/Plan had EGD with Binding of esophageal varices eating well sliding scale diabetic diet Syntyroid supplement check h/h Subjective ROS Limited/Unobtainable: No Constitutional: Reports: no symptoms HEENT: Repors: no symptoms Respiratory: Reports: no symptoms Allergies: Coded Allergies: No Known Allergies (Unverified , 05/28/17) Objective Last 24 Hour Vital Signs Date Time Temp Pulse Resp B/P (MAP) Pulse Ox O2 Delivery O2 Flow Rate FiO2 10/10/18 12:00 97.7 84 20 121/68 (85) 97 10/10/18 08:01 71 16 Room Air 21 10/10/18 08:00 98.2 61 19 132/70 (90) 99 10/10/18 07:45 Room Air 10/10/18 04:00 97.9 62 19 111/59 (76) 97 10/10/18 00:00 98.3 63 18 120/68 (85) 99 10/09/18 21:00 Room Air 10/09/18 20:00 97.3 60 19 119/80 (93) 96 10/09/18 16:00 98.1 61 18 112/56 (74) 98 Intake and Output 10/09/18 10/10/18 19:00 07:00 Intake Total 1850 ml 960 ml Balance 1850 ml 960 ml Intake Oral 1200 ml 360 ml IV Total 650 ml 600 ml # Voids 6 4 # Bowel Movements 1 General Appearance: WD/WN HEENT: normocephalic, anicteric Respiratory/Chest: chest wall non-tender, lungs clear Cardiovascular: normal peripheral pulses, normal rate Abdomen: normal bowel sounds, soft, non tender Genitourinary: normal external genitalia Skin: no rash Laboratory Tests 10/10/18 05:45: White Blood Count 3.3L, Red Blood Count 4.03L, Hemoglobin 12.5, Hematocrit 35.7L , Mean Corpuscular Volume 89, Mean Corpuscular Hemoglobin 30.9, Mean Corpuscular Hemoglobin Concent 35.0, Red Cell Distribution Width 13.5, Platelet Count 68L, Mean Platelet Volume 8.5, Neutrophils (%) (Auto) , Lymphocytes (%) ( Auto) , Monocytes (%) (Auto) , Eosinophils (%) (Auto) , Basophils (%) (Auto) , Differential Total Cells Counted 100, Neutrophils % (Manual) 49, Lymphocytes % ( Manual) 38, Monocytes % (Manual) 8, Eosinophils % (Manual) 4H, Basophils % ( Manual) 1, Band Neutrophils 0, Platelet Estimate DecreasedL, Platelet Morphology Normal, Red Blood Cell Morphology Normal, Prothrombin Time 15.6H, Prothromb Time International Ratio 1.5H, Sodium Level 138, Potassium Level 3.5, Chloride Level 105, Carbon Dioxide Level 25, Anion Gap 8, Blood Urea Nitrogen 4L , Creatinine 0.7, Estimat Glomerular Filtration Rate > 60, Glucose Level 116H, Calcium Level 8.1L, Total Bilirubin 3.2H, Direct Bilirubin 0.6H, Aspartate Amino Transf (AST/SGOT) 54H, Alanine Aminotransferase (ALT/SGPT) 33, Alkaline Phosphatase 92, Total Protein 7.0, Albumin 2.9L, Globulin 4.1, Albumin/Globulin Ratio 0.7L Current Medications Medications (Trade) Dose Ordered Sig/Antoni Route PRN Reason Start Time Stop Time Status Last Admin Dose Admin Acetaminophen (Tylenol) 650 mg Q4H PRN ORAL Mild Pain/Temp > 100.5 10/08/18 14:50 11/07/18 14:49 Al Hydroxide/Mg Hydroxide (Mylanta II) 30 ml Q6H PRN ORAL dyspepsia 10/08/18 14:51 11/07/18 14:50 Albuterol/ Ipratropium (Albuterol/ Ipratropium) 3 ml Q4H PRN HHN Shortness of Breath 10/08/18 16:45 10/11/18 16:44 Clonidine HCl (Catapres Tab) 0.1 mg Q4H PRN ORAL SBP>160 10/08/18 16:45 11/05/18 16:44 Dextrose (Dextrose 50%) 25 ml Q30M PRN IV Hypoglycemia 10/08/18 15:15 11/05/18 16:44 Dextrose (Dextrose 50%) 50 ml Q30M PRN IV Hypoglycemia 10/08/18 15:15 11/05/18 16:44 Dextrose/Sodium Chloride 1,000 ml @ 50 mls/hr Q20H IV 10/08/18 14:50 11/05/18 14:49 10/10/18 05:01 Lactulose (Cephulac) 30 gm THREE TIMES A DAY ORAL 10/08/18 18:00 11/06/18 17:59 10/10/18 08:20 Levothyroxine Sodium (Synthroid) 88 mcg ACBREAKFAST ORAL 10/09/18 06:30 11/06/18 06:29 10/10/18 05:45 Lorazepam (Ativan 2mg/ml 1ml) 0.5 mg Q4H PRN IV For Anxiety 10/08/18 16:45 10/13/18 16:44 Morphine Sulfate (Morphine Sulfate) 1 mg Q4H PRN IVP For Pain 03-1210/08/18 14:52 10/13/18 14:51 Nitroglycerin (Ntg) 0.4 mg Q5M X 3 DOSES PRN SL Prn Chest Pain 10/08/18 15:00 11/05/18 16:44 Ondansetron HCl (Zofran) 4 mg Q6H PRN IVP Nausea & Vomiting 10/08/18 16:45 11/05/18 16:44 Polyethylene Glycol (Miralax) 17 gm HSPRN PRN ORAL Constipation 10/08/18 16:45 11/05/18 16:44 Promethazine HCl/ Codeine (Phenergan with Codeine) 5 ml Q4H PRN ORAL For Cough 10/08/18 16:45 11/05/18 16:44 Rifaximin (Xifaxan) 550 mg EVERY 12 HOURS ORAL 10/08/18 21:00 10/14/18 20:59 10/10/18 08:20 Temazepam (Restoril) 15 mg HSPRN PRN ORAL Insomnia 10/08/18 16:45 10/13/18 16:44 Alexis Mason MD Oct 10, 2018 12:23
--- NOTE | 2018-10-10 12:30 | NUR ---
nurse notes started on soft easy chew diet , patient not tolerated much her lunch and dinner, stated my stomach cramping and very feeling uncomfortable, patient refused lactulose at 1700, will continue to monitor morelia oliveira
--- NOTE | 2018-10-10 12:32 | General Progress Note ---
Assessment/Plan Problem List: (1) HTN (hypertension) ICD Codes: I10 - Essential (primary) hypertension SNOMED: 60599562 (2) Hypothyroid ICD Codes: E03.9 - Hypothyroidism, unspecified SNOMED: 92552736 (3) Hypothyroidism ICD Codes: E03.9 - Hypothyroidism, unspecified SNOMED: 23175470 (4) Diabetes ICD Codes: E11.9 - Type 2 diabetes mellitus without complications SNOMED: 48185482 (5) Chronic liver disease ICD Codes: K76.9 - Liver disease, unspecified SNOMED: 182170817 (6) Dizziness ICD Codes: R42 - Dizziness and giddiness SNOMED: 778107053, 599125639 (7) UTI (urinary tract infection) ICD Codes: N39.0 - Urinary tract infection, site not specified SNOMED: 71031475, 509388415 Qualifiers: Qualified Codes: N39.0 - Urinary tract infection, site not specified (8) CVA (cerebral vascular accident) ICD Codes: I63.9 - Cerebral infarction, unspecified SNOMED: 654308076, 462581809 Qualifiers: Qualified Codes: I63.9 - Cerebral infarction, unspecified Status: unchanged Assessment/Plan pt diet abx heme flu cbc bmp am dc plan w hh Subjective Constitutional: Reports: weakness Allergies: Coded Allergies: No Known Allergies (Unverified , 05/28/17) All Systems: reviewed and negative except above Subjective sleepy calm Objective Last 24 Hour Vital Signs Date Time Temp Pulse Resp B/P (MAP) Pulse Ox O2 Delivery O2 Flow Rate FiO2 10/10/18 12:00 97.7 84 20 121/68 (85) 97 10/10/18 08:01 71 16 Room Air 21 10/10/18 08:00 98.2 61 19 132/70 (90) 99 10/10/18 07:45 Room Air 10/10/18 04:00 97.9 62 19 111/59 (76) 97 10/10/18 00:00 98.3 63 18 120/68 (85) 99 10/09/18 21:00 Room Air 10/09/18 20:00 97.3 60 19 119/80 (93) 96 10/09/18 16:00 98.1 61 18 112/56 (74) 98 Intake and Output 10/09/18 10/10/18 19:00 07:00 Intake Total 1850 ml 960 ml Balance 1850 ml 960 ml Intake Oral 1200 ml 360 ml IV Total 650 ml 600 ml # Voids 6 4 # Bowel Movements 1 Laboratory Tests 10/10/18 05:45: White Blood Count 3.3L, Red Blood Count 4.03L, Hemoglobin 12.5, Hematocrit 35.7L , Mean Corpuscular Volume 89, Mean Corpuscular Hemoglobin 30.9, Mean Corpuscular Hemoglobin Concent 35.0, Red Cell Distribution Width 13.5, Platelet Count 68L, Mean Platelet Volume 8.5, Neutrophils (%) (Auto) , Lymphocytes (%) ( Auto) , Monocytes (%) (Auto) , Eosinophils (%) (Auto) , Basophils (%) (Auto) , Differential Total Cells Counted 100, Neutrophils % (Manual) 49, Lymphocytes % ( Manual) 38, Monocytes % (Manual) 8, Eosinophils % (Manual) 4H, Basophils % ( Manual) 1, Band Neutrophils 0, Platelet Estimate DecreasedL, Platelet Morphology Normal, Red Blood Cell Morphology Normal, Prothrombin Time 15.6H, Prothromb Time International Ratio 1.5H, Sodium Level 138, Potassium Level 3.5, Chloride Level 105, Carbon Dioxide Level 25, Anion Gap 8, Blood Urea Nitrogen 4L , Creatinine 0.7, Estimat Glomerular Filtration Rate > 60, Glucose Level 116H, Calcium Level 8.1L, Total Bilirubin 3.2H, Direct Bilirubin 0.6H, Aspartate Amino Transf (AST/SGOT) 54H, Alanine Aminotransferase (ALT/SGPT) 33, Alkaline Phosphatase 92, Total Protein 7.0, Albumin 2.9L, Globulin 4.1, Albumin/Globulin Ratio 0.7L Height (Feet): 5 Height (Inches): 5.00 Weight (Pounds): 218 General Appearance: lethargic EENT: normal ENT inspection Neck: normal alignment Cardiovascular: normal peripheral pulses, normal rate, regular rhythm Respiratory/Chest: chest wall non-tender, lungs clear, normal breath sounds Abdomen: normal bowel sounds, non tender, soft Extremities: normal inspection Edema: no edema noted Arm (L), no edema noted Arm (R), no edema noted Leg (L), no edema noted Leg (R), no edema noted Pedal (L), no edema noted Pedal (R), no edema noted Generalized Neurologic: motor weakness Skin: normal pigmentation, warm/dry Saul Day DO Oct 10, 2018 12:32
--- NOTE | 2018-10-10 12:50 | NUR ---
nurse notes Dr Mason and Isabela Swain cleared patient for discharged morelia oliveira
[2018-10-10 15:54] VITALS: BP 117/70
[2018-10-10] MEDS ORDERED: D5 1/2NS 1000ml IV ONE (16:43)
--- NOTE | 2018-10-10 19:28 | NUR ---
HAND-OFF: Report given to Delia Lopez, RN FACUNDO ROSE
--- NOTE | 2018-10-10 19:55 | NUR ---
NURSE NOTES: Received patient awake in bed with no s/s of distress. Pt denies pain. IV site asymptomatic, running D5 1/2 NS at 50ml/hr, dressing dry and intact. Bed on lowest position, bed alarm on, 2 side rails up, call light within reach. Pt verbalizes understanding of calling for help when going to the bathroom.
[2018-10-10 20:00] VITALS: BP 126/61
[2018-10-11] VITALS: BP 131/56
[2018-10-11] MEDS: D5 1/2NS 1,000 ML IV SCH ×2 (03:18→23:04)
[2018-10-11 04:00] VITALS: BP 135/61
[2018-10-11 07:02] LABS: HEMATOCRIT 35.1 % (37.0-47.0); HEMOGLOBIN 12.6 G/DL (12.0-16.0); MEAN CORPUSCULAR VOLUME 87 FL (80-99); PLATELET COUNT 70 K/UL (150-450); RED BLOOD COUNT 4.02 M/UL (4.20-5.40); RED CELL DISTRIBUTION WIDTH 13.2 % (11.6-14.8); WHITE BLOOD COUNT 4.2 K/UL (4.8-10.8)
--- NOTE | 2018-10-11 07:20 | NUR ---
HAND-OFF: Report given to FACUNDO Valle. Patient in awake, eating breakfast, able to verbalize needs.
[2018-10-11 07:26] LABS: ALANINE AMINOTRANSFERASE 35 U/L (12-78); ALBUMIN 2.9 G/DL (3.4-5.0); ALBUMIN/GLOBULIN RATIO 0.7 (1.0-2.7); ALKALINE PHOSPHATASE 117 U/L (46-116); ANION GAP 7 mmol/L (5-15); ASPARTATE AMINO TRANSFERASE 58 U/L (15-37); BILIRUBIN,TOTAL 3.2 MG/DL (0.2-1.0); CALCIUM 8.4 MG/DL (8.5-10.1); CARBON DIOXIDE 26 MMOL/L (21-32); CHLORIDE 105 MMOL/L (98-107); CREATININE 0.7 MG/DL (0.55-1.30); SODIUM 138 MMOL/L (136-145)
[2018-10-11 07:27] LABS: BILIRUBIN,DIRECT 0.6 MG/DL (0.0-0.3)
[2018-10-11 07:31] LABS: BLOOD UREA NITROGEN 7 mg/dL (7-18)
--- NOTE | 2018-10-11 07:32 | NUR ---
NURSE NOTES: Patient received in stable condition, eating breakfast in bed. Alert and oriented, responds appropriately. Breathing unlabored on room air. Denies SOB or pain at this time. IV site intact on left hand. Call light within reach, will continue to monitor.
[2018-10-11 08:00] VITALS: BP 133/62
[2018-10-11] MEDS: Lactulose 20gm/30ml UDC ORAL SCH ×3 (08:36→18:23)
--- NOTE | 2018-10-11 09:14 | General Progress Note ---
Assessment/Plan Problem List: (1) HTN (hypertension) ICD Codes: I10 - Essential (primary) hypertension SNOMED: 75965567 (2) Hypothyroid ICD Codes: E03.9 - Hypothyroidism, unspecified SNOMED: 19788621 (3) Hypothyroidism ICD Codes: E03.9 - Hypothyroidism, unspecified SNOMED: 68609065 (4) Diabetes ICD Codes: E11.9 - Type 2 diabetes mellitus without complications SNOMED: 46733666 (5) Chronic liver disease ICD Codes: K76.9 - Liver disease, unspecified SNOMED: 540505624 (6) Dizziness ICD Codes: R42 - Dizziness and giddiness SNOMED: 739519780, 414338758 (7) UTI (urinary tract infection) ICD Codes: N39.0 - Urinary tract infection, site not specified SNOMED: 30156744, 375037273 Qualifiers: Qualified Codes: N39.0 - Urinary tract infection, site not specified (8) CVA (cerebral vascular accident) ICD Codes: I63.9 - Cerebral infarction, unspecified SNOMED: 047560885, 473066700 Qualifiers: Qualified Codes: I63.9 - Cerebral infarction, unspecified Status: stable, progressing Assessment/Plan pt diet abx heme flu cbc bmp am dc plan w hh Subjective Constitutional: Reports: weakness Allergies: Coded Allergies: No Known Allergies (Unverified , 05/28/17) All Systems: reviewed and negative except above Subjective sleepy calm Objective Last 24 Hour Vital Signs Date Time Temp Pulse Resp B/P (MAP) Pulse Ox O2 Delivery O2 Flow Rate FiO2 10/11/18 08:57 Room Air 10/11/18 08:00 97.8 67 20 133/62 (85) 98 10/11/18 04:00 98.5 75 18 135/61 (85) 100 10/11/18 00:00 98.7 71 18 131/56 (81) 97 10/10/18 21:00 Room Air 10/10/18 20:31 69 18 Room Air 21 10/10/18 20:00 98.1 66 20 126/61 (82) 100 10/10/18 15:54 97.7 83 18 117/70 (86) 97 10/10/18 12:00 97.7 84 20 121/68 (85) 97 Intake and Output 10/10/18 10/11/18 19:00 07:00 Intake Total 1040 ml 550 ml Balance 1040 ml 550 ml Intake Oral 440 ml 100 ml IV Total 600 ml 450 ml # Voids 5 4 # Bowel Movements 2 1 Laboratory Tests 10/11/18 05:30: White Blood Count 4.2L, Red Blood Count 4.02L, Hemoglobin 12.6, Hematocrit 35.1L , Mean Corpuscular Volume 87, Mean Corpuscular Hemoglobin 31.3H, Mean Corpuscular Hemoglobin Concent 35.8, Red Cell Distribution Width 13.2, Platelet Count 70L, Mean Platelet Volume 10.4H, Neutrophils (%) (Auto) , Lymphocytes (%) (Auto) , Monocytes (%) (Auto) , Eosinophils (%) (Auto) , Basophils (%) (Auto) , Neutrophils % (Manual) [Pending], Lymphocytes % (Manual) [Pending], Platelet Estimate [Pending], Platelet Morphology [Pending], Sodium Level 138, Potassium Level 4.0, Chloride Level 105, Carbon Dioxide Level 26, Anion Gap 7, Blood Urea Nitrogen 7, Creatinine 0.7, Estimat Glomerular Filtration Rate > 60, Glucose Level 105, Calcium Level 8.4L, Total Bilirubin 3.2H, Direct Bilirubin 0.6H, Aspartate Amino Transf (AST/SGOT) 58H, Alanine Aminotransferase (ALT/SGPT) 35, Alkaline Phosphatase 117H, Total Protein 7.1, Albumin 2.9L, Globulin 4.2, Albumin/Globulin Ratio 0.7L Height (Feet): 5 Height (Inches): 5.00 Weight (Pounds): 218 General Appearance: alert EENT: normal ENT inspection Neck: normal alignment Cardiovascular: normal peripheral pulses, normal rate, regular rhythm Respiratory/Chest: chest wall non-tender, lungs clear, normal breath sounds Abdomen: normal bowel sounds, non tender, soft Extremities: normal inspection Edema: no edema noted Arm (L), no edema noted Arm (R), no edema noted Leg (L), no edema noted Leg (R), no edema noted Pedal (L), no edema noted Pedal (R), no edema noted Generalized Neurologic: responsive, motor weakness Skin: normal pigmentation, warm/dry Saul Day DO Oct 11, 2018 09:14
--- NOTE | 2018-10-11 10:27 | Infectious Diseases Prog Note ---
Assessment/Plan Assessment/Plan 63 yo female with PMHx of DM, HTN, Seizures and fatty liver who was brought to the ED by her nephew 10/06/18 for dizziness. UTI UA - positive for bacteria and trichomonas. UCX - GNR Afebrile No leukocytosis Probable TIA vs stroke vs seizure DM HTN Seizures Fatty liver Plan - Continue to Monitor off abx as clinically stable - 10/09/18 SP Ceftriaxone #3 for bacterial UTI - 10/07/18 S/P Flagyl 2g x 1 for trichomonas We will continue to follow the patient during this hospitalization. Subjective Allergies: Coded Allergies: No Known Allergies (Unverified , 05/28/17) Subjective CLARISA Afebrile No Leukcoytosis Objective Vital Signs Last 24 Hour Vital Signs Date Time Temp Pulse Resp B/P (MAP) Pulse Ox O2 Delivery O2 Flow Rate FiO2 10/11/18 08:57 Room Air 10/11/18 08:00 97.8 67 20 133/62 (85) 98 10/11/18 04:00 98.5 75 18 135/61 (85) 100 10/11/18 00:00 98.7 71 18 131/56 (81) 97 10/10/18 21:00 Room Air 10/10/18 20:31 69 18 Room Air 21 10/10/18 20:00 98.1 66 20 126/61 (82) 100 10/10/18 15:54 97.7 83 18 117/70 (86) 97 10/10/18 12:00 97.7 84 20 121/68 (85) 97 Height (Feet): 5 Height (Inches): 5.00 Weight (Pounds): 218 Objective Gen: NAD HEENT: NCAT, MMM, EOMI LUNGS: CTAB ABD: Soft, NT, ND + BS Laboratory Tests Test 10/11/18 05:30 White Blood Count 4.2 K/UL (4.8-10.8) L Red Blood Count 4.02 M/UL (4.20-5.40) L Hemoglobin 12.6 G/DL (12.0-16.0) Hematocrit 35.1 % (37.0-47.0) L Mean Corpuscular Volume 87 FL (80-99) Mean Corpuscular Hemoglobin 31.3 PG (27.0-31.0) H Mean Corpuscular Hemoglobin Concent 35.8 G/DL (32.0-36.0) Red Cell Distribution Width 13.2 % (11.6-14.8) Platelet Count 70 K/UL (150-450) L Mean Platelet Volume 10.4 FL (6.5-10.1) H Neutrophils (%) (Auto) % (45.0-75.0) Lymphocytes (%) (Auto) % (20.0-45.0) Monocytes (%) (Auto) % (1.0-10.0) Eosinophils (%) (Auto) % (0.0-3.0) Basophils (%) (Auto) % (0.0-2.0) Differential Total Cells Counted 100 Neutrophils % (Manual) 50 % (45-75) Lymphocytes % (Manual) 29 % (20-45) Monocytes % (Manual) 13 % (1-10) H Eosinophils % (Manual) 6 % (0-3) H Basophils % (Manual) 1 % (0-2) Band Neutrophils 1 % (0-8) Platelet Estimate Decreased L Platelet Morphology Normal Red Blood Cell Morphology Normal Sodium Level 138 MMOL/L (136-145) Potassium Level 4.0 MMOL/L (3.5-5.1) Chloride Level 105 MMOL/L (98-107) Carbon Dioxide Level 26 MMOL/L (21-32) Anion Gap 7 mmol/L (5-15) Blood Urea Nitrogen 7 mg/dL (7-18) Creatinine 0.7 MG/DL (0.55-1.30) Estimat Glomerular Filtration Rate > 60 mL/min (>60) Glucose Level 105 MG/DL (74-106) Calcium Level 8.4 MG/DL (8.5-10.1) L Total Bilirubin 3.2 MG/DL (0.2-1.0) H Direct Bilirubin 0.6 MG/DL (0.0-0.3) H Aspartate Amino Transf (AST/SGOT) 58 U/L (15-37) H Alanine Aminotransferase (ALT/SGPT) 35 U/L (12-78) Alkaline Phosphatase 117 U/L (46-116) H Total Protein 7.1 G/DL (6.4-8.2) Albumin 2.9 G/DL (3.4-5.0) L Globulin 4.2 g/dL Albumin/Globulin Ratio 0.7 (1.0-2.7) L Current Medications Medications (Trade) Dose Ordered Sig/Antoni Route PRN Reason Start Time Stop Time Status Last Admin Dose Admin Acetaminophen (Tylenol) 650 mg Q4H PRN ORAL Mild Pain/Temp > 100.5 10/08/18 14:50 11/07/18 14:49 Al Hydroxide/Mg Hydroxide (Mylanta II) 30 ml Q6H PRN ORAL dyspepsia 10/08/18 14:51 11/07/18 14:50 Albuterol/ Ipratropium (Albuterol/ Ipratropium) 3 ml Q4H PRN HHN Shortness of Breath 10/08/18 16:45 10/11/18 16:44 Clonidine HCl (Catapres Tab) 0.1 mg Q4H PRN ORAL SBP>160 10/08/18 16:45 11/05/18 16:44 Dextrose (Dextrose 50%) 25 ml Q30M PRN IV Hypoglycemia 10/08/18 15:15 11/05/18 16:44 Dextrose (Dextrose 50%) 50 ml Q30M PRN IV Hypoglycemia 10/08/18 15:15 11/05/18 16:44 Dextrose/Sodium Chloride 1,000 ml @ 50 mls/hr Q20H IV 10/08/18 14:50 11/05/18 14:49 10/11/18 03:18 Lactulose (Cephulac) 30 gm THREE TIMES A DAY ORAL 10/08/18 18:00 11/06/18 17:59 10/10/18 12:25 Levothyroxine Sodium (Synthroid) 88 mcg ACBREAKFAST ORAL 10/09/18 06:30 11/06/18 06:29 10/11/18 06:30 Lorazepam (Ativan 2mg/ml 1ml) 0.5 mg Q4H PRN IV For Anxiety 10/08/18 16:45 10/13/18 16:44 Morphine Sulfate (Morphine Sulfate) 1 mg Q4H PRN IVP For Pain 7-10 10/08/18 14:52 10/13/18 14:51 Nitroglycerin (Ntg) 0.4 mg Q5M X 3 DOSES PRN SL Prn Chest Pain 10/08/18 15:00 11/05/18 16:44 Ondansetron HCl (Zofran) 4 mg Q6H PRN IVP Nausea & Vomiting 10/08/18 16:45 11/05/18 16:44 Polyethylene Glycol (Miralax) 17 gm HSPRN PRN ORAL Constipation 10/08/18 16:45 11/05/18 16:44 Promethazine HCl/ Codeine (Phenergan with Codeine) 5 ml Q4H PRN ORAL For Cough 10/08/18 16:45 11/05/18 16:44 Rifaximin (Xifaxan) 550 mg EVERY 12 HOURS ORAL 10/08/18 21:00 10/14/18 20:59 10/11/18 08:35 Temazepam (Restoril) 15 mg HSPRN PRN ORAL Insomnia 10/08/18 16:45 10/13/18 16:44 El Desai MD Oct 11, 2018 10:27
[2018-10-11 12:00] VITALS: BP 104/58
--- NOTE | 2018-10-11 15:59 | GI Progress Note ---
Assessment/Plan Problems: (1) Chronic liver disease ICD Codes: K76.9 - Liver disease, unspecified SNOMED: 854795889 (2) Encephalopathy ICD Codes: G93.40 - Encephalopathy, unspecified SNOMED: 96086655 (3) Dizziness ICD Codes: R42 - Dizziness and giddiness SNOMED: 449905309, 402142432 (4) Anemia ICD Codes: D64.9 - Anemia, unspecified SNOMED: 006589526 (5) CVA (cerebral vascular accident) ICD Codes: I63.9 - Cerebral infarction, unspecified SNOMED: 490952583, 269455291 Qualifiers: Qualified Codes: I63.9 - Cerebral infarction, unspecified (6) Diabetes ICD Codes: E11.9 - Type 2 diabetes mellitus without complications SNOMED: 18011309 Status: stable Status Narrative Discussed with Dr. Madden. Assessment/Plan SUMMARY OF FINDINGS: 1. Gastritis, status post biopsy. 2. Gastric polyps, status post biopsy. 3. Esophageal varices, status post banding x6. RECOMMENDATIONS: 1. Start clear liquid diet, soft low sodium diet 2. Advance as tolerated. 3. Monitor labs. 4. Follow up cirrhosis workup. 5. Discontinue subcutaneous heparin. 6. The patient will need outpatient follow up in 4 to 6 weeks for repeat endoscopy and repeat banding. cont lactulose + xifaxan prn transfusions follow labs okay for DC per GI standpoint if tolerates food without N/V The patient was seen and examined at bedside and all new and available data was reviewed in the patients chart. I agree with the above findings, impression and plan. (Patient seen earlier today. Signature stamp does not reflect patient encounter time.). - Shankar Madden MD Subjective Subjective Denies any abdominal pain, more alert today Having multiple bowel movements Complaint of generalized weakness and fatigue Objective Last 24 Hour Vital Signs Date Time Temp Pulse Resp B/P (MAP) Pulse Ox O2 Delivery O2 Flow Rate FiO2 10/11/18 12:00 98.4 67 20 104/58 (73) 98 10/11/18 09:30 79 20 Room Air 21 10/11/18 08:57 Room Air 10/11/18 08:00 97.8 67 20 133/62 (85) 98 10/11/18 04:00 98.5 75 18 135/61 (85) 100 10/11/18 00:00 98.7 71 18 131/56 (81) 97 10/10/18 21:00 Room Air 10/10/18 20:31 69 18 Room Air 21 10/10/18 20:00 98.1 66 20 126/61 (82) 100 Intake and Output 10/10/18 10/11/18 19:00 07:00 Intake Total 1040 ml 550 ml Balance 1040 ml 550 ml Intake Oral 440 ml 100 ml IV Total 600 ml 450 ml # Voids 5 4 # Bowel Movements 2 1 Laboratory Tests Test 10/11/18 05:30 White Blood Count 4.2 K/UL (4.8-10.8) L Red Blood Count 4.02 M/UL (4.20-5.40) L Hemoglobin 12.6 G/DL (12.0-16.0) Hematocrit 35.1 % (37.0-47.0) L Mean Corpuscular Volume 87 FL (80-99) Mean Corpuscular Hemoglobin 31.3 PG (27.0-31.0) H Mean Corpuscular Hemoglobin Concent 35.8 G/DL (32.0-36.0) Red Cell Distribution Width 13.2 % (11.6-14.8) Platelet Count 70 K/UL (150-450) L Mean Platelet Volume 10.4 FL (6.5-10.1) H Neutrophils (%) (Auto) % (45.0-75.0) Lymphocytes (%) (Auto) % (20.0-45.0) Monocytes (%) (Auto) % (1.0-10.0) Eosinophils (%) (Auto) % (0.0-3.0) Basophils (%) (Auto) % (0.0-2.0) Differential Total Cells Counted 100 Neutrophils % (Manual) 50 % (45-75) Lymphocytes % (Manual) 29 % (20-45) Monocytes % (Manual) 13 % (1-10) H Eosinophils % (Manual) 6 % (0-3) H Basophils % (Manual) 1 % (0-2) Band Neutrophils 1 % (0-8) Platelet Estimate Decreased L Platelet Morphology Normal Red Blood Cell Morphology Normal Sodium Level 138 MMOL/L (136-145) Potassium Level 4.0 MMOL/L (3.5-5.1) Chloride Level 105 MMOL/L (98-107) Carbon Dioxide Level 26 MMOL/L (21-32) Anion Gap 7 mmol/L (5-15) Blood Urea Nitrogen 7 mg/dL (7-18) Creatinine 0.7 MG/DL (0.55-1.30) Estimat Glomerular Filtration Rate > 60 mL/min (>60) Glucose Level 105 MG/DL (74-106) Calcium Level 8.4 MG/DL (8.5-10.1) L Total Bilirubin 3.2 MG/DL (0.2-1.0) H Direct Bilirubin 0.6 MG/DL (0.0-0.3) H Aspartate Amino Transf (AST/SGOT) 58 U/L (15-37) H Alanine Aminotransferase (ALT/SGPT) 35 U/L (12-78) Alkaline Phosphatase 117 U/L (46-116) H Total Protein 7.1 G/DL (6.4-8.2) Albumin 2.9 G/DL (3.4-5.0) L Globulin 4.2 g/dL Albumin/Globulin Ratio 0.7 (1.0-2.7) L Height (Feet): 5 Height (Inches): 5.00 Weight (Pounds): 218 General Appearance: WD/WN, no apparent distress, alert Cardiovascular: normal rate Respiratory/Chest: normal breath sounds, no respiratory distress Abdominal Exam: normal bowel sounds, non tender, soft Extremities: normal range of motion, non-tender Jm Swain NP Oct 11, 2018 15:59
[2018-10-11 16:00] VITALS: BP 120/60
--- NOTE | 2018-10-11 19:27 | NUR ---
HAND-OFF: Report given to Jessica LOREDO.
[2018-10-11 20:00] VITALS: BP 104/47
--- NOTE | 2018-10-11 20:00 | NUR ---
NURSE NOTES: Received patient awake in bed, able to verbalize needs, c/o IV site pain, IV site red and swollen, will try to reinsert new IV. Bed on lowest position, call light and belongings within reach, 2 side rails up.
--- NOTE | 2018-10-11 23:43 | Cardiology Report ---
APPROVED REPORT EKG Measurement Heart [id number] OK [id number] Normal sinus rhythm Normal ECG
[2018-10-12] VITALS: BP 105/57
--- NOTE | 2018-10-12 00:52 | NUR ---
NURSE NOTES: Previous IV site discontinued as patient c/o severe pain and site appears infiltrated. New IV site Right Hand 22 gauge. IVF currently running at 50ml/hr.
[2018-10-12 04:00] VITALS: BP 104/49
[2018-10-12 06:55] LABS: ANION GAP 5 mmol/L (5-15); BLOOD UREA NITROGEN 7 mg/dL (7-18); CALCIUM 8.4 MG/DL (8.5-10.1); CARBON DIOXIDE 26 MMOL/L (21-32); CHLORIDE 105 MMOL/L (98-107); CREATININE 0.7 MG/DL (0.55-1.30); POTASSIUM 3.7 MMOL/L (3.5-5.1); SODIUM 136 MMOL/L (136-145)
[2018-10-12 07:00] LABS: HEMATOCRIT 31.6 % (37.0-47.0); HEMOGLOBIN 11.1 G/DL (12.0-16.0); MEAN CORPUSCULAR VOLUME 89 FL (80-99); PLATELET COUNT 62 K/UL (150-450); RED BLOOD COUNT 3.56 M/UL (4.20-5.40); RED CELL DISTRIBUTION WIDTH 13.3 % (11.6-14.8); WHITE BLOOD COUNT 3.7 K/UL (4.8-10.8)
[2018-10-12] MEDS ORDERED: D5 1/2NS 1000ml IV ONE ×2 (07:41→07:47)
[2018-10-12] MEDS ORDERED: 1/2 NS 1000ml IV ONE (07:47)
[2018-10-12 08:00] VITALS: BP 113/64
--- NOTE | 2018-10-12 08:30 | NUR ---
NURSE NOTES: Received pt from RN. pt is orient x3. no SOB or acute respiratory distress noted. pt has in tact iv access RH 22g is running well. pt is in fall precaution, aspiration precaution, and seizure precautions. all needs attended, bed is locked and is in the lowest position. call light within easy reach. will continue to monitor.
[2018-10-12] MEDS: Lactulose 20gm/30ml UDC ORAL SCH ×3 (08:59→17:11)
[2018-10-12 12:00] VITALS: BP 124/64
--- NOTE | 2018-10-12 13:20 | Pulmonology Progress Note ---
Assessment/Plan Problems: (1) Encephalopathy (2) Hepatic encephalopathy (3) Hypothyroidism (4) Diabetes (5) Chronic liver disease Assessment/Plan had EGD with Binding of esophageal varices eating well sliding scale diabetic diet Syntyroid supplement check h/h Subjective ROS Limited/Unobtainable: No Constitutional: Reports: no symptoms HEENT: Repors: no symptoms Allergies: Coded Allergies: No Known Allergies (Unverified , 05/28/17) Objective Last 24 Hour Vital Signs Date Time Temp Pulse Resp B/P (MAP) Pulse Ox O2 Delivery O2 Flow Rate FiO2 10/12/18 12:00 97.4 63 18 124/64 (84) 99 10/12/18 09:00 Room Air 10/12/18 08:00 98.2 74 20 113/64 (80) 98 10/12/18 04:00 98.5 63 20 104/49 (67) 96 10/12/18 00:00 98.9 66 19 105/57 (73) 97 10/11/18 20:00 98.6 66 19 104/47 (66) 100 10/11/18 20:00 Room Air 10/11/18 16:00 98.4 70 20 120/60 (80) 100 Intake and Output 10/11/18 10/12/18 19:00 07:00 Intake Total 1130 ml 650 ml Balance 1130 ml 650 ml Intake Oral 1080 ml IV Total 50 ml 400 ml Tube Feeding 250 ml # Voids 3 1 Objective General Appearance: WD/WN, Obese HEENT: normocephalic Respiratory/Chest: chest wall non-tender, lungs clear Cardiovascular: normal peripheral pulses, normal rate Abdomen: normal bowel sounds, soft, non tender Extremities: no cyanosis Skin: no rash Laboratory Tests 10/12/18 05:55: White Blood Count 3.7L, Red Blood Count 3.56L, Hemoglobin 11.1L, Hematocrit 31.6L, Mean Corpuscular Volume 89, Mean Corpuscular Hemoglobin 31.1H, Mean Corpuscular Hemoglobin Concent 35.1, Red Cell Distribution Width 13.3, Platelet Count 62L, Mean Platelet Volume 9.3, Neutrophils (%) (Auto) , Lymphocytes (%) ( Auto) , Monocytes (%) (Auto) , Eosinophils (%) (Auto) , Basophils (%) (Auto) , Differential Total Cells Counted 100, Neutrophils % (Manual) 59, Lymphocytes % ( Manual) 28, Monocytes % (Manual) 8, Eosinophils % (Manual) 5H, Basophils % ( Manual) 0, Band Neutrophils 0, Platelet Estimate DecreasedL, Platelet Morphology Normal, Red Blood Cell Morphology Normal, Sodium Level 136, Potassium Level 3.7, Chloride Level 105, Carbon Dioxide Level 26, Anion Gap 5, Blood Urea Nitrogen 7, Creatinine 0.7, Estimat Glomerular Filtration Rate > 60, Glucose Level 110H, Calcium Level 8.4L Current Medications Medications (Trade) Dose Ordered Sig/Antoni Route PRN Reason Start Time Stop Time Status Last Admin Dose Admin Acetaminophen (Tylenol) 650 mg Q4H PRN ORAL Mild Pain/Temp > 100.5 10/08/18 14:50 11/07/18 14:49 10/12/18 00:45 Al Hydroxide/Mg Hydroxide (Mylanta II) 30 ml Q6H PRN ORAL dyspepsia 10/08/18 14:51 11/07/18 14:50 Clonidine HCl (Catapres Tab) 0.1 mg Q4H PRN ORAL SBP>160 10/08/18 16:45 11/05/18 16:44 Dextrose (Dextrose 50%) 25 ml Q30M PRN IV Hypoglycemia 10/08/18 15:15 11/05/18 16:44 Dextrose (Dextrose 50%) 50 ml Q30M PRN IV Hypoglycemia 10/08/18 15:15 11/05/18 16:44 Dextrose/Sodium Chloride 1,000 ml @ 50 mls/hr Q20H IV 10/08/18 14:50 11/05/18 14:49 10/11/18 23:04 Lactulose (Cephulac) 30 gm THREE TIMES A DAY ORAL 10/08/18 18:00 11/06/18 17:59 10/12/18 12:15 Levothyroxine Sodium (Synthroid) 88 mcg ACBREAKFAST ORAL 10/09/18 06:30 11/06/18 06:29 10/12/18 05:55 Lorazepam (Ativan 2mg/ml 1ml) 0.5 mg Q4H PRN IV For Anxiety 10/08/18 16:45 10/13/18 16:44 Morphine Sulfate (Morphine Sulfate) 1 mg Q4H PRN IVP For Pain 7-10 10/08/18 14:52 10/13/18 14:51 Nitroglycerin (Ntg) 0.4 mg Q5M X 3 DOSES PRN SL Prn Chest Pain 10/08/18 15:00 11/05/18 16:44 Ondansetron HCl (Zofran) 4 mg Q6H PRN IVP Nausea & Vomiting 10/08/18 16:45 11/05/18 16:44 Polyethylene Glycol (Miralax) 17 gm HSPRN PRN ORAL Constipation 10/08/18 16:45 11/05/18 16:44 Promethazine HCl/ Codeine (Phenergan with Codeine) 5 ml Q4H PRN ORAL For Cough 10/08/18 16:45 11/05/18 16:44 Rifaximin (Xifaxan) 550 mg EVERY 12 HOURS ORAL 10/08/18 21:00 10/14/18 20:59 10/12/18 08:59 Temazepam (Restoril) 15 mg HSPRN PRN ORAL Insomnia 10/08/18 16:45 10/13/18 16:44 Alexis Mason MD Oct 12, 2018 13:20
--- NOTE | 2018-10-12 15:13 | NUR ---
CASE MANAGEMENT: REVIEW SI: ESOPHAGEAL VARICES . HEPATIC ENCEPHALOPATHY EGD w/BIOPSY 10/09 T 97.4 HR 63 RR 18 BP 104/47 SAT 99% ROOM AIR WBC 3.7 H/H 11.1/31.6 IS: RIFAXIMIN PO Q12HR LACTULOSE PO TID D5 1/2 NS IVF @50ML/HR MED/SURG STATUS DCP: PATIENT IS FROM HOME. HOME WITH HOME HEALTH
--- NOTE | 2018-10-12 15:30 | NUR ---
CASE MANAGEMENT:DCPNOTE PER MD ORDER PATIENT REFERRED TO [facility] [phone]
[2018-10-12 15:50] VITALS: BP 114/55
--- NOTE | 2018-10-12 16:37 | GI Progress Note ---
Assessment/Plan Problems: (1) Chronic liver disease ICD Codes: K76.9 - Liver disease, unspecified SNOMED: 481485624 (2) Encephalopathy ICD Codes: G93.40 - Encephalopathy, unspecified SNOMED: 45904925 (3) Dizziness ICD Codes: R42 - Dizziness and giddiness SNOMED: 157942959, 928322774 (4) Anemia ICD Codes: D64.9 - Anemia, unspecified SNOMED: 468206631 (5) CVA (cerebral vascular accident) ICD Codes: I63.9 - Cerebral infarction, unspecified SNOMED: 651983725, 089046343 Qualifiers: Qualified Codes: I63.9 - Cerebral infarction, unspecified (6) Diabetes ICD Codes: E11.9 - Type 2 diabetes mellitus without complications SNOMED: 18086530 Status: doing well, stable Status Narrative Discussed with Dr. Madden Assessment/Plan SUMMARY OF FINDINGS: 1. Gastritis, status post biopsy. 2. Gastric polyps, status post biopsy. 3. Esophageal varices, status post banding x6. RECOMMENDATIONS: 1. Tolerating normal diet 2. Advance as tolerated. 3. Monitor labs. 4. Follow up cirrhosis workup. 5. Discontinue subcutaneous heparin. 6. The patient will need outpatient follow up in 4 to 6 weeks for repeat endoscopy and repeat banding. cont lactulose + xifaxan prn transfusions follow labs DC planning The patient was seen and examined at bedside and all new and available data was reviewed in the patients chart. I agree with the above findings, impression and plan. (Patient seen earlier today. Signature stamp does not reflect patient encounter time.). - Shankar Madden MD Subjective Subjective Abdominal pain, nausea vomiting, generalized weakness all improved Tolerating diet Objective Last 24 Hour Vital Signs Date Time Temp Pulse Resp B/P (MAP) Pulse Ox O2 Delivery O2 Flow Rate FiO2 10/12/18 15:50 98.1 67 20 114/55 (74) 98 10/12/18 12:00 97.4 63 18 124/64 (84) 99 10/12/18 09:00 Room Air 10/12/18 08:00 98.2 74 20 113/64 (80) 98 10/12/18 04:00 98.5 63 20 104/49 (67) 96 10/12/18 00:00 98.9 66 19 105/57 (73) 97 10/11/18 20:00 98.6 66 19 104/47 (66) 100 10/11/18 20:00 Room Air Intake and Output 10/11/18 10/12/18 19:00 07:00 Intake Total 1130 ml 650 ml Balance 1130 ml 650 ml Intake Oral 1080 ml IV Total 50 ml 400 ml Tube Feeding 250 ml # Voids 3 1 Laboratory Tests Test 10/12/18 05:55 White Blood Count 3.7 K/UL (4.8-10.8) L Red Blood Count 3.56 M/UL (4.20-5.40) L Hemoglobin 11.1 G/DL (12.0-16.0) L Hematocrit 31.6 % (37.0-47.0) L Mean Corpuscular Volume 89 FL (80-99) Mean Corpuscular Hemoglobin 31.1 PG (27.0-31.0) H Mean Corpuscular Hemoglobin Concent 35.1 G/DL (32.0-36.0) Red Cell Distribution Width 13.3 % (11.6-14.8) Platelet Count 62 K/UL (150-450) L Mean Platelet Volume 9.3 FL (6.5-10.1) Neutrophils (%) (Auto) % (45.0-75.0) Lymphocytes (%) (Auto) % (20.0-45.0) Monocytes (%) (Auto) % (1.0-10.0) Eosinophils (%) (Auto) % (0.0-3.0) Basophils (%) (Auto) % (0.0-2.0) Differential Total Cells Counted 100 Neutrophils % (Manual) 59 % (45-75) Lymphocytes % (Manual) 28 % (20-45) Monocytes % (Manual) 8 % (1-10) Eosinophils % (Manual) 5 % (0-3) H Basophils % (Manual) 0 % (0-2) Band Neutrophils 0 % (0-8) Platelet Estimate Decreased L Platelet Morphology Normal Red Blood Cell Morphology Normal Sodium Level 136 MMOL/L (136-145) Potassium Level 3.7 MMOL/L (3.5-5.1) Chloride Level 105 MMOL/L (98-107) Carbon Dioxide Level 26 MMOL/L (21-32) Anion Gap 5 mmol/L (5-15) Blood Urea Nitrogen 7 mg/dL (7-18) Creatinine 0.7 MG/DL (0.55-1.30) Estimat Glomerular Filtration Rate > 60 mL/min (>60) Glucose Level 110 MG/DL (74-106) H Calcium Level 8.4 MG/DL (8.5-10.1) L Height (Feet): 5 Height (Inches): 5.00 Weight (Pounds): 218 General Appearance: WD/WN, no apparent distress, alert Cardiovascular: normal rate Respiratory/Chest: normal breath sounds, no respiratory distress Abdominal Exam: normal bowel sounds, non tender, soft Extremities: normal range of motion, non-tender Jm Swain NP Oct 12, 2018 16:37
--- NOTE | 2018-10-12 18:18 | General Progress Note ---
Assessment/Plan Problem List: (1) CVA (cerebral vascular accident) ICD Codes: I63.9 - Cerebral infarction, unspecified SNOMED: 266210093, 222151075 Qualifiers: Qualified Codes: I63.9 - Cerebral infarction, unspecified (2) Anemia ICD Codes: D64.9 - Anemia, unspecified SNOMED: 734149733 (3) Hepatic encephalopathy ICD Codes: K72.90 - Hepatic failure, unspecified without coma SNOMED: 75454095 (4) Diabetes ICD Codes: E11.9 - Type 2 diabetes mellitus without complications SNOMED: 56871004 (5) Hypothyroidism ICD Codes: E03.9 - Hypothyroidism, unspecified SNOMED: 73080336 (6) HTN (hypertension) ICD Codes: I10 - Essential (primary) hypertension SNOMED: 26069475 (7) Hypothyroid ICD Codes: E03.9 - Hypothyroidism, unspecified SNOMED: 62372192 Status: progressing Assessment/Plan ataxia r/p cva htn reviewed chart and labs and meds afebrile vitals stable Subjective ROS Limited/Unobtainable: Yes Allergies: Coded Allergies: No Known Allergies (Unverified , 05/28/17) Objective Last 24 Hour Vital Signs Date Time Temp Pulse Resp B/P (MAP) Pulse Ox O2 Delivery O2 Flow Rate FiO2 10/12/18 15:50 98.1 67 20 114/55 (74) 98 10/12/18 12:00 97.4 63 18 124/64 (84) 99 10/12/18 09:00 Room Air 10/12/18 08:00 98.2 74 20 113/64 (80) 98 10/12/18 04:00 98.5 63 20 104/49 (67) 96 10/12/18 00:00 98.9 66 19 105/57 (73) 97 10/11/18 20:00 98.6 66 19 104/47 (66) 100 10/11/18 20:00 Room Air Intake and Output 10/11/18 10/12/18 19:00 07:00 Intake Total 1130 ml 650 ml Balance 1130 ml 650 ml Intake Oral 1080 ml IV Total 50 ml 400 ml Tube Feeding 250 ml # Voids 3 1 Laboratory Tests 10/12/18 05:55: White Blood Count 3.7L, Red Blood Count 3.56L, Hemoglobin 11.1L, Hematocrit 31.6L, Mean Corpuscular Volume 89, Mean Corpuscular Hemoglobin 31.1H, Mean Corpuscular Hemoglobin Concent 35.1, Red Cell Distribution Width 13.3, Platelet Count 62L, Mean Platelet Volume 9.3, Neutrophils (%) (Auto) , Lymphocytes (%) ( Auto) , Monocytes (%) (Auto) , Eosinophils (%) (Auto) , Basophils (%) (Auto) , Differential Total Cells Counted 100, Neutrophils % (Manual) 59, Lymphocytes % ( Manual) 28, Monocytes % (Manual) 8, Eosinophils % (Manual) 5H, Basophils % ( Manual) 0, Band Neutrophils 0, Platelet Estimate DecreasedL, Platelet Morphology Normal, Red Blood Cell Morphology Normal, Sodium Level 136, Potassium Level 3.7, Chloride Level 105, Carbon Dioxide Level 26, Anion Gap 5, Blood Urea Nitrogen 7, Creatinine 0.7, Estimat Glomerular Filtration Rate > 60, Glucose Level 110H, Calcium Level 8.4L Height (Feet): 5 Height (Inches): 5.00 Weight (Pounds): 218 Cardiovascular: normal rate Respiratory/Chest: lungs clear Abdomen: soft Anya Lindo MD Oct 12, 2018 18:18
[2018-10-12] MEDS: D5 1/2NS 1,000 ML IV SCH (18:50)
--- NOTE | 2018-10-12 19:20 | NUR ---
NURSE NOTES: Received patient AOx3, assisted to the bathroom. Able to verbalize needs, no acute s/s of distress. IV site asymptomatic running at 50ml/hr, dressing dry and intact. Bed on lowest position, 2 side rails up, fall and aspiration risk noted. Assisted back into bed safely.
--- NOTE | 2018-10-12 19:21 | NUR ---
HAND-OFF: Report given to FACUNDO JUAREZ.
[2018-10-12 20:00] VITALS: BP 111/52
[2018-10-13] VITALS: BP 101/43
[2018-10-13] MEDS: D5 1/2NS 1,000 ML IV SCH (02:22)
[2018-10-13 03:45] VITALS: BP 102/61
[2018-10-13 06:50] LABS: ANION GAP 6 mmol/L (5-15); BLOOD UREA NITROGEN 7 mg/dL (7-18); CALCIUM 8.2 MG/DL (8.5-10.1); CARBON DIOXIDE 26 MMOL/L (21-32); CHLORIDE 106 MMOL/L (98-107); CREATININE 0.6 MG/DL (0.55-1.30); POTASSIUM 3.7 MMOL/L (3.5-5.1); SODIUM 138 MMOL/L (136-145)
[2018-10-13 07:07] LABS: HEMATOCRIT 31.1 % (37.0-47.0); HEMOGLOBIN 10.7 G/DL (12.0-16.0); MEAN CORPUSCULAR VOLUME 89 FL (80-99); PLATELET COUNT 54 K/UL (150-450); RED BLOOD COUNT 3.47 M/UL (4.20-5.40); RED CELL DISTRIBUTION WIDTH 13.9 % (11.6-14.8); WHITE BLOOD COUNT 3.2 K/UL (4.8-10.8)
--- NOTE | 2018-10-13 07:50 | NUR ---
HAND-OFF: Report given to FACUNDO Allen.
[2018-10-13 08:00] VITALS: BP 117/55
--- NOTE | 2018-10-13 08:17 | NUR ---
NURSE NOTES: Pt awake sitting at edge of bed eating breakfast refused to have IV reinserted at this time. Current plan of care will followed. Call light is in reach
--- NOTE | 2018-10-13 08:31 | Infectious Diseases Prog Note ---
Assessment/Plan Assessment/Plan 63 yo female with PMHx of DM, HTN, Seizures and fatty liver who was brought to the ED by her nephew 10/06/18 for dizziness. UTI UA - positive for bacteria and trichomonas. UCX - GNR Afebrile No leukocytosis Probable TIA vs stroke vs seizure DM HTN Seizures Fatty liver S/P EGD 1. Gastritis, status post biopsy. 2. Gastric polyps, status post biopsy. 3. Esophageal varices, status post banding x6. Plan - Continue to Monitor off abx - 10/09/18 SP Ceftriaxone #3 for bacterial UTI - 10/07/18 S/P Flagyl 2g x 1 for trichomonas We will continue to follow the patient during this hospitalization. Subjective Allergies: Coded Allergies: No Known Allergies (Unverified , 05/28/17) Subjective S/P EGD Afebrile No Leukcoytosis Objective Vital Signs Last 24 Hour Vital Signs Date Time Temp Pulse Resp B/P (MAP) Pulse Ox O2 Delivery O2 Flow Rate FiO2 10/13/18 03:45 98.7 66 18 102/61 (75) 98 10/13/18 00:00 98.7 65 18 101/43 (62) 100 10/12/18 21:00 Room Air 10/12/18 20:00 98.4 68 19 111/52 (71) 100 10/12/18 15:50 98.1 67 20 114/55 (74) 98 10/12/18 12:00 97.4 63 18 124/64 (84) 99 10/12/18 09:00 Room Air Height (Feet): 5 Height (Inches): 5.00 Weight (Pounds): 218 Objective Gen: NAD, sitting in bed HEENT: NCAT, MMM, EOMI LUNGS: CTAB ABD: Soft, NT, ND + BS Laboratory Tests Test 10/13/18 05:45 White Blood Count 3.2 K/UL (4.8-10.8) L Red Blood Count 3.47 M/UL (4.20-5.40) L Hemoglobin 10.7 G/DL (12.0-16.0) L Hematocrit 31.1 % (37.0-47.0) L Mean Corpuscular Volume 89 FL (80-99) Mean Corpuscular Hemoglobin 30.7 PG (27.0-31.0) Mean Corpuscular Hemoglobin Concent 34.4 G/DL (32.0-36.0) Red Cell Distribution Width 13.9 % (11.6-14.8) Platelet Count 54 K/UL (150-450) L Mean Platelet Volume 10.3 FL (6.5-10.1) H Neutrophils (%) (Auto) % (45.0-75.0) Lymphocytes (%) (Auto) % (20.0-45.0) Monocytes (%) (Auto) % (1.0-10.0) Eosinophils (%) (Auto) % (0.0-3.0) Basophils (%) (Auto) % (0.0-2.0) Neutrophils % (Manual) Pending Lymphocytes % (Manual) Pending Platelet Estimate Pending Platelet Morphology Pending Sodium Level 138 MMOL/L (136-145) Potassium Level 3.7 MMOL/L (3.5-5.1) Chloride Level 106 MMOL/L (98-107) Carbon Dioxide Level 26 MMOL/L (21-32) Anion Gap 6 mmol/L (5-15) Blood Urea Nitrogen 7 mg/dL (7-18) Creatinine 0.6 MG/DL (0.55-1.30) Estimat Glomerular Filtration Rate > 60 mL/min (>60) Glucose Level 116 MG/DL (74-106) H Calcium Level 8.2 MG/DL (8.5-10.1) L Current Medications Medications (Trade) Dose Ordered Sig/Antoni Route PRN Reason Start Time Stop Time Status Last Admin Dose Admin Acetaminophen (Tylenol) 650 mg Q4H PRN ORAL Mild Pain/Temp > 100.5 10/08/18 14:50 11/07/18 14:49 10/12/18 00:45 Al Hydroxide/Mg Hydroxide (Mylanta II) 30 ml Q6H PRN ORAL dyspepsia 10/08/18 14:51 11/07/18 14:50 Clonidine HCl (Catapres Tab) 0.1 mg Q4H PRN ORAL SBP>160 10/08/18 16:45 11/05/18 16:44 Dextrose (Dextrose 50%) 25 ml Q30M PRN IV Hypoglycemia 10/08/18 15:15 11/05/18 16:44 Dextrose (Dextrose 50%) 50 ml Q30M PRN IV Hypoglycemia 10/08/18 15:15 11/05/18 16:44 Dextrose/Sodium Chloride 1,000 ml @ 50 mls/hr Q20H IV 10/08/18 14:50 11/05/18 14:49 10/13/18 02:22 Lactulose (Cephulac) 30 gm THREE TIMES A DAY ORAL 10/08/18 18:00 11/06/18 17:59 10/12/18 17:11 Levothyroxine Sodium (Synthroid) 88 mcg ACBREAKFAST ORAL 10/09/18 06:30 11/06/18 06:29 10/13/18 06:06 Lorazepam (Ativan 2mg/ml 1ml) 0.5 mg Q4H PRN IV For Anxiety 10/08/18 16:45 10/13/18 16:44 Morphine Sulfate (Morphine Sulfate) 1 mg Q4H PRN IVP For Pain 7-10 10/08/18 14:52 10/13/18 14:51 Nitroglycerin (Ntg) 0.4 mg Q5M X 3 DOSES PRN SL Prn Chest Pain 10/08/18 15:00 11/05/18 16:44 Ondansetron HCl (Zofran) 4 mg Q6H PRN IVP Nausea & Vomiting 10/08/18 16:45 11/05/18 16:44 Polyethylene Glycol (Miralax) 17 gm HSPRN PRN ORAL Constipation 10/08/18 16:45 11/05/18 16:44 Promethazine HCl/ Codeine (Phenergan with Codeine) 5 ml Q4H PRN ORAL For Cough 10/08/18 16:45 11/05/18 16:44 Rifaximin (Xifaxan) 550 mg EVERY 12 HOURS ORAL 10/08/18 21:00 10/14/18 20:59 10/12/18 20:52 Temazepam (Restoril) 15 mg HSPRN PRN ORAL Insomnia 10/08/18 16:45 10/13/18 16:44 El Desai MD Oct 13, 2018 08:31
[2018-10-13] MEDS: Lactulose 20gm/30ml UDC ORAL SCH ×3 (08:32→17:43)
--- NOTE | 2018-10-13 08:38 | NUR ---
NURSE NOTES: Pt gate is unsteady required assistance to go to the restroom. Holding on to the bed, to go to the restroom. Commode is in restroom. Hob Grinder encouraged pt to use commode instead for safety. for safety , with refusal. Call light placed in reach. Encouraged to sit on bed so that bed alarm can be placed. Pt stated " I am tired of laying down" Educated on importance of using call light if she needed to go to the restroom . Verbalized understanding
--- NOTE | 2018-10-13 11:56 | NUR ---
NURSE NOTES: made aware that [facility] will not be accepting pt due to insurance purposes. Pt gait is unsteady, and complaining of dizziness. Dr Day gave directions to inform , Dr Mason . will provide information Dr Mason, currently here making rounds
[2018-10-13 12:00] VITALS: BP 127/61
--- NOTE | 2018-10-13 12:01 | NUR ---
NURSE NOTES: Dr Mason here made aware of pt complaints of dizziness ans unsteady gait. No new orders at this time. Dr Mason also informed that pt was not accepted for HOME HEALTH [facility]
--- NOTE | 2018-10-13 13:19 | NUR ---
CASE MANAGEMENT: REVIEW 10/13/2018 SI: ESOPHAGEAL VARICES . HEPATIC ENCEPHALOPATHY EGD w/BIOPSY 10/09 T 97.9 HR 73 RR 18 B/P 117/55 SATS 98% ON RA WBC 3.2 GLU 116 CA 8.2 IS: RIFAXIMIN PO Q12HR LACTULOSE PO TID D5 1/2 NS IVF @50ML/HR MED/SURG STATUS DCP: PATIENT TO BE DISCHARGED TO HOME WITH HOME HEALTH PLAN OF CARE: [facility]
[2018-10-13 16:00] VITALS: BP 105/57
--- NOTE | 2018-10-13 16:38 | GI Progress Note ---
Assessment/Plan Problems: (1) Chronic liver disease ICD Codes: K76.9 - Liver disease, unspecified SNOMED: 305985276 (2) Encephalopathy ICD Codes: G93.40 - Encephalopathy, unspecified SNOMED: 02062023 (3) Dizziness ICD Codes: R42 - Dizziness and giddiness SNOMED: 617228046, 674803251 (4) Anemia ICD Codes: D64.9 - Anemia, unspecified SNOMED: 335943336 (5) CVA (cerebral vascular accident) ICD Codes: I63.9 - Cerebral infarction, unspecified SNOMED: 028305313, 393828194 Qualifiers: Qualified Codes: I63.9 - Cerebral infarction, unspecified (6) Diabetes ICD Codes: E11.9 - Type 2 diabetes mellitus without complications SNOMED: 36057124 Status: stable, unchanged Status Narrative Discussed with Dr. Madden. Assessment/Plan SUMMARY OF FINDINGS: 1. Gastritis, status post biopsy. 2. Gastric polyps, status post biopsy. 3. Esophageal varices, status post banding x6. RECOMMENDATIONS: 1. Tolerating normal diet 2. Advance as tolerated. 3. Monitor labs. 4. Follow up cirrhosis workup. 5. Discontinue subcutaneous heparin. 6. The patient will need outpatient follow up in 4 to 6 weeks for repeat endoscopy and repeat banding. cont lactulose + xifaxan prn transfusions follow labs DC planning The patient was seen and examined at bedside and all new and available data was reviewed in the patients chart. I agree with the above findings, impression and plan. (Patient seen earlier today. Signature stamp does not reflect patient encounter time.). - Shankar Madden MD Subjective Subjective Abdominal pain, nausea vomiting, generalized weakness all improved Tolerating diet Objective Last 24 Hour Vital Signs Date Time Temp Pulse Resp B/P (MAP) Pulse Ox O2 Delivery O2 Flow Rate FiO2 10/13/18 09:00 Room Air 10/13/18 08:00 97.9 73 18 117/55 (75) 10/13/18 03:45 98.7 66 18 102/61 (75) 98 10/13/18 00:00 98.7 65 18 101/43 (62) 100 10/12/18 21:00 Room Air 10/12/18 20:00 98.4 68 19 111/52 (71) 100 Intake and Output 10/12/18 10/13/18 19:00 07:00 Intake Total 1440 ml 200 ml Balance 1440 ml 200 ml Intake Oral 840 ml IV Total 600 ml 200 ml # Voids 3 3 # Bowel Movements 2 Laboratory Tests Test 10/13/18 05:45 White Blood Count 3.2 K/UL (4.8-10.8) L Red Blood Count 3.47 M/UL (4.20-5.40) L Hemoglobin 10.7 G/DL (12.0-16.0) L Hematocrit 31.1 % (37.0-47.0) L Mean Corpuscular Volume 89 FL (80-99) Mean Corpuscular Hemoglobin 30.7 PG (27.0-31.0) Mean Corpuscular Hemoglobin Concent 34.4 G/DL (32.0-36.0) Red Cell Distribution Width 13.9 % (11.6-14.8) Platelet Count 54 K/UL (150-450) L Mean Platelet Volume 10.3 FL (6.5-10.1) H Neutrophils (%) (Auto) % (45.0-75.0) Lymphocytes (%) (Auto) % (20.0-45.0) Monocytes (%) (Auto) % (1.0-10.0) Eosinophils (%) (Auto) % (0.0-3.0) Basophils (%) (Auto) % (0.0-2.0) Differential Total Cells Counted 100 Neutrophils % (Manual) 54 % (45-75) Lymphocytes % (Manual) 31 % (20-45) Monocytes % (Manual) 9 % (1-10) Eosinophils % (Manual) 6 % (0-3) H Basophils % (Manual) 0 % (0-2) Band Neutrophils 0 % (0-8) Platelet Estimate Decreased L Platelet Morphology Normal Red Blood Cell Morphology Normal Sodium Level 138 MMOL/L (136-145) Potassium Level 3.7 MMOL/L (3.5-5.1) Chloride Level 106 MMOL/L (98-107) Carbon Dioxide Level 26 MMOL/L (21-32) Anion Gap 6 mmol/L (5-15) Blood Urea Nitrogen 7 mg/dL (7-18) Creatinine 0.6 MG/DL (0.55-1.30) Estimat Glomerular Filtration Rate > 60 mL/min (>60) Glucose Level 116 MG/DL (74-106) H Calcium Level 8.2 MG/DL (8.5-10.1) L Height (Feet): 5 Height (Inches): 5.00 Weight (Pounds): 218 General Appearance: WD/WN, no apparent distress, alert Cardiovascular: normal rate Respiratory/Chest: normal breath sounds, no respiratory distress Abdominal Exam: normal bowel sounds, non tender, soft Extremities: normal range of motion, non-tender Jm Swain NP Oct 13, 2018 16:38
--- NOTE | 2018-10-13 19:30 | NUR ---
NURSE NOTES: Received patient awake in bed, able to verbalize needs, no acute s/s of distress. Pt c/o left hand mild pain from previous IV insertion, requesting antimicrobial gel and dressing, will carry out. Bed on lowest position, call light within reach, reinforced teaching about calling for help when going to the bathroom, pt verbalized understanding. 2 side rails up, IVF running at 50ml/hr, IV site asymptomatic, dressing dry and intact. Will monitor closely as patient has episodes of dizziness, Dr tonja.
[2018-10-13 20:00] VITALS: BP 110/60
--- NOTE | 2018-10-13 20:15 | NUR ---
NURSE NOTES: made aware that pt refused iv . Pt remains slightly dizzy. Dr Leger made aware. Gave orders to hold discharge have a MRI done as well as orthostatic blood pressure. Pt also pending orders for Ammonia level. Nephew phoned to inform him of pending orders
--- NOTE | 2018-10-13 20:21 | Pulmonology Progress Note ---
Assessment/Plan Problems: (1) Encephalopathy (2) Hepatic encephalopathy (3) Hypothyroidism (4) Diabetes (5) Chronic liver disease Assessment/Plan eating well sliding scale diabetic diet Syntyroid supplement check h/h Subjective ROS Limited/Unobtainable: No Allergies: Coded Allergies: No Known Allergies (Unverified , 05/28/17) Objective Last 24 Hour Vital Signs Date Time Temp Pulse Resp B/P (MAP) Pulse Ox O2 Delivery O2 Flow Rate FiO2 10/13/18 09:00 Room Air 10/13/18 08:00 97.9 73 18 117/55 (75) 10/13/18 03:45 98.7 66 18 102/61 (75) 98 10/13/18 00:00 98.7 65 18 101/43 (62) 100 10/12/18 21:00 Room Air Intake and Output 10/12/18 10/13/18 19:00 07:00 Intake Total 1440 ml 200 ml Balance 1440 ml 200 ml Intake Oral 840 ml IV Total 600 ml 200 ml # Voids 3 3 # Bowel Movements 2 Objective General Appearance: WD/WN, Obese HEENT: normocephalic Respiratory/Chest: chest wall non-tender, lungs clear Cardiovascular: normal peripheral pulses, normal rate Abdomen: normal bowel sounds, soft, non tender Extremities: no cyanosis Skin: no rash Laboratory Tests 10/13/18 05:45: White Blood Count 3.2L, Red Blood Count 3.47L, Hemoglobin 10.7L, Hematocrit 31.1L, Mean Corpuscular Volume 89, Mean Corpuscular Hemoglobin 30.7, Mean Corpuscular Hemoglobin Concent 34.4, Red Cell Distribution Width 13.9, Platelet Count 54L, Mean Platelet Volume 10.3H, Neutrophils (%) (Auto) , Lymphocytes (%) (Auto) , Monocytes (%) (Auto) , Eosinophils (%) (Auto) , Basophils (%) (Auto) , Differential Total Cells Counted 100, Neutrophils % (Manual) 54, Lymphocytes % ( Manual) 31, Monocytes % (Manual) 9, Eosinophils % (Manual) 6H, Basophils % ( Manual) 0, Band Neutrophils 0, Platelet Estimate DecreasedL, Platelet Morphology Normal, Red Blood Cell Morphology Normal, Sodium Level 138, Potassium Level 3.7, Chloride Level 106, Carbon Dioxide Level 26, Anion Gap 6, Blood Urea Nitrogen 7, Creatinine 0.6, Estimat Glomerular Filtration Rate > 60, Glucose Level 116H, Calcium Level 8.2L Current Medications Medications (Trade) Dose Ordered Sig/Antoni Route PRN Reason Start Time Stop Time Status Last Admin Dose Admin Acetaminophen (Tylenol) 650 mg Q4H PRN ORAL Mild Pain/Temp > 100.5 10/08/18 14:50 11/07/18 14:49 10/12/18 00:45 Al Hydroxide/Mg Hydroxide (Mylanta II) 30 ml Q6H PRN ORAL dyspepsia 10/08/18 14:51 11/07/18 14:50 Clonidine HCl (Catapres Tab) 0.1 mg Q4H PRN ORAL SBP>160 10/08/18 16:45 11/05/18 16:44 Dextrose (Dextrose 50%) 25 ml Q30M PRN IV Hypoglycemia 10/08/18 15:15 11/05/18 16:44 Dextrose (Dextrose 50%) 50 ml Q30M PRN IV Hypoglycemia 10/08/18 15:15 11/05/18 16:44 Dextrose/Sodium Chloride 1,000 ml @ 50 mls/hr Q20H IV 10/08/18 14:50 11/05/18 14:49 10/13/18 02:22 Lactulose (Cephulac) 30 gm THREE TIMES A DAY ORAL 10/08/18 18:00 11/06/18 17:59 10/13/18 17:43 Levothyroxine Sodium (Synthroid) 88 mcg ACBREAKFAST ORAL 10/09/18 06:30 11/06/18 06:29 10/13/18 06:06 Nitroglycerin (Ntg) 0.4 mg Q5M X 3 DOSES PRN SL Prn Chest Pain 10/08/18 15:00 11/05/18 16:44 Ondansetron HCl (Zofran) 4 mg Q6H PRN IVP Nausea & Vomiting 10/08/18 16:45 11/05/18 16:44 Polyethylene Glycol (Miralax) 17 gm HSPRN PRN ORAL Constipation 10/08/18 16:45 11/05/18 16:44 Promethazine HCl/ Codeine (Phenergan with Codeine) 5 ml Q4H PRN ORAL For Cough 10/08/18 16:45 11/05/18 16:44 Rifaximin (Xifaxan) 550 mg EVERY 12 HOURS ORAL 10/08/18 21:00 10/14/18 20:59 10/13/18 08:31 Alexis Mason MD Oct 13, 2018 20:21
--- NOTE | 2018-10-13 20:22 | NUR ---
HAND-OFF: Report given to Delia LOREDO.
--- NOTE | 2018-10-13 20:48 | NUR ---
NURSE NOTES: Orthostatic Blood Pressure Endorsed To Oncoming Nurse
--- NOTE | 2018-10-13 21:22 | General Progress Note ---
Assessment/Plan Problem List: (1) CVA (cerebral vascular accident) ICD Codes: I63.9 - Cerebral infarction, unspecified SNOMED: 887929143, 638936980 Qualifiers: Qualified Codes: I63.9 - Cerebral infarction, unspecified (2) Anemia ICD Codes: D64.9 - Anemia, unspecified SNOMED: 723618191 (3) Hepatic encephalopathy ICD Codes: K72.90 - Hepatic failure, unspecified without coma SNOMED: 42709407 (4) Diabetes ICD Codes: E11.9 - Type 2 diabetes mellitus without complications SNOMED: 27251227 (5) Hypothyroidism ICD Codes: E03.9 - Hypothyroidism, unspecified SNOMED: 20223573 (6) HTN (hypertension) ICD Codes: I10 - Essential (primary) hypertension SNOMED: 70030221 (7) Hypothyroid ICD Codes: E03.9 - Hypothyroidism, unspecified SNOMED: 80355469 Status: progressing Assessment/Plan ataxia r/p cva htn sugar improved vitals stable afebrile Subjective ROS Limited/Unobtainable: Yes Allergies: Coded Allergies: No Known Allergies (Unverified , 05/28/17) Objective Last 24 Hour Vital Signs Date Time Temp Pulse Resp B/P (MAP) Pulse Ox O2 Delivery O2 Flow Rate FiO2 10/13/18 16:00 98.0 60 20 105/57 (73) 100 10/13/18 12:00 97.7 63 20 127/61 (83) 97 10/13/18 09:00 Room Air 10/13/18 08:00 97.9 73 18 117/55 (75) 10/13/18 03:45 98.7 66 18 102/61 (75) 98 10/13/18 00:00 98.7 65 18 101/43 (62) 100 Intake and Output 10/12/18 10/13/18 19:00 07:00 Intake Total 1440 ml 200 ml Balance 1440 ml 200 ml Intake Oral 840 ml IV Total 600 ml 200 ml # Voids 3 3 # Bowel Movements 2 Laboratory Tests 10/13/18 05:45: White Blood Count 3.2L, Red Blood Count 3.47L, Hemoglobin 10.7L, Hematocrit 31.1L, Mean Corpuscular Volume 89, Mean Corpuscular Hemoglobin 30.7, Mean Corpuscular Hemoglobin Concent 34.4, Red Cell Distribution Width 13.9, Platelet Count 54L, Mean Platelet Volume 10.3H, Neutrophils (%) (Auto) , Lymphocytes (%) (Auto) , Monocytes (%) (Auto) , Eosinophils (%) (Auto) , Basophils (%) (Auto) , Differential Total Cells Counted 100, Neutrophils % (Manual) 54, Lymphocytes % ( Manual) 31, Monocytes % (Manual) 9, Eosinophils % (Manual) 6H, Basophils % ( Manual) 0, Band Neutrophils 0, Platelet Estimate DecreasedL, Platelet Morphology Normal, Red Blood Cell Morphology Normal, Sodium Level 138, Potassium Level 3.7, Chloride Level 106, Carbon Dioxide Level 26, Anion Gap 6, Blood Urea Nitrogen 7, Creatinine 0.6, Estimat Glomerular Filtration Rate > 60, Glucose Level 116H, Calcium Level 8.2L Height (Feet): 5 Height (Inches): 5.00 Weight (Pounds): 218 Neck: supple Cardiovascular: normal rate Respiratory/Chest: lungs clear Abdomen: soft Anya Lindo MD Oct 13, 2018 21:22
[2018-10-14] VITALS: BP 107/57
[2018-10-14 04:00] VITALS: BP 113/59
--- NOTE | 2018-10-14 04:30 | NUR ---
NURSE NOTES: Patient pulled out IV. Reinserted R arm 22 gauge. IVF running at 50ml/hr. Addendum: 10/14/18 at 0617 by Roque Lin RN Correction: LEFT FOREARM 22 GAUGE. Documented correctly on Shift Mandatory screen.
--- NOTE | 2018-10-14 05:30 | Progress Note ---
DATE: 10/12/2018 NOTE: POOR AUDIO NEUROLOGIC PROGRESS NOTE SUBJECTIVE: The patient's mental status is improved. She still complains of dizziness generally when she walks and has an unsteady gait. We tried to quantify, which she has dizzy spells, possibly with movement of the environment or lightheadedness. However, she states it only occurred with walking. Her hearing is normal. There is no nausea or vomiting. There is no tinnitus or double vision, but she does have trouble seeing. OBJECTIVE: VITAL SIGNS: Temperature is 97.9 degrees, blood pressure is 123/55, respiratory rate is 18, pulse is 73 and regular. MENTAL STATUS: She knows the date is 10/12/2018 and knows it is Sunday. Place, she knows she is at [facility], but she thinks she is on the second floor. Person, she is oriented to person. Language function, spelling world, but slow. She did spell world forwards and backwards without too much difficulty. CRANIAL NERVE II: Visual tyler are probably partially intact bilaterally. CRANIAL NERVES III, IV, AND : Extraocular motility is full. Pupils are approximately 5 mm, round, and less reactive. CRANIAL NERVE V: Corneal sensation and facial sensation is intact. Pterygoid strength is 5/5. CRANIAL NERVE VII: Facial strength is 5/5. CRANIAL NERVE VIII: Auditory acuity is intact bilaterally. CRANIAL NERVES IX AND X: Gag is intact bilaterally. CRANIAL NERVES XI AND XII: Normal. MUSCULOSKELETAL: Muscle bulk is symmetrical. Tone is normal. Strength 5/5. There is no asterixis. Reflexes are trace in the upper extremities, trace +1 at the knees, 0 at the ankles with downgoing toes when testing for Babinski response. COORDINATION: Txlejo-sc-fhwe and mevb-mq-zeng testing are probably normal. Gait and station, she has an unsteady, but normal based gait, needed some assistance, complaining of dizzy spells. IMPRESSION: I am going to get a serum ammonia test on her, although I doubt she has asterixis. I am also going to obtain an MRI scan of her brain. I do not think at this point she needs an MRA of her neck or brain. Dizzy spells are difficult to evaluate. It could be positional, but it is hard to tell. Apparently, it has been there for a while. She may need gait training as an outpatient,. thank you for this case. PLAN: 1. MRI scan of the brain. 2. Serum ammonia. 3. I will speak about this case tomorrow. Parth MD Hans DR: Emeterio JOB#: [id number] CC: STEFFEN
--- NOTE | 2018-10-14 07:23 | NUR ---
HAND-OFF: Report given to FACUNDO Allen.
--- NOTE | 2018-10-14 07:51 | NUR ---
NURSE NOTES: Pt has pending MRI . Received sleeping. During rounds iv not on attempted to restart, pt refused. Waved hand no. Will inform the Dr of refusal . Informed Dr Mason yesterday that pt was refusing placement of IV
[2018-10-14 08:00] VITALS: BP 125/70
[2018-10-14] MEDS: Lactulose 20gm/30ml UDC ORAL SCH ×3 (09:13→18:28)
--- NOTE | 2018-10-14 10:38 | GI Progress Note ---
Assessment/Plan Problems: (1) Chronic liver disease ICD Codes: K76.9 - Liver disease, unspecified SNOMED: 942534677 (2) Encephalopathy ICD Codes: G93.40 - Encephalopathy, unspecified SNOMED: 65760622 (3) Dizziness ICD Codes: R42 - Dizziness and giddiness SNOMED: 609999590, 054172516 (4) Anemia ICD Codes: D64.9 - Anemia, unspecified SNOMED: 624761341 (5) CVA (cerebral vascular accident) ICD Codes: I63.9 - Cerebral infarction, unspecified SNOMED: 007344832, 824586886 Qualifiers: Qualified Codes: I63.9 - Cerebral infarction, unspecified (6) Diabetes ICD Codes: E11.9 - Type 2 diabetes mellitus without complications SNOMED: 46423324 Status: unchanged Status Narrative Discussed with Dr. Madden Assessment/Plan SUMMARY OF FINDINGS: 1. Gastritis, status post biopsy. 2. Gastric polyps, status post biopsy. 3. Esophageal varices, status post banding x6. RECOMMENDATIONS: Follow-up brain MRI Advance diet The patient will need outpatient follow up in 4 to 6 weeks for repeat endoscopy and repeat banding. cont lactulose + xifaxan prn transfusions follow labs DC planning The patient was seen and examined at bedside and all new and available data was reviewed in the patients chart. I agree with the above findings, impression and plan. (Patient seen earlier today. Signature stamp does not reflect patient encounter time.). - Shankar Madden MD Subjective Subjective Abdominal pain, nausea vomiting, generalized weakness all improved Has new onset of dizziness Tolerating diet Objective Last 24 Hour Vital Signs Date Time Temp Pulse Resp B/P (MAP) Pulse Ox O2 Delivery O2 Flow Rate FiO2 10/14/18 04:12 97.4 10/14/18 04:00 97.1 70 20 113/59 (77) 99 10/14/18 00:00 97.4 60 16 107/57 (74) 99 10/13/18 21:00 Room Air 10/13/18 20:00 62 65 71 10/13/18 20:00 98.0 62 18 110/60 (77) 99 10/13/18 16:00 98.0 60 20 105/57 (73) 100 10/13/18 12:00 97.7 63 20 127/61 (83) 97 Intake and Output 2/10/19 2/11/19 18:59 06:59 Intake Total 1000 ml 1050 ml Balance 1000 ml 1050 ml Intake Oral 1000 ml 500 ml IV Total 550 ml # Voids 6 5 # Bowel Movements 1 Laboratory Tests Test 10/14/18 06:50 Ammonia 93 umol/L (11-32) H Height (Feet): 5 Height (Inches): 5.00 Weight (Pounds): 218 General Appearance: WD/WN, no apparent distress, alert, obese Cardiovascular: normal rate Respiratory/Chest: normal breath sounds, no respiratory distress Abdominal Exam: normal bowel sounds, non tender, soft Extremities: normal range of motion, non-tender Jm Swain NP Oct 14, 2018 10:38
[2018-10-14] MEDS: D5 1/2NS 1,000 ML IV SCH (10:50)
--- NOTE | 2018-10-14 10:52 | NUR ---
MRI BRAIN COMPLETED. PLEASE NOTE PT HAD ONLY ONE EARRING (NOT TWO) IN EAR AND A NECKLACE WITH A HEART CHARM. FACUNDO CARLTON WAS INFORMED.
[2018-10-14 12:00] VITALS: BP 101/63
--- NOTE | 2018-10-14 12:12 | Infectious Diseases Prog Note ---
Assessment/Plan Assessment/Plan 63 yo female with PMHx of DM, HTN, Seizures and fatty liver who was brought to the ED by her nephew 10/06/18 for dizziness. UTI, sp rx UA - positive for bacteria and trichomonas. UCX - E.coli Afebrile No leukocytosis Probable TIA vs stroke vs seizure DM HTN Seizures Fatty liver S/P EGD 1. Gastritis, status post biopsy. 2. Gastric polyps, status post biopsy. 3. Esophageal varices, status post banding x6. Plan - Continue to Monitor off abx - 10/09/18 SP Ceftriaxone #3 for bacterial UTI - 10/07/18 S/P Flagyl 2g x 1 for trichomonas We will continue to follow the patient during this hospitalization. Subjective Allergies: Coded Allergies: No Known Allergies (Unverified , 05/28/17) Subjective afebrile no leukocytosis off abx Objective Vital Signs Last 24 Hour Vital Signs Date Time Temp Pulse Resp B/P (MAP) Pulse Ox O2 Delivery O2 Flow Rate FiO2 10/14/18 04:12 97.4 10/14/18 04:00 97.1 70 20 113/59 (77) 99 10/14/18 00:00 97.4 60 16 107/57 (74) 99 10/13/18 21:00 Room Air 10/13/18 20:00 62 65 71 10/13/18 20:00 98.0 62 18 110/60 (77) 99 10/13/18 16:00 98.0 60 20 105/57 (73) 100 Height (Feet): 5 Height (Inches): 5.00 Weight (Pounds): 218 Objective Gen: NAD, sitting in bed HEENT: NCAT, MMM, EOMI LUNGS: CTAB ABD: Soft, NT, ND + BS Laboratory Tests Test 10/14/18 06:50 Ammonia 93 umol/L (11-32) H Current Medications Medications (Trade) Dose Ordered Sig/Antoni Route PRN Reason Start Time Stop Time Status Last Admin Dose Admin Acetaminophen (Tylenol) 650 mg Q4H PRN ORAL Mild Pain/Temp > 100.5 10/08/18 14:50 11/07/18 14:49 10/14/18 03:42 Al Hydroxide/Mg Hydroxide (Mylanta II) 30 ml Q6H PRN ORAL dyspepsia 10/08/18 14:51 3/7/19 14:50 Clonidine HCl (Catapres Tab) 0.1 mg Q4H PRN ORAL SBP>160 10/08/18 16:45 11/05/18 16:44 Dextrose (Dextrose 50%) 25 ml Q30M PRN IV Hypoglycemia 10/08/18 15:15 11/05/18 16:44 Dextrose (Dextrose 50%) 50 ml Q30M PRN IV Hypoglycemia 10/08/18 15:15 11/05/18 16:44 Dextrose/Sodium Chloride 1,000 ml @ 50 mls/hr Q20H IV 10/08/18 14:50 11/05/18 14:49 10/13/18 02:22 Lactulose (Cephulac) 30 gm THREE TIMES A DAY ORAL 10/08/18 18:00 11/06/18 17:59 10/14/18 09:13 Levothyroxine Sodium (Synthroid) 88 mcg ACBREAKFAST ORAL 10/09/18 06:30 11/06/18 06:29 10/14/18 05:35 Nitroglycerin (Ntg) 0.4 mg Q5M X 3 DOSES PRN SL Prn Chest Pain 10/08/18 15:00 11/05/18 16:44 Ondansetron HCl (Zofran) 4 mg Q6H PRN IVP Nausea & Vomiting 10/08/18 16:45 11/05/18 16:44 Polyethylene Glycol (Miralax) 17 gm HSPRN PRN ORAL Constipation 10/08/18 16:45 11/05/18 16:44 Promethazine HCl/ Codeine (Phenergan with Codeine) 5 ml Q4H PRN ORAL For Cough 10/08/18 16:45 11/05/18 16:44 Rifaximin (Xifaxan) 550 mg EVERY 12 HOURS ORAL 10/08/18 21:00 10/14/18 20:59 10/14/18 09:13 Mehreen Thomas M.D. Oct 14, 2018 12:12
--- NOTE | 2018-10-14 13:19 | NUR ---
AIR POLLUTION INSPECTORAVIATION TECHNICAL SYSTEMS SPECIALIST SI; ATAXIA T. 97.4 HR 60 RR 20 B/P 107/57 RA 98% AMMONIA 93 IS: IVF D5NS @ 50ML/HR SYNTHROID PO RIFAXIMIN PO MRI BRAIN MED/SURG STATUS
--- NOTE | 2018-10-14 13:24 | General Progress Note ---
Assessment/Plan Problem List: (1) HTN (hypertension) ICD Codes: I10 - Essential (primary) hypertension SNOMED: 35222158 (2) Hypothyroid ICD Codes: E03.9 - Hypothyroidism, unspecified SNOMED: 11477950 (3) Hypothyroidism ICD Codes: E03.9 - Hypothyroidism, unspecified SNOMED: 87139839 (4) Diabetes ICD Codes: E11.9 - Type 2 diabetes mellitus without complications SNOMED: 86199718 (5) Chronic liver disease ICD Codes: K76.9 - Liver disease, unspecified SNOMED: 812814144 (6) Dizziness ICD Codes: R42 - Dizziness and giddiness SNOMED: 123907583, 891578441 (7) UTI (urinary tract infection) ICD Codes: N39.0 - Urinary tract infection, site not specified SNOMED: 63826145, 736402117 Qualifiers: Qualified Codes: N39.0 - Urinary tract infection, site not specified (8) CVA (cerebral vascular accident) ICD Codes: I63.9 - Cerebral infarction, unspecified SNOMED: 713761450, 604134975 Qualifiers: Qualified Codes: I63.9 - Cerebral infarction, unspecified Status: stable, progressing Assessment/Plan pt diet abx heme flu cbc bmp am dc plan w hh Subjective Constitutional: Reports: weakness Allergies: Coded Allergies: No Known Allergies (Unverified , 05/28/17) All Systems: reviewed and negative except above Subjective no compliants calm Objective Last 24 Hour Vital Signs Date Time Temp Pulse Resp B/P (MAP) Pulse Ox O2 Delivery O2 Flow Rate FiO2 10/14/18 04:12 97.4 10/14/18 04:00 97.1 70 20 113/59 (77) 99 10/14/18 00:00 97.4 60 16 107/57 (74) 99 10/13/18 21:00 Room Air 10/13/18 20:00 62 65 71 10/13/18 20:00 98.0 62 18 110/60 (77) 99 10/13/18 16:00 98.0 60 20 105/57 (73) 100 Intake and Output 10/13/18 10/14/18 18:59 06:59 Intake Total 1000 ml 1050 ml Balance 1000 ml 1050 ml Intake Oral 1000 ml 500 ml IV Total 550 ml # Voids 6 5 # Bowel Movements 1 Laboratory Tests 10/14/18 06:50: Ammonia 93H Height (Feet): 5 Height (Inches): 5.00 Weight (Pounds): 218 General Appearance: alert EENT: normal ENT inspection Neck: normal alignment Cardiovascular: normal peripheral pulses, normal rate, regular rhythm Respiratory/Chest: chest wall non-tender, lungs clear, normal breath sounds Abdomen: normal bowel sounds, non tender, soft Extremities: normal inspection Edema: no edema noted Arm (L), no edema noted Arm (R), no edema noted Leg (L), no edema noted Leg (R), no edema noted Pedal (L), no edema noted Pedal (R), no edema noted Generalized Neurologic: responsive, motor weakness Skin: normal pigmentation, warm/dry Saul Day DO Oct 14, 2018 13:24
--- NOTE | 2018-10-14 13:35 | NUR ---
ST NOTES: SWALLOW STATUS: GI UPDATES: HAS GI ISSUES DUE TO FATTY LIVER AND HAS ESOPHAGEAL VARICES, GASTRITIS, AND BELCHES. GI ON HER CASE. PATIENT IS ALERT AND ABLE TO CONVERSE IN [place] ([place]) WITH FAMILY (SPAN/CONGOLESE-SPEAKING NIECE) PRESENT. PER NIECE, PATIENT WANTS A SANDWICH AND SHE REFUSED HER CHICKEN LUNCH. GOALS MET FOR INTAKE 100% AND ON AN UPGRADED DIET BY MD (SOFT CHEW WITH THIN LIQUIDS). NO OVERT S/S OF ASP REPORTED PER RN. TRIALS OF WATER SEQUENTIAL SIPS, NO OVERT ASP BUT MAY HAVE SOME SILENT ASP RISK (HAD BRAIN MRI RESULTS PENDING CT HEAD NEG). GOALS MET FOR STAFF (FACUNDO RING AND ARTURO MOREAU) EDUCATED/TRAINED IN ASP PRE ABOVE BED. SPOKE WITH RD TO SEE IF SHE NEEDS CCHO-MED DIET SHE HAS DIABETES. PER RD, SHE NEEDS TO BE ON CCHO-LOW AND CARDIAC DIET (WILL CHANGE SIGN AND TELL THE RN). PATIENT TOLERATED PUDDING TSP WELL BUT DID TALK WITH MASTICATED CRACKER IN HER MOUTH (DID NOT CHOKE THOUGH). FAIR SPEED OF INTAKE. WILL HOLD ON MOD BARIUM SWALLOW STUDY ( IP OR OP IF DC) TO R/O A SILENT ASPIRATION, FURTHER ASSESS SWALLOW, AND ATTEMPT TRIAL TX IF NEEDED. THERE IS NO CXR BUT DR SILVA NOTES LUNGS ARE CLEAR ON 10/13/18. WILL PURSUE MORE AGGRESSIVELY IF STROKE IS CONFIRMED ON MRI. DR RODRIGUEZ IS HER NEUROLOGIST AND NAME GIVEN TO NIECE WHO WANTED TO TALK TO HER. WILL HAVE DIET TYPE SEE HER FOR FOOD PREFERENCES. SPEECH STATUS: BILINGUAL ([place]OL[place] FROM [facility]) BUT WILL RESPOND IN CONGOL[place] AT TIMES WHEN SPOKEN TO IN [place]. SCREENED HER SPEECH - PER DR RODRIGUEZ HAS DIFFUSE MILD ENCEPHALOPATHY, PER GI HAS HEPATIC ENCEPHALOPATHY. STILL TRYING TO R/O CVA (DYSARTHRIA, COG MEMORY, AND ATAXIA PROBLEMS FOR A FEW MONTHS), MRI RESULTS NOT IN YET. TONGUE/LIP MOVEMENTS/STRENGTH/ROM GROSSLY FUNCTIONAL. MILD DYSARTHRIA WITH SLOW RATE OF SPEECH AND MILD ARTICULATORY IMPRECISION. SEEMS TO HAVE SOME PAUSES FOR WORD-FINDING DIFFICULTY BUT ABLE TO EXPRESS NEEDS AND ANSWER IN SHORT SENTENCES. SEEMS TO HAVE SOME CONFUSED LANGUAGE DUE TO COGNITIVE DEFICITS. PER NIECE, SHE HAS SOME SHORT TERM MEMORY PROBLEMS. GROSSLY FUNCTIONAL WITH SIMPLE QUESTIONS IN [place]. PATIENT ADMITTED THAT IT IS HARDER FOR HER TO WRITE WITH HER RIGHT HAND NOW. PLAN: COMPLETE FORMAL SPEECH AND LANGUAGE EVAL TOMORROW. CONTINUE WITH CURRENT DIET/LIQUIDS WITH POSTED ASP PRECAUTIONS (DO NOT TALK WITH PO INTAKE). MOD BARIUM SWALLOW STUDY IP OR OP IF DC CONTINUE WITH DYSPHAGIA MGMT AND TX (SEE SWALLOW EVAL OR FUTURE MBS REPORT FOR SPECIFICS). Addendum: 10/14/18 at 1407 by ROBLES MACKEY HIV PREVENTION SPECIALIST WEEKLY SWALLOW/SPEECH THERAPY SUMMARY: SEEN FOR DYSPHAGIA AND SPEECH SCREEN, SEE FULL REPORT OF SWALLOW EVAL AND SPEECH EVAL TO FOLLOW. GI UPDATES: HAS GI ISSUES DUE TO FATTY LIVER AND HAS ESOPHAGEAL VARICES, GASTRITIS, AND BELCHES. GI ON HER CASE. PATIENT IS ALERT AND ABLE TO CONVERSE IN [place] ([facility]) WITH FAMILY (SPAN/CONGOLESE-SPEAKING NIECE) PRESENT. PER NIECE, PATIENT WANTS A SANDWICH AND SHE REFUSED HER CHICKEN LUNCH. GOALS MET FOR INTAKE 100% AND ON AN UPGRADED DIET BY MD (SOFT CHEW WITH THIN LIQUIDS). NO OVERT S/S OF ASP REPORTED PER RN. TRIALS OF WATER SEQUENTIAL SIPS, NO OVERT ASP BUT MAY HAVE SOME SILENT ASP RISK (HAD BRAIN MRI RESULTS PENDING CT HEAD NEG). GOALS MET FOR STAFF (FACUNDO RING AND ARTURO MOREAU) EDUCATED/TRAINED IN ASP PRE ABOVE BED. SPOKE WITH RD TO SEE IF SHE NEEDS CCHO-MED DIET SHE HAS DIABETES. PER RD, SHE NEEDS TO BE ON CCHO-LOW AND CARDIAC DIET (WILL CHANGE SIGN AND TELL THE RN). PATIENT TOLERATED PUDDING TSP WELL BUT DID TALK WITH MASTICATED CRACKER IN HER MOUTH (DID NOT CHOKE THOUGH). FAIR SPEED OF INTAKE. WILL HOLD ON MOD BARIUM SWALLOW STUDY ( IP OR OP IF DC) TO R/O A SILENT ASPIRATION, FURTHER ASSESS SWALLOW, AND ATTEMPT TRIAL TX IF NEEDED. THERE IS NO CXR BUT DR SILVA NOTES LUNGS ARE CLEAR ON 10/13/18. WILL PURSUE MORE AGGRESSIVELY IF STROKE IS CONFIRMED ON MRI. DR RODRIGUEZ IS HER NEUROLOGIST AND NAME GIVEN TO NIECE WHO WANTED TO TALK TO HER. WILL HAVE DIET TYPE SEE HER FOR FOOD PREFERENCES. SPEECH STATUS: BILINGUAL ([place] FROM [facility]) BUT WILL RESPOND IN CONGOL[place] AT TIMES WHEN SPOKEN TO IN [place]. SCREENED HER SPEECH - PER DR RODRIGUEZ HAS DIFFUSE MILD ENCEPHALOPATHY, PER GI HAS HEPATIC ENCEPHALOPATHY. STILL TRYING TO R/O CVA (DYSARTHRIA, COG MEMORY, AND ATAXIA PROBLEMS FOR A FEW MONTHS), MRI RESULTS NOT IN YET. TONGUE/LIP MOVEMENTS/STRENGTH/ROM GROSSLY FUNCTIONAL. MILD DYSARTHRIA WITH SLOW RATE OF SPEECH AND MILD ARTICULATORY IMPRECISION. SEEMS TO HAVE SOME PAUSES FOR WORD-FINDING DIFFICULTY BUT ABLE TO EXPRESS NEEDS AND ANSWER IN SHORT SENTENCES. SEEMS TO HAVE SOME CONFUSED LANGUAGE DUE TO COGNITIVE DEFICITS. PER NIECE, SHE HAS SOME SHORT TERM MEMORY PROBLEMS. GROSSLY FUNCTIONAL WITH SIMPLE QUESTIONS IN [place]. PATIENT ADMITTED THAT IT IS HARDER FOR HER TO WRITE WITH HER RIGHT HAND NOW. PLAN: COMPLETE FORMAL SPEECH AND LANGUAGE EVAL TOMORROW. CONTINUE WITH CURRENT DIET/LIQUIDS WITH POSTED ASP PRECAUTIONS (DO NOT TALK WITH PO INTAKE). MOD BARIUM SWALLOW STUDY IP OR OP IF DC CONTINUE WITH DYSPHAGIA MGMT AND TX (SEE SWALLOW EVAL OR FUTURE MBS REPORT FOR SPECIFICS).
--- NOTE | 2018-10-14 14:01 | NUR ---
RD ASSESSMENT & RECOMMENDATIONS SEE CARE ACTIVITY FOR COMPLETE ASSESSMENT DAILY ESTIMATED NEEDS: Needs based on liver dz, obesity/ 67kg adj 22-27 kcals/kg 1313-5338 total kcals 1-1.5 g protein/kg 67-101 g total protein 25-30 mL/kg 4269-6805 total fluid mLs NUTRITION DIAGNOSIS: 1) Decreased sodium and fat needs R/T liver dysfunction as evidenced by pt w/ Cirrhosis with elev T Bili (3.2), elev ammonia (144->93), s/p esophageal banding. CURRENT DIET:CARDIAC, CCHO LOW/ soft easy chew PO DIET RECOMMENDATIONS: CARDIAC + CCHO LOW/ texture per MECHANICAL PRESS OPERATOR ADDITIONAL RECOMMENDATIONS: 1) Calibrated bed scale wt or standing wt for eval of CBW 2) Monitor BGs, need for SSI/ hypoglycemic agents 3) A1c for eval- h/o DM .
--- NOTE | 2018-10-14 14:35 | Pulmonology Progress Note ---
Assessment/Plan Problems: (1) Encephalopathy (2) Hepatic encephalopathy (3) Hypothyroidism (4) Diabetes (5) Chronic liver disease Assessment/Plan eating well sliding scale diabetic diet Syntyroid supplement check h/h dc planning in progress Subjective ROS Limited/Unobtainable: No Constitutional: Reports: no symptoms HEENT: Repors: no symptoms Respiratory: Reports: no symptoms Allergies: Coded Allergies: No Known Allergies (Unverified , 05/28/17) Objective Last 24 Hour Vital Signs Date Time Temp Pulse Resp B/P (MAP) Pulse Ox O2 Delivery O2 Flow Rate FiO2 10/14/18 04:12 97.4 10/14/18 04:00 97.1 70 20 113/59 (77) 99 10/14/18 00:00 97.4 60 16 107/57 (74) 99 10/13/18 21:00 Room Air 10/13/18 20:00 62 65 71 10/13/18 20:00 98.0 62 18 110/60 (77) 99 10/13/18 16:00 98.0 60 20 105/57 (73) 100 Intake and Output 10/13/18 10/14/18 18:59 06:59 Intake Total 1000 ml 1050 ml Balance 1000 ml 1050 ml Intake Oral 1000 ml 500 ml IV Total 550 ml # Voids 6 5 # Bowel Movements 1 Objective General Appearance: WD/WN, Obese HEENT: normocephalic Respiratory/Chest: chest wall non-tender, lungs clear Cardiovascular: normal peripheral pulses, normal rate Abdomen: normal bowel sounds, soft, non tender Extremities: no cyanosis Skin: no rash Laboratory Tests 10/14/18 06:50: Ammonia 93H Current Medications Medications (Trade) Dose Ordered Sig/Antoni Route PRN Reason Start Time Stop Time Status Last Admin Dose Admin Acetaminophen (Tylenol) 650 mg Q4H PRN ORAL Mild Pain/Temp > 100.5 10/08/18 14:50 11/07/18 14:49 10/14/18 03:42 Al Hydroxide/Mg Hydroxide (Mylanta II) 30 ml Q6H PRN ORAL dyspepsia 10/08/18 14:51 11/07/18 14:50 Clonidine HCl (Catapres Tab) 0.1 mg Q4H PRN ORAL SBP>160 10/08/18 16:45 11/05/18 16:44 Dextrose (Dextrose 50%) 25 ml Q30M PRN IV Hypoglycemia 10/08/18 15:15 11/05/18 16:44 Dextrose (Dextrose 50%) 50 ml Q30M PRN IV Hypoglycemia 10/08/18 15:15 11/05/18 16:44 Dextrose/Sodium Chloride 1,000 ml @ 50 mls/hr Q20H IV 10/08/18 14:50 11/05/18 14:49 10/13/18 02:22 Lactulose (Cephulac) 30 gm THREE TIMES A DAY ORAL 10/08/18 18:00 11/06/18 17:59 10/14/18 09:13 Levothyroxine Sodium (Synthroid) 88 mcg ACBREAKFAST ORAL 10/09/18 06:30 11/06/18 06:29 10/14/18 05:35 Nitroglycerin (Ntg) 0.4 mg Q5M X 3 DOSES PRN SL Prn Chest Pain 10/08/18 15:00 11/05/18 16:44 Ondansetron HCl (Zofran) 4 mg Q6H PRN IVP Nausea & Vomiting 10/08/18 16:45 11/05/18 16:44 Polyethylene Glycol (Miralax) 17 gm HSPRN PRN ORAL Constipation 10/08/18 16:45 11/05/18 16:44 Promethazine HCl/ Codeine (Phenergan with Codeine) 5 ml Q4H PRN ORAL For Cough 10/08/18 16:45 11/05/18 16:44 Rifaximin (Xifaxan) 550 mg EVERY 12 HOURS ORAL 10/08/18 21:00 10/14/18 20:59 10/14/18 09:13 Alexis Mason MD Oct 14, 2018 14:35
--- NOTE | 2018-10-14 15:40 | Diagnostic Imaging Report ---
Indication: Dizziness and unsteady gait Technique: sagittal T1 fast spin echo, axial T1 FLAIR, axial T2 FLAIR, axial T2 FS PROPELLER, axial T2* GRE, axial diffusion weighted images. ADC and exponential ADC maps generated Comparison: Reference made to head CT dated 10/06/2018 Findings: No abnormal areas of restricted diffusion to suggest acute infarction. No acute hemorrhage or edema. No mass effect nor midline shift. Normal size ventricles and extra axial CSF spaces. There is minimal periventricular deep white matter high T2 signal. The vascular flow voids are preserved. Visualized orbits and sinuses are unremarkable. Impression: Negative for acute intracranial bleed, mass effect, or infarct Minimal periventricular deep white matter high T2 signal, consistent with chronic ischemic changes
[2018-10-14 16:00] VITALS: BP 96/59
[2018-10-14 20:00] VITALS: BP 107/56
--- NOTE | 2018-10-14 20:23 | NUR ---
NURSE NOTES: Went down for MRI earlier in shift. required supervision and assistance for bathroom need. Refused iv multiple times . Dr is aware. Pt refused orthostatic blood pressure earlier in shift
--- NOTE | 2018-10-14 20:29 | NUR ---
HAND-OFF: Report given to Kelly LOREDO made aware of pt impulsive bx lacks safety awareness.
--- NOTE | 2018-10-14 20:43 | NUR ---
NURSE NOTES: Received patient from FACUNDO Allen. Patient is in bed, in room air, not in respiratory distress. Bed is in the lowest position, locked, call light is within reach. Will continue to monitor patient.
[2018-10-15] VITALS: BP 134/49
[2018-10-15 04:00] VITALS: BP 126/52
--- NOTE | 2018-10-15 06:00 | NUR ---
NURSE NOTES: Patient refused orthostatic v/s but participated in regular vital signs monitoring @ 0400.
[2018-10-15] MEDS: D5 1/2NS 1,000 ML IV SCH (06:16)
--- NOTE | 2018-10-15 07:40 | NUR ---
HAND-OFF: Report given to FACUNDO Canchola.
--- NOTE | 2018-10-15 07:42 | NUR ---
HAND-OFF: Report given FACUNDO Wilcox..
--- NOTE | 2018-10-15 07:45 | NUR ---
NURSE NOTES: Received patient from Era RN. Patient is up in chair, not in respiratory distress. Patient is ambulatory with assist. Call light is within reach. Reminded patient to call nurses if needed.Denies any pain or discomfort. Received patient with IV but disconnected from IVF @ this time. Patient wants to be disconnected from IVF. Will follow up.Will continue plan of care.
[2018-10-15 08:00] VITALS: BP 137/80
[2018-10-15 08:08] LABS: HEMOGLOBIN 10.7 G/DL (12.0-16.0); MEAN CORPUSCULAR VOLUME 89 FL (80-99); PLATELET COUNT 55 K/UL (150-450); RED BLOOD COUNT 3.49 M/UL (4.20-5.40); RED CELL DISTRIBUTION WIDTH 13.5 % (11.6-14.8); WHITE BLOOD COUNT 3.3 K/UL (4.8-10.8)
[2018-10-15] MEDS: Lactulose 20gm/30ml UDC ORAL SCH ×3 (08:15→17:56)
[2018-10-15 08:16] LABS: ANION GAP 8 mmol/L (5-15); BLOOD UREA NITROGEN 9 mg/dL (7-18); CALCIUM 8.4 MG/DL (8.5-10.1); CARBON DIOXIDE 26 MMOL/L (21-32); CHLORIDE 106 MMOL/L (98-107); CREATININE 0.7 MG/DL (0.55-1.30); POTASSIUM 3.8 MMOL/L (3.5-5.1); SODIUM 140 MMOL/L (136-145)
--- NOTE | 2018-10-15 09:32 | Cardiology Report ---
APPROVED REPORT EXAM: Two-dimensional and M-mode echocardiogram with Doppler and color Doppler. INDICATION LV FUNCTION M-Mode DIMENSIONS IVSd1.3 (0.7-1.1cm)Left Atrium (MM)3.6 (1.6-4.0cm) LVDd5.3 (3.5-5.6cm)Aortic Root3.1 (2.0-3.7cm) PWd1.0 (0.7-1.1cm)Aortic Cusp Exc.1.5 (1.5-2.0cm) IVSs1.3 cm LVDs3.5 (2.5-4.0cm) PWs1.2 cm Normal left ventricular chamber size, systolic function and wall motion. Left ventricular ejection fraction estimated to be 55-60%. No evidence left ventricular hypertrophy. Anterior Echo-free space, may be due to pericardial fat or effusion. All other cardiac chamber sizes are within normal limits. Mild aortic valve sclerosis with adequate cusp excursion. Mildly thickened mitral valve leaflets with normal excursion. Mitral annulus and aortic root calcification. Pulmonic valve not well visualized. IVC at normal size with physiologic collapse. A color flow and spectral Doppler study was performed and revealed: No aortic insufficiency . Normal left ventricular diastolic function . Trace mitral regurgitation. Mild tricuspid regurgitation. Tricuspid systolic velocities suggests peak right ventricular systolic pressure of 34mmHg.
[2018-10-15 12:00] VITALS: BP 120/55
--- NOTE | 2018-10-15 14:43 | General Progress Note ---
Assessment/Plan Problem List: (1) HTN (hypertension) ICD Codes: I10 - Essential (primary) hypertension SNOMED: 04072317 (2) Hypothyroid ICD Codes: E03.9 - Hypothyroidism, unspecified SNOMED: 69844661 (3) Hypothyroidism ICD Codes: E03.9 - Hypothyroidism, unspecified SNOMED: 13068085 (4) Diabetes ICD Codes: E11.9 - Type 2 diabetes mellitus without complications SNOMED: 87999691 (5) Chronic liver disease ICD Codes: K76.9 - Liver disease, unspecified SNOMED: 503954698 (6) Dizziness ICD Codes: R42 - Dizziness and giddiness SNOMED: 116053421, 368442032 (7) UTI (urinary tract infection) ICD Codes: N39.0 - Urinary tract infection, site not specified SNOMED: 06937611, 484623264 Qualifiers: Qualified Codes: N39.0 - Urinary tract infection, site not specified (8) CVA (cerebral vascular accident) ICD Codes: I63.9 - Cerebral infarction, unspecified SNOMED: 422192126, 890366389 Qualifiers: Qualified Codes: I63.9 - Cerebral infarction, unspecified (9) Cirrhosis ICD Codes: K74.60 - Unspecified cirrhosis of liver SNOMED: 76722791 (10) Varices of other sites ICD Codes: I86.8 - Varicose veins of other specified sites SNOMED: 223094104 Status: stable, progressing Assessment/Plan pt diet abx heme flu cbc bmp am dc plan w hh if clear Subjective Constitutional: Reports: weakness Allergies: Coded Allergies: No Known Allergies (Unverified , 05/28/17) All Systems: reviewed and negative except above Subjective no compliants calm Objective Last 24 Hour Vital Signs Date Time Temp Pulse Resp B/P (MAP) Pulse Ox O2 Delivery O2 Flow Rate FiO2 10/15/18 12:00 98.1 65 20 120/55 (76) 96 10/15/18 09:00 Room Air 10/15/18 08:00 97.7 70 18 137/80 (99) 100 10/15/18 04:00 97.6 70 17 126/52 (76) 98 10/15/18 04:00 0 0 0 10/15/18 00:00 97.5 62 17 134/49 (77) 100 2/11/19 21:00 Room Air 10/14/18 20:00 97.8 65 18 107/56 (73) 100 10/14/18 19:54 0 0 0 10/14/18 16:00 98.3 98 18 96/59 (71) 98 Intake and Output 10/14/18 10/15/18 18:59 06:59 Intake Total 1150 ml 100 ml Balance 1150 ml 100 ml Intake Oral 1000 ml IV Total 150 ml 100 ml # Voids 2 4 Laboratory Tests 10/15/18 07:04: White Blood Count 3.3L, Red Blood Count 3.49L, Hemoglobin 10.7L, Hematocrit 31.0L, Mean Corpuscular Volume 89, Mean Corpuscular Hemoglobin 30.7, Mean Corpuscular Hemoglobin Concent 34.5, Red Cell Distribution Width 13.5, Platelet Count 55L, Mean Platelet Volume 9.5, Neutrophils (%) (Auto) , Lymphocytes (%) ( Auto) , Monocytes (%) (Auto) , Eosinophils (%) (Auto) , Basophils (%) (Auto) , Differential Total Cells Counted 100, Neutrophils % (Manual) 49, Lymphocytes % ( Manual) 34, Monocytes % (Manual) 9, Eosinophils % (Manual) 7H, Basophils % ( Manual) 1, Band Neutrophils 0, Platelet Estimate DecreasedL, Platelet Morphology Normal, Red Blood Cell Morphology Normal, Sodium Level 140, Potassium Level 3.8, Chloride Level 106, Carbon Dioxide Level 26, Anion Gap 8, Blood Urea Nitrogen 9, Creatinine 0.7, Estimat Glomerular Filtration Rate > 60, Glucose Level 115H, Calcium Level 8.4L Height (Feet): 5 Height (Inches): 5.00 Weight (Pounds): 218 General Appearance: alert EENT: normal ENT inspection Neck: normal alignment Cardiovascular: normal peripheral pulses, normal rate, regular rhythm Respiratory/Chest: chest wall non-tender, lungs clear, normal breath sounds Abdomen: normal bowel sounds, non tender, soft Extremities: normal inspection Edema: no edema noted Arm (L), no edema noted Arm (R), no edema noted Leg (L), no edema noted Leg (R), no edema noted Pedal (L), no edema noted Pedal (R), no edema noted Generalized Neurologic: responsive, motor weakness Skin: normal pigmentation, warm/dry Saul Day DO Oct 15, 2018 14:43
--- NOTE | 2018-10-15 15:08 | GI Progress Note ---
Assessment/Plan Problems: (1) Chronic liver disease ICD Codes: K76.9 - Liver disease, unspecified SNOMED: 306321325 (2) Encephalopathy ICD Codes: G93.40 - Encephalopathy, unspecified SNOMED: 89499828 (3) Dizziness ICD Codes: R42 - Dizziness and giddiness SNOMED: 847667446, 684301067 (4) Anemia ICD Codes: D64.9 - Anemia, unspecified SNOMED: 507516479 (5) CVA (cerebral vascular accident) ICD Codes: I63.9 - Cerebral infarction, unspecified SNOMED: 789872436, 586374438 Qualifiers: Qualified Codes: I63.9 - Cerebral infarction, unspecified (6) Diabetes ICD Codes: E11.9 - Type 2 diabetes mellitus without complications SNOMED: 56399304 Status: stable Status Narrative Discussed with Dr. Madden. Assessment/Plan SUMMARY OF FINDINGS: 1. Gastritis, status post biopsy. 2. Gastric polyps, status post biopsy. 3. Esophageal varices, status post banding x6. negative MRI RECOMMENDATIONS: Advance diet The patient will need outpatient follow up in 4 to 6 weeks for repeat endoscopy and repeat banding. cont lactulose + xifaxan prn transfusions follow labs DC planning The patient was seen and examined at bedside and all new and available data was reviewed in the patients chart. I agree with the above findings, impression and plan. (Patient seen earlier today. Signature stamp does not reflect patient encounter time.). - Shankar Madden MD Subjective Subjective Abdominal pain, nausea vomiting, generalized weakness all improved still have dizziness Tolerating diet Objective Last 24 Hour Vital Signs Date Time Temp Pulse Resp B/P (MAP) Pulse Ox O2 Delivery O2 Flow Rate FiO2 10/15/18 12:00 98.1 65 20 120/55 (76) 96 10/15/18 09:00 Room Air 10/15/18 08:00 97.7 70 18 137/80 (99) 100 10/15/18 04:00 97.6 70 17 126/52 (76) 98 10/15/18 04:00 0 0 0 10/15/18 00:00 97.5 62 17 134/49 (77) 100 10/14/18 21:00 Room Air 10/14/18 20:00 97.8 65 18 107/56 (73) 100 10/14/18 19:54 0 0 0 10/14/18 16:00 98.3 98 18 96/59 (71) 98 Intake and Output 10/14/18 10/15/18 18:59 06:59 Intake Total 1150 ml 100 ml Balance 1150 ml 100 ml Intake Oral 1000 ml IV Total 150 ml 100 ml # Voids 2 4 Laboratory Tests Test 10/15/18 07:04 White Blood Count 3.3 K/UL (4.8-10.8) L Red Blood Count 3.49 M/UL (4.20-5.40) L Hemoglobin 10.7 G/DL (12.0-16.0) L Hematocrit 31.0 % (37.0-47.0) L Mean Corpuscular Volume 89 FL (80-99) Mean Corpuscular Hemoglobin 30.7 PG (27.0-31.0) Mean Corpuscular Hemoglobin Concent 34.5 G/DL (32.0-36.0) Red Cell Distribution Width 13.5 % (11.6-14.8) Platelet Count 55 K/UL (150-450) L Mean Platelet Volume 9.5 FL (6.5-10.1) Neutrophils (%) (Auto) % (45.0-75.0) Lymphocytes (%) (Auto) % (20.0-45.0) Monocytes (%) (Auto) % (1.0-10.0) Eosinophils (%) (Auto) % (0.0-3.0) Basophils (%) (Auto) % (0.0-2.0) Differential Total Cells Counted 100 Neutrophils % (Manual) 49 % (45-75) Lymphocytes % (Manual) 34 % (20-45) Monocytes % (Manual) 9 % (1-10) Eosinophils % (Manual) 7 % (0-3) H Basophils % (Manual) 1 % (0-2) Band Neutrophils 0 % (0-8) Platelet Estimate Decreased L Platelet Morphology Normal Red Blood Cell Morphology Normal Sodium Level 140 MMOL/L (136-145) Potassium Level 3.8 MMOL/L (3.5-5.1) Chloride Level 106 MMOL/L (98-107) Carbon Dioxide Level 26 MMOL/L (21-32) Anion Gap 8 mmol/L (5-15) Blood Urea Nitrogen 9 mg/dL (7-18) Creatinine 0.7 MG/DL (0.55-1.30) Estimat Glomerular Filtration Rate > 60 mL/min (>60) Glucose Level 115 MG/DL (74-106) H Calcium Level 8.4 MG/DL (8.5-10.1) L Height (Feet): 5 Height (Inches): 5.00 Weight (Pounds): 218 General Appearance: WD/WN, no apparent distress, alert, obese Cardiovascular: normal rate Respiratory/Chest: normal breath sounds, no respiratory distress Abdominal Exam: normal bowel sounds, non tender, soft Extremities: normal range of motion, non-tender Jm Swain NP Oct 15, 2018 15:08
--- NOTE | 2018-10-15 15:11 | NUR ---
NURSE NOTES: RN spoke to Dr. Alba and asked him if patient is clear for discharge to home.Dr. Alba said he needs to see the patient and will come to [facility] [place] [facility] to see the patient. RN also let Dr. Alba that patient's nephew Aristeo Hernandez who lives with the patient @ home wanted to talk to the doctor. He said He would talk to the family member after he sees the patient. Waiting for Dr. Alba.
[2018-10-15 16:00] VITALS: BP 128/61
--- NOTE | 2018-10-15 16:09 | Infectious Diseases Prog Note ---
Assessment/Plan Assessment/Plan 63 yo female with PMHx of DM, HTN, Seizures and fatty liver who was brought to the ED by her nephew 10/06/18 for dizziness. UTI, sp rx UA - positive for bacteria and trichomonas. UCX - E.coli Afebrile No leukocytosis Probable TIA vs stroke vs seizure -Brain MRI: Negative for acute intracranial bleed, mass effect, or infarct. Minimal periventricular deep white matter high T2 signal, consistent with chronic ischemic changes DM HTN Seizures Fatty liver S/P EGD 1. Gastritis, status post biopsy. 2. Gastric polyps, status post biopsy. 3. Esophageal varices, status post banding x6. Plan - Continue to Monitor off abx - 10/09/18 SP Ceftriaxone #3 for bacterial UTI - 10/07/18 S/P Flagyl 2g x 1 for trichomonas We will continue to follow the patient during this hospitalization. Subjective Allergies: Coded Allergies: No Known Allergies (Unverified , 05/28/17) Subjective afebrile no leukocytosis off abx Objective Vital Signs Last 24 Hour Vital Signs Date Time Temp Pulse Resp B/P (MAP) Pulse Ox O2 Delivery O2 Flow Rate FiO2 10/15/18 12:00 98.1 65 20 120/55 (76) 96 10/15/18 09:00 Room Air 10/15/18 08:00 97.7 70 18 137/80 (99) 100 10/15/18 04:00 97.6 70 17 126/52 (76) 98 10/15/18 04:00 0 0 0 10/15/18 00:00 97.5 62 17 134/49 (77) 100 10/14/18 21:00 Room Air 10/14/18 20:00 97.8 65 18 107/56 (73) 100 10/14/18 19:54 0 0 0 Height (Feet): 5 Height (Inches): 5.00 Weight (Pounds): 218 Objective Gen: NAD, sitting in bed HEENT: NCAT, MMM, EOMI LUNGS: CTAB ABD: Soft, NT, ND + BS Laboratory Tests Test 10/15/18 07:04 White Blood Count 3.3 K/UL (4.8-10.8) L Red Blood Count 3.49 M/UL (4.20-5.40) L Hemoglobin 10.7 G/DL (12.0-16.0) L Hematocrit 31.0 % (37.0-47.0) L Mean Corpuscular Volume 89 FL (80-99) Mean Corpuscular Hemoglobin 30.7 PG (27.0-31.0) Mean Corpuscular Hemoglobin Concent 34.5 G/DL (32.0-36.0) Red Cell Distribution Width 13.5 % (11.6-14.8) Platelet Count 55 K/UL (150-450) L Mean Platelet Volume 9.5 FL (6.5-10.1) Neutrophils (%) (Auto) % (45.0-75.0) Lymphocytes (%) (Auto) % (20.0-45.0) Monocytes (%) (Auto) % (1.0-10.0) Eosinophils (%) (Auto) % (0.0-3.0) Basophils (%) (Auto) % (0.0-2.0) Differential Total Cells Counted 100 Neutrophils % (Manual) 49 % (45-75) Lymphocytes % (Manual) 34 % (20-45) Monocytes % (Manual) 9 % (1-10) Eosinophils % (Manual) 7 % (0-3) H Basophils % (Manual) 1 % (0-2) Band Neutrophils 0 % (0-8) Platelet Estimate Decreased L Platelet Morphology Normal Red Blood Cell Morphology Normal Sodium Level 140 MMOL/L (136-145) Potassium Level 3.8 MMOL/L (3.5-5.1) Chloride Level 106 MMOL/L (98-107) Carbon Dioxide Level 26 MMOL/L (21-32) Anion Gap 8 mmol/L (5-15) Blood Urea Nitrogen 9 mg/dL (7-18) Creatinine 0.7 MG/DL (0.55-1.30) Estimat Glomerular Filtration Rate > 60 mL/min (>60) Glucose Level 115 MG/DL (74-106) H Calcium Level 8.4 MG/DL (8.5-10.1) L Current Medications Medications (Trade) Dose Ordered Sig/Antoni Route PRN Reason Start Time Stop Time Status Last Admin Dose Admin Acetaminophen (Tylenol) 650 mg Q4H PRN ORAL Mild Pain/Temp > 100.5 10/08/18 14:50 11/07/18 14:49 10/14/18 03:42 Al Hydroxide/Mg Hydroxide (Mylanta II) 30 ml Q6H PRN ORAL dyspepsia 10/08/18 14:51 11/07/18 14:50 Clonidine HCl (Catapres Tab) 0.1 mg Q4H PRN ORAL SBP>160 10/08/18 16:45 11/05/18 16:44 Dextrose (Dextrose 50%) 25 ml Q30M PRN IV Hypoglycemia 10/08/18 15:15 11/05/18 16:44 Dextrose (Dextrose 50%) 50 ml Q30M PRN IV Hypoglycemia 10/08/18 15:15 11/05/18 16:44 Dextrose/Sodium Chloride 1,000 ml @ 50 mls/hr Q20H IV 10/08/18 14:50 11/05/18 14:49 10/15/18 06:16 Lactulose (Cephulac) 30 gm THREE TIMES A DAY ORAL 10/08/18 18:00 11/06/18 17:59 10/15/18 12:54 Levothyroxine Sodium (Synthroid) 88 mcg ACBREAKFAST ORAL 10/09/18 06:30 11/06/18 06:29 10/15/18 06:15 Nitroglycerin (Ntg) 0.4 mg Q5M X 3 DOSES PRN SL Prn Chest Pain 10/08/18 15:00 11/05/18 16:44 Ondansetron HCl (Zofran) 4 mg Q6H PRN IVP Nausea & Vomiting 10/08/18 16:45 11/05/18 16:44 Polyethylene Glycol (Miralax) 17 gm HSPRN PRN ORAL Constipation 10/08/18 16:45 11/05/18 16:44 Promethazine HCl/ Codeine (Phenergan with Codeine) 5 ml Q4H PRN ORAL For Cough 10/08/18 16:45 11/05/18 16:44 Mehreen Thomas M.D. Oct 15, 2018 16:09
--- NOTE | 2018-10-15 16:22 | NUR ---
*-* INSURANCE *-* UPDATED CLINICALS & REVIEW HAVE BEEN FAXED TO: [facility] [phone] FANTASMA: KYA MAYNARD [phone] F:[phone]
--- NOTE | 2018-10-15 17:41 | NUR ---
NURSE NOTES: Dr. Alba Meman came and checked the patient. RN reminded him about discharge. wanted to call Dr. Day and he spoke to Aristeo Hernandez on the phone. RN spoke to Dr. Day to cancel discharge home today. Per ,patient needs to go to SNF or [facility]. Hugo made aware.
--- NOTE | 2018-10-15 19:17 | NUR ---
HAND-OFF: Report given to Roque.
[2018-10-15 20:00] VITALS: BP 120/58
--- NOTE | 2018-10-15 20:00 | NUR ---
NURSE NOTES: Received patient awake, standing, had just finished in the bathroom, safely returned to bed. IV fluid reconnected running at 50ml/hr. Bed on lowest position, 2 side rails up, call light and belongings within risk. Reinforced using the call light when wanting to use the restroom, pt verbalized understanding.
--- NOTE | 2018-10-15 21:45 | Progress Note ---
DATE: 10/15/2018 SUBJECTIVE: The patient is still complaining of dizzy spells when she walks. She did have orthostatic changes at this point in time, refused to either times. There is no evidence of orthostasis on one measurement either lying, sitting, or standing. IMPRESSION: Because of the dizzy spells, it is unclear may be pressure on her head. She is orthostatic at this time. I think if she is going to be discharged today she will be discharged to rehabilitation unit for gait training and/or she can see me as an outpatient. PLAN: I left a message , so she can call me back. Parth Maxwell MD DR: ANDERSON JOB#: [id number] CC: STEFFEN
[2018-10-16] VITALS: BP 109/55
[2018-10-16] MEDS: D5 1/2NS 1,000 ML IV SCH ×2 (03:55→22:01)
[2018-10-16 04:00] VITALS: BP 132/82
[2018-10-16 07:09] LABS: HEMATOCRIT 29.1 % (37.0-47.0); HEMOGLOBIN 10.1 G/DL (12.0-16.0); MEAN CORPUSCULAR VOLUME 90 FL (80-99); PLATELET COUNT 52 K/UL (150-450); RED BLOOD COUNT 3.25 M/UL (4.20-5.40); RED CELL DISTRIBUTION WIDTH 13.5 % (11.6-14.8); WHITE BLOOD COUNT 2.9 K/UL (4.8-10.8)
--- NOTE | 2018-10-16 07:13 | NUR ---
HAND-OFF: Report given to FACUNDO Canchola.
[2018-10-16 07:30] LABS: ANION GAP 6 mmol/L (5-15); BLOOD UREA NITROGEN 5 mg/dL (7-18); CALCIUM 8.6 MG/DL (8.5-10.1); CARBON DIOXIDE 27 MMOL/L (21-32); CHLORIDE 106 MMOL/L (98-107); CREATININE 0.7 MG/DL (0.55-1.30); POTASSIUM 3.7 MMOL/L (3.5-5.1); SODIUM 139 MMOL/L (136-145)
--- NOTE | 2018-10-16 07:30 | NUR ---
NURSE NOTES: Received patient in bed, awake, alert and oriented x2. not in respiratory distress. Patient is ambulatory with assist. Call light is within reach. Reminded patient to call nurses if needed.Denies any pain or discomfort. Bed alarm is on. Will follow up.Will continue plan of care.
[2018-10-16 08:00] VITALS: BP 125/65
[2018-10-16] MEDS: Lactulose 20gm/30ml UDC ORAL SCH ×3 (09:03→17:54)
--- NOTE | 2018-10-16 11:09 | GI Progress Note ---
Assessment/Plan Problems: (1) Chronic liver disease ICD Codes: K76.9 - Liver disease, unspecified SNOMED: 184772653 (2) Encephalopathy ICD Codes: G93.40 - Encephalopathy, unspecified SNOMED: 32953999 (3) Dizziness ICD Codes: R42 - Dizziness and giddiness SNOMED: 733617135, 780825112 (4) Anemia ICD Codes: D64.9 - Anemia, unspecified SNOMED: 283437691 (5) CVA (cerebral vascular accident) ICD Codes: I63.9 - Cerebral infarction, unspecified SNOMED: 769845306, 655244645 Qualifiers: Qualified Codes: I63.9 - Cerebral infarction, unspecified (6) Diabetes ICD Codes: E11.9 - Type 2 diabetes mellitus without complications SNOMED: 83116280 Status: stable Status Narrative Discussed with Dr. Madden Assessment/Plan SUMMARY OF FINDINGS: 1. Gastritis, status post biopsy. 2. Gastric polyps, status post biopsy. 3. Esophageal varices, status post banding x6. negative MRI RECOMMENDATIONS: Advance diet The patient will need outpatient follow up in 4 to 6 weeks for repeat endoscopy and repeat banding. cont lactulose + xifaxan prn transfusions follow labs DC planning The patient was seen and examined at bedside and all new and available data was reviewed in the patients chart. I agree with the above findings, impression and plan. (Patient seen earlier today. Signature stamp does not reflect patient encounter time.). - Shankar Madden MD Subjective Subjective Abdominal pain, nausea vomiting, generalized weakness all improved still have dizziness Tolerating diet Objective Last 24 Hour Vital Signs Date Time Temp Pulse Resp B/P (MAP) Pulse Ox O2 Delivery O2 Flow Rate FiO2 10/16/18 09:00 Room Air 10/16/18 08:00 98.1 62 20 125/65 (85) 98 10/16/18 04:00 98.4 60 20 132/82 (99) 98 10/16/18 00:00 98.3 61 20 109/55 (73) 100 10/15/18 21:00 Room Air 10/15/18 20:00 98.0 64 21 120/58 (78) 100 10/15/18 16:52 64 10/15/18 16:47 61 10/15/18 16:42 61 10/15/18 16:00 98.4 64 19 128/61 (83) 100 10/15/18 12:00 98.1 65 20 120/55 (76) 96 Intake and Output 10/15/18 10/16/18 19:00 07:00 Intake Total 1260 ml 1170 ml Balance 1260 ml 1170 ml Intake Oral 760 ml 720 ml IV Total 500 ml 450 ml # Voids 3 3 Laboratory Tests Test 10/16/18 05:35 White Blood Count 2.9 K/UL (4.8-10.8) L Red Blood Count 3.25 M/UL (4.20-5.40) L Hemoglobin 10.1 G/DL (12.0-16.0) L Hematocrit 29.1 % (37.0-47.0) L Mean Corpuscular Volume 90 FL (80-99) Mean Corpuscular Hemoglobin 31.1 PG (27.0-31.0) H Mean Corpuscular Hemoglobin Concent 34.7 G/DL (32.0-36.0) Red Cell Distribution Width 13.5 % (11.6-14.8) Platelet Count 52 K/UL (150-450) L Mean Platelet Volume 8.3 FL (6.5-10.1) Neutrophils (%) (Auto) % (45.0-75.0) Lymphocytes (%) (Auto) % (20.0-45.0) Monocytes (%) (Auto) % (1.0-10.0) Eosinophils (%) (Auto) % (0.0-3.0) Basophils (%) (Auto) % (0.0-2.0) Differential Total Cells Counted 100 Neutrophils % (Manual) 42 % (45-75) L Lymphocytes % (Manual) 37 % (20-45) Monocytes % (Manual) 13 % (1-10) H Eosinophils % (Manual) 7 % (0-3) H Basophils % (Manual) 1 % (0-2) Band Neutrophils 0 % (0-8) Platelet Estimate Decreased L Platelet Morphology Normal Hypochromasia 1+ Sodium Level 139 MMOL/L (136-145) Potassium Level 3.7 MMOL/L (3.5-5.1) Chloride Level 106 MMOL/L (98-107) Carbon Dioxide Level 27 MMOL/L (21-32) Anion Gap 6 mmol/L (5-15) Blood Urea Nitrogen 5 mg/dL (7-18) L Creatinine 0.7 MG/DL (0.55-1.30) Estimat Glomerular Filtration Rate > 60 mL/min (>60) Glucose Level 111 MG/DL (74-106) H Calcium Level 8.6 MG/DL (8.5-10.1) Height (Feet): 5 Height (Inches): 5.00 Weight (Pounds): 220 General Appearance: WD/WN, no apparent distress, alert, obese Cardiovascular: normal rate Respiratory/Chest: normal breath sounds, no respiratory distress Abdominal Exam: normal bowel sounds, non tender, soft Extremities: normal range of motion, non-tender Jm Swain NP Oct 16, 2018 11:09
[2018-10-16 12:00] VITALS: BP 118/62
--- NOTE | 2018-10-16 13:28 | NUR ---
*-* INSURANCE *-* UPDATED CLINICALS & REVIEW HAVE BEEN FAXED TO: [facility] [phone] FANTASMA: KYA MAYNARD [phone] F:[phone]
--- NOTE | 2018-10-16 13:36 | Pulmonology Progress Note ---
Assessment/Plan Problems: (1) Encephalopathy (2) Hepatic encephalopathy (3) Hypothyroidism (4) Diabetes (5) Chronic liver disease Assessment/Plan eating well sliding scale diabetic diet Syntyroid supplement check h/h dc planning in progress Subjective ROS Limited/Unobtainable: Yes Constitutional: Reports: no symptoms HEENT: Repors: no symptoms Allergies: Coded Allergies: No Known Allergies (Unverified , 05/28/17) Objective Last 24 Hour Vital Signs Date Time Temp Pulse Resp B/P (MAP) Pulse Ox O2 Delivery O2 Flow Rate FiO2 10/16/18 12:00 98.3 64 20 118/62 (80) 98 10/16/18 09:00 Room Air 10/16/18 08:00 98.1 62 20 125/65 (85) 98 10/16/18 04:00 98.4 60 20 132/82 (99) 98 10/16/18 00:00 98.3 61 20 109/55 (73) 100 10/15/18 21:00 Room Air 10/15/18 20:00 98.0 64 21 120/58 (78) 100 10/15/18 16:52 64 10/15/18 16:47 61 10/15/18 16:42 61 10/15/18 16:00 98.4 64 19 128/61 (83) 100 Intake and Output 10/15/18 10/16/18 19:00 07:00 Intake Total 1260 ml 1170 ml Balance 1260 ml 1170 ml Intake Oral 760 ml 720 ml IV Total 500 ml 450 ml # Voids 3 3 Objective General Appearance: WD/WN, Obese HEENT: normocephalic Respiratory/Chest: chest wall non-tender, lungs clear Cardiovascular: normal peripheral pulses, normal rate Abdomen: normal bowel sounds, soft, non tender Extremities: no cyanosis Skin: no rash Laboratory Tests 10/16/18 05:35: White Blood Count 2.9L, Red Blood Count 3.25L, Hemoglobin 10.1L, Hematocrit 29.1L, Mean Corpuscular Volume 90, Mean Corpuscular Hemoglobin 31.1H, Mean Corpuscular Hemoglobin Concent 34.7, Red Cell Distribution Width 13.5, Platelet Count 52L, Mean Platelet Volume 8.3, Neutrophils (%) (Auto) , Lymphocytes (%) ( Auto) , Monocytes (%) (Auto) , Eosinophils (%) (Auto) , Basophils (%) (Auto) , Differential Total Cells Counted 100, Neutrophils % (Manual) 42L, Lymphocytes % (Manual) 37, Monocytes % (Manual) 13H, Eosinophils % (Manual) 7H, Basophils % ( Manual) 1, Band Neutrophils 0, Platelet Estimate DecreasedL, Platelet Morphology Normal, Hypochromasia 1+, Sodium Level 139, Potassium Level 3.7, Chloride Level 106, Carbon Dioxide Level 27, Anion Gap 6, Blood Urea Nitrogen 5L , Creatinine 0.7, Estimat Glomerular Filtration Rate > 60, Glucose Level 111H, Calcium Level 8.6 Current Medications Medications (Trade) Dose Ordered Sig/Antoni Route PRN Reason Start Time Stop Time Status Last Admin Dose Admin Acetaminophen (Tylenol) 650 mg Q4H PRN ORAL Mild Pain/Temp > 100.5 10/08/18 14:50 11/07/18 14:49 10/14/18 03:42 Al Hydroxide/Mg Hydroxide (Mylanta II) 30 ml Q6H PRN ORAL dyspepsia 10/08/18 14:51 11/07/18 14:50 Clonidine HCl (Catapres Tab) 0.1 mg Q4H PRN ORAL SBP>160 10/08/18 16:45 11/05/18 16:44 Dextrose (Dextrose 50%) 25 ml Q30M PRN IV Hypoglycemia 10/08/18 15:15 11/05/18 16:44 Dextrose (Dextrose 50%) 50 ml Q30M PRN IV Hypoglycemia 10/08/18 15:15 11/05/18 16:44 Dextrose/Sodium Chloride 1,000 ml @ 50 mls/hr Q20H IV 10/08/18 14:50 11/05/18 14:49 10/16/18 03:55 Lactulose (Cephulac) 30 gm THREE TIMES A DAY ORAL 10/08/18 18:00 11/06/18 17:59 10/16/18 12:25 Levothyroxine Sodium (Synthroid) 88 mcg ACBREAKFAST ORAL 10/09/18 06:30 11/06/18 06:29 10/16/18 05:45 Nitroglycerin (Ntg) 0.4 mg Q5M X 3 DOSES PRN SL Prn Chest Pain 10/08/18 15:00 11/05/18 16:44 Ondansetron HCl (Zofran) 4 mg Q6H PRN IVP Nausea & Vomiting 10/08/18 16:45 11/05/18 16:44 Polyethylene Glycol (Miralax) 17 gm HSPRN PRN ORAL Constipation 10/08/18 16:45 11/05/18 16:44 Promethazine HCl/ Codeine (Phenergan with Codeine) 5 ml Q4H PRN ORAL For Cough 10/08/18 16:45 11/05/18 16:44 Alexis Mason MD Oct 16, 2018 13:36
--- NOTE | 2018-10-16 14:17 | General Progress Note ---
Assessment/Plan Problem List: (1) HTN (hypertension) ICD Codes: I10 - Essential (primary) hypertension SNOMED: 17889189 (2) Hypothyroid ICD Codes: E03.9 - Hypothyroidism, unspecified SNOMED: 00212303 (3) Hypothyroidism ICD Codes: E03.9 - Hypothyroidism, unspecified SNOMED: 41125010 (4) Diabetes ICD Codes: E11.9 - Type 2 diabetes mellitus without complications SNOMED: 53684626 (5) Chronic liver disease ICD Codes: K76.9 - Liver disease, unspecified SNOMED: 124947427 (6) Dizziness ICD Codes: R42 - Dizziness and giddiness SNOMED: 951402306, 569587662 (7) UTI (urinary tract infection) ICD Codes: N39.0 - Urinary tract infection, site not specified SNOMED: 86653115, 817961222 Qualifiers: Qualified Codes: N39.0 - Urinary tract infection, site not specified (8) CVA (cerebral vascular accident) ICD Codes: I63.9 - Cerebral infarction, unspecified SNOMED: 256405832, 125841456 Qualifiers: Qualified Codes: I63.9 - Cerebral infarction, unspecified (9) Cirrhosis ICD Codes: K74.60 - Unspecified cirrhosis of liver SNOMED: 36724249 (10) Varices of other sites ICD Codes: I86.8 - Varicose veins of other specified sites SNOMED: 929738424 Status: stable, progressing Assessment/Plan pt diet abx heme flu cbc bmp am dc to snf if clear Subjective Constitutional: Reports: weakness Allergies: Coded Allergies: No Known Allergies (Unverified , 05/28/17) All Systems: reviewed and negative except above Subjective calm in bed Objective Last 24 Hour Vital Signs Date Time Temp Pulse Resp B/P (MAP) Pulse Ox O2 Delivery O2 Flow Rate FiO2 10/16/18 12:00 98.3 64 20 118/62 (80) 98 10/16/18 09:00 Room Air 10/16/18 08:00 98.1 62 20 125/65 (85) 98 10/16/18 04:00 98.4 60 20 132/82 (99) 98 10/16/18 00:00 98.3 61 20 109/55 (73) 100 10/15/18 21:00 Room Air 10/15/18 20:00 98.0 64 21 120/58 (78) 100 10/15/18 16:52 64 10/15/18 16:47 61 10/15/18 16:42 61 10/15/18 16:00 98.4 64 19 128/61 (83) 100 Intake and Output 10/15/18 10/16/18 18:59 06:59 Intake Total 1210 ml 1220 ml Balance 1210 ml 1220 ml Intake Oral 760 ml 720 ml IV Total 450 ml 500 ml # Voids 3 3 Laboratory Tests 10/16/18 05:35: White Blood Count 2.9L, Red Blood Count 3.25L, Hemoglobin 10.1L, Hematocrit 29.1L, Mean Corpuscular Volume 90, Mean Corpuscular Hemoglobin 31.1H, Mean Corpuscular Hemoglobin Concent 34.7, Red Cell Distribution Width 13.5, Platelet Count 52L, Mean Platelet Volume 8.3, Neutrophils (%) (Auto) , Lymphocytes (%) ( Auto) , Monocytes (%) (Auto) , Eosinophils (%) (Auto) , Basophils (%) (Auto) , Differential Total Cells Counted 100, Neutrophils % (Manual) 42L, Lymphocytes % (Manual) 37, Monocytes % (Manual) 13H, Eosinophils % (Manual) 7H, Basophils % ( Manual) 1, Band Neutrophils 0, Platelet Estimate DecreasedL, Platelet Morphology Normal, Hypochromasia 1+, Sodium Level 139, Potassium Level 3.7, Chloride Level 106, Carbon Dioxide Level 27, Anion Gap 6, Blood Urea Nitrogen 5L , Creatinine 0.7, Estimat Glomerular Filtration Rate > 60, Glucose Level 111H, Calcium Level 8.6 Height (Feet): 5 Height (Inches): 5.00 Weight (Pounds): 220 General Appearance: lethargic EENT: normal ENT inspection Neck: normal alignment Cardiovascular: normal peripheral pulses, normal rate, regular rhythm Respiratory/Chest: chest wall non-tender, lungs clear, normal breath sounds Abdomen: normal bowel sounds, non tender, soft Extremities: normal inspection Edema: no edema noted Arm (L), no edema noted Arm (R), no edema noted Leg (L), no edema noted Leg (R), no edema noted Pedal (L), no edema noted Pedal (R), no edema noted Generalized Neurologic: motor weakness Skin: normal pigmentation, warm/dry Saul Day DO Oct 16, 2018 14:17
--- NOTE | 2018-10-16 14:39 | Consultation ---
History of Present Illness General Date patient seen: Oct 15, 2018 Chief Complaint: General Complaint Referring physician: SORIN GARCÍA Reason for Consultation: Nausea and vomiting Present Illness Allergies: Coded Allergies: No Known Allergies (Unverified , 05/28/17) Medication History Scheduled Cephalexin* (Keflex*), 500 MG ORAL EVERY 12 HOURS Cyanocobalamin (Vitamin B-12) (Vitamin B-12), 100 MCG PO DAILY Ferrous Sulfate* (Ferrous Sulfate*), 325 MG ORAL DAILY, (Reported) Glipizide* (Glipizide*), 5 MG ORAL BIDAC, (Reported) Lactulose (Lactulose*), 30 GM ORAL DAILY Levothyroxine Sodium* (Levothyroxine Sodium*), 88 MCG ORAL DAILY, (Reported) Meclizine Hcl* (Meclizine*), 25 MG ORAL THREE TIMES A DAY Metformin Hcl* (Metformin Hcl*), 500 MG ORAL TWICE A DAY Rifaximin* (Xifaxan*), 550 MG ORAL EVERY 12 HOURS Spironolactone* (Spironolactone*), 25 MG ORAL DAILY, (Reported) Scheduled PRN Acetaminophen* (Tylenol Extra Strength*), 500 MG ORAL Q8H PRN for Prn Headache/ Temp > 101 Patient History Healthcare decision maker Resuscitation status Full Code Advanced Directive on File Physical Exam Last 24 Hour Vital Signs Date Time Temp Pulse Resp B/P (MAP) Pulse Ox O2 Delivery O2 Flow Rate FiO2 10/16/18 12:00 98.3 64 20 118/62 (80) 98 10/16/18 09:00 Room Air 10/16/18 08:00 98.1 62 20 125/65 (85) 98 10/16/18 04:00 98.4 60 20 132/82 (99) 98 10/16/18 00:00 98.3 61 20 109/55 (73) 100 10/15/18 21:00 Room Air 10/15/18 20:00 98.0 64 21 120/58 (78) 100 10/15/18 16:52 64 10/15/18 16:47 61 10/15/18 16:42 61 10/15/18 16:00 98.4 64 19 128/61 (83) 100 Intake and Output 10/15/18 10/16/18 18:59 06:59 Intake Total 1210 ml 1220 ml Balance 1210 ml 1220 ml Intake Oral 760 ml 720 ml IV Total 450 ml 500 ml # Voids 3 3 Laboratory Tests Test 10/16/18 05:35 White Blood Count 2.9 K/UL (4.8-10.8) L Red Blood Count 3.25 M/UL (4.20-5.40) L Hemoglobin 10.1 G/DL (12.0-16.0) L Hematocrit 29.1 % (37.0-47.0) L Mean Corpuscular Volume 90 FL (80-99) Mean Corpuscular Hemoglobin 31.1 PG (27.0-31.0) H Mean Corpuscular Hemoglobin Concent 34.7 G/DL (32.0-36.0) Red Cell Distribution Width 13.5 % (11.6-14.8) Platelet Count 52 K/UL (150-450) L Mean Platelet Volume 8.3 FL (6.5-10.1) Neutrophils (%) (Auto) % (45.0-75.0) Lymphocytes (%) (Auto) % (20.0-45.0) Monocytes (%) (Auto) % (1.0-10.0) Eosinophils (%) (Auto) % (0.0-3.0) Basophils (%) (Auto) % (0.0-2.0) Differential Total Cells Counted 100 Neutrophils % (Manual) 42 % (45-75) L Lymphocytes % (Manual) 37 % (20-45) Monocytes % (Manual) 13 % (1-10) H Eosinophils % (Manual) 7 % (0-3) H Basophils % (Manual) 1 % (0-2) Band Neutrophils 0 % (0-8) Platelet Estimate Decreased L Platelet Morphology Normal Hypochromasia 1+ Sodium Level 139 MMOL/L (136-145) Potassium Level 3.7 MMOL/L (3.5-5.1) Chloride Level 106 MMOL/L (98-107) Carbon Dioxide Level 27 MMOL/L (21-32) Anion Gap 6 mmol/L (5-15) Blood Urea Nitrogen 5 mg/dL (7-18) L Creatinine 0.7 MG/DL (0.55-1.30) Estimat Glomerular Filtration Rate > 60 mL/min (>60) Glucose Level 111 MG/DL (74-106) H Calcium Level 8.6 MG/DL (8.5-10.1) Height (Feet): 5 Height (Inches): 5.00 Weight (Pounds): 220 Medications Current Medications Medications (Trade) Dose Ordered Sig/Antoni Route PRN Reason Start Time Stop Time Status Last Admin Dose Admin Acetaminophen (Tylenol) 650 mg Q4H PRN ORAL Mild Pain/Temp > 100.5 10/08/18 14:50 11/07/18 14:49 10/14/18 03:42 Al Hydroxide/Mg Hydroxide (Mylanta II) 30 ml Q6H PRN ORAL dyspepsia 10/08/18 14:51 11/07/18 14:50 Clonidine HCl (Catapres Tab) 0.1 mg Q4H PRN ORAL SBP>160 10/08/18 16:45 11/05/18 16:44 Dextrose (Dextrose 50%) 25 ml Q30M PRN IV Hypoglycemia 10/08/18 15:15 11/05/18 16:44 Dextrose (Dextrose 50%) 50 ml Q30M PRN IV Hypoglycemia 10/08/18 15:15 11/05/18 16:44 Dextrose/Sodium Chloride 1,000 ml @ 50 mls/hr Q20H IV 10/08/18 14:50 11/05/18 14:49 10/16/18 03:55 Lactulose (Cephulac) 30 gm THREE TIMES A DAY ORAL 10/08/18 18:00 11/06/18 17:59 10/16/18 12:25 Levothyroxine Sodium (Synthroid) 88 mcg ACBREAKFAST ORAL 10/09/18 06:30 11/06/18 06:29 10/16/18 05:45 Nitroglycerin (Ntg) 0.4 mg Q5M X 3 DOSES PRN SL Prn Chest Pain 10/08/18 15:00 11/05/18 16:44 Ondansetron HCl (Zofran) 4 mg Q6H PRN IVP Nausea & Vomiting 10/08/18 16:45 11/05/18 16:44 Polyethylene Glycol (Miralax) 17 gm HSPRN PRN ORAL Constipation 10/08/18 16:45 11/05/18 16:44 Promethazine HCl/ Codeine (Phenergan with Codeine) 5 ml Q4H PRN ORAL For Cough 10/08/18 16:45 11/05/18 16:44 Assessment/Plan Assessment/Plan Hematology Consultation REQ : Sorin García DOS: 10/15/18 RFC: Pancytopenia HPI 63-year-old female presents ED for evaluation. Brought in by nephew for dizziness. States that patient appears more lethargic since yesterday. Also notes a facial droop and slurred speech. Last known well time was last night. Woke up with these symptoms. Nephew also states that patient is been experiencing dizziness for several months now. Denies chest pain or shortness of breath. Denies fevers or chills. No other aggravating relieving factors. Denies any other associated symptoms She was noted to have pancytopenia, is s/p colo/egd showed gastritis with esophageal varices. Allergies: No Known Allergies (Unverified , 05/28/17) Past Medical History: DM, HTN, seizures Pertinent Family History: none Social History: Denies: smoking, alcohol use, drug use Now: No Immunizations: UTD Reviewed Nursing Documentation: PMH: Agreed; PSxH: Agreed Past Medical History: No History, Except For Hx Hypertension: Yes Hx Diabetes: Yes Hx Cancer: No Hx Gastrointestinal Problems: Yes - fatty liver Hx Neurological Problems: Yes Hx Seizures: Yes Review Of Systems: negative except mentioned in HPI PE Vitals reviewed Sp02 EP Interpretation: reviewed, normal General Appearance: no apparent distress, alert, GCS 15, non-toxic Head: normocephalic, atraumatic Eyes: bilateral eye normal inspection, bilateral eye PERRL ENT: hearing grossly normal, normal pharynx, no angioedema, normal voice Neck: full range of motion, supple/symm/no masses Respiratory: chest non-tender, lungs clear, normal breath sounds, speaking full sentences Cardiovascular #1: regular rate, rhythm, no edema Cardiovascular #2: 2+ carotid (R), 2+ carotid (L), 2+ radial (R), 2+ radial (L) , 2+ dorsalis pedis (R), 2+ dorsalis pedis (L) Gastrointestinal: normal bowel sounds, non tender, soft, non-distended, no guarding, no rebound Rectal: deferred Genitourinary: normal inspection, no CVA tenderness Musculoskeletal: back normal, gait/station Skin: normal color, no rash, warm/dry, well hydrated Lymphatic: no adenopathy Laboratory Tests Test 10/16/18 05:35 White Blood Count 2.9 K/UL (4.8-10.8) L Red Blood Count 3.25 M/UL (4.20-5.40) L Hemoglobin 10.1 G/DL (12.0-16.0) L Hematocrit 29.1 % (37.0-47.0) L Mean Corpuscular Volume 90 FL (80-99) Mean Corpuscular Hemoglobin 31.1 PG (27.0-31.0) H Mean Corpuscular Hemoglobin Concent 34.7 G/DL (32.0-36.0) Red Cell Distribution Width 13.5 % (11.6-14.8) Platelet Count 52 K/UL (150-450) L Mean Platelet Volume 8.3 FL (6.5-10.1) Neutrophils (%) (Auto) % (45.0-75.0) Lymphocytes (%) (Auto) % (20.0-45.0) Monocytes (%) (Auto) % (1.0-10.0) Eosinophils (%) (Auto) % (0.0-3.0) Basophils (%) (Auto) % (0.0-2.0) Differential Total Cells Counted 100 Neutrophils % (Manual) 42 % (45-75) L Lymphocytes % (Manual) 37 % (20-45) Monocytes % (Manual) 13 % (1-10) H Eosinophils % (Manual) 7 % (0-3) H Basophils % (Manual) 1 % (0-2) Band Neutrophils 0 % (0-8) Platelet Estimate Decreased L Platelet Morphology Normal Hypochromasia 1+ Sodium Level 139 MMOL/L (136-145) Potassium Level 3.7 MMOL/L (3.5-5.1) Chloride Level 106 MMOL/L (98-107) Carbon Dioxide Level 27 MMOL/L (21-32) Anion Gap 6 mmol/L (5-15) Blood Urea Nitrogen 5 mg/dL (7-18) L Creatinine 0.7 MG/DL (0.55-1.30) Estimat Glomerular Filtration Rate > 60 mL/min (>60) Glucose Level 111 MG/DL (74-106) H Calcium Level 8.6 MG/DL (8.5-10.1) Assessment and Recs: 1. Pancytopenia 2/2 cirrhosis with splenomegaly. GI following -> viral studies are negative --> imaging of the abdomen reviewed and c/w cirrhosis --> neupogen on a prn basis --> transfuse as needed 2. Thrombocytopenia likely related to medications. At this time, platelet goal is about 20,000 and hemoglobin goal is about 7. --> 2 units plts given prior to liver biopsy 3. Anemia with a component of iron deficiency. --> is now s/p IV iron. 4. B12 deficiency. B12 will be ordered. 5. Cirrhosis of liver. hx of chronic cirrhosis --> hepatitis and hiv are negative 6. Trichomonis Appreciate consultation greatly! Jose Sneed MD Oct 16, 2018 14:38
[2018-10-16 16:00] VITALS: BP 118/68
--- NOTE | 2018-10-16 16:49 | Infectious Diseases Prog Note ---
Assessment/Plan Assessment/Plan 63 yo female with PMHx of DM, HTN, Seizures and fatty liver who was brought to the ED by her nephew 10/06/18 for dizziness. UTI, sp rx UA - positive for bacteria and trichomonas. UCX - E.coli Afebrile No leukocytosis Pancytopenia Probable TIA vs stroke vs seizure -Brain MRI: Negative for acute intracranial bleed, mass effect, or infarct. Minimal periventricular deep white matter high T2 signal, consistent with chronic ischemic changes DM HTN Seizures Fatty liver S/P EGD 1. Gastritis, status post biopsy. 2. Gastric polyps, status post biopsy. 3. Esophageal varices, status post banding x6. Plan - Continue to Monitor off abx - 10/09/18 SP Ceftriaxone #3 for bacterial UTI - 10/07/18 S/P Flagyl 2g x 1 for trichomonas We will continue to follow the patient during this hospitalization. Subjective Allergies: Coded Allergies: No Known Allergies (Unverified , 05/28/17) Subjective afebrile no leukocytosis off abx pancytopenia Objective Vital Signs Last 24 Hour Vital Signs Date Time Temp Pulse Resp B/P (MAP) Pulse Ox O2 Delivery O2 Flow Rate FiO2 10/16/18 12:00 98.3 64 20 118/62 (80) 98 10/16/18 09:00 Room Air 10/16/18 08:00 98.1 62 20 125/65 (85) 98 10/16/18 04:00 98.4 60 20 132/82 (99) 98 10/16/18 00:00 98.3 61 20 109/55 (73) 100 10/15/18 21:00 Room Air 10/15/18 20:00 98.0 64 21 120/58 (78) 100 10/15/18 16:52 64 Height (Feet): 5 Height (Inches): 5.00 Weight (Pounds): 220 Objective Gen: NAD, sitting in bed HEENT: NCAT, MMM, EOMI LUNGS: CTAB ABD: Soft, NT, ND + BS Laboratory Tests Test 10/16/18 05:35 White Blood Count 2.9 K/UL (4.8-10.8) L Red Blood Count 3.25 M/UL (4.20-5.40) L Hemoglobin 10.1 G/DL (12.0-16.0) L Hematocrit 29.1 % (37.0-47.0) L Mean Corpuscular Volume 90 FL (80-99) Mean Corpuscular Hemoglobin 31.1 PG (27.0-31.0) H Mean Corpuscular Hemoglobin Concent 34.7 G/DL (32.0-36.0) Red Cell Distribution Width 13.5 % (11.6-14.8) Platelet Count 52 K/UL (150-450) L Mean Platelet Volume 8.3 FL (6.5-10.1) Neutrophils (%) (Auto) % (45.0-75.0) Lymphocytes (%) (Auto) % (20.0-45.0) Monocytes (%) (Auto) % (1.0-10.0) Eosinophils (%) (Auto) % (0.0-3.0) Basophils (%) (Auto) % (0.0-2.0) Differential Total Cells Counted 100 Neutrophils % (Manual) 42 % (45-75) L Lymphocytes % (Manual) 37 % (20-45) Monocytes % (Manual) 13 % (1-10) H Eosinophils % (Manual) 7 % (0-3) H Basophils % (Manual) 1 % (0-2) Band Neutrophils 0 % (0-8) Platelet Estimate Decreased L Platelet Morphology Normal Hypochromasia 1+ Sodium Level 139 MMOL/L (136-145) Potassium Level 3.7 MMOL/L (3.5-5.1) Chloride Level 106 MMOL/L (98-107) Carbon Dioxide Level 27 MMOL/L (21-32) Anion Gap 6 mmol/L (5-15) Blood Urea Nitrogen 5 mg/dL (7-18) L Creatinine 0.7 MG/DL (0.55-1.30) Estimat Glomerular Filtration Rate > 60 mL/min (>60) Glucose Level 111 MG/DL (74-106) H Calcium Level 8.6 MG/DL (8.5-10.1) Current Medications Medications (Trade) Dose Ordered Sig/Antoni Route PRN Reason Start Time Stop Time Status Last Admin Dose Admin Acetaminophen (Tylenol) 650 mg Q4H PRN ORAL Mild Pain/Temp > 100.5 10/08/18 14:50 11/07/18 14:49 10/14/18 03:42 Al Hydroxide/Mg Hydroxide (Mylanta II) 30 ml Q6H PRN ORAL dyspepsia 10/08/18 14:51 11/07/18 14:50 Clonidine HCl (Catapres Tab) 0.1 mg Q4H PRN ORAL SBP>160 10/08/18 16:45 11/05/18 16:44 Dextrose (Dextrose 50%) 25 ml Q30M PRN IV Hypoglycemia 10/08/18 15:15 11/05/18 16:44 Dextrose (Dextrose 50%) 50 ml Q30M PRN IV Hypoglycemia 10/08/18 15:15 11/05/18 16:44 Dextrose/Sodium Chloride 1,000 ml @ 50 mls/hr Q20H IV 10/08/18 14:50 11/05/18 14:49 10/16/18 03:55 Lactulose (Cephulac) 30 gm THREE TIMES A DAY ORAL 10/08/18 18:00 11/06/18 17:59 10/16/18 12:25 Levothyroxine Sodium (Synthroid) 88 mcg ACBREAKFAST ORAL 10/09/18 06:30 11/06/18 06:29 10/16/18 05:45 Nitroglycerin (Ntg) 0.4 mg Q5M X 3 DOSES PRN SL Prn Chest Pain 10/08/18 15:00 11/05/18 16:44 Ondansetron HCl (Zofran) 4 mg Q6H PRN IVP Nausea & Vomiting 10/08/18 16:45 11/05/18 16:44 Polyethylene Glycol (Miralax) 17 gm HSPRN PRN ORAL Constipation 10/08/18 16:45 11/05/18 16:44 Promethazine HCl/ Codeine (Phenergan with Codeine) 5 ml Q4H PRN ORAL For Cough 10/08/18 16:45 11/05/18 16:44 Mehreen Thomas M.D. Oct 16, 2018 16:49
--- NOTE | 2018-10-16 17:54 | General Progress Note ---
Assessment/Plan Assessment/Plan Assessment and Recs: 1. Pancytopenia 2/2 cirrhosis with splenomegaly. GI following -> viral studies are negative --> imaging of the abdomen reviewed and c/w cirrhosis --> neupogen on a prn basis --> transfuse as needed 2. Thrombocytopenia likely related to medications. At this time, platelet goal is about 20,000 and hemoglobin goal is about 7. --> 2 units plts given prior to liver biopsy 3. Anemia with a component of iron deficiency. --> is now s/p IV iron. 4. B12 deficiency. B12 will be ordered. 5. Cirrhosis of liver. hx of chronic cirrhosis --> hepatitis and hiv are negative 6. Trichomonis Appreciate consultation greatly! Subjective Constitutional: Denies: no symptoms, chills, diaphoresis, fever, malaise, weakness, other HEENT: Denies: no symptoms, eye pain, blurred vision, tearing, double vision, ear pain, ear discharge, nose pain, nose congestion, throat pain, throat swelling, mouth pain, mouth swelling, other Cardiovascular: Denies: no symptoms, chest pain, edema, irregular heart rate, lightheadedness, palpitations, syncope, other Respiratory: Denies: no symptoms, cough, orthopnea, shortness of breath, SOB with excertion, SOB at rest, sputum, stridor, wheezing, other Gastrointestinal/Abdominal: Denies: no symptoms, abdomen distended, abdominal pain, black stools, tarry stools, blood in stool, constipated, diarrhea, difficulty swallowing, nausea, poor appetite, poor fluid intake, rectal bleeding , vomiting, other Genitourinary: Denies: no symptoms, burning, discharge, frequency, flank pain, hematuria, incontinence, pain, urgency, other Endocrine: Denies: no symptoms, excessive sweating, flushing, intolerance to cold, intolerance to heat, increased hunger, increased thirst, increased urine, unexplained weight gain, unexplained weight loss, other Allergies: Coded Allergies: No Known Allergies (Unverified , 05/28/17) Subjective 10/16: seen by bedside, awake, comfortable, no acute distress. Objective Last 24 Hour Vital Signs Date Time Temp Pulse Resp B/P (MAP) Pulse Ox O2 Delivery O2 Flow Rate FiO2 10/16/18 12:00 98.3 64 20 118/62 (80) 98 10/16/18 09:00 Room Air 10/16/18 08:00 98.1 62 20 125/65 (85) 98 10/16/18 04:00 98.4 60 20 132/82 (99) 98 10/16/18 00:00 98.3 61 20 109/55 (73) 100 10/15/18 21:00 Room Air 10/15/18 20:00 98.0 64 21 120/58 (78) 100 Intake and Output 10/15/18 10/16/18 18:59 06:59 Intake Total 1210 ml 1220 ml Balance 1210 ml 1220 ml Intake Oral 760 ml 720 ml IV Total 450 ml 500 ml # Voids 3 3 Laboratory Tests 10/16/18 05:35: White Blood Count 2.9L, Red Blood Count 3.25L, Hemoglobin 10.1L, Hematocrit 29.1L, Mean Corpuscular Volume 90, Mean Corpuscular Hemoglobin 31.1H, Mean Corpuscular Hemoglobin Concent 34.7, Red Cell Distribution Width 13.5, Platelet Count 52L, Mean Platelet Volume 8.3, Neutrophils (%) (Auto) , Lymphocytes (%) ( Auto) , Monocytes (%) (Auto) , Eosinophils (%) (Auto) , Basophils (%) (Auto) , Differential Total Cells Counted 100, Neutrophils % (Manual) 42L, Lymphocytes % (Manual) 37, Monocytes % (Manual) 13H, Eosinophils % (Manual) 7H, Basophils % ( Manual) 1, Band Neutrophils 0, Platelet Estimate DecreasedL, Platelet Morphology Normal, Hypochromasia 1+, Sodium Level 139, Potassium Level 3.7, Chloride Level 106, Carbon Dioxide Level 27, Anion Gap 6, Blood Urea Nitrogen 5L , Creatinine 0.7, Estimat Glomerular Filtration Rate > 60, Glucose Level 111H, Calcium Level 8.6 Height (Feet): 5 Height (Inches): 5.00 Weight (Pounds): 220 Objective PE Vitals reviewed Sp02 EP Interpretation: reviewed, normal General Appearance: no apparent distress, alert, GCS 15, non-toxic Head: normocephalic, atraumatic Respiratory: chest non-tender, lungs clear, normal breath sounds, speaking full sentences Cardiovascular #1: regular rate, rhythm, no edema Cardiovascular #2: 2+ carotid (R), 2+ carotid (L), 2+ radial (R), 2+ radial (L) , 2+ dorsalis pedis (R), 2+ dorsalis pedis (L) Gastrointestinal: normal bowel sounds, non tender, soft, non-distended, no guarding, no rebound Rectal: deferred Genitourinary: normal inspection, no CVA tenderness Jose Sneed MD Oct 16, 2018 17:54
--- NOTE | 2018-10-16 19:24 | NUR ---
HAND-OFF: Report given to Kathy LOREDO.
--- NOTE | 2018-10-16 19:50 | NUR ---
NURSE NOTES: Patient in bed asleep, no s/s distress noted. IV site intact and patent, iv fluids running. Bed in lowest position for safety. Call light within reach.
[2018-10-16 20:00] VITALS: BP 116/72
[2018-10-17] VITALS: BP_SYST 108; BP_SYST 127; BP_DIAS 55; BP_DIAS 73
[2018-10-17 04:00] VITALS: BP 105/65
--- NOTE | 2018-10-17 06:38 | General Progress Note ---
Assessment/Plan Problem List: (1) HTN (hypertension) ICD Codes: I10 - Essential (primary) hypertension SNOMED: 99257314 (2) Hypothyroid ICD Codes: E03.9 - Hypothyroidism, unspecified SNOMED: 52056723 (3) Hypothyroidism ICD Codes: E03.9 - Hypothyroidism, unspecified SNOMED: 21081242 (4) Diabetes ICD Codes: E11.9 - Type 2 diabetes mellitus without complications SNOMED: 96540349 (5) Chronic liver disease ICD Codes: K76.9 - Liver disease, unspecified SNOMED: 914428621 (6) Dizziness ICD Codes: R42 - Dizziness and giddiness SNOMED: 924201775, 787735234 (7) UTI (urinary tract infection) ICD Codes: N39.0 - Urinary tract infection, site not specified SNOMED: 29633211, 144206747 Qualifiers: Qualified Codes: N39.0 - Urinary tract infection, site not specified (8) CVA (cerebral vascular accident) ICD Codes: I63.9 - Cerebral infarction, unspecified SNOMED: 279133027, 141466369 Qualifiers: Qualified Codes: I63.9 - Cerebral infarction, unspecified (9) Cirrhosis ICD Codes: K74.60 - Unspecified cirrhosis of liver SNOMED: 92629639 (10) Varices of other sites ICD Codes: I86.8 - Varicose veins of other specified sites SNOMED: 868749063 Status: stable, progressing Assessment/Plan pt diet abx heme flu cbc bmp am dc to snf if clear Subjective Constitutional: Reports: weakness Allergies: Coded Allergies: No Known Allergies (Unverified , 05/28/17) All Systems: reviewed and negative except above Subjective calm in bed sleepy Objective Last 24 Hour Vital Signs Date Time Temp Pulse Resp B/P (MAP) Pulse Ox O2 Delivery O2 Flow Rate FiO2 10/17/18 04:00 98.3 65 18 105/65 (78) 100 10/17/18 00:00 98.6 64 17 108/55 (72) 97 10/16/18 21:00 Room Air 10/16/18 20:00 62 62 68 10/16/18 20:00 98.3 62 18 116/72 (87) 98 10/16/18 16:52 65 10/16/18 16:47 64 10/16/18 16:42 67 10/16/18 16:00 98.2 65 20 118/68 (85) 98 10/16/18 12:00 98.3 64 20 118/62 (80) 98 10/16/18 09:00 Room Air 10/16/18 08:00 98.1 62 20 125/65 (85) 98 Intake and Output 10/16/18 10/17/18 19:00 07:00 Intake Total 1000 ml 960 ml Balance 1000 ml 960 ml Intake Oral 650 ml 360 ml IV Total 350 ml 600 ml # Voids 4 3 # Bowel Movements 1 Height (Feet): 5 Height (Inches): 5.00 Weight (Pounds): 220 General Appearance: lethargic EENT: normal ENT inspection Neck: normal alignment Cardiovascular: normal peripheral pulses, normal rate, regular rhythm Respiratory/Chest: chest wall non-tender, lungs clear, normal breath sounds Abdomen: normal bowel sounds, non tender, soft Extremities: normal inspection Edema: no edema noted Arm (L), no edema noted Arm (R), no edema noted Leg (L), no edema noted Leg (R), no edema noted Pedal (L), no edema noted Pedal (R), no edema noted Generalized Neurologic: motor weakness Skin: normal pigmentation, warm/dry Saul Day DO Oct 17, 2018 06:38
[2018-10-17 07:09] LABS: ANION GAP 4 mmol/L (5-15); BLOOD UREA NITROGEN 8 mg/dL (7-18); CALCIUM 7.9 MG/DL (8.5-10.1); CARBON DIOXIDE 29 MMOL/L (21-32); CHLORIDE 106 MMOL/L (98-107); CREATININE 0.6 MG/DL (0.55-1.30); SODIUM 139 MMOL/L (136-145)
--- NOTE | 2018-10-17 07:20 | NUR ---
HAND-OFF: Report given to Tori LOREDO.
[2018-10-17 07:21] LABS: HEMATOCRIT 29.7 % (37.0-47.0); HEMOGLOBIN 10.2 G/DL (12.0-16.0); MEAN CORPUSCULAR VOLUME 90 FL (80-99); PLATELET COUNT 53 K/UL (150-450); RED BLOOD COUNT 3.29 M/UL (4.20-5.40); RED CELL DISTRIBUTION WIDTH 13.4 % (11.6-14.8); WHITE BLOOD COUNT 2.7 K/UL (4.8-10.8)
--- NOTE | 2018-10-17 07:50 | NUR ---
NURSE NOTES: Patient received in stable condition, eating breakfast in bed. Alert and oriented x2. Breathing unlabored on room air. Denies pain at this time. IV site on left arm patent and intact with fluids running. Patient observed to be ambulatory with steady gait. Bed locked, call light and personal belongings placed at bedside. Will continue to monitor.
[2018-10-17 08:00] VITALS: BP 133/67
[2018-10-17] MEDS: Lactulose 20gm/30ml UDC ORAL SCH ×3 (08:28→17:05)
--- NOTE | 2018-10-17 10:41 | GI Progress Note ---
Assessment/Plan Problems: (1) Chronic liver disease ICD Codes: K76.9 - Liver disease, unspecified SNOMED: 155758029 (2) Encephalopathy ICD Codes: G93.40 - Encephalopathy, unspecified SNOMED: 70260047 (3) Dizziness ICD Codes: R42 - Dizziness and giddiness SNOMED: 233735368, 753329443 (4) Anemia ICD Codes: D64.9 - Anemia, unspecified SNOMED: 201936394 (5) CVA (cerebral vascular accident) ICD Codes: I63.9 - Cerebral infarction, unspecified SNOMED: 213657072, 185041060 Qualifiers: Qualified Codes: I63.9 - Cerebral infarction, unspecified (6) Diabetes ICD Codes: E11.9 - Type 2 diabetes mellitus without complications SNOMED: 57509883 Status: unchanged Status Narrative Discussed with Dr. Madden Assessment/Plan SUMMARY OF FINDINGS: 1. Gastritis, status post biopsy. 2. Gastric polyps, status post biopsy. 3. Esophageal varices, status post banding x6. negative MRI RECOMMENDATIONS: We will obtain a set of orthostatic blood pressures Advance diet The patient will need outpatient follow up in 4 to 6 weeks for repeat endoscopy and repeat banding. cont lactulose + xifaxan prn transfusions follow labs DC planning The patient was seen and examined at bedside and all new and available data was reviewed in the patients chart. I agree with the above findings, impression and plan. (Patient seen earlier today. Signature stamp does not reflect patient encounter time.). - Shankar Madden MD Subjective Subjective Abdominal pain, nausea vomiting, generalized weakness all improved still have dizziness Tolerating diet Objective Last 24 Hour Vital Signs Date Time Temp Pulse Resp B/P (MAP) Pulse Ox O2 Delivery O2 Flow Rate FiO2 10/17/18 09:00 Room Air 10/17/18 09:00 58 58 58 10/17/18 08:00 98.7 58 18 133/67 (89) 98 10/17/18 04:00 98.3 65 18 105/65 (78) 100 10/17/18 00:00 98.6 64 17 108/55 (72) 97 10/16/18 21:00 Room Air 10/16/18 20:00 62 62 68 10/16/18 20:00 98.3 62 18 116/72 (87) 98 10/16/18 16:52 65 10/16/18 16:47 64 10/16/18 16:42 67 10/16/18 16:00 98.2 65 20 118/68 (85) 98 10/16/18 12:00 98.3 64 20 118/62 (80) 98 Intake and Output 10/16/18 10/17/18 19:00 07:00 Intake Total 1000 ml 960 ml Balance 1000 ml 960 ml Intake Oral 650 ml 360 ml IV Total 350 ml 600 ml # Voids 4 3 # Bowel Movements 1 Laboratory Tests Test 10/17/18 05:50 White Blood Count 2.7 K/UL (4.8-10.8) L Red Blood Count 3.29 M/UL (4.20-5.40) L Hemoglobin 10.2 G/DL (12.0-16.0) L Hematocrit 29.7 % (37.0-47.0) L Mean Corpuscular Volume 90 FL (80-99) Mean Corpuscular Hemoglobin 30.8 PG (27.0-31.0) Mean Corpuscular Hemoglobin Concent 34.2 G/DL (32.0-36.0) Red Cell Distribution Width 13.4 % (11.6-14.8) Platelet Count 53 K/UL (150-450) L Mean Platelet Volume 10.2 FL (6.5-10.1) H Neutrophils (%) (Auto) % (45.0-75.0) Lymphocytes (%) (Auto) % (20.0-45.0) Monocytes (%) (Auto) % (1.0-10.0) Eosinophils (%) (Auto) % (0.0-3.0) Basophils (%) (Auto) % (0.0-2.0) Differential Total Cells Counted 100 Neutrophils % (Manual) 45 % (45-75) Lymphocytes % (Manual) 44 % (20-45) Monocytes % (Manual) 7 % (1-10) Eosinophils % (Manual) 4 % (0-3) H Basophils % (Manual) 0 % (0-2) Band Neutrophils 0 % (0-8) Platelet Estimate Decreased L Platelet Morphology Normal Hypochromasia 1+ Sodium Level 139 MMOL/L (136-145) Potassium Level 4.0 MMOL/L (3.5-5.1) Chloride Level 106 MMOL/L (98-107) Carbon Dioxide Level 29 MMOL/L (21-32) Anion Gap 4 mmol/L (5-15) L Blood Urea Nitrogen 8 mg/dL (7-18) Creatinine 0.6 MG/DL (0.55-1.30) Estimat Glomerular Filtration Rate > 60 mL/min (>60) Glucose Level 115 MG/DL (74-106) H Calcium Level 7.9 MG/DL (8.5-10.1) L Height (Feet): 5 Height (Inches): 5.00 Weight (Pounds): 220 General Appearance: WD/WN, no apparent distress, alert, obese Cardiovascular: normal rate Respiratory/Chest: normal breath sounds, no respiratory distress Abdominal Exam: normal bowel sounds, non tender, soft Extremities: normal range of motion, non-tender Jm Swain NP Oct 17, 2018 10:41
[2018-10-17 12:00] VITALS: BP 115/66
--- NOTE | 2018-10-17 15:58 | Infectious Diseases Prog Note ---
Assessment/Plan Assessment/Plan 63 yo female with PMHx of DM, HTN, Seizures and fatty liver who was brought to the ED by her nephew 10/06/18 for dizziness. UTI, sp rx UA - positive for bacteria and trichomonas. UCX - E.coli Afebrile No leukocytosis Pancytopenia Probable TIA vs stroke vs seizure -Brain MRI: Negative for acute intracranial bleed, mass effect, or infarct. Minimal periventricular deep white matter high T2 signal, consistent with chronic ischemic changes DM HTN Seizures Fatty liver S/P EGD 1. Gastritis, status post biopsy. 2. Gastric polyps, status post biopsy. 3. Esophageal varices, status post banding x6. Plan - Continue to Monitor off abx - 10/09/18 SP Ceftriaxone #3 for bacterial UTI - 10/07/18 S/P Flagyl 2g x 1 for trichomonas We will continue to follow the patient during this hospitalization. Subjective Allergies: Coded Allergies: No Known Allergies (Unverified , 05/28/17) Subjective afebrile no leukocytosis off abx pancytopenia Objective Vital Signs Last 24 Hour Vital Signs Date Time Temp Pulse Resp B/P (MAP) Pulse Ox O2 Delivery O2 Flow Rate FiO2 10/17/18 12:00 98.2 61 18 115/66 (82) 98 10/17/18 09:00 Room Air 10/17/18 09:00 58 58 58 10/17/18 08:00 98.7 58 18 133/67 (89) 98 10/17/18 04:00 98.3 65 18 105/65 (78) 100 10/17/18 00:00 98.6 64 17 108/55 (72) 97 10/16/18 21:00 Room Air 10/16/18 20:00 62 62 68 10/16/18 20:00 98.3 62 18 116/72 (87) 98 10/16/18 16:52 65 10/16/18 16:47 64 10/16/18 16:42 67 10/16/18 16:00 98.2 65 20 118/68 (85) 98 Height (Feet): 5 Height (Inches): 5.00 Weight (Pounds): 220 Objective Gen: NAD, sitting in bed HEENT: NCAT, MMM, EOMI LUNGS: CTAB ABD: Soft, NT, ND + BS Laboratory Tests Test 10/17/18 05:50 White Blood Count 2.7 K/UL (4.8-10.8) L Red Blood Count 3.29 M/UL (4.20-5.40) L Hemoglobin 10.2 G/DL (12.0-16.0) L Hematocrit 29.7 % (37.0-47.0) L Mean Corpuscular Volume 90 FL (80-99) Mean Corpuscular Hemoglobin 30.8 PG (27.0-31.0) Mean Corpuscular Hemoglobin Concent 34.2 G/DL (32.0-36.0) Red Cell Distribution Width 13.4 % (11.6-14.8) Platelet Count 53 K/UL (150-450) L Mean Platelet Volume 10.2 FL (6.5-10.1) H Neutrophils (%) (Auto) % (45.0-75.0) Lymphocytes (%) (Auto) % (20.0-45.0) Monocytes (%) (Auto) % (1.0-10.0) Eosinophils (%) (Auto) % (0.0-3.0) Basophils (%) (Auto) % (0.0-2.0) Differential Total Cells Counted 100 Neutrophils % (Manual) 45 % (45-75) Lymphocytes % (Manual) 44 % (20-45) Monocytes % (Manual) 7 % (1-10) Eosinophils % (Manual) 4 % (0-3) H Basophils % (Manual) 0 % (0-2) Band Neutrophils 0 % (0-8) Platelet Estimate Decreased L Platelet Morphology Normal Hypochromasia 1+ Sodium Level 139 MMOL/L (136-145) Potassium Level 4.0 MMOL/L (3.5-5.1) Chloride Level 106 MMOL/L (98-107) Carbon Dioxide Level 29 MMOL/L (21-32) Anion Gap 4 mmol/L (5-15) L Blood Urea Nitrogen 8 mg/dL (7-18) Creatinine 0.6 MG/DL (0.55-1.30) Estimat Glomerular Filtration Rate > 60 mL/min (>60) Glucose Level 115 MG/DL (74-106) H Calcium Level 7.9 MG/DL (8.5-10.1) L Current Medications Medications (Trade) Dose Ordered Sig/Antoni Route PRN Reason Start Time Stop Time Status Last Admin Dose Admin Acetaminophen (Tylenol) 650 mg Q4H PRN ORAL Mild Pain/Temp > 100.5 10/08/18 14:50 11/07/18 14:49 10/14/18 03:42 Al Hydroxide/Mg Hydroxide (Mylanta II) 30 ml Q6H PRN ORAL dyspepsia 10/08/18 14:51 11/07/18 14:50 Clonidine HCl (Catapres Tab) 0.1 mg Q4H PRN ORAL SBP>160 10/08/18 16:45 11/05/18 16:44 Dextrose (Dextrose 50%) 25 ml Q30M PRN IV Hypoglycemia 10/08/18 15:15 11/05/18 16:44 Dextrose (Dextrose 50%) 50 ml Q30M PRN IV Hypoglycemia 10/08/18 15:15 11/05/18 16:44 Dextrose/Sodium Chloride 1,000 ml @ 50 mls/hr Q20H IV 10/08/18 14:50 11/05/18 14:49 10/16/18 22:01 Lactulose (Cephulac) 30 gm THREE TIMES A DAY ORAL 10/08/18 18:00 11/06/18 17:59 10/17/18 13:00 Levothyroxine Sodium (Synthroid) 88 mcg ACBREAKFAST ORAL 10/09/18 06:30 11/06/18 06:29 10/17/18 05:56 Nitroglycerin (Ntg) 0.4 mg Q5M X 3 DOSES PRN SL Prn Chest Pain 10/08/18 15:00 11/05/18 16:44 Ondansetron HCl (Zofran) 4 mg Q6H PRN IVP Nausea & Vomiting 10/08/18 16:45 11/05/18 16:44 Polyethylene Glycol (Miralax) 17 gm HSPRN PRN ORAL Constipation 10/08/18 16:45 11/05/18 16:44 Promethazine HCl/ Codeine (Phenergan with Codeine) 5 ml Q4H PRN ORAL For Cough 10/08/18 16:45 11/05/18 16:44 Mehreen Thomas M.D. Oct 17, 2018 15:58
[2018-10-17 16:00] VITALS: BP 111/65
--- NOTE | 2018-10-17 16:41 | General Progress Note ---
Assessment/Plan Assessment/Plan Assessment and Recs: #Pancytopenia 2/2 cirrhosis with splenomegaly. GI following --> viral studies are negative --> imaging of the abdomen reviewed and c/w cirrhosis --> neupogen on a prn basis --> transfuse as needed # Thrombocytopenia likely related to medications. At this time, platelet goal is about 20,000 and hemoglobin goal is about 7. --> 2 units plts given prior to liver biopsy # Anemia with a component of iron deficiency. --> is now s/p IV iron. # B12 deficiency. B12 will be ordered. # Cirrhosis of liver. hx of chronic cirrhosis --> hepatitis and hiv are negative # Trichomonis # MRI of the brain, 10/14 reveals, Negative for acute intracranial bleed, mass effect, or infarct Minimal periventricular deep white matter high T2 signal, consistent with chronic ischemic changes. Appreciate consultation greatly! Subjective Constitutional: Denies: no symptoms, chills, diaphoresis, fever, malaise, weakness, other HEENT: Denies: no symptoms, eye pain, blurred vision, tearing, double vision, ear pain, ear discharge, nose pain, nose congestion, throat pain, throat swelling, mouth pain, mouth swelling, other Cardiovascular: Denies: no symptoms, chest pain, edema, irregular heart rate, lightheadedness, palpitations, syncope, other Respiratory: Denies: no symptoms, cough, orthopnea, shortness of breath, SOB with excertion, SOB at rest, sputum, stridor, wheezing, other Gastrointestinal/Abdominal: Denies: no symptoms, abdomen distended, abdominal pain, black stools, tarry stools, blood in stool, constipated, diarrhea, difficulty swallowing, nausea, poor appetite, poor fluid intake, rectal bleeding , vomiting, other Genitourinary: Denies: no symptoms, burning, discharge, frequency, flank pain, hematuria, incontinence, pain, urgency, other Neurologic/Psychiatric: Denies: no symptoms, anxiety, depressed, emotional problems, headache, numbness, paresthesia, pre-existing deficit, seizure, tingling, tremors, weakness, other Endocrine: Denies: no symptoms, excessive sweating, flushing, intolerance to cold, intolerance to heat, increased hunger, increased thirst, increased urine, unexplained weight gain, unexplained weight loss, other Hematologic/Lymphatic: Denies: no symptoms, anemia, easy bleeding, easy bruising, other Allergies: Coded Allergies: No Known Allergies (Unverified , 05/28/17) Subjective 10/16: seen by bedside, awake, comfortable, no acute distress. 10/17: Pt is seen at bedside, resting in bed, abdominal pain, nausea vomiting is improved, plt remains low at 53 today. Objective Last 24 Hour Vital Signs Date Time Temp Pulse Resp B/P (MAP) Pulse Ox O2 Delivery O2 Flow Rate FiO2 10/17/18 16:00 98.2 63 18 111/65 (80) 100 10/17/18 12:00 98.2 61 18 115/66 (82) 98 10/17/18 09:00 Room Air 10/17/18 09:00 58 58 58 10/17/18 08:00 98.7 58 18 133/67 (89) 98 10/17/18 04:00 98.3 65 18 105/65 (78) 100 10/17/18 00:00 98.6 64 17 108/55 (72) 97 10/16/18 21:00 Room Air 10/16/18 20:00 62 62 68 10/16/18 20:00 98.3 62 18 116/72 (87) 98 10/16/18 16:52 65 10/16/18 16:47 64 10/16/18 16:42 67 Intake and Output 10/16/18 10/17/18 19:00 07:00 Intake Total 1000 ml 960 ml Balance 1000 ml 960 ml Intake Oral 650 ml 360 ml IV Total 350 ml 600 ml # Voids 4 3 # Bowel Movements 1 Laboratory Tests 10/17/18 05:50: White Blood Count 2.7L, Red Blood Count 3.29L, Hemoglobin 10.2L, Hematocrit 29.7L, Mean Corpuscular Volume 90, Mean Corpuscular Hemoglobin 30.8, Mean Corpuscular Hemoglobin Concent 34.2, Red Cell Distribution Width 13.4, Platelet Count 53L, Mean Platelet Volume 10.2H, Neutrophils (%) (Auto) , Lymphocytes (%) (Auto) , Monocytes (%) (Auto) , Eosinophils (%) (Auto) , Basophils (%) (Auto) , Differential Total Cells Counted 100, Neutrophils % (Manual) 45, Lymphocytes % ( Manual) 44, Monocytes % (Manual) 7, Eosinophils % (Manual) 4H, Basophils % ( Manual) 0, Band Neutrophils 0, Platelet Estimate DecreasedL, Platelet Morphology Normal, Hypochromasia 1+, Sodium Level 139, Potassium Level 4.0, Chloride Level 106, Carbon Dioxide Level 29, Anion Gap 4L, Blood Urea Nitrogen 8 , Creatinine 0.6, Estimat Glomerular Filtration Rate > 60, Glucose Level 115H, Calcium Level 7.9L Height (Feet): 5 Height (Inches): 5.00 Weight (Pounds): 220 Objective PE Vitals reviewed Sp02 EP Interpretation: reviewed, normal General Appearance: no apparent distress, alert, GCS 15, non-toxic Head: normocephalic, atraumatic Respiratory: chest non-tender, lungs clear, normal breath sounds, speaking full sentences Cardiovascular #1: regular rate, rhythm, no edema Cardiovascular #2: 2+ carotid (R), 2+ carotid (L), 2+ radial (R), 2+ radial (L) , 2+ dorsalis pedis (R), 2+ dorsalis pedis (L) Gastrointestinal: normal bowel sounds, non tender, soft, non-distended, no guarding, no rebound Rectal: deferred Genitourinary: normal inspection, no CVA tenderness Jose Sneed MD Oct 17, 2018 16:41
[2018-10-17] MEDS: D5 1/2NS 1,000 ML IV SCH (18:50)
--- NOTE | 2018-10-17 19:29 | NUR ---
HAND-OFF: Report given to Shannon LOREDO.
--- NOTE | 2018-10-17 19:56 | NUR ---
NURSE NOTES: Patient in bed, awake, IV in place. No complaints of pain. No s/s distress noted. bed in lowest position, call light within reach. Will continue to monitor. Addendum: 10/17/18 at 2217 by CORINA MODI RN RN Bed alarm on.
[2018-10-17 20:12] VITALS: BP 104/57
--- NOTE | 2018-10-17 20:59 | NUR ---
CASE MANAGEMENT: REVIEW 10/17/2018 SI: ESOPHAGEAL VARICES . HEPATIC ENCEPHALOPATHY EGD w/BIOPSY 10/09 T 98.2 HR 83 RR 20 B/P 159/65 SATS 95% ON RA WBC 4.2 BUN 24 CR 1.4 CA 8.3 IS: RIFAXIMIN PO Q12HR LACTULOSE PO TID D5 1/2 NS IVF @50ML/HR MED/SURG STATUS DCP: PATIENT TO BE DISCHARGED TO HOME WITH HOME HEALTH
[2018-10-18 00:39] VITALS: BP 103/47
[2018-10-18 04:29] VITALS: BP 150/82
--- NOTE | 2018-10-18 06:00 | NUR ---
NURSE NOTES: PATIENT ASLEEP, NO DISTRESS.
--- NOTE | 2018-10-18 07:12 | NUR ---
HAND-OFF: Report given to FREDY LIZARRAGA RN.
[2018-10-18 07:49] LABS: ANION GAP 6 mmol/L (5-15); BLOOD UREA NITROGEN 8 mg/dL (7-18); CALCIUM 8.1 MG/DL (8.5-10.1); CARBON DIOXIDE 27 MMOL/L (21-32); CHLORIDE 105 MMOL/L (98-107); CREATININE 0.7 MG/DL (0.55-1.30); POTASSIUM 3.8 MMOL/L (3.5-5.1); SODIUM 138 MMOL/L (136-145)
[2018-10-18 08:00] VITALS: BP 121/61
--- NOTE | 2018-10-18 08:00 | NUR ---
NURSE NOTES: Received patient in bed, resting and alert to name and place. Patient denies pain. No signs of respiratory distress. Bed in lowest position call light, within reach. Will continue to monitor.
[2018-10-18] MEDS: Lactulose 20gm/30ml UDC ORAL SCH ×2 (08:09→13:06)
[2018-10-18 08:10] LABS: HEMATOCRIT 30.5 % (37.0-47.0); HEMOGLOBIN 10.5 G/DL (12.0-16.0); MEAN CORPUSCULAR VOLUME 90 FL (80-99); PLATELET COUNT 59 K/UL (150-450); RED BLOOD COUNT 3.39 M/UL (4.20-5.40); RED CELL DISTRIBUTION WIDTH 13.6 % (11.6-14.8); WHITE BLOOD COUNT 3.4 K/UL (4.8-10.8)
--- NOTE | 2018-10-18 10:46 | General Progress Note ---
Assessment/Plan Problem List: (1) Cirrhosis ICD Codes: K74.60 - Unspecified cirrhosis of liver SNOMED: 26431395 (2) Hypothyroid ICD Codes: E03.9 - Hypothyroidism, unspecified SNOMED: 92183969 (3) HTN (hypertension) ICD Codes: I10 - Essential (primary) hypertension SNOMED: 12169886 (4) Diabetes ICD Codes: E11.9 - Type 2 diabetes mellitus without complications SNOMED: 07823263 (5) Hepatic encephalopathy ICD Codes: K72.90 - Hepatic failure, unspecified without coma SNOMED: 20254606 (6) Chronic liver disease ICD Codes: K76.9 - Liver disease, unspecified SNOMED: 338072002 Assessment/Plan Assessment/Plan SUMMARY OF FINDINGS: 1. Gastritis, status post biopsy. 2. Gastric polyps, status post biopsy. 3. Esophageal varices, status post banding x6. negative MRI RECOMMENDATIONS: on diet The patient will need outpatient follow up in 4 to 6 weeks for repeat endoscopy and repeat banding. cont lactulose + xifaxan prn transfusions follow labs DC planning Subjective ROS Limited/Unobtainable: Yes Allergies: Coded Allergies: No Known Allergies (Unverified , 05/28/17) Subjective no event Objective Last 24 Hour Vital Signs Date Time Temp Pulse Resp B/P (MAP) Pulse Ox O2 Delivery O2 Flow Rate FiO2 10/18/18 08:00 98.0 69 18 121/61 (81) 99 10/18/18 04:29 97.3 59 18 150/82 (104) 100 10/18/18 00:39 98.1 61 18 103/47 (65) 98 10/17/18 22:18 Room Air 10/17/18 20:13 66 64 70 10/17/18 20:12 97.2 66 18 104/57 (73) 99 10/17/18 16:00 98.2 63 18 111/65 (80) 100 10/17/18 12:00 98.2 61 18 115/66 (82) 98 Intake and Output 10/17/18 10/18/18 18:59 06:59 Intake Total 930 ml 570 ml Balance 930 ml 570 ml Intake Oral 930 ml 120 ml IV Total 450 ml # Voids 4 4 Laboratory Tests 10/18/18 05:52: White Blood Count 3.4L, Red Blood Count 3.39L, Hemoglobin 10.5L, Hematocrit 30.5L, Mean Corpuscular Volume 90, Mean Corpuscular Hemoglobin 31.0, Mean Corpuscular Hemoglobin Concent 34.4, Red Cell Distribution Width 13.6, Platelet Count 59L, Mean Platelet Volume 7.9, Neutrophils (%) (Auto) , Lymphocytes (%) ( Auto) , Monocytes (%) (Auto) , Eosinophils (%) (Auto) , Basophils (%) (Auto) , Differential Total Cells Counted 100, Neutrophils % (Manual) 49, Lymphocytes % ( Manual) 33, Monocytes % (Manual) 7, Eosinophils % (Manual) 11H, Basophils % ( Manual) 0, Band Neutrophils 0, Platelet Estimate DecreasedL, Platelet Morphology Normal, Sodium Level 138, Potassium Level 3.8, Chloride Level 105, Carbon Dioxide Level 27, Anion Gap 6, Blood Urea Nitrogen 8, Creatinine 0.7, Estimat Glomerular Filtration Rate > 60, Glucose Level 114H, Calcium Level 8.1L Height (Feet): 5 Height (Inches): 5.00 Weight (Pounds): 220 General Appearance: no apparent distress EENT: normal ENT inspection Neck: supple Cardiovascular: normal rate Respiratory/Chest: decreased breath sounds Abdomen: normal bowel sounds, non tender, soft Extremities: non-tender Shankar Madden MD Oct 18, 2018 10:46
[2018-10-18 12:00] VITALS: BP 128/70
--- NOTE | 2018-10-18 12:21 | General Progress Note ---
Assessment/Plan Problem List: (1) CVA (cerebral vascular accident) ICD Codes: I63.9 - Cerebral infarction, unspecified SNOMED: 626867496, 801115514 Qualifiers: Qualified Codes: I63.9 - Cerebral infarction, unspecified (2) Anemia ICD Codes: D64.9 - Anemia, unspecified SNOMED: 740759499 (3) Hepatic encephalopathy ICD Codes: K72.90 - Hepatic failure, unspecified without coma SNOMED: 80303572 (4) Diabetes ICD Codes: E11.9 - Type 2 diabetes mellitus without complications SNOMED: 85639734 (5) Hypothyroidism ICD Codes: E03.9 - Hypothyroidism, unspecified SNOMED: 21982941 (6) HTN (hypertension) ICD Codes: I10 - Essential (primary) hypertension SNOMED: 82602063 (7) Hypothyroid ICD Codes: E03.9 - Hypothyroidism, unspecified SNOMED: 99905326 Status: progressing Assessment/Plan ataxia r/p cva htn sugar improved hepatic encephalopathy check ammonia periodically afebrile Subjective ROS Limited/Unobtainable: Yes Allergies: Coded Allergies: No Known Allergies (Unverified , 05/28/17) Objective Last 24 Hour Vital Signs Date Time Temp Pulse Resp B/P (MAP) Pulse Ox O2 Delivery O2 Flow Rate FiO2 10/18/18 08:00 98.0 69 18 121/61 (81) 99 10/18/18 04:29 97.3 59 18 150/82 (104) 100 10/18/18 00:39 98.1 61 18 103/47 (65) 98 10/17/18 22:18 Room Air 10/17/18 20:13 66 64 70 10/17/18 20:12 97.2 66 18 104/57 (73) 99 10/17/18 16:00 98.2 63 18 111/65 (80) 100 Intake and Output 10/17/18 10/18/18 18:59 06:59 Intake Total 930 ml 570 ml Balance 930 ml 570 ml Intake Oral 930 ml 120 ml IV Total 450 ml # Voids 4 4 Laboratory Tests 10/18/18 05:52: White Blood Count 3.4L, Red Blood Count 3.39L, Hemoglobin 10.5L, Hematocrit 30.5L, Mean Corpuscular Volume 90, Mean Corpuscular Hemoglobin 31.0, Mean Corpuscular Hemoglobin Concent 34.4, Red Cell Distribution Width 13.6, Platelet Count 59L, Mean Platelet Volume 7.9, Neutrophils (%) (Auto) , Lymphocytes (%) ( Auto) , Monocytes (%) (Auto) , Eosinophils (%) (Auto) , Basophils (%) (Auto) , Differential Total Cells Counted 100, Neutrophils % (Manual) 49, Lymphocytes % ( Manual) 33, Monocytes % (Manual) 7, Eosinophils % (Manual) 11H, Basophils % ( Manual) 0, Band Neutrophils 0, Platelet Estimate DecreasedL, Platelet Morphology Normal, Sodium Level 138, Potassium Level 3.8, Chloride Level 105, Carbon Dioxide Level 27, Anion Gap 6, Blood Urea Nitrogen 8, Creatinine 0.7, Estimat Glomerular Filtration Rate > 60, Glucose Level 114H, Calcium Level 8.1L Height (Feet): 5 Height (Inches): 5.00 Weight (Pounds): 220 Neck: supple Cardiovascular: normal rate Respiratory/Chest: lungs clear Abdomen: soft Anya Lindo MD Oct 18, 2018 12:21
--- NOTE | 2018-10-18 15:46 | NUR ---
RD ASSESSMENT & RECOMMENDATIONS SEE CARE ACTIVITY FOR COMPLETE ASSESSMENT DAILY ESTIMATED NEEDS: Needs based on liver dz, obesity/ 67kg adj 22-27 kcals/kg 8781-0687 total kcals 1-1.5 g protein/kg 67-101 g total protein 25-30 mL/kg 3052-4150 total fluid mLs NUTRITION DIAGNOSIS: 1) Decreased sodium and fat needs R/T liver dysfunction as evidenced by pt w/ Cirrhosis with elev T Bili (3.2), elev ammonia (144->93), s/p esophageal banding. CURRENT DIET:CARDIAC, CCHO LOW/ soft easy chew PO DIET RECOMMENDATIONS: CARDIAC + CCHO LOW/ texture per [employer]TER ADDITIONAL RECOMMENDATIONS: 1) Calibrated bed scale wt or standing wt for eval of CBW 2) Monitor BGs, need for SSI/ hypoglycemic agents 3) A1c for eval- h/o DM .
--- NOTE | 2018-10-18 17:06 | Infectious Diseases Prog Note ---
Assessment/Plan Assessment/Plan 63 yo female with PMHx of DM, HTN, Seizures and fatty liver who was brought to the ED by her nephew 10/06/18 for dizziness. UTI, sp rx UA - positive for bacteria and trichomonas. UCX - E.coli Afebrile No leukocytosis Pancytopenia Probable TIA vs stroke vs seizure -Brain MRI: Negative for acute intracranial bleed, mass effect, or infarct. Minimal periventricular deep white matter high T2 signal, consistent with chronic ischemic changes DM HTN Seizures Fatty liver S/P EGD 1. Gastritis, status post biopsy. 2. Gastric polyps, status post biopsy. 3. Esophageal varices, status post banding x6. Plan - Continue to Monitor off abx - 10/09/18 SP Ceftriaxone #3 for bacterial UTI - 10/07/18 S/P Flagyl 2g x 1 for trichomonas We will continue to follow the patient during this hospitalization. Subjective Allergies: Coded Allergies: No Known Allergies (Unverified , 05/28/17) Subjective afebrile no leukocytosis off abx pancytopenia Objective Vital Signs Last 24 Hour Vital Signs Date Time Temp Pulse Resp B/P (MAP) Pulse Ox O2 Delivery O2 Flow Rate FiO2 10/18/18 12:00 97.6 62 19 128/70 (89) 99 10/18/18 09:00 Room Air 10/18/18 09:00 65 69 70 10/18/18 08:00 98.0 69 18 121/61 (81) 99 10/18/18 04:29 97.3 59 18 150/82 (104) 100 10/18/18 00:39 98.1 61 18 103/47 (65) 98 10/17/18 22:18 Room Air 10/17/18 20:13 66 64 70 10/17/18 20:12 97.2 66 18 104/57 (73) 99 Height (Feet): 5 Height (Inches): 5.00 Weight (Pounds): 220 Objective Gen: NAD, sitting in bed HEENT: NCAT, MMM, EOMI LUNGS: CTAB ABD: Soft, NT, ND + BS Laboratory Tests Test 10/18/18 05:52 White Blood Count 3.4 K/UL (4.8-10.8) L Red Blood Count 3.39 M/UL (4.20-5.40) L Hemoglobin 10.5 G/DL (12.0-16.0) L Hematocrit 30.5 % (37.0-47.0) L Mean Corpuscular Volume 90 FL (80-99) Mean Corpuscular Hemoglobin 31.0 PG (27.0-31.0) Mean Corpuscular Hemoglobin Concent 34.4 G/DL (32.0-36.0) Red Cell Distribution Width 13.6 % (11.6-14.8) Platelet Count 59 K/UL (150-450) L Mean Platelet Volume 7.9 FL (6.5-10.1) Neutrophils (%) (Auto) % (45.0-75.0) Lymphocytes (%) (Auto) % (20.0-45.0) Monocytes (%) (Auto) % (1.0-10.0) Eosinophils (%) (Auto) % (0.0-3.0) Basophils (%) (Auto) % (0.0-2.0) Differential Total Cells Counted 100 Neutrophils % (Manual) 49 % (45-75) Lymphocytes % (Manual) 33 % (20-45) Monocytes % (Manual) 7 % (1-10) Eosinophils % (Manual) 11 % (0-3) H Basophils % (Manual) 0 % (0-2) Band Neutrophils 0 % (0-8) Platelet Estimate Decreased L Platelet Morphology Normal Sodium Level 138 MMOL/L (136-145) Potassium Level 3.8 MMOL/L (3.5-5.1) Chloride Level 105 MMOL/L (98-107) Carbon Dioxide Level 27 MMOL/L (21-32) Anion Gap 6 mmol/L (5-15) Blood Urea Nitrogen 8 mg/dL (7-18) Creatinine 0.7 MG/DL (0.55-1.30) Estimat Glomerular Filtration Rate > 60 mL/min (>60) Glucose Level 114 MG/DL (74-106) H Calcium Level 8.1 MG/DL (8.5-10.1) L Current Medications Medications (Trade) Dose Ordered Sig/Antoni Route PRN Reason Start Time Stop Time Status Last Admin Dose Admin Acetaminophen (Tylenol) 650 mg Q4H PRN ORAL Mild Pain/Temp > 100.5 10/08/18 14:50 11/07/18 14:49 10/14/18 03:42 Al Hydroxide/Mg Hydroxide (Mylanta II) 30 ml Q6H PRN ORAL dyspepsia 10/08/18 14:51 11/07/18 14:50 Clonidine HCl (Catapres Tab) 0.1 mg Q4H PRN ORAL SBP>160 10/08/18 16:45 11/05/18 16:44 Dextrose (Dextrose 50%) 25 ml Q30M PRN IV Hypoglycemia 10/08/18 15:15 11/05/18 16:44 Dextrose (Dextrose 50%) 50 ml Q30M PRN IV Hypoglycemia 10/08/18 15:15 11/05/18 16:44 Dextrose/Sodium Chloride 1,000 ml @ 50 mls/hr Q20H IV 10/08/18 14:50 11/05/18 14:49 10/16/18 22:01 Lactulose (Cephulac) 30 gm THREE TIMES A DAY ORAL 10/08/18 18:00 11/06/18 17:59 10/18/18 13:06 Levothyroxine Sodium (Synthroid) 88 mcg ACBREAKFAST ORAL 10/09/18 06:30 11/06/18 06:29 10/18/18 05:45 Nitroglycerin (Ntg) 0.4 mg Q5M X 3 DOSES PRN SL Prn Chest Pain 10/08/18 15:00 11/05/18 16:44 Ondansetron HCl (Zofran) 4 mg Q6H PRN IVP Nausea & Vomiting 10/08/18 16:45 11/05/18 16:44 Polyethylene Glycol (Miralax) 17 gm HSPRN PRN ORAL Constipation 10/08/18 16:45 11/05/18 16:44 Promethazine HCl/ Codeine (Phenergan with Codeine) 5 ml Q4H PRN ORAL For Cough 10/08/18 16:45 11/05/18 16:44 Mehreen Thomas M.D. Oct 18, 2018 17:06
[2018-10-18] MEDS ORDERED: D5 1/2NS 1000ml IV ONE (19:11)
--- NOTE | 2018-10-18 19:30 | NUR ---
NURSE NOTES: Patient discharged with nephewAristeo, in private vehicle. Discharge packet given to patient, explained dc plan and medications to continue along with follow up appointments. IV removed. ID band removed. Belongings verified with patient. Patient discharged in stable condition.
--- NOTE | 2018-10-18 20:54 | General Progress Note ---
Assessment/Plan Assessment/Plan Assessment and Recs: #Pancytopenia 2/2 cirrhosis with splenomegaly. GI following --> viral studies are negative --> imaging of the abdomen reviewed and c/w cirrhosis --> neupogen on a prn basis --> transfuse as needed # Thrombocytopenia likely related to medications. At this time, platelet goal is about 20,000 and hemoglobin goal is about 7. --> 2 units plts given prior to liver biopsy # Anemia with a component of iron deficiency. --> is now s/p IV iron. # B12 deficiency. B12 will be ordered. # Cirrhosis of liver. hx of chronic cirrhosis --> hepatitis and hiv are negative # Trichomonis # MRI of the brain, 10/14 reveals, Negative for acute intracranial bleed, mass effect, or infarct Minimal periventricular deep white matter high T2 signal, consistent with chronic ischemic changes. Appreciate consultation greatly! Subjective Constitutional: Denies: no symptoms, chills, diaphoresis, fever, malaise, weakness, other HEENT: Denies: no symptoms, eye pain, blurred vision, tearing, double vision, ear pain, ear discharge, nose pain, nose congestion, throat pain, throat swelling, mouth pain, mouth swelling, other Cardiovascular: Denies: no symptoms, chest pain, edema, irregular heart rate, lightheadedness, palpitations, syncope, other Respiratory: Denies: no symptoms, cough, orthopnea, shortness of breath, SOB with excertion, SOB at rest, sputum, stridor, wheezing, other Gastrointestinal/Abdominal: Denies: no symptoms, abdomen distended, abdominal pain, black stools, tarry stools, blood in stool, constipated, diarrhea, difficulty swallowing, nausea, poor appetite, poor fluid intake, rectal bleeding , vomiting, other Genitourinary: Denies: no symptoms, burning, discharge, frequency, flank pain, hematuria, incontinence, pain, urgency, other Neurologic/Psychiatric: Denies: no symptoms, anxiety, depressed, emotional problems, headache, numbness, paresthesia, pre-existing deficit, seizure, tingling, tremors, weakness, other Endocrine: Denies: no symptoms, excessive sweating, flushing, intolerance to cold, intolerance to heat, increased hunger, increased thirst, increased urine, unexplained weight gain, unexplained weight loss, other Hematologic/Lymphatic: Denies: no symptoms, anemia, easy bleeding, easy bruising, other Allergies: Coded Allergies: No Known Allergies (Unverified , 05/28/17) Subjective 10/16: seen by bedside, awake, comfortable, no acute distress. 10/17: Pt is seen at bedside, resting in bed, abdominal pain, nausea vomiting is improved, plt remains low at 53 today. 10/18: Pt was seen in the room, awake, comfortable, plt remains low at 59 today. Objective Last 24 Hour Vital Signs Date Time Temp Pulse Resp B/P (MAP) Pulse Ox O2 Delivery O2 Flow Rate FiO2 10/18/18 12:00 97.6 62 19 128/70 (89) 99 10/18/18 09:00 Room Air 10/18/18 09:00 65 69 70 10/18/18 08:00 98.0 69 18 121/61 (81) 99 10/18/18 04:29 97.3 59 18 150/82 (104) 100 10/18/18 00:39 98.1 61 18 103/47 (65) 98 10/17/18 22:18 Room Air Intake and Output 10/17/18 10/18/18 19:00 07:00 Intake Total 980 ml 520 ml Balance 980 ml 520 ml Intake Oral 930 ml 120 ml IV Total 50 ml 400 ml # Voids 4 4 Laboratory Tests 10/18/18 05:52: White Blood Count 3.4L, Red Blood Count 3.39L, Hemoglobin 10.5L, Hematocrit 30.5L, Mean Corpuscular Volume 90, Mean Corpuscular Hemoglobin 31.0, Mean Corpuscular Hemoglobin Concent 34.4, Red Cell Distribution Width 13.6, Platelet Count 59L, Mean Platelet Volume 7.9, Neutrophils (%) (Auto) , Lymphocytes (%) ( Auto) , Monocytes (%) (Auto) , Eosinophils (%) (Auto) , Basophils (%) (Auto) , Differential Total Cells Counted 100, Neutrophils % (Manual) 49, Lymphocytes % ( Manual) 33, Monocytes % (Manual) 7, Eosinophils % (Manual) 11H, Basophils % ( Manual) 0, Band Neutrophils 0, Platelet Estimate DecreasedL, Platelet Morphology Normal, Sodium Level 138, Potassium Level 3.8, Chloride Level 105, Carbon Dioxide Level 27, Anion Gap 6, Blood Urea Nitrogen 8, Creatinine 0.7, Estimat Glomerular Filtration Rate > 60, Glucose Level 114H, Calcium Level 8.1L Height (Feet): 5 Height (Inches): 5.00 Weight (Pounds): 220 Objective PE Vitals reviewed Sp02 EP Interpretation: reviewed, normal General Appearance: no apparent distress, alert, GCS 15, non-toxic Head: normocephalic, atraumatic Respiratory: chest non-tender, lungs clear, normal breath sounds, speaking full sentences Cardiovascular #1: regular rate, rhythm, no edema Cardiovascular #2: 2+ carotid (R), 2+ carotid (L), 2+ radial (R), 2+ radial (L) , 2+ dorsalis pedis (R), 2+ dorsalis pedis (L) Gastrointestinal: normal bowel sounds, non tender, soft, non-distended, no guarding, no rebound Rectal: deferred Genitourinary: normal inspection, no CVA tenderness Jose Sneed MD Oct 18, 2018 20:54
--- NOTE | 2018-10-21 12:45 | Discharge Summary ---
Discharge Summary Discharge Summary _ DATE OF ADMISSION: 10/06/2018 DATE OF DISCHARGE: 10/18/2018 DISCHARGED BY: Dr Day REASON FOR ADMISSION: 63 years old female with past medical history of hypertension, diabetes mellitus , seizure disorder, presented to emergency room for dizziness and lethargy. According to nephew patient was more lethargic. He also noted facial droop and slurred speech. Patient woke up with these symptoms. Per nephew patient experienced dizziness for the last month. No chest pain or shortness of breath. No fever, no chills. Upon evaluation vital signs were stable. CT of the head revealed no mass-effect, Edema or acute bleeding. Laboratory workup revealed mild leukopenia WBC 3.9, stable hemoglobin hematocrit , platelet count 82. Stable electrolytes and renal parameters. Glucose 148. Elevated AST 69 with stable ALT 42. Total bilirubin 3.3 and direct bilirubin 0.8. Ammonia level 171. Urinalysis revealed evidence of UTI and trichomonas. Troponin was negative. EKG revealed normal sinus rhythm, no acute ischemic changes. Patient received aspirin in the emergency department. Patient started on empiric antibiotics. Patient admitted to the hospital for further management. CONSULTANTS: superintendent tests Dr. Clemens neurologist Dr. Maxwell pulmonary Dr. Mason ID specialist Dr. Russell GI specialist Dr. Madden fitness consultant/oncologist Dr. Sneed [facility]: Patient admitted to telemetry floor initially. Neurologist seen and evaluated patient. Neurologist recommended continue antiplatelet therapy with aspirin. Brain MRI revealed no evidence of acute intracranial bleeding, mass-effect or infarct. Minimal periventricular deep white matter high T2 signal consistent with chronic ischemic changes noted. Lipid panel was stable. Carotid duplex revealed minimal degree of stenosis. Neurology closely followed. Mental status was slowly improving. Patient complaint of dizzy spells, which were difficult to evaluate, since patient had these spells for a while. Orthostatic vital signs reveal no evidence of orthostatic changes. Blood pressure was closely monitored and managed with current regimen, remained stable. GI specialist closely followed. Patient started initially on lactulose and rifaximin for elevated ammonia. Ammonia level was closely monitored, trending down; prior to discharge from initial 171 down to 93. Continue lactulose at home. Abdominal ultrasound demonstrated cholelithiasis. Evidence of chronic liver disease and portal hypertension. Suspected portosystemic varices , no evidence of ascites. Patient undergone upper endoscopy . Patient was found to have gastritis, status post biopsy, gastric polyp, status post biopsy and esophageal varices, status post bending times six. No evidence of any gastric varices. Patient started on clear liquid diet and was advanced as tolerated. Subcutaneous heparin was discontinued. DVT prophylaxis provided with SCD. Patient will require outpatient follow-up with GI specialist in 4-6 weeks to repeat endoscopy and banding. Gastric polyp biopsy revealed mild to moderate chronic gastritis and intestinal metaplasia, but was negative for Helicobacter infection. 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 Echocardiogram revealed preserved ejection fraction 55-60% with no evidence of left ventricular hypertrophy. No evidence of wall motion abnormality. Right ventricular pressure of 34. Telemetry showed at some point atrial fibrillation, new onset. Heart rate was controlled. Oil Field Pumper was concerned about starting anticoagulation due to encephalopathy and thrombocytopenia. Patient spontaneously converted to sinus rhythm. Urine culture revealed E. coli. Patient received antibiotics for urinary tract infection , status post treatment. Patient also undergone treatment one time with 2 g of Flagyl for Trichomonas. Patient remained afebrile, no leukocytosis . Infectious disease specialist recommended to keep patient off antibiotic . During anemia workup noted severe B12 deficiency. Patient started on B12 supplements. Per superintendent tests, dizziness could be possibly related to B12 deficiency. Patient was working with physical therapist. Fall precaution maintained. Dizziness improved. Venous Duplex bilateral lower extremity revealed no evidence of acute DVT. Pulse oximetry was stable on room air. TSH was within normal limits. Levothyroxine was continued. Supportive care provided. Pain management was addressed as needed. Bedside swallow evaluation revealed mild or worsening oropharyngeal dysphagia. Diet provided as per speech therapist recommendation with strict aspiration / reflux precautions and one-to-one assistance. Patient was able to tolerate diet. Blood sugar was closely monitored. Patient with s evidence of pancytopenia. 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 Anemia workup revealed evidence of B12 deficiency as noted above and component of iron deficiency, status post intravenous iron administration. Stool for occult blood was negative. Hepatitis serology was negative. Per fitness consultant , pancytopenia was secondary to cirrhosis and splenomegaly. Hemoglobin and hematocrit were closely monitored with goal to keep hemoglobin above 7, remained at baseline. Prior to discharge WBC 3.4 ,hemoglobin 10.5 ,hematocrit 20.5, platelet count 59. Neurologist recommended to follow-up with her as outpatient. Mental status improved as ammonia trending down. Patient clinically stabilized. No abdominal pain. Mental status improved. Dizziness improved. Patient was stable for discharge home with home health services for skilled physical therapy. FINAL DIAGNOSES: Atrial fibrillation , new onset-resolved Chronic liver disease Esophageal varices, s/p bending Gastritis Gastric polyp Hepatic encephalopathy Severe B12 deficiency Dizziness , possibly related to B12 deficient deficiency Diabetes mellitus Hypertension Seizure disorder E. coli UTI . status post treatment Trichomoniasis, status psot treatment Pancytopenia secondary to cirrhosis with splenomegaly Anemia with component of iron deficiency, s/p IV iron DISCHARGE MEDICATIONS: See Medication Reconciliation list. DISCHARGE INSTRUCTIONS: Patient was discharged home with home health services. Follow up with primary care provider in one week. Follow-up with neurologist as outpatient. Follow-up with GI specialist in 4-6 weeks to repeat endoscopy and esophageal varices bending I have been assigned to dictate discharge summary for this account. I was not involved in the patient's management. Radha Santillan NP Oct 21, 2018 12:45
== END 2018-10-18 19:12 | disposition home health service (06) | DRG 421 ==
LOC: EMR 15:14 → EDBEDREQ 17:07 → 2E 17:23 → 4E 10-08 14:50
DX: E53.8 Deficiency of other specified B group vitamins (principal); D61.818 Other pancytopenia; I85.10 Secondary esophageal varices without bleeding; E46 Unspecified protein-calorie malnutrition; D69.6 Thrombocytopenia, unspecified; I48.91 Unspecified atrial fibrillation; A59.00 Urogenital trichomoniasis, unspecified; N39.0 Urinary tract infection, site not specified; D50.9 Iron deficiency anemia, unspecified; E11.9 Type 2 diabetes mellitus without complications; B96.20 Unspecified Escherichia coli [E. coli] as the cause of diseases classified elsewhere; K72.90 Hepatic failure, unspecified without coma; E03.9 Hypothyroidism, unspecified; I10 Essential (primary) hypertension; R42 Dizziness and giddiness; Z68.36 Body mass index [BMI] 36.0-36.9, adult; G40.909 Epilepsy, unspecified, not intractable, without status epilepticus; K74.60 Unspecified cirrhosis of liver; K31.7 Polyp of stomach and duodenum; K29.50 Unspecified chronic gastritis without bleeding
CPT/HCPCS: 36415; 70450; 70551; 76700; 80048; 80053; 80061; 80076; 81001; 82140; 82248; 82270; 82378; 82607; 82728; 82746; 82962; 83540; 83550; 83735; 84100; 84439; 84443; 85007; 85025; 85044; 85610; 85651; 85730; 86140; 86705; 86709; 86803; 87086; 87181; 87340; 93005; 93306; 93880; 93970; 94003; 94150; 94664; 96365; 96368; 99285; J2250; J2405; J8499